=== PATIENT | male | born 1935 | race African-American/Black ===

== ENCOUNTER 2018-06-18 00:19 | Emergency (ER) | payer MEDICARE, MEDICAID ==
[~2018-06-18] VITALS: Ht 177.8 cm; Wt 63.5 kg
[~2018-06-18 00:19] MED LIST: ACETAMINOPHEN325 M1 ORAL; AMLODIPINE BESYL5 MG ORAL; ASPIR 8181 MG ORAL; ATORVASTATIN CA20 MG ORAL; DIPHENHYDRAMINE25 M1 ORAL; IPRATROPIU0.2 MG/1 M HHN; LOVENOX10 M4 SUBQ
--- NOTE | 2018-06-18 00:50 | Emergency Room Report ---
History of Present Illness General Chief Complaint: General Complaint Source: Patient, Medical Record, EMS Present Illness HPI Is an 82-year-old male who was just admitted to a new group home today. He was sent here for chief complaint of confusion and cough. Also with increased urination. Patient has no complaint. He denies any pain. This is secondary to group home note. There is no fever chills but no nausea no vomiting. Supposedly the cough is nonproductive in nature. Allergies: Coded Allergies: No Known Allergies (Unverified , 06/18/18) Patient History Past Medical History: see triage record, old chart reviewed, HTN Past Surgical History: other Pertinent Family History: none Social History: Reports: smoking Immunizations: other Reviewed Nursing Documentation: PMH: Agreed; PSxH: Agreed Nursing Documentation-PMH Hx Hypertension: Yes Review of Systems Eye: Denies: eye pain, blurred vision ENT: Denies: ear pain, nose congestion, throat swelling Respiratory: Reports: cough; Denies: shortness of breath Cardiovascular: Denies: chest pain, palpitations Gastrointestinal: Denies: abdominal pain, diarrhea, nausea, vomiting Musculoskeletal: Denies: back pain, joint pain Skin: Denies: rash Neurological: Denies: headache, numbness Endocrine: Denies: increased thirst, increased urine Hematologic/Lymphatic: Denies: easy bruising All Other Systems: negative except mentioned in HPI Physical Exam Vital Signs Date Time Temp Pulse Resp B/P (MAP) Pulse Ox O2 Delivery O2 Flow Rate FiO2 06/18/18 00:02 98.4 82 18 132/74 98 Room Air 98.4 vitals normal Sp02 EP Interpretation: reviewed, normal General Appearance: well appearing, no apparent distress, alert Head: normocephalic, atraumatic Eyes: bilateral eye PERRL, bilateral eye EOMI ENT: hearing grossly normal, normal pharynx Neck: full range of motion, supple, no meningismus Respiratory: chest non-tender, lungs clear, normal breath sounds Cardiovascular #1: regular rate, rhythm, no murmur Gastrointestinal: normal bowel sounds, non tender, no mass, no organomegaly, no bruit, non-distended Musculoskeletal: back normal, gait/station normal, normal range of motion Neurologic: alert, other - patient oriented to name and place. Does not know the year Psychiatric: mood/affect normal Skin: warm/dry Medical Decision Making Diagnostic Impression: Primary Impression: UTI (urinary tract infection) Qualified Codes: N30.00 - Acute cystitis without hematuria Additional Impression: Dementia Qualified Codes: F03.90 - Unspecified dementia without behavioral disturbance ER Course Patient presents with altered mental status. There is no evidence of any stroke. No evidence of pneumonia. He does have infection the urine. He most likely has dementia. Lab Results Impression labs normal Rhythm Strip Diag. Results Rhythm Strip Time: 02:04 EP Interpretation: yes Rate: 80 Rhythm: NSR, no PVC's, no ectopy Chest X-Ray Diagnostic Results Chest X-Ray Diagnostic Results : Chest X-Ray Ordered: Yes # of Views/Limited/Complete: 1 View Indication: Shortness of Breath EP Interpretation: Yes Interpretation: no consolidation, no effusion, no pneumothorax, no acute cardiopulmonary disease Impression: No acute disease Electronically Signed by: Anatoly Lipscomb MD CT/MRI/US Diagnostic Results CT/MRI/US Diagnostic Results : Imaging Test Ordered: CT head Impression negative per radiologist Last Vital Signs Date Time Temp Pulse Resp B/P (MAP) Pulse Ox O2 Delivery O2 Flow Rate FiO2 06/18/18 00:02 98.4 82 18 132/74 98 Room Air 98.4 Status: improved Disposition: XFER SNF Condition: Stable Scripts Cephalexin* (KEFLEX*) 500 Mg Capsule 500 MG ORAL TID, #21 CAP Prov: ANATOLY LIPSCOMB M.D. 06/18/18 Additional Instructions: Follow-up with your doctor in 7 days. Return if symptom worsen. ANATOLY LIPSCOMB M.D. Jun 18, 2018 00:50
[2018-06-18 00:59] LABS: BASOPHILS % (AUTO) 2.2 % (0.0-2.0); EOSINOPHILS % (AUTO) 4.9 % (0.0-3.0); HEMATOCRIT 32.5 % (42.0-52.0); HEMOGLOBIN 10.3 G/DL (14.2-18.0); MEAN CORPUSCULAR VOLUME 84 FL (80-99); MONOCYTES % (AUTO) 15.2 % (1.0-10.0); NEUTROPHILS % (AUTO) 57.7 % (45.0-75.0); PLATELET COUNT 296 K/UL (150-450); RED BLOOD COUNT 3.88 M/UL (4.70-6.10); RED CELL DISTRIBUTION WIDTH 14.1 % (11.6-14.8); WHITE BLOOD COUNT 5.6 K/UL (4.8-10.8)
[2018-06-18 01:11] LABS: ANION GAP 5 mmol/L (5-15); BLOOD UREA NITROGEN 9 mg/dL (7-18); CALCIUM 9.3 MG/DL (8.5-10.1); CARBON DIOXIDE 30 MMOL/L (21-32); CHLORIDE 105 MMOL/L (98-107); CREATININE 0.9 MG/DL (0.55-1.30); POTASSIUM 3.8 MMOL/L (3.5-5.1); SODIUM 139 MMOL/L (136-145)
[2018-06-18 01:44] LABS: BILIRUBIN, URINE NEGATIVE (NEGATIVE); GLUCOSE, URINE (UA) NEGATIVE (NEGATIVE); KETONES,URINE NEGATIVE (NEGATIVE); LEUKOCYTE ESTERASE ,URINE 3+ (NEGATIVE); NITRITE,URINE NEGATIVE (NEGATIVE); PH,URINE 5 (4.5-8.0); PROTEIN,URINE 1+ (NEGATIVE); UROBILINOGEN,URINE NORMAL (NORMAL)
[2018-06-18 01:52] LABS: APPEARANCE,URINE SLIGHTLY CLOUDY; COLOR,URINE YELLOW
[2018-06-18] MEDS ORDERED: CEPHALEXIN500 MG ORAL (02:05)
[2018-06-18] MEDS ORDERED: cefTRIAXone 1 GM in NS 55 ML IVPB ONE (02:15)
[2018-06-18 02:51] VITALS: BP 103/35
[2018-06-18 02:56] VITALS: BP 103/35
--- NOTE | 2018-06-18 08:53 | Diagnostic Imaging Report ---
Indication: Altered mental status Technique: Continuous helical CT scanning of the head was performed utilizing automated exposure control without intravenous contrast material. Axial and coronal reconstructions were obtained. Comparison: None CT dose: Total DLP 1295.15 mGycm; CTDI vol 70.38 mGy Findings: There is no acute intracranial hemorrhage, mass effect or cortical edema. Incidental note is made of septum vergae, considered a normal anatomic variant. Ventricles, cisterns and sulci are prominent consistent with atrophy. Periventricular hypoattenuation is seen, a nonspecific finding. There are atherosclerotic vascular calcifications. There are mild basal ganglia calcifications. Visualized mastoid air cells and paranasal sinuses are unremarkable. No focal lesions of the bony calvarium or soft tissues of the scalp are seen. IMPRESSION: No evidence of acute intracranial hemorrhage, mass effect or cortical edema. MRI may be obtained for more sensitive evaluation as clinically indicated. Atrophy and nonspecific periventricular hypoattenuation suggestive of chronic ischemic microvascular changes. This corresponds with the statrad preliminary report. The CT scanner at [facility] is accredited by the [employer] and the scans are performed using protocols designed to limit radiation exposure to as low as reasonably achievable to attain images of sufficient resolution adequate for diagnostic evaluation.
--- NOTE | 2018-06-18 08:56 | Diagnostic Imaging Report ---
Indication: Shortness of breath Technique: XRAY Chest 1v Comparison: None Findings: Heart size and mediastinal contours are within normal limits for technique. Multiple radiopaque buttons overlie the upper chest, external to the patient. There are some clips overlying the midline which may be postsurgical in etiology or may also be external to the patient. There is no focal consolidation, pneumothorax or pleural effusion. There are degenerative changes in the spine. Osseous structures demonstrate no acute abnormality. Impression: No radiographic evidence of acute cardiopulmonary disease.
== END 2018-06-18 02:58 ==
LOC: EDBD 00:19 → EMR 00:43
DX: N39.0 Urinary tract infection, site not specified (principal); F03.90 Unspecified dementia, unspecified severity, without behavioral disturbance, psychotic disturbance, mood disturbance, and anxiety; I10 Essential (primary) hypertension
CPT/HCPCS: 36415; 70450; 71045; 80048; 81001; 85025; 87086; 99284; J0696

== ENCOUNTER 2020-01-29 13:30 | Emergency (ER) | payer MEDICARE, OTHER ==
[~2020-01-29] VITALS: Ht 175.3 cm; Wt 63.5 kg
[~2020-01-29 13:30] MED LIST changes: +CEPHALEXIN500 MG ORAL
[2020-01-29 13:35] VITALS: BP 116/70
[2020-01-29] MEDS ORDERED: TRAMADOL HCL50 MG ORAL (13:40)
[2020-01-29] MEDS ORDERED: AMBIEN5 MG ORAL (13:40)
--- NOTE | 2020-01-29 13:58 | Emergency Room Report ---
History of Present Illness General Chief Complaint: Upper Respiratory Illness Source: Patient Present Illness HPI Disclaimer: Please note that this report is being documented using DRAGON technology. This can lead to erroneous entry secondary to incorrect interpretation by the dictating instrument. HPI: 84-year-old male history of hypertension hyperlipidemia, occasional smoker , presents for evaluation of cough. Symptoms present 1 week. Notes a nonproductive cough though sometimes will bring up some green phlegm. Denies fever, chills, nasal congestion, sore throat, shortness of breath, chest pain, nausea, vomiting, diarrhea. Denies any rash or other changes in his health. Denies any changes in appetite. Family brought him in for evaluation. No known sick contacts. No recent travel. PMH: Hypertension, hyperlipidemia PSH: Reviewed Allergies: Denies Social Hx: Occasional tobacco use, occasional alcohol use COVID-19 risk:Contact w/high r: No COVID-19 risk:Travel to affect: No Has patient experienced emerson: No Coronavirus symptoms experienc: Cough Allergies: Coded Allergies: No Known Allergies (Unverified , 06/18/18) Nursing Documentation-PMH Past Medical History: No History, Except For Hx Cardiac Problems: No - alzheimer Hx Hypertension: Yes Review of Systems All Other Systems: negative except mentioned in HPI Physical Exam Vital Signs Date Time Temp Pulse Resp B/P (MAP) Pulse Ox O2 Delivery O2 Flow Rate FiO2 01/29/20 13:35 98.8 80 18 116/70 (85) 95 Room Air General: Awake and alert, no acute distress HEENT: NC/AT. EOMI. Neck: Supple, trachea midline Chest Wall: No tenderness, no deformity Cardiovascular: RRR. S1 and S2 normal. No murmur appreciated Resp: Normal work of breathing. Intermittent cough throughout the exam. No crackles. Abdomen: Abdomen is soft, nondistended. Nontender Skin: Intact. No abrasions, laceration or rash over the exposed skin MSK: Normal tone and bulk. Moving all extremities. No obvious deformity. Neuro: Awake and alert. Mentating appropriately. Back/Spine: No midline tenderness in the cervical, thoracic or lumbosacral spine. Medical Decision Making Diagnostic Impression: Primary Impression: Cough ER Course 84-year-old male presents for evaluation of 1 week of cough. Differential includes was not limited to viral syndrome, influenza, pneumonia, bronchitis to name a few. He arrives with stable vital signs, afebrile, no respiratory distress. Overall he is well-appearing. Will obtain chest x-ray, flu swab and blood work. Laboratory Tests Test 01/29/20 14:00 White Blood Count 6.5 K/UL (4.8-10.8) Red Blood Count 4.07 M/UL (4.70-6.10) L Hemoglobin 11.5 G/DL (14.2-18.0) L Hematocrit 34.3 % (42.0-52.0) L Mean Corpuscular Volume 84 FL (80-99) Mean Corpuscular Hemoglobin 28.2 PG (27.0-31.0) Mean Corpuscular Hemoglobin Concent 33.5 G/DL (32.0-36.0) Red Cell Distribution Width 13.1 % (11.6-14.8) Platelet Count 320 K/UL (150-450) Mean Platelet Volume 5.8 FL (6.5-10.1) L Neutrophils (%) (Auto) 65.8 % (45.0-75.0) Lymphocytes (%) (Auto) 16.6 % (20.0-45.0) L Monocytes (%) (Auto) 13.9 % (1.0-10.0) H Eosinophils (%) (Auto) 2.0 % (0.0-3.0) Basophils (%) (Auto) 1.8 % (0.0-2.0) Sodium Level 145 MMOL/L (136-145) Potassium Level 4.0 MMOL/L (3.5-5.1) Chloride Level 107 MMOL/L (98-107) Carbon Dioxide Level 28 MMOL/L (21-32) Anion Gap 10 mmol/L (5-15) Blood Urea Nitrogen 14 mg/dL (7-18) Creatinine 0.9 MG/DL (0.55-1.30) Estimated Glomerular Filtration Rate > 60 mL/min (>60) Glucose Level 70 MG/DL (74-106) L Calcium Level 9.3 MG/DL (8.5-10.1) Total Bilirubin 0.3 MG/DL (0.2-1.0) Aspartate Amino Transferase (AST) 17 U/L (15-37) Alanine Aminotransferase (ALT) 13 U/L (12-78) Alkaline Phosphatase 56 U/L (46-116) Total Protein 7.8 G/DL (6.4-8.2) Albumin 3.3 G/DL (3.4-5.0) L Globulin 4.5 g/dL Albumin/Globulin Ratio 0.7 (1.0-2.7) L Microbiology Date/Time Source Procedure Growth Status 01/29/20 14:00 Nasal Nares - Final Complete 01/29/20 14:00 Nasal Nares - Final Complete Chest X-Ray Diagnostic Results Chest X-Ray Diagnostic Results : Chest X-Ray Ordered: Yes # of Views/Limited/Complete: 1 View Indication: Shortness of Breath EP Interpretation: Yes Interpretation: no consolidation, no effusion, no pneumothorax, no acute cardiopulmonary disease Impression: No acute disease Electronically Signed by: Electronically signed by Dr. Mg Light Reevaluation Time: 15:05 Last Vital Signs Date Time Temp Pulse Resp B/P (MAP) Pulse Ox O2 Delivery O2 Flow Rate FiO2 01/29/20 13:35 98.8 80 18 116/70 (85) 95 Room Air Reevaluation Impression Labs within normal limits. Chest x-ray does not show evidence of infiltrate. Lungs are hyperexpanded consistent with COPD. The patient has no respiratory distress and vital signs remained stable. He is afebrile. Discussed with his PMD, Dr. Crump. Patient will be discharged with doxycycline. I will prescribe albuterol inhaler. Follow-up on an outpatient basis and return with new or worsening symptoms. Recommending isolation precautions to patient and family. Disposition: HOME, SELF-CARE Condition: Stable Scripts Doxycycline Monohydrate* (DOXYCYCLINE MONOHYDRATE*) 100 Mg Capsule 100 MG ORAL Q12H, #14 CAP 0 Refills Prov: Mg Light MD 01/29/20 Albuterol Sulfate* (ALBUTEROL SULFATE MDI*) 8.5 Gm Hfa.aer.ad 2 PUFF INH Q4H PRN for cough/wheezing, #1 EA 0 Refills Prov: Mg Light MD 01/29/20 Mg Light MD Jan 29, 2020 13:58
[2020-01-29 14:31] LABS: ANION GAP 10 mmol/L (5-15); BLOOD UREA NITROGEN 14 mg/dL (7-18); CALCIUM 9.3 MG/DL (8.5-10.1); CARBON DIOXIDE 28 MMOL/L (21-32); CHLORIDE 107 MMOL/L (98-107); CREATININE 0.9 MG/DL (0.55-1.30); SODIUM 145 MMOL/L (136-145)
[2020-01-29 14:37] LABS: ALANINE AMINOTRANSFERASE 13 U/L (12-78); ALBUMIN 3.3 G/DL (3.4-5.0); ALBUMIN/GLOBULIN RATIO 0.7 (1.0-2.7); ALKALINE PHOSPHATASE 56 U/L (46-116); ASPARTATE AMINO TRANSFERASE 17 U/L (15-37); BILIRUBIN,TOTAL 0.3 MG/DL (0.2-1.0)
[2020-01-29 14:40] LABS: BASOPHILS % (AUTO) 1.8 % (0.0-2.0); HEMATOCRIT 34.3 % (42.0-52.0); HEMOGLOBIN 11.5 G/DL (14.2-18.0); LYMPHOCYTES % (AUTO) 16.6 % (20.0-45.0); MEAN CORPUSCULAR VOLUME 84 FL (80-99); MONOCYTES % (AUTO) 13.9 % (1.0-10.0); NEUTROPHILS % (AUTO) 65.8 % (45.0-75.0); PLATELET COUNT 320 K/UL (150-450); RED BLOOD COUNT 4.07 M/UL (4.70-6.10); RED CELL DISTRIBUTION WIDTH 13.1 % (11.6-14.8); WHITE BLOOD COUNT 6.5 K/UL (4.8-10.8)
--- NOTE | 2020-01-29 14:44 | Diagnostic Imaging Report ---
Indication: Dyspnea Comparison: None A single view chest radiograph was obtained. Findings: No definite infiltrate or pulmonary vascular congestion identified. The lungs are hyperexpanded. No infiltrate seen. The heart is normal in size. The aorta is mildly enlarged consistent with atherosclerotic vascular disease. The bones are osteopenic. There are thoracic vertebral enthesophytes at multiple levels. Impression: COPD
[2020-01-29] MEDS ORDERED: ALBUTEROL SULF8.5 GM INH (15:01)
[2020-01-29] MEDS ORDERED: DOXYCYCLINE MO100 MG ORAL (15:01)
[2020-01-29 15:08] VITALS: BP 145/6
== END 2020-01-29 15:08 | disposition home or self-care (01) ==
LOC: EMR 14:19
DX: R05 Cough (principal); I10 Essential (primary) hypertension; G30.9 Alzheimer's disease, unspecified
CPT/HCPCS: 36415; 71045; 80053; 85025; 86710; 99283

== ENCOUNTER 2020-06-04 13:16 | Inpatient (IN) | payer MEDICARE, OTHER ==
[~2020-06-04] VITALS: Ht 167.6 cm; Wt 55.8 kg
[~2020-06-04 13:16] MED LIST changes: +ALBUTEROL SULF8.5 GM INH; +AMBIEN5 MG ORAL; +DOXYCYCLINE MO100 MG ORAL; +TRAMADOL HCL50 MG ORAL
--- NOTE | 2020-06-04 13:30 | NUR ---
ED Nurse Note: Pt ambulated to ED with daughter, trell. per daughter; pt fell twice in the last two weeks, pt has history of alziehmers and is more confused today. Addendum: 06/04/20 at 1639 by PDELEON ED Nurse Note: telephone report given to MIRLANDE Zavaleta for continuity.
[2020-06-04 13:43] VITALS: BP 127/68
--- NOTE | 2020-06-04 13:53 | NUR ---
ED Nurse Note: Pt taken to Ct on fil[facility]
--- NOTE | 2020-06-04 13:54 | Emergency Room Report ---
History of Present Illness General Chief Complaint: Dizziness Source: Family Member (Jv Ventura M.D.) Present Illness HPI Disclaimer: Please note that this report is being documented using [employer] technology. This can lead to erroneous entry secondary to incorrect interpretation by the dictating instrument. HPI: 84-year-old male history of Alzheimer's dementia, hypertension presented for dizziness and syncope. Patient brought in by granddaughter. Apparently over the last 2 weeks patient has had a few "dizzy spells", one a few days ago where he passed out and another this morning. Patient has no complaints on my exam but does have a history of Alzheimer's dementia. Patient is on a baby aspirin but otherwise does not take any anticoagulants. He denies any chest pain shortness of breath fevers nausea or vomiting. Primary care doctor is Dr. Tayo Crump " PMH: Alzheimer's, hypertension PSH: Reviewed Social Hx: Former smoker denies drinking or illicit drug use (Jv Ventura M.D.) Allergies: Coded Allergies: No Known Allergies (Unverified , 06/18/18) COVID-19 Screening Contact w/high risk pt: No Recent Travel to affected area: No Experienced COVID-19 symptoms?: No COVID-19 symptoms experienced: Cough COVID-19 Testing performed [facility]: No (Jv Ventura M.D.) Patient History Reviewed Nursing Documentation: PMH: Agreed; PSxH: Agreed (Jv Ventura M.D.) Nursing Documentation-PMH Hx Cardiac Problems: No - alzheimer Hx Hypertension: Yes (Jv Ventura M.D.) Review of Systems All Other Systems: negative except mentioned in HPI (Jv Ventura M.D.) Physical Exam Vital Signs Date Time Temp Pulse Resp B/P (MAP) Pulse Ox O2 Delivery O2 Flow Rate FiO2 06/04/20 13:26 98.6 59 16 127/68 (87) 96 Room Air Sp02 EP Interpretation: reviewed, normal General Appearance: well appearing, no apparent distress Head: normocephalic, atraumatic Eyes: bilateral eye PERRL, bilateral eye EOMI ENT: hearing grossly normal, moist mucus membranes Neck: full range of motion, supple Respiratory: lungs clear, normal breath sounds, no rhonchi, no respiratory distress, no retraction, no wheezing Cardiovascular #1: normal peripheral pulses, regular rate, rhythm, no murmur Gastrointestinal: non tender, soft, non-distended, no guarding Neurologic: alert, motor strength/tone normal, normal gait, grossly normal, no focal defects, other - Alert and oriented x2 Skin: normal color, warm/dry (Jv Ventura M.D.) Medical Decision Making Diagnostic Impression: Primary Impression: Syncope Additional Impressions: Alzheimer's dementia HTN (hypertension) Bradycardia ER Course MDM: Differential included but not limited to syncope, arrhythmia, dehydration, UTI, worsening dementia Clinical course-IV inserted fluids ordered laboratory studies are sent CT scan of the brain ordered. I spoke with the granddaughter who was concerned about the 2 episodes of dizzy spells and passing out. She denied any other complaints for him including vomiting. She reports that he has been eating okay. Patient currently lives with family. Plan-patient signed out to oncoming physician to follow-up on laboratory studies and final disposition. (Jv Ventura M.D.) ER Course I, Dr Joya Miles, have assumed care of the patient. Initial workup, history , and physical performed by previous provider has been reviewed by myself and I have performed my own physical exam of the patient. On my examination, patient is neurologically intact. No focal deficits. EKG shows sinus bradycardia without STEMI or acute ischemia. CT head is negative for intracranial hemorrhage. Troponin negative x1. Suspect recurrent syncope secondary to bradycardia. Patient is stable at this time. I spoke with Dr. Crump, and reviewed the patients presentation, workup, results , and treatment. They will admit the patient for further care and evaluation, and assume care of the patient at this time. (oJya Miles D.O.) EKG Diagnostic Results Rate: bradycardiac Rhythm: other - Sinus bradycardia with PACs ST Segments: no acute changes (Jv Ventura M.D.) Rhythm Strip Diag. Results Rhythm Strip Time: 15:51 EP Interpretation: yes Rate: 79 Rhythm: NSR, no PVC's, no ectopy (Joya Miles D.O.) Chest X-Ray Diagnostic Results Chest X-Ray Diagnostic Results : RICHIE Scribe Text Chest X-Ray: Views: [ 1 ] view(s) Indication: syncope Findings: Normal heart size. Mediastinum normal. No infiltrate. Impression: NAD The X-ray(s) were independently viewed and interpreted contemporaneously Electronically signed by Joya ochoa DO (Joya Miles D.O.) Last Vital Signs Date Time Temp Pulse Resp B/P (MAP) Pulse Ox O2 Delivery O2 Flow Rate FiO2 06/04/20 13:43 98.6 59 16 127/68 96 Room Air (Jv Ventura M.D.) Disposition: ADMITTED INPATIENT Admit Decision Time: 14:30 (Joya Miles D.O.) Condition: Stable vJ Ventura M.D. Jun 04, 2020 13:54 Joya Miles D.O. Jun 04, 2020 14:50
--- NOTE | 2020-06-04 14:19 | NUR ---
ED Nurse Note: Urine specimen collected via I&O catheter. pt tolerated well. urine specimen sent to lab
--- NOTE | 2020-06-04 14:19 | Diagnostic Imaging Report ---
Indications: Syncope Technique: Spiral acquisitions obtained through the brain. Angled axial and coronal 5 x 5 mm slices were reconstructed. Total dose length product 1018 mGycm. CTDI vol(s) 53 mGy. Dose reduction achieved using automated exposure control Comparison: None. Findings: There is age-related enlargement of the ventricles and extra axial CSF spaces. There is periventricular deep white matter low-attenuation, consistent with chronic microvascular ischemic change. There is a patent cavum septum lucidum-normal variant. No acute intracranial hemorrhage or edema. No mass effect or midline shift. Otherwise normal clifford-white differentiation. Intact calvarium. The mastoids are clear. Visualized orbits are unremarkable. There is some chronic appearing inward displacement of the medial orbital wall on the right. Impression: Chronic and age-related changes Negative for acute intracranial bleed or mass effect. The CT scanner at [facility] is accredited by the [employer] and the scans are performed using protocols designed to limit radiation exposure to as low as reasonably achievable to attain images of sufficient resolution adequate for diagnostic evaluation.
[2020-06-04 14:22] LABS: BASOPHILS % (AUTO) 2.9 % (0.0-2.0); EOSINOPHILS % (AUTO) 7.5 % (0.0-3.0); HEMATOCRIT 36.9 % (42.0-52.0); HEMOGLOBIN 11.6 G/DL (14.2-18.0); LYMPHOCYTES % (AUTO) 29.5 % (20.0-45.0); MEAN CORPUSCULAR VOLUME 89 FL (80-99); MONOCYTES % (AUTO) 13.8 % (1.0-10.0); NEUTROPHILS % (AUTO) 46.3 % (45.0-75.0); PLATELET COUNT 257 K/UL (150-450); RED BLOOD COUNT 4.15 M/UL (4.70-6.10); RED CELL DISTRIBUTION WIDTH 13.8 % (11.6-14.8); WHITE BLOOD COUNT 4.9 K/UL (4.8-10.8)
[2020-06-04 14:31] LABS: ANION GAP 7 mmol/L (5-15); BLOOD UREA NITROGEN 14 mg/dL (7-18); CALCIUM 9.5 MG/DL (8.5-10.1); CARBON DIOXIDE 28 MMOL/L (21-32); CHLORIDE 105 MMOL/L (98-107); POTASSIUM 4.2 MMOL/L (3.5-5.1); SODIUM 140 MMOL/L (136-145)
--- NOTE | 2020-06-04 14:33 | NUR ---
ED Nurse Note: *correction Pt arrived with Saumya Parul Kobe. per granddaughter the pt confuses her for her mother trell. Parul phone number: [phone]
[2020-06-04 14:41] LABS: ALANINE AMINOTRANSFERASE 12 U/L (12-78); ALBUMIN 3.9 G/DL (3.4-5.0); ALKALINE PHOSPHATASE 53 U/L (46-116); ASPARTATE AMINO TRANSFERASE 19 U/L (15-37); BILIRUBIN,TOTAL 0.3 MG/DL (0.2-1.0)
[2020-06-04 14:53] LABS: APPEARANCE,URINE CLEAR; BILIRUBIN, URINE NEGATIVE (NEGATIVE); GLUCOSE, URINE (UA) NEGATIVE (NEGATIVE); KETONES,URINE NEGATIVE (NEGATIVE); LEUKOCYTE ESTERASE ,URINE NEGATIVE (NEGATIVE); NITRITE,URINE NEGATIVE (NEGATIVE); PH,URINE 6 (4.5-8.0); PROTEIN,URINE NEGATIVE (NEGATIVE); UROBILINOGEN,URINE NORMAL MG/DL (0.0-1.0)
[2020-06-04 14:54] LABS: COLOR,URINE YELLOW
[2020-06-04 15:43] VITALS: BP 133/79
--- NOTE | 2020-06-04 15:45 | NUR ---
ED Nurse Note: Pt urinated onself. pt changed out of clothing, placed into new gown. new linens were provided. pt given x2 warm blankets. IV fluids discontinued.
--- NOTE | 2020-06-04 15:47 | Diagnostic Imaging Report ---
Indication: Chest pain Technique: One view of the chest Comparison: 01/29/2020 Findings: No acute infiltrates, effusions, or congestion. Tortuous calcified aorta. Normal heart size. Upper mediastinum unremarkable. No significant change Impression: No acute process.
--- NOTE | 2020-06-04 16:05 | NUR ---
ED Nurse Note: bed assignment 212-2 given, was informed to wait until room is clean to transfer pt.
--- NOTE | 2020-06-04 16:14 | NUR ---
ED Nurse Note: Informed Granddaughter Parul, about pt transfer to TELE
--- NOTE | 2020-06-04 16:15 | NUR ---
ED Nurse Note: Attempted to give report for 212-2. unable to complete task at this time. informed CRN.
--- NOTE | 2020-06-04 16:40 | NUR ---
TRANSFER TO FLOOR: Patient transferred to tele as ordered, per ermd. Report given to sonal abbott. Belongings given to sonal abbott and page baker. Family (PAGE) granddaughter informed of transfer
[2020-06-04 16:50] VITALS: BP 124/73
--- NOTE | 2020-06-04 18:01 | Cardiac Electrophysiology PN ---
Subjective Subjective [id number] Objective Last 24 Hour Vital Signs Date Time Temp Pulse Resp B/P (MAP) Pulse Ox O2 Delivery O2 Flow Rate FiO2 06/04/20 16:48 98.7 74 15 124/73 97 Room Air 06/04/20 15:43 98.6 76 16 133/79 96 Room Air 06/04/20 13:43 98.6 59 16 127/68 96 Room Air 06/04/20 13:43 59 16 Room Air 06/04/20 13:26 98.6 59 16 127/68 (87) 96 Room Air Laboratory Tests Test 06/04/20 13:41 06/04/20 14:18 White Blood Count 4.9 K/UL (4.8-10.8) Red Blood Count 4.15 M/UL (4.70-6.10) L Hemoglobin 11.6 G/DL (14.2-18.0) L Hematocrit 36.9 % (42.0-52.0) L Mean Corpuscular Volume 89 FL (80-99) Mean Corpuscular Hemoglobin 27.9 PG (27.0-31.0) Mean Corpuscular Hemoglobin Concent 31.4 G/DL (32.0-36.0) L Red Cell Distribution Width 13.8 % (11.6-14.8) Platelet Count 257 K/UL (150-450) Mean Platelet Volume 6.4 FL (6.5-10.1) L Neutrophils (%) (Auto) 46.3 % (45.0-75.0) Lymphocytes (%) (Auto) 29.5 % (20.0-45.0) Monocytes (%) (Auto) 13.8 % (1.0-10.0) H Eosinophils (%) (Auto) 7.5 % (0.0-3.0) H Basophils (%) (Auto) 2.9 % (0.0-2.0) H Sodium Level 140 MMOL/L (136-145) Potassium Level 4.2 MMOL/L (3.5-5.1) Chloride Level 105 MMOL/L (98-107) Carbon Dioxide Level 28 MMOL/L (21-32) Anion Gap 7 mmol/L (5-15) Blood Urea Nitrogen 14 mg/dL (7-18) Creatinine 1.0 MG/DL (0.55-1.30) Estimat Glomerular Filtration Rate > 60 mL/min (>60) Glucose Level 89 MG/DL (74-106) Calcium Level 9.5 MG/DL (8.5-10.1) Total Bilirubin 0.3 MG/DL (0.2-1.0) Aspartate Amino Transf (AST/SGOT) 19 U/L (15-37) Alanine Aminotransferase (ALT/SGPT) 12 U/L (12-78) Alkaline Phosphatase 53 U/L (46-116) Troponin I 0.000 ng/mL (0.000-0.056) Total Protein 7.8 G/DL (6.4-8.2) Albumin 3.9 G/DL (3.4-5.0) Globulin 3.9 g/dL Albumin/Globulin Ratio 1.0 (1.0-2.7) Urine Color Yellow Urine Appearance Clear Urine pH 6 (4.5-8.0) Urine Specific [place] 1.015 (1.005-1.035) Urine Protein Negative (NEGATIVE) Urine Glucose (UA) Negative (NEGATIVE) Urine Ketones Negative (NEGATIVE) Urine Blood 3+ (NEGATIVE) H Urine Nitrite Negative (NEGATIVE) Urine Bilirubin Negative (NEGATIVE) Urine Urobilinogen Normal MG/DL (0.0-1.0) Urine Leukocyte Esterase Negative (NEGATIVE) Urine RBC 5-10 /HPF (0 - 0) H Urine WBC 0-2 /HPF (0 - 0) Urine Squamous Epithelial Cells Occasional /LPF Urine Bacteria Occasional /HPF (NONE) Maurilio Lares MD Jun 04, 2020 18:01
--- NOTE | 2020-06-04 18:53 | NUR ---
NURSE NOTES: Requested admission orders on voicemail of Dr. Tayo Crump.
--- NOTE | 2020-06-04 19:00 | Consultation ---
DATE OF CONSULTATION: 06/04/2020 CARDIOLOGY CONSULTATION CONSULTING PHYSICIAN: Maurilio Lares MD REFERRING PHYSICIAN: Tayo Crump DO REASON FOR CONSULTATION: Recurrent syncope and hypertension. HISTORY OF PRESENT ILLNESS: The patient is an 84-year-old gentleman with history of hypertension, Alzheimer's dementia, and recurrent syncope, who was brought in by granddaughter for syncopal episodes. Apparently in the last 2 weeks, the patient has been having dizzy spells a few days ago in the past, but again another time this morning. The patient denies any chest pain, palpitation, or shortness of breath and is pleasantly confused, especially denies any chest pain or shortness of breath REVIEW OF SYSTEMS: Negative other than what was mentioned in the history of present illness. PAST MEDICAL HISTORY: As mentioned above. FAMILY HISTORY: Noncontributory. SOCIAL HISTORY: Does not smoke or drink alcohol. PHYSICAL EXAMINATION: VITAL SIGNS: Blood pressure 127/68, pulse 69, respirations 18, and temperature 98.6. HEAD AND NECK: Showed no JVD. LUNGS: Clear. CARDIOVASCULAR: Shows regular S1 and S2 with no gallop or murmur. ABDOMEN: Soft. EXTREMITIES: No pitting edema. LABORATORY AND DIAGNOSTIC DATA: His labs show white count of 4.9, hemoglobin 11.6, hematocrit 37, and platelet count 257,000. Sodium 140, potassium 4.2, BUN of 14, creatinine 1.9, and glucose of 89. Troponin is negative. ASSESSMENT AND PLAN: 1. Recurrent syncope. Not sure if this is syncope or fall. The patient has dementia and is unable to provide meaningful information. We will completely rule out NM protocol, repeat EKG, and get an echocardiogram for further evaluation carotid duplex, and orthostatic vital signs. 2. Hypertension. Blood pressure currently stable. I will add p.r.n. clonidine and watch the patient on telemetry. 3. Advanced dementia. Thank you very much for allowing me to participate in the care of this patient. Please do not hesitate to contact me for any questions regarding my evaluation. Maurilio Lares M.D. : Gabi JOB#: [id number] CC:
--- NOTE | 2020-06-04 19:46 | NUR ---
HAND-OFF: Report given to Jimy Lopez RN. Patient in semi-Das's position, awake and alert to name and place, confused, bed in lowest position, call light within reach, yellow socks on, yellow gown on, fall risk bracelet on left wrist IV patent in left forearm 20 gauge, saline locked, no c/o pain, no SOB, on room air, saturating at 99 percent. Endorsing remainder ofadmission, message left on Dr. Tayo Crump for admission orders, Dr. Maurilio Lares placed orders and has seen patient.
--- NOTE | 2020-06-04 19:46 | NUR ---
NURSE NOTES: Patient received from Odilon RN. Patient in stable condition calm and comfortable in bed. Patient in yellow gown and yellow socks. Bed alarm on. Bed in lowest position and locked. Bed alarm on at zone 1. No s/s of pain and or distress. Call light and bedside table within reach. Will continue plan of care. Primary MD notified for admit orders. Awaiting call back.
[2020-06-04 20:00] VITALS: BP 135/68
--- NOTE | 2020-06-04 20:24 | NUR ---
NURSE NOTES: Dr. Crump called back for admit orders. Orders verified and carried out.
[2020-06-04] MEDS ORDERED: Zolpidem 5mg tab ORAL PRN (21:15)
[2020-06-04] MEDS ORDERED: traMADol 50mg tab ORAL PRN (21:15)
[2020-06-04] MEDS ORDERED: HydrALAZINE 50mg tab ORAL PRN (21:30)
[2020-06-04] MEDS ORDERED: HydrALAZINE 50mg tab ORAL SCH (22:00)
[2020-06-05] VITALS: BP 117/79
--- NOTE | 2020-06-05 03:13 | NUR ---
NURSE NOTES: Patient keeps getting up in bed. Bed alarm is on at zone 1. Patient wearing yellow gown and yellow socks. Educated patient on using call light for help before getting up in bed. Frequent rounding done. Will continue to monitor.
[2020-06-05 04:00] VITALS: BP 129/69
--- NOTE | 2020-06-05 07:28 | NUR ---
NURSE NOTES: Received patient in bed. Awake, A/O x2, hard of hearing. On room air, respirations unlabored. Denies pain at this time. IV in the Left forearm, site intact. Bed low and locked, side rails up x2. Continued cardiac monitoring, no c/o chest pain or respiratory distress.
--- NOTE | 2020-06-05 07:53 | NUR ---
HAND-OFF: Report given to Jaye SANTOS. Patient in stable condition. Endorsed plan of care. Addendum: 06/05/20 at 0754 by Miguelina Lopez RN HAND-OFF: Report given to Megan SANTOS. Patient in stable condition. Endorsed plan of care.
[2020-06-05 08:00] VITALS: BP 119/75
--- NOTE | 2020-06-05 08:03 | NUR ---
NURSE NOTES: per doctor Kristian Dc doxycycline home med.
--- NOTE | 2020-06-05 08:54 | Diagnostic Imaging Report ---
EXAM: US Duplex Bilateral Extracranial Arteries CLINICAL HISTORY: SYNCOPE TECHNIQUE: Real-time duplex ultrasound scan of the extracranial arteries integrating B-mode two-dimensional vascular structure, Doppler spectral analysis and color flow Doppler imaging. COMPARISON: No relevant prior studies available. FINDINGS: Calcific atherosclerotic disease is noted in the bilateral carotid circulations. No evidence of hemodynamically significantly elevated velocities. Overall, there is attenuated the velocity of flow in the bilateral internal carotid arteries with maximal velocity measured at 59 cm/s on the right and 85 cm on the left. The ICA/CCA ratio is measured at 1.4 on the right and 2 on the left. CAROTID STENOSIS REFERENCE USING SRU CRITERIA: Mild - <50% stenosis. ICA PSV is less than 125 cm/second and plaque or intimal thickening is visible. Moderate - 50-69% stenosis. ICA PSV is 125 to 230 cm/second and plaque is visible. Severe - 70-94% stenosis. ICA PSV is more than 230 cm/second and visible plaque with lumen narrowing is seen. Near occlusion - 95-99% stenosis. ICA PSV is variable and significant plaque with luminal narrowing is seen. Occluded - 100% stenosis. No flow identified. IMPRESSION: Atherosclerotic calcifications of the bilateral carotid circulations. By velocity criteria, there is no evidence of hemodynamically significant stenosis. However, based on left ICA/CCA ratio of 2, there is borderline 50-69% stenosis in the in the left internal carotid artery. Overall decreased velocities in the carotid circulations may be due to poor cardiac output.
[2020-06-05] MEDS ORDERED: Enoxaparin 40mg Inj SUBQ SCH (09:00)
[2020-06-05] MEDS ORDERED: Aspirin EC 81mg tab ORAL SCH (09:00)
--- NOTE | 2020-06-05 11:58 | History & Physical ---
History of Present Illness General Reason for Hospitalization: Dizziness Present Illness Allergies: Coded Allergies: No Known Allergies (Unverified , 06/18/18) COVID-19 Screening Contact w/high risk pt: No Recent Travel to affected area: No Experienced COVID-19 symptoms?: No COVID-19 symptoms experienced: Cough Medication History Scheduled Amlodipine Besylate* (Amlodipine Besylate*), 5 MG ORAL DAILY, (Reported) Aspirin* (Aspir 81*), 81 MG ORAL DAILY, (Reported) Doxycycline Monohydrate* (Doxycycline Monohydrate*), 100 MG ORAL Q12H Scheduled PRN Albuterol Sulfate* (Albuterol Sulfate Mdi*), 2 PUFF INH Q4H PRN for cough/ wheezing Tramadol Hcl* (Ultram*), 50 MG ORAL Q12HR PRN for For Pain, (Reported) Zolpidem Tartrate* (Ambien*), 5 MG ORAL BEDTIME PRN for Insomnia, (Reported) Patient History Healthcare decision maker N Resuscitation status Advanced Directive on File Review of Systems Review of Symptoms General ROS: no weight loss or fever Psychological ROS: no depression or mood changes, no memory loss Ophthalmic ROS: no visual changes or eye irritation ENT ROS: no nasal congestion, hearing loss, dizziness Allergy and Immunology ROS: no allergic symptoms or urticaria Hematological and Lymphatic ROS: no swollen glands, unusual bleeding or bruising Endocrine ROS: no polyuria, polydipsia, weight changes, temperature intolerance Respiratory ROS: no cough, shortness of breath, or wheezing Cardiovascular ROS: no chest pain or dyspnea on exertion Gastrointestinal ROS: denies abdominal pain, bright red blood in stool. Musculoskeletal ROS: no myalgias or arthralgias Neurological ROS: no TIA or stroke symptoms Dermatological ROS: no new or changing skin lesions, rashes or pruritis Physical Exam Physical Exam General appearance: alert, cooperative, no distress, appears stated age Head: Normocephalic, without obvious abnormality, atraumatic Eyes: conjunctivae/corneas clear. PERRL, EOM's intact. Fundi benign Throat: Lips, mucosa, and tongue normal. Teeth and gums normal Neck: supple, symmetrical, trachea midline, no adenopathy, thyroid: not enlarged, symmetric, no tenderness/mass/nodules, no carotid bruit and no JVD Lungs: clear to auscultation bilaterally Heart: regular rate and rhythm, S1, S2 normal, no murmur, click, rub or gallop Abdomen: soft, non-tender. Bowel sounds normal. No masses, no organomegaly Extremities: extremities normal, atraumatic, no cyanosis or edema Pulses: 2+ and symmetric Skin: Skin color, texture, turgor normal. No rashes or lesions Neurologic: Grossly normal Last 24 Hour Vital Signs Date Time Temp Pulse Resp B/P (MAP) Pulse Ox O2 Delivery O2 Flow Rate FiO2 06/05/20 09:12 74 119/75 06/05/20 09:00 Room Air 06/05/20 08:00 98.2 54 20 119/75 (90) 96 06/05/20 08:00 59 06/05/20 04:00 60 06/05/20 04:00 98.6 56 18 129/69 (89) 97 06/05/20 00:00 98.4 61 18 117/79 (92) 98 06/05/20 00:00 61 06/04/20 21:00 Room Air 06/04/20 20:00 97.1 75 18 135/68 (90) 99 06/04/20 20:00 65 06/04/20 18:29 Room Air 06/04/20 16:50 95.7 63 16 124/73 (90) 99 06/04/20 16:48 98.7 74 15 124/73 97 Room Air 06/04/20 16:00 65 06/04/20 15:43 98.6 76 16 133/79 96 Room Air 06/04/20 13:43 98.6 59 16 127/68 96 Room Air 06/04/20 13:43 59 16 Room Air 06/04/20 13:26 98.6 59 16 127/68 (87) 96 Room Air Intake and Output 06/04/20 06/05/20 19:00 07:00 Intake Total 1000 ml Output Total 0 ml Balance 1000 ml Intake IV Total 1000 ml Output Urine Total 0 ml # Voids 2 4 Laboratory Tests Test 06/04/20 13:41 06/04/20 14:18 06/05/20 08:10 White Blood Count 4.9 K/UL (4.8-10.8) Red Blood Count 4.15 M/UL (4.70-6.10) L Hemoglobin 11.6 G/DL (14.2-18.0) L Hematocrit 36.9 % (42.0-52.0) L Mean Corpuscular Volume 89 FL (80-99) Mean Corpuscular Hemoglobin 27.9 PG (27.0-31.0) Mean Corpuscular Hemoglobin Concent 31.4 G/DL (32.0-36.0) L Red Cell Distribution Width 13.8 % (11.6-14.8) Platelet Count 257 K/UL (150-450) Mean Platelet Volume 6.4 FL (6.5-10.1) L Neutrophils (%) (Auto) 46.3 % (45.0-75.0) Lymphocytes (%) (Auto) 29.5 % (20.0-45.0) Monocytes (%) (Auto) 13.8 % (1.0-10.0) H Eosinophils (%) (Auto) 7.5 % (0.0-3.0) H Basophils (%) (Auto) 2.9 % (0.0-2.0) H Sodium Level 140 MMOL/L (136-145) Potassium Level 4.2 MMOL/L (3.5-5.1) Chloride Level 105 MMOL/L (98-107) Carbon Dioxide Level 28 MMOL/L (21-32) Anion Gap 7 mmol/L (5-15) Blood Urea Nitrogen 14 mg/dL (7-18) Creatinine 1.0 MG/DL (0.55-1.30) Estimat Glomerular Filtration Rate > 60 mL/min (>60) Glucose Level 89 MG/DL (74-106) Calcium Level 9.5 MG/DL (8.5-10.1) Total Bilirubin 0.3 MG/DL (0.2-1.0) Aspartate Amino Transf (AST/SGOT) 19 U/L (15-37) Alanine Aminotransferase (ALT/SGPT) 12 U/L (12-78) Alkaline Phosphatase 53 U/L (46-116) Troponin I 0.000 ng/mL (0.000-0.056) 0.000 ng/mL (0.000-0.056) Total Protein 7.8 G/DL (6.4-8.2) Albumin 3.9 G/DL (3.4-5.0) Globulin 3.9 g/dL Albumin/Globulin Ratio 1.0 (1.0-2.7) Urine Color Yellow Urine Appearance Clear Urine pH 6 (4.5-8.0) Urine Specific [place] 1.015 (1.005-1.035) Urine Protein Negative (NEGATIVE) Urine Glucose (UA) Negative (NEGATIVE) Urine Ketones Negative (NEGATIVE) Urine Blood 3+ (NEGATIVE) H Urine Nitrite Negative (NEGATIVE) Urine Bilirubin Negative (NEGATIVE) Urine Urobilinogen Normal MG/DL (0.0-1.0) Urine Leukocyte Esterase Negative (NEGATIVE) Urine RBC 5-10 /HPF (0 - 0) H Urine WBC 0-2 /HPF (0 - 0) Urine Squamous Epithelial Cells Occasional /LPF Urine Bacteria Occasional /HPF (NONE) Pro-B-Type Natriuretic Peptide 175 pg/mL (0-125) H Thyroid Stimulating Hormone (TSH) 2.173 uiU/mL (0.358-3.740) Free Thyroxine 0.96 NG/DL (0.76-1.46) Height (Feet): 5 Height (Inches): 10.00 Weight (Pounds): 110 Medications Current Medications Medications (Trade) Dose Ordered Sig/Eva Route PRN Reason Start Time Stop Time Status Last Admin Dose Admin Amlodipine Besylate (Norvasc) 5 mg DAILY ORAL 06/05/20 09:00 07/05/20 08:59 06/05/20 09:12 Aspirin (Ecotrin) 81 mg DAILY ORAL 06/05/20 09:00 07/20/20 08:59 06/05/20 09:11 Clonidine HCl (Catapres Tab) 0.1 mg Q4H PRN ORAL For High Blood Pressure 06/04/20 18:15 09/02/20 18:14 Enoxaparin Sodium (Lovenox) 40 mg DAILY SUBQ 06/05/20 09:00 09/03/20 08:59 06/05/20 09:17 Hydralazine HCl (Apresoline) 50 mg Q8HR PRN ORAL SBP greater than 140 06/04/20 21:30 09/02/20 21:29 Tramadol HCl (Ultram) 50 mg Q12H PRN ORAL pain 06/04/20 21:15 06/11/20 21:14 Zolpidem Tartrate (Ambien) 5 mg HSPRN PRN ORAL Insomnia 06/04/20 21:15 06/11/20 21:14 Assessment/Plan Assessment/Plan: Internal Med H&P Covering for Dr. Tayo Crump DOS 06/05/2020 RFA: Syncope v fall Present Illness 84-year-old male history of Alzheimer's dementia, hypertension presented for dizziness and syncope. Patient brought in by granddaughter. Apparently over the last 2 weeks patient has had a few "dizzy spells", one a few days ago where he passed out and another this morning. Patient has no complaints on my exam but does have a history of Alzheimer's dementia. Patient is on a baby aspirin but otherwise does not take any anticoagulants. He denies any chest pain shortness of breath fevers nausea or vomiting. Primary care doctor is Dr. Tayo Crump PMH: Alzheimer's, hypertension PSH: Reviewed Social Hx: Former smoker denies drinking or illicit drug use ROS (review of systems): Constitutional: No fever, no chills, no night sweats, no fatigue Skin: No rashes, lumps, itchiness, dryness HEENT: No REYNOLDS, ear ache, visual changes, double vision, nosebleeds Breasts: No lumps, pain, discharge Pulmonary: No cough, sputum, shortness of breath, coughing up blood Cardiovascular: No chest pain, tightness, palpitations, syncope, PND GI: No nausea, vomiting, diarrhea, melena, hematochezia, change in appetite, : No dysuria, frequency, urgency, urinary incontinence, foamy urine Musculoskeletal: No joint swelling or muscle pain, trauma, back pain Neurologic: No dizziness, fainting, seizures, changes in smell or taste Psychiatric: No nervousness, stress, or depression, anxiety, hallucinations Endocrine: No weight change, heat or cold intolerance, tremor, insomnia Physical Exam: Vitals: reviewed General: NAD HEENT: nc, at Neck: supple Chest: clear breath sounds bilaterally Cardiovascular: RRR, no s3, s4 Abdomen: soft, nontender, nd Extremities: no cce, normal range of motion Neuro: alert and oriented Coded Allergies: No Known Allergies (Unverified , 06/18/18) COVID-19 Screening Contact w/high risk pt: No Recent Travel to affected area: No Experienced COVID-19 symptoms?: No COVID-19 symptoms experienced: Cough COVID-19 Testing performed REFRACTORY GRINDER OPERATOR: No Patient History Reviewed Nursing Documentation: PMH: Agreed; PSxH: Agreed Labs noted Imaging reviewed Assessment and Recs # Syncope v fall --> as per cards recs --> trop neg x 2 --> ekg reviewd and on tele, rhythm strip --> 2d echo --> neuro prn eval # Alzheimer's dementia --> appears to be chronic per fam # HTN (hypertension) --> amlodipine and hydralazine # Sinus bradycardia with PACs --> ST Segments: no acute changes # Anemia of chronic disease due to underlying chronic medical issues, multifactorial v Gi bleed --> Anemia workup has been ordered, rule out gi bleed --> No evidence of hemolysis is noted, peripheral smear has been reviewed. --> Hgb goal >7. Transfuse prn. --> Epogen or iron at this time is not particularly indicated --> Medications have been reviewed # Dvt ppx lovenox The timing of this note does not necessarily reflect the time of the patient was seen. [facility] Hospital declaration INPATIENT level of care is warranted for this patient because patient is a 89 year old with who presents with suspicion of . I have a high level of concern because . Patient is at high risk for . Plan of care/treatment include . Patient care is expected to be greater than 2 midnights. OBSERVATION level of care is warranted for this patient. Patient is a 89 year old with who presents with . Patient will be admitted for 1 midnight, but if additional night(s) is/are necessary, patient will be converted to inpatient status for the entire hospitalization Disposition: Once the patient is stable to leave the hospital, I anticipate the patient will likely be discharged to the following environment: Estimated discharge date: I spent 70 minutes on this patient's case, and minutes was dedicated to counseling and/or care coordination. MIPS (Merit-based Incentive Payment System) Applicable CPT: 21503, 01876 CHECK ALL THAT ARE MET: Measure #5 (CHF): All ages. Prescribe ZORAIDA/ARB upon discharge for patients with left ventricular systolic dysfunction. If not, the reason is clearly documented in the medical chart. Measure #8 (CHF): All ages. Prescribe a beta juan upon discharge for patients with left ventricular systolic dysfunction. If not, the reason is clearly documented in the medical chart. Measure #47 Advance care plan or surrogate decision maker documented in the medical record. Measure #130 The provider has documented, updated, or reviewed the patients current medication list and has documented it in the patients note. Measure #374 (All): Send report to referring provider. Measure #407(Sepsis due to MSSA bacteremia): Age 18+ Patient treated with a beta-lactam antibiotic (Nafcillin, Oxacillin or Cefazolin) as definitive therapy. MEDICAL COMPLEXITY High complexity medical decision making (need 2/3 categories) Problem - need 4 points Acute/new problem with new plan for workup (4 points, 1 max) Acute/new problem without additional workup (3 points, 1 max) Unstable chronic problem actively being managed (2 point each, 2 max) Stable chronic problem actively being managed (1 point each, 2 max) Self-limited/transient process (constipation, muscle ache, etc) (1 point each , 2 max) Data - need 4 points Reviewed labs/imaging studies (1 points, 2 max) Independent review of imaging (EKG, xrays, etc) (2 points, 2 max) Discussed case with consult/other MD/RN (2 points, 2 max) High Risk - qualify if have one of the following: Severe exacerbation of acute problem, acute mental status change, IV narcotics , monitoring drug levels (vancomycin, INR, tacrolimus etc) Chay Townsend MD Jun 05, 2020 11:58
[2020-06-05 12:00] VITALS: BP 141/71
--- NOTE | 2020-06-05 12:00 | NUR ---
NURSE NOTES: Orthostatic VS taken supine 141/71, 66 sitting 133/76, 75 standing 124/69, 73
--- NOTE | 2020-06-05 13:49 | NUR ---
NURSE NOTES: pt, ok to move to med surg. per doctor Soledad.
[2020-06-05 16:00] VITALS: BP 129/58
--- NOTE | 2020-06-05 16:00 | NUR ---
NURSE NOTES: Patient off heart monitor d/t med-surg status.
--- NOTE | 2020-06-05 18:21 | NUR ---
NURSE NOTES: Patient transfered to med/surg room 408-1. Report given to Reji SANTOS. VSS, patient stable. Denies pain, On room air, respirations unlabored. Belongings list verified.
--- NOTE | 2020-06-05 18:25 | NUR ---
NURSE NOTES: Received report from DANIELLE Joseph. Patient transferred from tele, AAOx1/2. Patient is able to say his name and place, but is confused as to what year and why he's here. Patient is on room air, VS stable, HR is 75. Tele nurse endorsed to RN that patient has Alzheimer's and wanders often, also patient was sinus alex in tele. RN educated and instructed patient to use call light before ambulating, yellow gown and yellow socks put on patient.. Patient is forgetful. Belongings checked and all accounted for. Patient does not complain of pain, no distress noted at this time. Bed is locked and placed in lowest position with bed alarm on. Call light within reach. Will continue to monitor
[2020-06-05] MEDS ORDERED: traMADol 50mg tab ORAL PRN (18:30)
[2020-06-05] MEDS ORDERED: HydrALAZINE 50mg tab ORAL PRN (18:30)
--- NOTE | 2020-06-05 19:48 | NUR ---
HAND-OFF: Report given to DANIELLE Garza
--- NOTE | 2020-06-05 19:50 | NUR ---
NURSE NOTES: Received patient sitting up in bed. He is awake, A/O x2, extremely confused at present, very restless. Pt is slightly hard of hearing, on room air, respirations, even and unlabored. Denies pain at this time. IV in the Left forearm, site intact. Bed low and locked, side rails up x2. No c/o chest pain or respiratory distress.
[2020-06-05 20:00] VITALS: BP 144/73
--- NOTE | 2020-06-05 20:00 | NUR ---
NURSE NOTES: Pt is high fall risk sitting up in bed, bed is locked in lowest position, side rails x3, call light in reach, educated pt to call for assistance as needed, placed in room close to nursing station, has fall risk band, yellow socks and gown on. High risk of falls will monitor closely.
--- NOTE | 2020-06-05 20:05 | Cardiac Electrophysiology PN ---
Assessment/Plan Assessment/Plan 1. Recurrent syncope. Not sure if this is syncope or fall. The patient has dementia and is unable to provide meaningful information. Rule out for DC and echocardiogram showed EF 60% 2. Hypertension. Blood pressure currently stable on Amlodipine 5 daily and p.r.n. clonidine 3. Advanced dementia. Subjective Subjective No events. ECG SB with first degree AVB. In SR Objective Last 24 Hour Vital Signs Date Time Temp Pulse Resp B/P (MAP) Pulse Ox O2 Delivery O2 Flow Rate FiO2 06/05/20 16:00 97.9 60 20 129/58 (81) 96 06/05/20 12:00 51 06/05/20 12:00 98.0 66 18 141/71 (94) 95 06/05/20 09:12 74 119/75 06/05/20 09:00 Room Air 06/05/20 08:00 98.2 54 20 119/75 (90) 96 06/05/20 08:00 59 06/05/20 04:00 60 06/05/20 04:00 98.6 56 18 129/69 (89) 97 06/05/20 00:00 98.4 61 18 117/79 (92) 98 06/05/20 00:00 61 06/04/20 21:00 Room Air Intake and Output 06/04/20 06/05/20 19:00 07:00 Intake Total 1000 ml Output Total 0 ml Balance 1000 ml IV Total 1000 ml Output Urine Total 0 ml # Voids 2 4 Laboratory Tests Test 06/05/20 08:10 Troponin I 0.000 ng/mL (0.000-0.056) Pro-B-Type Natriuretic Peptide 175 pg/mL (0-125) H Thyroid Stimulating Hormone (TSH) 2.173 uiU/mL (0.358-3.740) Free Thyroxine 0.96 NG/DL (0.76-1.46) Objective HEAD AND NECK: No JVD. LUNGS: Clear. CARDIOVASCULAR: Shows regular S1 and S2 with no gallop or murmur. ABDOMEN: Soft. EXTREMITIES: No pitting edema. Maurilio Lares MD Jun 05, 2020 20:05
[2020-06-05] MEDS: Zolpidem 5mg tab ORAL PRN (21:12)
[2020-06-05] MEDS ORDERED: LORazepam 1mg tab ORAL PRN (21:15)
--- NOTE | 2020-06-05 21:26 | NUR ---
NURSE NOTES: Removed ambien to give to pt as he was complaining of inability to sleep, roaming halls and agitated. I gave the medicine and had to waste it as pt threw in into the cup to drink and subsequently into the charge. Informed charge nurse. Contacted Dr Crump to possibly give a medication for anxiety/agitation as pt is unable to follow directions or redirect. There is no consult for psychiatry on the case. He just gave order to put Dr Romo on the case. Pt has dementia and is a very high fall risk, history of falls. will input order and carry out.
[2020-06-05] MEDS ORDERED: DiphenhydrAMINE 50mg/ml Inj IM ONE (22:30)
[2020-06-05] MEDS ORDERED: Haloperidol 5mg/ml Inj IM ONE (22:30)
--- NOTE | 2020-06-05 22:47 | NUR ---
NURSE NOTES: Received order from Dr Romo for benadryl and haldol IM to be given for agitation, also initial order for bilateral soft wrist restraints. Input orders and will carry out
--- NOTE | 2020-06-05 23:59 | Initial Psychiatric Evaluation ---
Psychiatry Consultation Psychiatry Consultation Referring physician: Dr. Crump Chief Complaint: Dizziness History of Present Illness: 84-year-old male history of Alzheimer's dementia, hypertension presented for dizziness and syncope. Allergies: Coded Allergies: No Known Allergies (Unverified , 06/18/18) Past Psychiatric History: mdd anxiety and dementia Medical History: Alzheimer's, hypertension Social/Family/Abuse/Legal Hx: hx nicotine dependence Medication History Scheduled Amlodipine Besylate* (Amlodipine Besylate*), 5 MG ORAL DAILY, (Reported) Aspirin* (Aspir 81*), 81 MG ORAL DAILY, (Reported) Doxycycline Monohydrate* (Doxycycline Monohydrate*), 100 MG ORAL Q12H Scheduled PRN Albuterol Sulfate* (Albuterol Sulfate Mdi*), 2 PUFF INH Q4H PRN for cough/ wheezing Tramadol Hcl* (Ultram*), 50 MG ORAL Q12HR PRN for For Pain, (Reported) Zolpidem Tartrate* (Ambien*), 5 MG ORAL BEDTIME PRN for Insomnia, (Reported) Patient History Limited by: medical condition History Provided By: Patient, Medical Record, PMD Objective Data Height (Feet): 5 Height (Inches): 10.00 Weight (Pounds): 110 Appearance: no abnormalities noted Behavior Mannerisms: poor eye contact Affect: blunted Mood: anxious, agitated Speech: clear Thought Process: illogical, tangential, confusion Thought Content: delusions (specify), paranoia Perceptual Disturbances: hallucinations Suicidal Ideation: not present Assessment/Plan Problem List: (1) Psychotic disorder ICD Codes: F29 - Unspecified psychosis not due to a substance or known physiological condition SNOMED: 25663476 (2) Alzheimer's dementia ICD Codes: G30.9 - Alzheimer's disease, unspecified; F02.80 - Dementia in other diseases classified elsewhere without behavioral disturbance SNOMED: 06586970 Status: stable Assessment/Plan: -haldol 5mg im x 6hr prn anxiety -zyprexa 5mg po qhs -provided roxana/Tim Hodges MD Jun 05, 2020 23:59
--- NOTE | 2020-06-06 00:35 | NUR ---
NURSE NOTES: Bilateral soft wrist restraints applied, Pt is resting in bed. Bed is locked in lowest position, side rails x3, bed alarm on. Skin intact, pulses present. will continue to monitor
[2020-06-06 04:00] VITALS: BP 138/70
[2020-06-06 06:46] LABS: BASOPHILS % (AUTO) 2.4 % (0.0-2.0); EOSINOPHILS % (AUTO) 6.8 % (0.0-3.0); HEMOGLOBIN 11.1 G/DL (14.2-18.0); LYMPHOCYTES % (AUTO) 28.7 % (20.0-45.0); MEAN CORPUSCULAR VOLUME 88 FL (80-99); MONOCYTES % (AUTO) 14.9 % (1.0-10.0); NEUTROPHILS % (AUTO) 47.2 % (45.0-75.0); PLATELET COUNT 250 K/UL (150-450); RED BLOOD COUNT 4.08 M/UL (4.70-6.10); WHITE BLOOD COUNT 4.8 K/UL (4.8-10.8)
[2020-06-06 07:04] LABS: ANION GAP 7 mmol/L (5-15); BLOOD UREA NITROGEN 14 mg/dL (7-18); CALCIUM 9.6 MG/DL (8.5-10.1); CARBON DIOXIDE 29 MMOL/L (21-32); CHLORIDE 106 MMOL/L (98-107); POTASSIUM 3.4 MMOL/L (3.5-5.1); SODIUM 142 MMOL/L (136-145)
--- NOTE | 2020-06-06 07:30 | NUR ---
NURSE NOTES: RECEIVED PATIENT A/A/OX1, CONFUSED. PATIENT WAS OFF BILATERAL WRISTS RESTRAINTS AND WAS STANDING BUT NOT COMBATIVE. WANDERS. PLACED PATIENT BACK TO BED. ABLE TO SIT ON THE EDGE OF THE BED. HAVING BREAKFAST. CONSUMED ADEQUATE AMOUNT OF FOOD INTAKE. KEPT BED IN THE LOWEST POSITION. SIDERAILS ARE UPX3. BED BRAKES ENGAGED AND LOCKED @ ALL TIMES. CALL LIGHT IS WITHIN REACH. WILL CONT TO MONITOR.
[2020-06-06 08:00] VITALS: BP 145/77
--- NOTE | 2020-06-06 08:03 | NUR ---
HAND-OFF: Report given to ERIC Diane.
[2020-06-06] MEDS: Aspirin EC 81mg tab ORAL SCH (08:07)
[2020-06-06] MEDS: Enoxaparin 40mg Inj SUBQ SCH (08:09)
[2020-06-06] MEDS: LORazepam 1mg tab ORAL PRN (08:44)
[2020-06-06] MEDS ORDERED: LORazepam Inj 2mg/ml 1ml IV PRN (09:00)
[2020-06-06] MEDS ORDERED: LORazepam Inj 2mg/ml 1ml IV ONE (09:00)
--- NOTE | 2020-06-06 09:40 | NUR ---
NURSE NOTES: PATIENT BACK TO BED LYING AND CALM. BILATERAL WRISTS RESTRAINTS REPLACED WITH ORDERS. PATIENT NEEDS SUPERVISION HAS TENDENCY TO WANDERS ON THE HALLWAY. KEPT HOB ELEVATED. SIDERAILS ARE UPX3. BED IN THE LOWEST POSITION. BED BRAKES ENGAGED AND LOCKED. WILL CONT TO MONITOR.
--- NOTE | 2020-06-06 09:50 | NUR ---
RD ASSESSMENT & RECOMMENDATIONS SEE CARE ACTIVITY FOR COMPLETE ASSESSMENT DAILY ESTIMATED NEEDS: Needs based on Underweight, wasting 56kg 30-35 kcals/kg 6017-0446 total kcals 1-1.5 g protein/kg 56-84 g total protein 25-30ml/kcal mL/kg 8119-6272 total fluid mLs NUTRITION DIAGNOSIS: Increased kcal and pro needs r/t underweight and wasting as evidenced by pt w/ generalized moderate wasting, @87% of ideal body weight. CURRENT DIET: cardiac soft PO DIET RECOMMENDATIONS: Liberalized Low Na diet/ texture as tolerated ADDITIONAL RECOMMENDATIONS: 1) 5'6" and 123 lbs -> rec Weekly standing weights 2) replete Anjelica mcbride 3.4 3) Add Ensure Enlive BID (350 kcal/each) Add snacks in b/w meals
[2020-06-06 12:00] VITALS: BP 142/71
--- NOTE | 2020-06-06 12:51 | Hematology/Onc Progress Note ---
Assessment/Plan Assessment/Plan # Syncope v fall --> as per cards recs --> trop neg x 2 --> ekg reviewd and on tele, rhythm strip --> 2d echo --> neuro prn eval # Alzheimer's dementia --> appears to be chronic per fam # HTN (hypertension) --> amlodipine and hydralazine # Sinus bradycardia with PACs --> ST Segments: no acute changes # Anemia of chronic disease due to underlying chronic medical issues, multifactorial v Gi bleed --> Anemia workup has been ordered, rule out gi bleed --> No evidence of hemolysis is noted, peripheral smear has been reviewed. --> Hgb goal >7. Transfuse prn. --> Epogen or iron at this time is not particularly indicated --> Medications have been reviewed # Psych disorder --> with wrist restraints --> per Dr. Romo # Dvt ppx lovenox The timing of this note does not necessarily reflect the time of the patient was seen. Subjective Constitutional: Denies: no symptoms, chills, fever, malaise, weakness, other HEENT: Denies: no symptoms, eye pain, blurred vision, tearing, double vision, ear pain, ear discharge, nose pain, nose congestion, throat pain, throat swelling, mouth pain, mouth swelling, other Cardiovascular: Denies: no symptoms, chest pain, edema, irregular heart rate, lightheadedness, palpitations, syncope, other Respiratory: Denies: no symptoms, cough, shortness of breath, SOB with excertion, SOB at rest, sputum, wheezing, other Gastrointestinal/Abdominal: Denies: no symptoms, abdomen distended, abdominal pain, black stools, tarry stools, blood in stool, constipated, diarrhea, difficulty swallowing, nausea, poor appetite, poor fluid intake, rectal bleeding , vomiting, other Genitourinary: Denies: no symptoms, burning, discharge, frequency, flank pain, hematuria, incontinence, pain, urgency, other Neurologic/Psychiatric: Denies: no symptoms, anxiety, depressed, emotional problems, headache, numbness, paresthesia, pre-existing deficit, seizure, tingling, tremors, weakness, other Endocrine: Denies: no symptoms, excessive sweating, flushing, intolerance to cold, intolerance to heat, increased hunger, increased thirst, increased urine, unexplained weight gain, unexplained weight loss, other Allergies: Coded Allergies: No Known Allergies (Unverified , 06/18/18) Subjective 06/06 no major changes, remains confused, seen by psych, with b/l wrist restraints in am Objective Objective Current Medications Medications (Trade) Dose Ordered Sig/Eva Route PRN Reason Start Time Stop Time Status Last Admin Dose Admin Amlodipine Besylate (Norvasc) 5 mg DAILY ORAL 06/06/20 09:00 07/05/20 08:59 06/06/20 08:07 Aspirin (Ecotrin) 81 mg DAILY ORAL 06/06/20 09:00 07/20/20 08:59 06/06/20 08:07 Clonidine HCl (Catapres Tab) 0.1 mg Q4H PRN ORAL For High Blood Pressure 06/05/20 18:30 09/02/20 18:29 Enoxaparin Sodium (Lovenox) 40 mg DAILY SUBQ 06/06/20 09:00 09/03/20 08:59 06/06/20 08:09 Hydralazine HCl (Apresoline) 50 mg Q8H PRN ORAL SBP greater than 140 06/05/20 18:30 09/03/20 18:29 Lorazepam (Ativan 2mg/ml 1ml) 1 mg Q6HR PRN IV For Anxiety 06/06/20 09:00 06/13/20 08:59 Lorazepam (Ativan) 1 mg Q8H PRN ORAL Agitation 06/05/20 21:45 06/12/20 21:44 06/06/20 08:44 Tramadol HCl (Ultram) 50 mg Q12H PRN ORAL pain 06/05/20 18:30 06/11/20 18:29 Zolpidem Tartrate (Ambien) 5 mg HSPRN PRN ORAL Insomnia 06/05/20 21:00 06/11/20 20:59 06/05/20 21:12 Last 24 Hour Vital Signs Date Time Temp Pulse Resp B/P (MAP) Pulse Ox O2 Delivery O2 Flow Rate FiO2 06/06/20 12:00 98.1 82 19 142/71 (94) 96 06/06/20 08:07 69 145/77 06/06/20 08:00 97.5 69 17 145/77 (99) 96 7/26/20 04:00 97.5 72 19 138/70 (92) 95 06/05/20 21:00 Room Air 06/05/20 20:00 97.8 67 19 144/73 (96) 96 06/05/20 16:00 97.9 60 20 129/58 (81) 96 06/05/20 12:00 51 06/05/20 12:00 98.0 66 18 141/71 (94) 95 06/05/20 09:12 74 119/75 06/05/20 09:00 Room Air 06/05/20 08:00 98.2 54 20 119/75 (90) 96 06/05/20 08:00 59 06/05/20 04:00 60 06/05/20 04:00 98.6 56 18 129/69 (89) 97 06/05/20 00:00 98.4 61 18 117/79 (92) 98 06/05/20 00:00 61 06/04/20 21:00 Room Air 06/04/20 20:00 97.1 75 18 135/68 (90) 99 06/04/20 20:00 65 06/04/20 18:29 Room Air 06/04/20 16:50 95.7 63 16 124/73 (90) 99 06/04/20 16:48 98.7 74 15 124/73 97 Room Air 06/04/20 16:00 65 06/04/20 15:43 98.6 76 16 133/79 96 Room Air 06/04/20 13:43 98.6 59 16 127/68 96 Room Air 06/04/20 13:43 59 16 Room Air 06/04/20 13:26 98.6 59 16 127/68 (87) 96 Room Air Intake and Output 06/05/20 06/06/20 19:00 07:00 Intake Total 480 ml Balance 480 ml Intake Oral 480 ml # Voids 3 2 # Bowel Movements 1 Labs Test 06/04/20 13:41 06/04/20 14:18 06/05/20 08:10 06/06/20 06:05 White Blood Count 4.9 K/UL (4.8-10.8) 4.8 K/UL (4.8-10.8) Red Blood Count 4.15 M/UL (4.70-6.10) 4.08 M/UL (4.70-6.10) Hemoglobin 11.6 G/DL (14.2-18.0) 11.1 G/DL (14.2-18.0) Hematocrit 36.9 % (42.0-52.0) 36.0 % (42.0-52.0) Mean Corpuscular Volume 89 FL (80-99) 88 FL (80-99) Mean Corpuscular Hemoglobin 27.9 PG (27.0-31.0) 27.3 PG (27.0-31.0) Mean Corpuscular Hemoglobin Concent 31.4 G/DL (32.0-36.0) 30.9 G/DL (32.0-36.0) Red Cell Distribution Width 13.8 % (11.6-14.8) 14.0 % (11.6-14.8) Platelet Count 257 K/UL (150-450) 250 K/UL (150-450) Mean Platelet Volume 6.4 FL (6.5-10.1) 5.9 FL (6.5-10.1) Neutrophils (%) (Auto) 46.3 % (45.0-75.0) 47.2 % (45.0-75.0) Lymphocytes (%) (Auto) 29.5 % (20.0-45.0) 28.7 % (20.0-45.0) Monocytes (%) (Auto) 13.8 % (1.0-10.0) 14.9 % (1.0-10.0) Eosinophils (%) (Auto) 7.5 % (0.0-3.0) 6.8 % (0.0-3.0) Basophils (%) (Auto) 2.9 % (0.0-2.0) 2.4 % (0.0-2.0) Sodium Level 140 MMOL/L (136-145) 142 MMOL/L (136-145) Potassium Level 4.2 MMOL/L (3.5-5.1) 3.4 MMOL/L (3.5-5.1) Chloride Level 105 MMOL/L (98-107) 106 MMOL/L (98-107) Carbon Dioxide Level 28 MMOL/L (21-32) 29 MMOL/L (21-32) Anion Gap 7 mmol/L (5-15) 7 mmol/L (5-15) Blood Urea Nitrogen 14 mg/dL (7-18) 14 mg/dL (7-18) Creatinine 1.0 MG/DL (0.55-1.30) 1.0 MG/DL (0.55-1.30) Estimat Glomerular Filtration Rate > 60 mL/min (>60) > 60 mL/min (>60) Glucose Level 89 MG/DL (74-106) 77 MG/DL (74-106) Calcium Level 9.5 MG/DL (8.5-10.1) 9.6 MG/DL (8.5-10.1) Total Bilirubin 0.3 MG/DL (0.2-1.0) Aspartate Amino Transf (AST/SGOT) 19 U/L (15-37) Alanine Aminotransferase (ALT/SGPT) 12 U/L (12-78) Alkaline Phosphatase 53 U/L (46-116) Troponin I 0.000 ng/mL (0.000-0.056) 0.000 ng/mL (0.000-0.056) Total Protein 7.8 G/DL (6.4-8.2) Albumin 3.9 G/DL (3.4-5.0) Globulin 3.9 g/dL Albumin/Globulin Ratio 1.0 (1.0-2.7) Urine Color Yellow Urine Appearance Clear Urine pH 6 (4.5-8.0) Urine Specific [place] 1.015 (1.005-1.035) Urine Protein Negative (NEGATIVE) Urine Glucose (UA) Negative (NEGATIVE) Urine Ketones Negative (NEGATIVE) Urine Blood 3+ (NEGATIVE) Urine Nitrite Negative (NEGATIVE) Urine Bilirubin Negative (NEGATIVE) Urine Urobilinogen Normal MG/DL (0.0-1.0) Urine Leukocyte Esterase Negative (NEGATIVE) Urine RBC 5-10 /HPF (0 - 0) Urine WBC 0-2 /HPF (0 - 0) Urine Squamous Epithelial Cells Occasional /LPF Urine Bacteria Occasional /HPF (NONE) Pro-B-Type Natriuretic Peptide 175 pg/mL (0-125) Thyroid Stimulating Hormone (TSH) 2.173 uiU/mL (0.358-3.740) Free Thyroxine 0.96 NG/DL (0.76-1.46) Height (Feet): 5 Height (Inches): 6.00 Weight (Pounds): 123 Objective Physical Exam: Vitals: reviewed General: NAD HEENT: nc, at Neck: supple Chest: clear breath sounds bilaterally Cardiovascular: RRR, no s3, s4 Abdomen: soft, nontender, nd Extremities: no cce, normal range of motion Neuro: alert and oriented Chay Townsend MD Jun 06, 2020 12:51
--- NOTE | 2020-06-06 14:59 | NUR ---
NURSE NOTES: DR LOZANO MADE AWARE OF THE K+3.4. AWAITING FOR RESPONSE. WILL CONT TO MONITOR. Addendum: 06/06/20 at 1511 by KD GOLD LVN new order received.
[2020-06-06 16:00] VITALS: BP 145/82
--- NOTE | 2020-06-06 16:36 | NUR ---
CASE MANAGEMENT:REVIEW 84 YR OLD MALE PRESENTED TO ER BY DAUGHTER CC: DIZZINESS X2 WEEKS. LOC AND FELL TWICE SI: SYNCOPE. HTN. BRADYCARDIA 98.5 59 16 127/68 96% ON RA H/H-11.6/36.9 IS: 1L NS BOLUS CT HEAD CHEST XRAY : TO TELEMETRY PLAN: CAROTID DUPLEX 2DECHO ORTHOSTATIC VITALS NEURO CHECKS PER PROTOCOL CARDIAC CONSULT
--- NOTE | 2020-06-06 19:25 | NUR ---
HAND-OFF: Report given to KIM.
[2020-06-06 20:00] VITALS: BP 135/77
[2020-06-06] MEDS: Zolpidem 5mg tab ORAL PRN (22:11)
[2020-06-07] VITALS: BP 129/72
--- NOTE | 2020-06-07 00:05 | Initial Psychiatric Evaluation ---
Psychiatry Consultation Psychiatry Consultation Chief Complaint: Dizziness Allergies: Coded Allergies: No Known Allergies (Unverified , 06/18/18) Medication History Scheduled Amlodipine Besylate* (Amlodipine Besylate*), 5 MG ORAL DAILY, (Reported) Aspirin* (Aspir 81*), 81 MG ORAL DAILY, (Reported) Doxycycline Monohydrate* (Doxycycline Monohydrate*), 100 MG ORAL Q12H Olanzapine* (Zyprexa*), 5 MG ORAL HS, (Reported) Scheduled PRN Albuterol Sulfate* (Albuterol Sulfate Mdi*), 2 PUFF INH Q4H PRN for cough/ wheezing Clonidine Hcl (Clonidine Hcl), 0.1 MG PO Q4HR PRN for prn, (Reported) Hydralazine Hcl* (Hydralazine Hcl*), 50 MG ORAL EVERY 8 HOURS PRN for For High Blood Pressure, (Reported) Lorazepam* (Ativan*), 1 MG ORAL THREE TIMES A DAY PRN for Agitation, (Reported) Tramadol Hcl* (Ultram*), 50 MG ORAL Q12HR PRN for For Pain, (Reported) Zolpidem Tartrate* (Ambien*), 5 MG ORAL BEDTIME PRN for Insomnia, (Reported) Objective Data Height (Feet): 5 Height (Inches): 6.00 Weight (Pounds): 123 Additional Comments: awake, disoriented. Mood is anxious. Affect is flat. Thought process, concrete. Thought content, no suicidal or homicidal ideation. Cognition is impaired. Insight and judgment is impaired. Assessment/Plan Problem List: (1) Psychotic disorder ICD Codes: F29 - Unspecified psychosis not due to a substance or known physiological condition SNOMED: 43232616 (2) Alzheimer's dementia ICD Codes: G30.9 - Alzheimer's disease, unspecified; F02.80 - Dementia in other diseases classified elsewhere without behavioral disturbance SNOMED: 30031042 Status: stable, progressing Assessment/Plan: -haldol 5mg im x 6hr prn anxiety -zyprexa 5mg po qhs -provided ro/Tim Hodges MD Jun 07, 2020 00:05
[2020-06-07 04:00] VITALS: BP 140/78
[2020-06-07] MEDS: LORazepam 1mg tab ORAL PRN (05:47)
--- NOTE | 2020-06-07 05:52 | NUR ---
NURSE NOTES: Removed ativan 1mg to administer when pt was extremely agitated however pt would not take it. Already unwrapped and ready to give it. Went to [facility] with charge nurse Christina to waste the ativan. Discarded in pharmacological waste.
--- NOTE | 2020-06-07 07:20 | NUR ---
NURSE NOTES: received patient in bed, patient asleep but easily arousable, no sign of distress, HL patent, on bilateral soft wrist restraint, on, bed is locked in lowest position, side rails x3, call light in reach, has fall risk band, yellow socks and gown on. High risk of falls will monitor closely. elena dominguez
[2020-06-07 08:00] VITALS: BP 133/77
--- NOTE | 2020-06-07 08:08 | NUR ---
HAND-OFF: Report given to Gila SANTOS.
[2020-06-07] MEDS: Aspirin EC 81mg tab ORAL SCH (08:37)
[2020-06-07] MEDS: Enoxaparin 40mg Inj SUBQ SCH (08:38)
--- NOTE | 2020-06-07 08:56 | Cardiac Electrophysiology PN ---
Assessment/Plan Assessment/Plan 1. Recurrent syncope. Not sure if this is syncope or fall. The patient has dementia and is unable to provide meaningful information. Rule out for GA and echocardiogram showed EF 60% 2. Hypertension. On Amlodipine 5 daily and p.r.n. clonidine and hydralazine 3. Advanced dementia. Subjective Subjective No events. Transferred to [facility] / [facility]. Confused in restraints Objective Last 24 Hour Vital Signs Date Time Temp Pulse Resp B/P (MAP) Pulse Ox O2 Delivery O2 Flow Rate FiO2 06/07/20 08:38 96 140/78 06/07/20 04:00 98.5 96 20 140/78 (98) 98 06/07/20 00:00 98.4 72 20 129/72 (91) 96 06/06/20 21:00 Room Air 06/06/20 20:00 98.0 77 20 135/77 (96) 97 06/06/20 16:31 70 67 79 06/06/20 16:00 98.0 70 18 145/82 (103) 97 06/06/20 12:00 98.1 82 19 142/71 (94) 96 06/06/20 09:00 Room Air Intake and Output 06/06/20 06/07/20 19:00 07:00 Intake Total 240 ml Balance 240 ml Intake Oral 240 ml # Voids 3 4 Objective HEAD AND NECK: No JVD. LUNGS: Clear. CARDIOVASCULAR: Shows regular S1 and S2 with no gallop or murmur. ABDOMEN: Soft. EXTREMITIES: No pitting edema. Maurilio Lares MD Jun 07, 2020 08:55
[2020-06-07 09:04] LABS: BASOPHILS % (AUTO) 2.4 % (0.0-2.0); EOSINOPHILS % (AUTO) 5.9 % (0.0-3.0); HEMATOCRIT 41.5 % (42.0-52.0); MEAN CORPUSCULAR VOLUME 88 FL (80-99); MONOCYTES % (AUTO) 11.3 % (1.0-10.0); NEUTROPHILS % (AUTO) 52.4 % (45.0-75.0); PLATELET COUNT 275 K/UL (150-450); RED CELL DISTRIBUTION WIDTH 14.3 % (11.6-14.8); WHITE BLOOD COUNT 4.6 K/UL (4.8-10.8)
[2020-06-07 09:35] LABS: ANION GAP 7 mmol/L (5-15); BLOOD UREA NITROGEN 13 mg/dL (7-18); CALCIUM 10.1 MG/DL (8.5-10.1); CARBON DIOXIDE 30 MMOL/L (21-32); CHLORIDE 107 MMOL/L (98-107); POTASSIUM 3.6 MMOL/L (3.5-5.1); SODIUM 143 MMOL/L (136-145)
--- NOTE | 2020-06-07 10:23 | General Progress Note ---
Assessment/Plan Problem List: (1) Bradycardia ICD Codes: R00.1 - Bradycardia, unspecified SNOMED: 78116833 (2) Syncope ICD Codes: R55 - Syncope and collapse SNOMED: 718528030 (3) HTN (hypertension) ICD Codes: I10 - Essential (primary) hypertension SNOMED: 53125065 (4) Alzheimer's dementia ICD Codes: G30.9 - Alzheimer's disease, unspecified; F02.80 - Dementia in other diseases classified elsewhere without behavioral disturbance SNOMED: 35928946 (5) Psychotic disorder ICD Codes: F29 - Unspecified psychosis not due to a substance or known physiological condition SNOMED: 14102496 Status: unchanged Assessment/Plan: pt diet cardio f/u cbc bmp am aru eval Subjective Constitutional: Reports: weakness Allergies: Coded Allergies: No Known Allergies (Unverified , 06/18/18) All Systems: reviewed and negative except above Subjective sleepy calm in bed Objective Last 24 Hour Vital Signs Date Time Temp Pulse Resp B/P (MAP) Pulse Ox O2 Delivery O2 Flow Rate FiO2 06/07/20 08:40 Room Air 06/07/20 08:38 96 140/78 06/07/20 08:00 98.0 66 19 133/77 (95) 98 06/07/20 04:00 98.5 96 20 140/78 (98) 98 06/07/20 00:00 98.4 72 20 129/72 (91) 96 06/06/20 21:00 Room Air 06/06/20 20:00 98.0 77 20 135/77 (96) 97 06/06/20 16:31 70 67 79 06/06/20 16:00 98.0 70 18 145/82 (103) 97 06/06/20 12:00 98.1 82 19 142/71 (94) 96 Intake and Output 06/06/20 06/07/20 19:00 07:00 Intake Total 240 ml Balance 240 ml Intake Oral 240 ml # Voids 3 4 Laboratory Tests 06/07/20 08:50: White Blood Count 4.6L, Red Blood Count 4.70, Hemoglobin 13.0L, Hematocrit 41.5L , Mean Corpuscular Volume 88, Mean Corpuscular Hemoglobin 27.6, Mean Corpuscular Hemoglobin Concent 31.3L, Red Cell Distribution Width 14.3, Platelet Count 275, Mean Platelet Volume 6.6, Neutrophils (%) (Auto) 52.4, Lymphocytes (%) (Auto) 28.0, Monocytes (%) (Auto) 11.3H, Eosinophils (%) (Auto) 5.9H, Basophils (%) (Auto) 2.4H, Sodium Level 143, Potassium Level 3.6, Chloride Level 107, Carbon Dioxide Level 30, Anion Gap 7, Blood Urea Nitrogen 13 , Creatinine 1.0, Estimat Glomerular Filtration Rate > 60, Glucose Level 83, Calcium Level 10.1 Height (Feet): 5 Height (Inches): 6.00 Weight (Pounds): 123 General Appearance: lethargic EENT: normal ENT inspection Neck: normal alignment Cardiovascular: normal peripheral pulses, normal rate, regular rhythm Respiratory/Chest: chest wall non-tender, lungs clear, normal breath sounds, respiratory distress Abdomen: normal bowel sounds, non tender, soft Extremities: normal inspection Edema: no edema noted Arm (L), no edema noted Arm (R), no edema noted Leg (L), no edema noted Leg (R), no edema noted Pedal (L), no edema noted Pedal (R), no edema noted Generalized Neurologic: motor weakness Skin: normal pigmentation, warm/dry Tayo Crump DO Jun 07, 2020 10:23
--- NOTE | 2020-06-07 11:19 | NUR ---
P.T Note: P.T evaluation completed and tx initiated. Please refer to P.T evaluation for full report.
--- NOTE | 2020-06-07 11:48 | Hematology/Onc Progress Note ---
Assessment/Plan Assessment/Plan # Leukopenia -- multiple etiologies could be related to underlying liver disease , medication-induced, infection versus viral syndrome --> peripheral smear has been ordered and does not show significant abnormalities --> Medications have been reviewed --> Continue to monitor for improvement, trend cbc --> Hep panel and HIV have been ordered --> US abd ordered to r/o cirrhosis and hepatosplenomegaly --> reverse isolation if ANC is <2000 # Anemia of chronic disease due to underlying chronic medical issues, multifactorial v Gi bleed --> Anemia workup has been ordered, rule out gi bleed --> No evidence of hemolysis is noted, peripheral smear has been reviewed. --> Hgb goal >7. Transfuse prn. --> Epogen or iron at this time is not particularly indicated --> Medications have been reviewed # Syncope v fall --> as per cards recs --> trop neg x 2 --> ekg reviewd and on tele, rhythm strip --> 2d echo --> neuro prn eval # Alzheimer's dementia --> appears to be chronic per fam # HTN (hypertension) --> amlodipine and hydralazine # Sinus bradycardia with PACs --> ST Segments: no acute changes # Psych disorder --> with wrist restraints --> per Dr. Romo # Dvt ppx lovenox The timing of this note does not necessarily reflect the time of the patient was seen. Subjective HEENT: Denies: no symptoms, eye pain, blurred vision, tearing, double vision, ear pain, ear discharge, nose pain, nose congestion, throat pain, throat swelling, mouth pain, mouth swelling, other Respiratory: Denies: no symptoms, cough, shortness of breath, SOB with excertion, SOB at rest, sputum, wheezing, other Gastrointestinal/Abdominal: Denies: no symptoms, abdomen distended, abdominal pain, black stools, tarry stools, blood in stool, constipated, diarrhea, difficulty swallowing, nausea, poor appetite, poor fluid intake, rectal bleeding , vomiting, other Genitourinary: Denies: no symptoms, burning, discharge, frequency, flank pain, hematuria, incontinence, pain, urgency, other Neurologic/Psychiatric: Denies: no symptoms, anxiety, depressed, emotional problems, headache, numbness, paresthesia, pre-existing deficit, seizure, tingling, tremors, weakness, other Endocrine: Denies: no symptoms, excessive sweating, flushing, intolerance to cold, intolerance to heat, increased hunger, increased thirst, increased urine, unexplained weight gain, unexplained weight loss, other Hematologic/Lymphatic: Denies: no symptoms, anemia, easy bleeding, easy bruising, adenopathy, other Allergies: Coded Allergies: No Known Allergies (Unverified , 06/18/18) Subjective 06/06 no major changes, remains confused, seen by psych, with b/l wrist restraints in am 06/07 meds have been reviewed, no bleeding, remains altered, bmp and cbc noted Objective Objective Current Medications Medications (Trade) Dose Ordered Sig/Eva Route PRN Reason Start Time Stop Time Status Last Admin Dose Admin Amlodipine Besylate (Norvasc) 5 mg DAILY ORAL 06/06/20 09:00 07/05/20 08:59 06/07/20 08:38 Aspirin (Ecotrin) 81 mg DAILY ORAL 06/06/20 09:00 07/20/20 08:59 06/07/20 08:37 Clonidine HCl (Catapres Tab) 0.1 mg Q4H PRN ORAL For High Blood Pressure 06/05/20 18:30 09/02/20 18:29 Enoxaparin Sodium (Lovenox) 40 mg DAILY SUBQ 06/06/20 09:00 09/03/20 08:59 06/07/20 08:38 Hydralazine HCl (Apresoline) 50 mg Q8H PRN ORAL SBP greater than 140 06/05/20 18:30 09/03/20 18:29 Lorazepam (Ativan 2mg/ml 1ml) 1 mg Q6HR PRN IV For Anxiety 06/06/20 09:00 06/13/20 08:59 06/07/20 01:20 Lorazepam (Ativan) 1 mg Q8H PRN ORAL Agitation 06/05/20 21:45 06/12/20 21:44 06/06/20 08:44 Olanzapine (ZyPREXA) 5 mg BEDTIME ORAL 06/06/20 21:00 07/21/20 20:59 06/06/20 22:11 Tramadol HCl (Ultram) 50 mg Q12H PRN ORAL pain 06/05/20 18:30 7/31/20 18:29 Zolpidem Tartrate (Ambien) 5 mg HSPRN PRN ORAL Insomnia 06/05/20 21:00 06/11/20 20:59 06/06/20 22:11 Last 24 Hour Vital Signs Date Time Temp Pulse Resp B/P (MAP) Pulse Ox O2 Delivery O2 Flow Rate FiO2 06/07/20 08:40 Room Air 06/07/20 08:38 96 140/78 06/07/20 08:00 98.0 66 19 133/77 (95) 98 06/07/20 04:00 98.5 96 20 140/78 (98) 98 06/07/20 00:00 98.4 72 20 129/72 (91) 96 06/06/20 21:00 Room Air 06/06/20 20:00 98.0 77 20 135/77 (96) 97 06/06/20 16:31 70 67 79 06/06/20 16:00 98.0 70 18 145/82 (103) 97 06/06/20 12:00 98.1 82 19 142/71 (94) 96 06/06/20 09:00 Room Air 06/06/20 08:07 69 145/77 06/06/20 08:00 97.5 69 17 145/77 (99) 96 06/06/20 04:00 97.5 72 19 138/70 (92) 95 06/05/20 21:00 Room Air 06/05/20 20:00 97.8 67 19 144/73 (96) 96 06/05/20 16:00 97.9 60 20 129/58 (81) 96 06/05/20 12:00 51 06/05/20 12:00 98.0 66 18 141/71 (94) 95 Intake and Output 06/06/20 06/07/20 19:00 07:00 Intake Total 240 ml Balance 240 ml Intake Oral 240 ml # Voids 3 4 Labs Test 06/04/20 13:41 06/04/20 14:18 06/05/20 08:10 06/06/20 06:05 White Blood Count 4.9 K/UL (4.8-10.8) 4.8 K/UL (4.8-10.8) Red Blood Count 4.15 M/UL (4.70-6.10) 4.08 M/UL (4.70-6.10) Hemoglobin 11.6 G/DL (14.2-18.0) 11.1 G/DL (14.2-18.0) Hematocrit 36.9 % (42.0-52.0) 36.0 % (42.0-52.0) Mean Corpuscular Volume 89 FL (80-99) 88 FL (80-99) Mean Corpuscular Hemoglobin 27.9 PG (27.0-31.0) 27.3 PG (27.0-31.0) Mean Corpuscular Hemoglobin Concent 31.4 G/DL (32.0-36.0) 30.9 G/DL (32.0-36.0) Red Cell Distribution Width 13.8 % (11.6-14.8) 14.0 % (11.6-14.8) Platelet Count 257 K/UL (150-450) 250 K/UL (150-450) Mean Platelet Volume 6.4 FL (6.5-10.1) 5.9 FL (6.5-10.1) Neutrophils (%) (Auto) 46.3 % (45.0-75.0) 47.2 % (45.0-75.0) Lymphocytes (%) (Auto) 29.5 % (20.0-45.0) 28.7 % (20.0-45.0) Monocytes (%) (Auto) 13.8 % (1.0-10.0) 14.9 % (1.0-10.0) Eosinophils (%) (Auto) 7.5 % (0.0-3.0) 6.8 % (0.0-3.0) Basophils (%) (Auto) 2.9 % (0.0-2.0) 2.4 % (0.0-2.0) Sodium Level 140 MMOL/L (136-145) 142 MMOL/L (136-145) Potassium Level 4.2 MMOL/L (3.5-5.1) 3.4 MMOL/L (3.5-5.1) Chloride Level 105 MMOL/L (98-107) 106 MMOL/L (98-107) Carbon Dioxide Level 28 MMOL/L (21-32) 29 MMOL/L (21-32) Anion Gap 7 mmol/L (5-15) 7 mmol/L (5-15) Blood Urea Nitrogen 14 mg/dL (7-18) 14 mg/dL (7-18) Creatinine 1.0 MG/DL (0.55-1.30) 1.0 MG/DL (0.55-1.30) Estimat Glomerular Filtration Rate > 60 mL/min (>60) > 60 mL/min (>60) Glucose Level 89 MG/DL (74-106) 77 MG/DL (74-106) Calcium Level 9.5 MG/DL (8.5-10.1) 9.6 MG/DL (8.5-10.1) Total Bilirubin 0.3 MG/DL (0.2-1.0) Aspartate Amino Transf (AST/SGOT) 19 U/L (15-37) Alanine Aminotransferase (ALT/SGPT) 12 U/L (12-78) Alkaline Phosphatase 53 U/L (46-116) Troponin I 0.000 ng/mL (0.000-0.056) 0.000 ng/mL (0.000-0.056) Total Protein 7.8 G/DL (6.4-8.2) Albumin 3.9 G/DL (3.4-5.0) Globulin 3.9 g/dL Albumin/Globulin Ratio 1.0 (1.0-2.7) Urine Color Yellow Urine Appearance Clear Urine pH 6 (4.5-8.0) Urine Specific [place] 1.015 (1.005-1.035) Urine Protein Negative (NEGATIVE) Urine Glucose (UA) Negative (NEGATIVE) Urine Ketones Negative (NEGATIVE) Urine Blood 3+ (NEGATIVE) Urine Nitrite Negative (NEGATIVE) Urine Bilirubin Negative (NEGATIVE) Urine Urobilinogen Normal MG/DL (0.0-1.0) Urine Leukocyte Esterase Negative (NEGATIVE) Urine RBC 5-10 /HPF (0 - 0) Urine WBC 0-2 /HPF (0 - 0) Urine Squamous Epithelial Cells Occasional /LPF Urine Bacteria Occasional /HPF (NONE) Pro-B-Type Natriuretic Peptide 175 pg/mL (0-125) Thyroid Stimulating Hormone (TSH) 2.173 uiU/mL (0.358-3.740) Free Thyroxine 0.96 NG/DL (0.76-1.46) Test 06/07/20 08:50 White Blood Count 4.6 K/UL (4.8-10.8) Red Blood Count 4.70 M/UL (4.70-6.10) Hemoglobin 13.0 G/DL (14.2-18.0) Hematocrit 41.5 % (42.0-52.0) Mean Corpuscular Volume 88 FL (80-99) Mean Corpuscular Hemoglobin 27.6 PG (27.0-31.0) Mean Corpuscular Hemoglobin Concent 31.3 G/DL (32.0-36.0) Red Cell Distribution Width 14.3 % (11.6-14.8) Platelet Count 275 K/UL (150-450) Mean Platelet Volume 6.6 FL (6.5-10.1) Neutrophils (%) (Auto) 52.4 % (45.0-75.0) Lymphocytes (%) (Auto) 28.0 % (20.0-45.0) Monocytes (%) (Auto) 11.3 % (1.0-10.0) Eosinophils (%) (Auto) 5.9 % (0.0-3.0) Basophils (%) (Auto) 2.4 % (0.0-2.0) Sodium Level 143 MMOL/L (136-145) Potassium Level 3.6 MMOL/L (3.5-5.1) Chloride Level 107 MMOL/L (98-107) Carbon Dioxide Level 30 MMOL/L (21-32) Anion Gap 7 mmol/L (5-15) Blood Urea Nitrogen 13 mg/dL (7-18) Creatinine 1.0 MG/DL (0.55-1.30) Estimat Glomerular Filtration Rate > 60 mL/min (>60) Glucose Level 83 MG/DL (74-106) Calcium Level 10.1 MG/DL (8.5-10.1) Height (Feet): 5 Height (Inches): 6.00 Weight (Pounds): 123 Objective Physical Exam: Vitals: reviewed General: NAD HEENT: nc, at Neck: supple Chest: clear breath sounds bilaterally Cardiovascular: RRR, no s3, s4 Abdomen: soft, nontender, nd Extremities: no cce, normal range of motion Neuro: alert and oriented Chay Townsend MD Jun 07, 2020 11:48
[2020-06-07 12:18] VITALS: BP 128/82
--- NOTE | 2020-06-07 13:56 | NUR ---
Social Work This Sw received a consult to assist with a home safety evaluation; This SW contacted granddaughter,Parul Bullock @ [phone], who explains patient is from home with 24 hour care from family (lives with granddaughter, her spouse and patients son). Patient has dementia and remains ambulatory with walker or cane. Family are requesting discharge today, as soon as possible. Granddaughter plans to transport upon discharge. Patient was using [facility], as needed. They recently discontinued therapy, due to patient has improved to his highest potential, according to granddaughter. CM updated with this assessment/request for patient to come home as soon as possible.
--- NOTE | 2020-06-07 15:12 | NUR ---
BASTING PULLER NOTE CALL MADE TO RP/GRAND DAUGHTER PAGE [phone] AND INFORMED OF CONSULT FOR ARU EVAL. PER RP, FAMILY DECLINED ARU AND WANTS PATIENT TO RETURN HOME EUSEBIO IF ACUTE CARE IS NO LONGER NEEDED. CALL MADE TO INFORM DR LOZANO. AWAITING HAMMAD BACK FROM .
--- NOTE | 2020-06-07 15:15 | NUR ---
CASE MANAGEMENT:REVIEW SI;BRADYCARDIA. SYNCOPE. HTN. 98.5 96 20 140/78 96% ON RA IS;LOVENOX SUBQ QD LORAZEPAM IV MED SURG STATUS DCP;FROM HOME PLAN;ARU EVALUATION
[2020-06-07 16:00] VITALS: BP 123/79
--- NOTE | 2020-06-07 19:17 | NUR ---
HAND-OFF: Report given to Sravani Mcintosh RN accordingly elena dominguez.
--- NOTE | 2020-06-07 19:39 | NUR ---
NURSE NOTES: Received patient in bed, awake, alert, oriented x1, gets very restless, patient has bilateral wrist restraints,IV site is clean dry and intact, fall precautions are implemented. Call light is within reach, bed is lowered, locked, alarm is on, will continue to monitor for comfort and safety.
[2020-06-07 20:00] VITALS: BP_SYST 150
[2020-06-07] MEDS ORDERED: CLONIDINE HCL0.1 MG PO (21:07)
[2020-06-07] MEDS ORDERED: HYDRALAZINE HCL50 MG ORAL (21:08)
[2020-06-07] MEDS ORDERED: ATIVAN1 MG ORAL (21:09)
[2020-06-07] MEDS ORDERED: ZYPREXA5 MG ORAL (21:11)
--- NOTE | 2020-06-07 21:27 | NUR ---
NURSE NOTES: Patient has been discharged home in stable condition, accompanied by his family member.
--- NOTE | 2020-06-07 23:33 | Psych Consult Progress Note ---
Psychiatry Progress Note Psychiatry Progress Note Subjective 06/06/20 Neurological/Psychiatric: Reports: anxiety, depressed, emotional problems Allergies: Coded Allergies: No Known Allergies (Unverified , 06/18/18) Objective Data Height (Feet): 5 Height (Inches): 6.00 Weight (Pounds): 123 Additional Comments: awake, disoriented. Mood is anxious. Affect is flat. Thought process, concrete. Thought content, no suicidal or homicidal ideation. Cognition is impaired. Insight and judgment is impaired. Assessment/Plan Problem List: (1) Psychotic disorder ICD Codes: F29 - Unspecified psychosis not due to a substance or known physiological condition SNOMED: 25553975 (2) Alzheimer's dementia ICD Codes: G30.9 - Alzheimer's disease, unspecified; F02.80 - Dementia in other diseases classified elsewhere without behavioral disturbance SNOMED: 94741728 Status: stable, progressing Assessment/Plan: -haldol 5mg im x 6hr prn anxiety -zyprexa 5mg po qhs -provided /Tim Hodges MD Jun 07, 2020 23:33
--- NOTE | 2020-06-08 13:53 | Discharge Summary ---
Discharge Summary Discharge Summary _ DATE OF ADMISSION: 06/04/2020 DATE OF DISCHARGE: 06/07/2020 DISCHARGED BY: Dr Crump REASON FOR ADMISSION: 84 years old male with past medical history of hypertension, Alzheimer dementia , brought by evaluation due to dizziness and syncope. Apparently for the last 2 weeks patient had dizzy spells and one time passed out. Patient had advanced dementia and was unable to provide any meaningful information He had yet another episode of passing out that morning prior to ED arrival, and granddaughter subsequently brought him for evaluation. Patient was on baby aspirin , but did not take any anticoagulation. Patient denied chest pain or shortness of breath. No fever or chills. No nausea or vomiting. Upon evaluation vital signs were stable. EKG revealed sinus bradycardia with PAC, heart rate of 59. Troponin negative. pro BNP 175. Chest x-ray demonstrated no acute cardiopulmonary pathology. CT of the head revealed no evidence of acute intracranial bleeding or mass- effect. Chronic and age-related changes noted. Laboratory work-up revealed no leukocytosis ,hemoglobin 11.6,hematocrit 36.9. Stable electrolytes and renal parameters. Urinalysis revealed no evidence of urinary tract infection. In emergency department patient received a liter of fluids, analgesic and admitted for further management. CONSULTANTS: product delivery specialist Dr. Rowe tutorial laboratory supervisor/oncologist Dr. Townsend psychiatrist [facility] COURSE: Patient admitted to monitored floor. Serial troponin were negative. EKG revealed no acute ischemic changes. Patient was ruled out for acute myocardial infarction. Echocardiogram demonstrated preserved ejection fraction of 60%. No evidence of wall motion abnormality. No evidence of left ventricular hypertrophy. Right ventricular systolic pressure of 23. Carotid duplex revealed atherosclerotic calcification of the bilateral carotid circulation. No evidence of hemodynamically significant stenosis. Blood pressure was managed with calcium channel juan. Clonidine and hydralazine were on board as needed for blood pressure spikes. Blood pressure remained stable. Telemetry consistently showed sinus rhythm or sinus bradycardia with high 50s . No evidence of arrhythmia. Transport Coordinator stated that it was unclear if both episodes were true syncope or fall. Hemoglobin and hematocrit were closely monitored with goal to keep hemoglobin above 7. Prior to discharge hemoglobin 13 ,hematocrit 41.5. HIV rapid test was nonreactive. Hepatitis panel pending. Fall precaution maintained. Patient was working with a physical therapist . Per psychiatrist patient had psychotic disorder along with Alzheimer dementia. Psychiatric medication regimen was optimized. Reality orientation and supportive therapy provided. Home health was arranged. Patient clinically stabilized abd was ready for discharge. FINAL DIAGNOSES: Recurrent syncope Hypertension Bradycardia Alzheimer dementia Psychotic disorder Anemia of chronic disease DISCHARGE MEDICATIONS: See Medication Reconciliation list. DISCHARGE INSTRUCTIONS: Patient was discharged home with home health services. Follow up with primary care provider in one week. I have been assigned to dictate discharge summary for this account. I was not involved in the patient's management. Tyra Clayton NP Jun 08, 2020 13:53
--- NOTE | 2020-06-13 14:36 | Coder Physician Query ---
Clarification is required for compliance, coding accuracy, and to reflect severity of illness for this patient Dear Dr. LOZANO Date: 06/13/2020 Artificial Stone Setter/CDS' Name: RACQUEL,[facility] SYNCOPE QUERY - Apparently for the last 2 weeks patient had dizzy spells and one time passed out. Patient had advanced dementia and was unable to provide any meaningful information He had yet another episode of passing out that morning prior to ED arrival Serial troponin were negative. EKG revealed no acute ischemic changes. Patient was ruled out for acute myocardial infarction. Echocardiogram demonstrated preserved ejection fraction of 60%. No evidence of wall motion abnormality. No evidence of left ventricular hypertrophy. Right ventricular systolic pressure of 23. Carotid duplex revealed atherosclerotic calcification of the bilateral carotid circulation. No evidence of hemodynamically significant stenosis. Blood pressure was managed with calcium channel juan. Clonidine and hydralazine were on board as needed for blood pressure spikes. Blood pressure remained stable. Telemetry consistently showed sinus rhythm or sinus bradycardia with high 50s . No evidence of arrhythmia. Tattooer stated that it was unclear if both episodes were true syncope or fall. Please document the suspected etiology of SYNOPE: [] Dehydration [] Orthostatic Hypotension [] Psychogenic [] Shock [] Dialysis Disequilibrium Syndrome [] Heat [] Other: [] Unable to determine Physician signature Date MTDD
== END 2020-06-07 21:30 | disposition home health service (06) | DRG 641 ==
LOC: EMR 14:22 → 2E 14:30 → EDBEDREQ 14:33 → 4E 06-05 18:07
DX: E86.0 Dehydration (principal); R55 Syncope and collapse; R00.1 Bradycardia, unspecified; Z79.82 Long term (current) use of aspirin; G30.9 Alzheimer's disease, unspecified; F02.80 Dementia in other diseases classified elsewhere, unspecified severity, without behavioral disturbance, psychotic disturbance, mood disturbance, and anxiety; I10 Essential (primary) hypertension; D63.8 Anemia in other chronic diseases classified elsewhere; F28 Other psychotic disorder not due to a substance or known physiological condition
CPT/HCPCS: 36415; 70450; 71045; 80048; 80053; 81003; 83880; 84439; 84443; 84484; 85025; 86703; 86705; 86709; 86803; 87340; 93005; 93306; 93880; 96360; 99285

== ENCOUNTER 2020-10-06 11:08 | Inpatient (IN) | payer MEDICARE, OTHER ==
[~2020-10-06] VITALS: Ht 172.7 cm; Wt 59.0 kg
[~2020-10-06 11:08] MED LIST changes: +ATIVAN1 MG ORAL; +CLONIDINE HCL0.1 MG PO; +HYDRALAZINE HCL50 MG ORAL; +ZYPREXA5 MG ORAL
[2020-10-06 11:18] VITALS: BP 127/78
[2020-10-06 12:19] LABS: BASOPHILS % (AUTO) 1.5 % (0.0-2.0); EOSINOPHILS % (AUTO) 3.9 % (0.0-3.0); HEMOGLOBIN 10.7 G/DL (14.2-18.0); LYMPHOCYTES % (AUTO) 23.3 % (20.0-45.0); MEAN CORPUSCULAR VOLUME 91 FL (80-99); MONOCYTES % (AUTO) 9.2 % (1.0-10.0); NEUTROPHILS % (AUTO) 62.1 % (45.0-75.0); PLATELET COUNT 306 K/UL (150-450); RED BLOOD COUNT 3.82 M/UL (4.70-6.10); RED CELL DISTRIBUTION WIDTH 14.9 % (11.6-14.8); WHITE BLOOD COUNT 6.9 K/UL (4.8-10.8)
[2020-10-06 12:50] LABS: ANION GAP 7 mmol/L (5-15); BLOOD UREA NITROGEN 17 mg/dL (7-18); CARBON DIOXIDE 29 MMOL/L (21-32); CHLORIDE 107 MMOL/L (98-107); CREATININE 1.1 MG/DL (0.55-1.30); POTASSIUM 3.7 MMOL/L (3.5-5.1); SODIUM 143 MMOL/L (136-145)
[2020-10-06 13:01] LABS: ALANINE AMINOTRANSFERASE 11 U/L (12-78); ALBUMIN 3.2 G/DL (3.4-5.0); ALBUMIN/GLOBULIN RATIO 0.7 (1.0-2.7); ALKALINE PHOSPHATASE 49 U/L (46-116); ASPARTATE AMINO TRANSFERASE 17 U/L (15-37); BILIRUBIN,TOTAL 0.4 MG/DL (0.2-1.0)
[2020-10-06 13:06] VITALS: BP 125/71
--- NOTE | 2020-10-06 14:03 | Emergency Room Report ---
History of Present Illness General Chief Complaint: Chest Pain Source: Patient Present Illness HPI 84-year-old male presents to ED for evaluation. Brought in by EMS from home. Complaining of chest pain since this morning. Noted by son. Patient has dementia. Vaguely points to his chest but denies any pain or shortness of breath at this time. Denies fevers or chills. Denies cough. No other aggravating relieving factors. Denies any other associated symptoms Allergies: Coded Allergies: No Known Allergies (Unverified , 06/18/18) COVID-19 Screening Contact w/high risk pt: No Recent Travel to affected area: No Experienced COVID-19 symptoms?: No COVID-19 symptoms experienced: Cough COVID-19 Testing performed JUNIOR RECRUITER: No Patient History Past Medical History: none Past Surgical History: none Pertinent Family History: none Social History: Denies: smoking, alcohol use, drug use Immunizations: UTD Reviewed Nursing Documentation: PMH: Agreed; PSxH: Agreed Nursing Documentation-PMH Hx Cardiac Problems: No - alzheimer Hx Hypertension: Yes Hx Cancer: No Hx Gastrointestinal Problems: No Review of Systems All Other Systems: negative except mentioned in HPI Physical Exam Vital Signs Date Time Temp Pulse Resp B/P (MAP) Pulse Ox O2 Delivery O2 Flow Rate FiO2 10/06/20 11:11 98.4 79 18 127/78 (94) 94 Room Air Sp02 EP Interpretation: reviewed, normal General Appearance: no apparent distress, alert, GCS 15, non-toxic Head: normocephalic, atraumatic Eyes: bilateral eye normal inspection, bilateral eye PERRL ENT: hearing grossly normal, normal pharynx, no angioedema, normal voice Neck: full range of motion, supple/symm/no masses Respiratory: chest non-tender, lungs clear, normal breath sounds, speaking full sentences Cardiovascular #1: regular rate, rhythm, no edema Cardiovascular #2: 2+ carotid (R), 2+ carotid (L), 2+ radial (R), 2+ radial (L), 2+ dorsalis pedis (R), 2+ dorsalis pedis (L) Gastrointestinal: normal bowel sounds, non tender, soft, non-distended, no guarding, no rebound Rectal: deferred Genitourinary: normal inspection, no CVA tenderness Musculoskeletal: back normal, normal range of motion, gait/station normal, non- tender Neurologic: alert, motor strength/tone normal, oriented x3, sensory intact, responsive, speech normal Psychiatric: judgement/insight normal, memory normal, mood/affect normal, no suicidal/homicidal ideation Reflexes: 3+ bicep (R), 3+ bicep (L), 3+ tricep (R), 3+ tricep (L), 3+ knee (R), 3+ knee (L) Skin: other - See nursing notes Lymphatic: no adenopathy Medical Decision Making Diagnostic Impression: Primary Impression: ACS (acute coronary syndrome) ER Course Hospital Course 84-year-old male presents with chest pain. No symptoms now Differential diagnoses include: ID/unstable angina, contusion, muscle strain, PTX, rib fracture Clinical course Patient placed on stretcher. 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 After initial history and physical I ordered labs, EKG, chest x-ray labs reviewed-no leukocytosis, hemoglobin/hematocrit stable, electrolytes okay, troponin negative EKGnormal sinus rhythm some minimally elevated T waves in lateral leads Chest x-ray-no acute process Symptoms are vague however patient is elderly with significant comorbidities. Aspirin given. Case discussed with Dr. Bardales and he agreed to accept the patient to his service for further care and support I. I feel this is a highly complex case requiring extensive working including EKG/Rhythm strip, Xray/CT/US, Blood/urine lab work, repeat exams while in ED, and administration of strong opiates/narcotics for pain control, admission to [facility] or close patient follow up. Diagnosis - ACS admitted to telemetry in serious condition Laboratory Tests Test 10/06/20 11:52 White Blood Count 6.9 K/UL (4.8-10.8) Red Blood Count 3.82 M/UL (4.70-6.10) L Hemoglobin 10.7 G/DL (14.2-18.0) L Hematocrit 35.0 % (42.0-52.0) L Mean Corpuscular Volume 91 FL (80-99) Mean Corpuscular Hemoglobin 28.1 PG (27.0-31.0) Mean Corpuscular Hemoglobin Concent 30.7 G/DL (32.0-36.0) L Red Cell Distribution Width 14.9 % (11.6-14.8) H Platelet Count 306 K/UL (150-450) Mean Platelet Volume 5.7 FL (6.5-10.1) L Neutrophils (%) (Auto) 62.1 % (45.0-75.0) Lymphocytes (%) (Auto) 23.3 % (20.0-45.0) Monocytes (%) (Auto) 9.2 % (1.0-10.0) Eosinophils (%) (Auto) 3.9 % (0.0-3.0) H Basophils (%) (Auto) 1.5 % (0.0-2.0) Sodium Level 143 MMOL/L (136-145) Potassium Level 3.7 MMOL/L (3.5-5.1) Chloride Level 107 MMOL/L (98-107) Carbon Dioxide Level 29 MMOL/L (21-32) Anion Gap 7 mmol/L (5-15) Blood Urea Nitrogen 17 mg/dL (7-18) Creatinine 1.1 MG/DL (0.55-1.30) Estimat Glomerular Filtration Rate > 60 mL/min (>60) Glucose Level 83 MG/DL (74-106) Calcium Level 9.0 MG/DL (8.5-10.1) Total Bilirubin 0.4 MG/DL (0.2-1.0) Aspartate Amino Transf (AST/SGOT) 17 U/L (15-37) Alanine Aminotransferase (ALT/SGPT) 11 U/L (12-78) L Alkaline Phosphatase 49 U/L (46-116) Troponin I 0.000 ng/mL (0.000-0.056) Pro-B-Type Natriuretic Peptide 68 pg/mL (0-125) Total Protein 7.8 G/DL (6.4-8.2) Albumin 3.2 G/DL (3.4-5.0) L Globulin 4.6 g/dL Albumin/Globulin Ratio 0.7 (1.0-2.7) L EKG Diagnostic Results Troponin ordered: Yes Rate: normal Rhythm: NSR ST Segments: no acute changes ASA given to the pt in ED: No Rhythm Strip Diag. Results EP Interpretation: yes Rhythm: NSR, no PVC's, no ectopy Chest X-Ray Diagnostic Results Chest X-Ray Diagnostic Results : Chest X-Ray Ordered: Yes # of Views/Limited/Complete: 1 View Indication: Chest Pain EP Interpretation: Yes Interpretation: no consolidation, no effusion, no pneumothorax, no acute cardiopulmonary disease Impression: No acute disease Electronically Signed by: Electronically signed by Javon Mayer MD Last Vital Signs Date Time Temp Pulse Resp B/P (MAP) Pulse Ox O2 Delivery O2 Flow Rate FiO2 10/06/20 13:06 98.4 72 16 125/71 98 Room Air Status: improved Disposition: ADMITTED INPATIENT Condition: Serious Referrals: NON PHYSICIAN (PCP) Javon Mayer MD Oct 06, 2020 14:03
[2020-10-06 14:59] VITALS: BP 132/97
[2020-10-06] MEDS ORDERED: Morphine Sulfate 2mg/ml Inj(IV/IM USE ONLY) IVP PRN ×2 (16:00)
[2020-10-06] MEDS ORDERED: Nitroglycerin Subl 0.4mg tab SL PRN (16:00)
--- NOTE | 2020-10-06 16:37 | Diagnostic Imaging Report ---
Indication: Chest pain Technique: One view of the chest Comparison: 06/04/2020 Findings: Lungs pleural spaces are clear. The heart size is normal. There is tortuous calcified and ectatic. There is no significant interim change Impression: No acute process
[2020-10-06 17:25] VITALS: BP 135/81
[2020-10-06] MEDS: Enoxaparin 40mg Inj SUBQ SCH (17:55)
--- NOTE | 2020-10-06 17:58 | History and Physical ---
History of Present Illness General Date patient seen: Oct 06, 2020 Time patient seen: 13:50 Reason for Hospitalization: Chest Pain Present Illness HPI 84 y/o M who presented to the ED from home with son c/o non radiating, left side chest pain onset this AM at 0900 when pt woke up. Pt has hx of dementia and is poor historian. Per son, pt took something for the pain unknown name, dose. AAox3, verbally responsive. No SOB, on room air. In the ED his work up revealed normal EKG, troponin 0, due to the nature of his symptoms admission for observation was requested. The patient during the interview denies any chest pain at this time, no sob, no nausea or emesis. Allergies: Coded Allergies: No Known Allergies (Unverified , 06/18/18) COVID-19 Screening Contact w/high risk pt: No Recent Travel to affected area: No Experienced COVID-19 symptoms?: No Medication History Scheduled Amlodipine Besylate* (Amlodipine Besylate*), 5 MG ORAL DAILY, (Reported) Aspirin* (Aspir 81*), 81 MG ORAL DAILY, (Reported) Doxycycline Monohydrate* (Doxycycline Monohydrate*), 100 MG ORAL Q12H Olanzapine* (Zyprexa*), 5 MG ORAL HS, (Reported) Scheduled PRN Albuterol Sulfate* (Albuterol Sulfate Mdi*), 2 PUFF INH Q4H PRN for cough/wheezing Clonidine Hcl (Clonidine Hcl), 0.1 MG PO Q4HR PRN for prn, (Reported) Hydralazine Hcl* (Hydralazine Hcl*), 50 MG ORAL EVERY 8 HOURS PRN for For High Blood Pressure, (Reported) Lorazepam* (Ativan*), 1 MG ORAL THREE TIMES A DAY PRN for Agitation, (Reported) Tramadol Hcl* (Ultram*), 50 MG ORAL Q12HR PRN for For Pain, (Reported) Zolpidem Tartrate* (Ambien*), 5 MG ORAL BEDTIME PRN for Insomnia, (Reported) Patient History Healthcare decision maker Resuscitation status Advanced Directive on File Review of Systems All Other Systems: negative except mentioned in HPI Physical Exam General Appearance: WD/WN Lines, tubes and drains: peripheral HEENT: normocephalic, atraumatic Neck: non-tender, normal alignment Cardiovascular/Chest: normal rate Abdomen: non tender Extremities: non-tender Skin Exam: normal pigmentation 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 grossly normal Last 24 Hour Vital Signs Date Time Temp Pulse Resp B/P (MAP) Pulse Ox O2 Delivery O2 Flow Rate FiO2 10/06/20 17:25 98.4 78 18 135/81 98 Room Air 10/06/20 14:59 98.4 70 20 132/97 99 Room Air 10/06/20 13:06 98.4 72 16 125/71 98 Room Air 10/06/20 11:18 98.4 79 18 127/78 94 Room Air 10/06/20 11:18 79 18 Room Air 10/06/20 11:11 98.4 79 18 127/78 (94) 94 Room Air Laboratory Tests Test 10/06/20 11:52 White Blood Count 6.9 K/UL (4.8-10.8) Red Blood Count 3.82 M/UL (4.70-6.10) L Hemoglobin 10.7 G/DL (14.2-18.0) L Hematocrit 35.0 % (42.0-52.0) L Mean Corpuscular Volume 91 FL (80-99) Mean Corpuscular Hemoglobin 28.1 PG (27.0-31.0) Mean Corpuscular Hemoglobin Concent 30.7 G/DL (32.0-36.0) L Red Cell Distribution Width 14.9 % (11.6-14.8) H Platelet Count 306 K/UL (150-450) Mean Platelet Volume 5.7 FL (6.5-10.1) L Neutrophils (%) (Auto) 62.1 % (45.0-75.0) Lymphocytes (%) (Auto) 23.3 % (20.0-45.0) Monocytes (%) (Auto) 9.2 % (1.0-10.0) Eosinophils (%) (Auto) 3.9 % (0.0-3.0) H Basophils (%) (Auto) 1.5 % (0.0-2.0) Sodium Level 143 MMOL/L (136-145) Potassium Level 3.7 MMOL/L (3.5-5.1) Chloride Level 107 MMOL/L (98-107) Carbon Dioxide Level 29 MMOL/L (21-32) Anion Gap 7 mmol/L (5-15) Blood Urea Nitrogen 17 mg/dL (7-18) Creatinine 1.1 MG/DL (0.55-1.30) Estimat Glomerular Filtration Rate > 60 mL/min (>60) Glucose Level 83 MG/DL (74-106) Calcium Level 9.0 MG/DL (8.5-10.1) Total Bilirubin 0.4 MG/DL (0.2-1.0) Aspartate Amino Transf (AST/SGOT) 17 U/L (15-37) Alanine Aminotransferase (ALT/SGPT) 11 U/L (12-78) L Alkaline Phosphatase 49 U/L (46-116) Troponin I 0.000 ng/mL (0.000-0.056) Pro-B-Type Natriuretic Peptide 68 pg/mL (0-125) Total Protein 7.8 G/DL (6.4-8.2) Albumin 3.2 G/DL (3.4-5.0) L Globulin 4.6 g/dL Albumin/Globulin Ratio 0.7 (1.0-2.7) L Height (Feet): 5 Height (Inches): 8.00 Weight (Pounds): 170 Medications Current Medications Medications (Trade) Dose Ordered Sig/Eva Route PRN Reason Start Time Stop Time Status Last Admin Dose Admin Acetaminophen (Tylenol) 650 mg Q4H PRN ORAL Mild Pain (Pain Scale 1-3) 10/06/20 16:00 11/05/20 15:59 Acetaminophen (Tylenol) 650 mg Q4H PRN ORAL Temp >100.5 10/06/20 16:00 11/05/20 15:59 Aspirin (ASA) 81 mg DAILY ORAL 10/07/20 09:00 11/21/20 08:59 Bisacodyl (Dulcolax) 10 mg DAILYPRN PRN RECTAL Constipation 10/06/20 16:00 01/04/21 15:59 Dextrose (Dextrose 50%) 25 ml Q30M PRN IV Hypoglycemia 10/06/20 16:00 01/04/21 15:59 Dextrose (Dextrose 50%) 50 ml Q30M PRN IV Hypoglycemia 10/06/20 16:00 01/04/21 15:59 Docusate Sodium (Colace) 100 mg EVERY 12 HOURS ORAL 10/06/20 21:00 11/05/20 20:59 Enoxaparin Sodium (Lovenox) 40 mg Q24H SUBQ 10/06/20 18:00 01/04/21 17:59 Famotidine (Pepcid) 20 mg BID ORAL 10/06/20 18:00 01/04/21 17:59 Lisinopril (ZestriL) 5 mg DAILY ORAL 10/07/20 09:00 10/08/20 09:01 Morphine Sulfate (Morphine Sulfate) 1 mg Q4H PRN IVP pain 4-6 10/06/20 16:00 10/13/20 15:59 Morphine Sulfate (Morphine Sulfate) 2 mg Q4H PRN IVP pain 7-10 10/06/20 16:00 10/13/20 15:59 Nitroglycerin (Ntg) 0.4 mg Q5M PRN SL Prn Chest Pain 10/06/20 16:00 11/05/20 15:59 Ondansetron HCl (Zofran) 4 mg Q6H PRN IVP Nausea & Vomiting 10/06/20 16:00 11/05/20 15:59 Assessment/Plan Status: unchanged Assessment/Plan: 84 y/o M admitted to the hospital due to sudden onset of chest pain # Chest pain Ddx ACS vs atypical angina vs non cardiac chest pain In the ER, EKG is negative for ST changes or conduction defects, first troponin was negative Telemetry observation TTE ordered to evaluation EF and WMA NTG prn ASA started patient medication list shows aspirin as one of his ASSISTANT COMMISSIONER # Hypertensive heart disease Resume Amlodipine Add PRN Hydralazine and resumed PRN Clonidine ASSISTANT COMMISSIONER listed Monitor his BP # DVT ppx # GI ppx FULL CODE Discussed with his son Miguel [phone] Rupesh Bardales MD Oct 06, 2020 17:58
[2020-10-06] MEDS ORDERED: Albuterol 90mcg Inhaler 8gm INH PRN (18:00)
[2020-10-06] MEDS ORDERED: traMADol 50mg tab ORAL PRN (18:00)
[2020-10-06] MEDS ORDERED: LORazepam 1mg tab ORAL PRN (18:00)
[2020-10-06] MEDS ORDERED: Albuterol ud Inhalation HHN PRN (18:15)
[2020-10-06 18:37] VITALS: BP 130/77
[2020-10-06] MEDS: Docusate 100mg cap ORAL SCH (21:17)
[2020-10-07] VITALS: BP 161/62
[2020-10-07 04:00] VITALS: BP 156/62
[2020-10-07 07:13] LABS: BASOPHILS % (AUTO) 1.3 % (0.0-2.0); EOSINOPHILS % (AUTO) 4.3 % (0.0-3.0); HEMOGLOBIN 9.9 G/DL (14.2-18.0); LYMPHOCYTES % (AUTO) 28.8 % (20.0-45.0); MEAN CORPUSCULAR VOLUME 84 FL (80-99); MONOCYTES % (AUTO) 11.9 % (1.0-10.0); NEUTROPHILS % (AUTO) 53.8 % (45.0-75.0); PLATELET COUNT 287 K/UL (150-450); RED BLOOD COUNT 3.59 M/UL (4.70-6.10); RED CELL DISTRIBUTION WIDTH 15.8 % (11.6-14.8)
[2020-10-07 07:36] LABS: ANION GAP 7 mmol/L (5-15); BLOOD UREA NITROGEN 17 mg/dL (7-18); CARBON DIOXIDE 29 MMOL/L (21-32); CHLORIDE 105 MMOL/L (98-107); CREATININE 0.9 MG/DL (0.55-1.30); HDL CHOLESTEROL 42 MG/DL (40-60); POTASSIUM 3.3 MMOL/L (3.5-5.1); SODIUM 141 MMOL/L (136-145); TRIGLYCERIDES 47 MG/DL (30-150)
[2020-10-07 07:58] LABS: CHOLESTEROL 135 MG/DL (< 200)
[2020-10-07 08:00] VITALS: BP 159/60
[2020-10-07] MEDS ORDERED: Lisinopril 2.5mg tab ORAL SCH (09:00)
[2020-10-07] MEDS: Aspirin Baby 81mg ORAL SCH (09:40)
[2020-10-07] MEDS: Docusate 100mg cap ORAL SCH ×2 (09:40→20:38)
[2020-10-07 12:00] VITALS: BP 150/62
--- NOTE | 2020-10-07 12:08 | General Progress Note ---
Subjective Date patient seen: Oct 07, 2020 Time patient seen: 09:30 ROS Limited/Unobtainable: No Allergies: Coded Allergies: No Known Allergies (Unverified , 06/18/18) All Systems: reviewed and negative except above Subjective Patient feels better. He denies chest pain and endorses weakness today. Objective Last 24 Hour Vital Signs Date Time Temp Pulse Resp B/P (MAP) Pulse Ox O2 Delivery O2 Flow Rate FiO2 10/07/20 09:40 64 159/60 10/07/20 09:00 Room Air 10/07/20 08:00 76 10/07/20 08:00 98.0 64 18 159/60 (93) 96 10/07/20 04:00 54 10/07/20 04:00 98.4 88 18 156/62 (93) 97 10/07/20 00:00 57 10/07/20 00:00 98.6 57 18 161/62 (95) 97 10/06/20 23:24 Room Air 10/06/20 21:00 98.4 68 18 128/76 100 Room Air 10/06/20 18:37 98.4 71 16 130/77 100 Room Air 10/06/20 17:25 98.4 78 18 135/81 98 Room Air 10/06/20 14:59 98.4 70 20 132/97 99 Room Air 10/06/20 13:06 98.4 72 16 125/71 98 Room Air Intake and Output 10/06/20 10/07/20 19:00 07:00 Intake Total 360 ml Balance 360 ml Intake Oral 360 ml # Voids 2 Laboratory Tests 10/07/20 05:05: White Blood Count 5.0, Red Blood Count 3.59L, Hemoglobin 9.9L, Hematocrit 30.0L, Mean Corpuscular Volume 84, Mean Corpuscular Hemoglobin 27.6, Mean Corpuscular Hemoglobin Concent 33.0, Red Cell Distribution Width 15.8H, Platelet Count 287, Mean Platelet Volume 6.4L, Neutrophils (%) (Auto) 53.8, Lymphocytes (%) (Auto) 28.8, Monocytes (%) (Auto) 11.9H, Eosinophils (%) (Auto) 4.3H, Basophils (%) (Auto) 1.3, Sodium Level 141, Potassium Level 3.3L, Chloride Level 105, Carbon Dioxide Level 29, Anion Gap 7, Blood Urea Nitrogen 17, Creatinine 0.9, Estimat Glomerular Filtration Rate > 60, Glucose Level 71L, Hemoglobin A1c 6.0, Calcium Level 9.0, Troponin I 0.000, Triglycerides Level 47, Cholesterol Level 135, LDL Cholesterol 79, HDL Cholesterol 42, Cholesterol/HDL Ratio 3.2L Height (Feet): 5 Height (Inches): 8.00 Weight (Pounds): 170 General Appearance: WD/WN EENT: PERRL/EOMI Neck: non-tender Cardiovascular: normal rate Respiratory/Chest: lungs clear Abdomen: non tender Extremities: normal range of motion Edema: trace edema 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 TTE ordered to evaluation EF and WMA - PENDING NTG prn ASA started patient medication list shows aspirin as one of his BUSINESS SPECIALIST # Hypertensive heart disease Resume Amlodipine Add PRN Hydralazine and resumed PRN Clonidine BUSINESS SPECIALIST listed Monitor his BP # Safety evaluation with PT pending. # DVT ppx # GI ppx FULL CODE rukhsana Rivera [phone] Rupesh Bardales MD Oct 07, 2020 12:08
[2020-10-07 16:00] VITALS: BP 127/70
[2020-10-07] MEDS: Enoxaparin 40mg Inj SUBQ SCH (17:26)
[2020-10-07 20:00] VITALS: BP 139/77
[2020-10-08] VITALS: BP 136/75
[2020-10-08 04:00] VITALS: BP 141/71
[2020-10-08 07:25] LABS: ANION GAP 6 mmol/L (5-15); BLOOD UREA NITROGEN 14 mg/dL (7-18); CALCIUM 8.9 MG/DL (8.5-10.1); CARBON DIOXIDE 28 MMOL/L (21-32); CHLORIDE 105 MMOL/L (98-107); POTASSIUM 3.6 MMOL/L (3.5-5.1); SODIUM 139 MMOL/L (136-145)
[2020-10-08 08:00] VITALS: BP 139/71
[2020-10-08] MEDS: Aspirin Baby 81mg ORAL SCH (09:08)
[2020-10-08] MEDS: Docusate 100mg cap ORAL SCH (09:08)
[2020-10-08 09:09] VITALS: BP 139/71
--- NOTE | 2020-10-08 09:21 | Discharge Instructions ---
Discharge Instructions Discharge Instructions Diet: 2 GM sodium (low sodium) Resume Normal Activity?: Yes Activity: resume normal activities Follow Up Orders Follow up with PCP in the next 1 -2 weeks Return to Work/School on: Oct 08, 2020 For Congestive Heart Failure Reminder Report to your physician any weight gain of 5 pounds or more in one week. Rupesh Bardales MD Oct 08, 2020 09:21
--- NOTE | 2020-10-08 09:32 | Discharge Summary ---
Discharge Summary Hospital Course Date of Admission Oct 06, 2020 at 13:06 Date of Discharge 10/08/20 Admitting Diagnosis ACS/CP NNEKA Bullock Jr is a 84 year old male who was admitted on Oct 06, 2020 at 13:06 for Acute Coronary Syndrome, Chest Pain Hospital Course 84 y/o M admitted to the hospital due to sudden onset of chest pain # Chest pain Ddx ACS vs atypical angina vs non cardiac chest pain In the ER, EKG is negative for ST changes or conduction defects, Troponin trend was negative at 0 and not indication for active ACS TTE ordered to evaluation EF and WMA - EF 60 % and normal wall motion, normal valvular function noted. Medically, the patient did not have evidence of ACS or underlying cardiac abnormality. He is medically stable to return home. # Hypertensive heart disease Resumed Amlodipine Add PRN Hydralazine and resumed PRN Clonidine EDITOR IN CHIEF listed Monitor his BP and recommend follow up with PCP in 1-2 weeks FULL CODE The patient son Miguel [phone] was updated. Discharge Medications Continued Medications: Albuterol Sulfate* (Albuterol Sulfate Mdi*) 8.5 Gm Hfa.aer.ad 2 PUFF INH Q4H PRN for cough/wheezing, #1 EA 0 Refills Amlodipine Besylate* (Amlodipine Besylate*) 5 Mg Tablet 5 MG ORAL DAILY, TAB Aspirin* (Aspir 81*) 81 Mg Tablet.dr 81 MG ORAL DAILY, TAB Clonidine Hcl (Clonidine Hcl) 0.1 Mg Tablet 0.1 MG PO Q4HR PRN for prn, TAB Hydralazine Hcl* (Hydralazine Hcl*) 50 Mg Tablet 50 MG ORAL EVERY 8 HOURS PRN for For High Blood Pressure, TAB Zolpidem Tartrate* (Ambien*) 5 Mg Tablet 5 MG ORAL BEDTIME PRN for Insomnia, TAB Discontinued Medications: Doxycycline Monohydrate* (Doxycycline Monohydrate*) 100 Mg Capsule 100 MG ORAL Q12H, #14 CAP 0 Refills Lorazepam* (Ativan*) 1 Mg Tablet 1 MG ORAL THREE TIMES A DAY PRN for Agitation, TAB Olanzapine* (Zyprexa*) 5 Mg Tablet 5 MG ORAL HS for anxiety, TAB Tramadol Hcl* (Ultram*) 50 Mg Tablet 50 MG ORAL Q12HR PRN for For Pain, #12 TAB 0 Refills Discharge Condition Upon Discharge: stable Discharge Vital Signs Last Vital Signs Date Time Temp Pulse Resp B/P (MAP) Pulse Ox O2 Delivery O2 Flow Rate FiO2 10/08/20 09:09 68 139/71 10/08/20 08:00 97.8 19 98 10/07/20 21:00 Room Air Discharge Disposition Patient was discharged to home Discharge Diagnoses: (1) Hypertension (2) Chest pain Discharge Instructions Discharge Instructions Activity: resume normal activities May Return to Work/School On: Oct 08, 2020 Rupesh Bardales MD Oct 08, 2020 09:32
--- NOTE | 2020-10-08 17:55 | Cardiology Report ---
APPROVED REPORT EKG Measurement Heart [id number] <Conclusion> Sinus rhythm with marked sinus arrhythmia Septal infarct, age undetermined Abnormal ECG
--- NOTE | 2020-10-15 12:12 | Cardiology Report ---
APPROVED REPORT EXAM: Two-dimensional and M-mode echocardiogram with Doppler and color Doppler. INDICATION Chest Pain M-Mode DIMENSIONS IVSd1.3 (0.7-1.1cm)Left Atrium (MM)3.6 (1.6-4.0cm) LVDd4.0 (3.5-5.6cm)Aortic Root3.5 (2.0-3.7cm) PWd1.0 (0.7-1.1cm)Aortic Cusp Exc.1.8 (1.5-2.0cm) IVSs1.6 cmEPSS0.4 (>1.0cm) LVDs2.7 (2.5-4.0cm) PWs1.3 cm <Conclusion> Technically difficult study due to poor acoustic windows. Study quality precludes accurate assessment of regional wall motion. Abnormal septal motion noted. Normal left ventricular chamber size, systolic function and wall motion. Left ventricular ejection fraction estimated to be 50-55%. Mild left ventricular hypertrophy. No evidence of pericardial effusion. All other cardiac chamber sizes are within normal limits. Focal aortic valve sclerosis with adequate cusp excursion. Thickened mitral valve leaflets with normal excursion. Mitral annulus and aortic root calcification. Pulmonic valve not well visualized. Normal tricuspid valve structure. IVC is normal in size with physiological collapse. A color flow and spectral Doppler study was performed and revealed: No aortic regurgitation. No mitral regurgitation. Mitral diastolic velocities suggest mild left ventricular diastolic dysfunction (Grade I). No tricuspid regurgitation.
--- NOTE | 2020-10-16 09:54 | Coder Physician Query ---
Dear Dr. JOLLY JEFFRIES Date: 10/13/2020 Wireless Communications Engineer/CDS' Name:LATOSHA PICKETT Jr is a 84 year old male who was admitted on Oct 06, 2020 at 13:06 for Acute Coronary Syndrome, Chest Pain Hospital Course 84 y/o M admitted to the hospital due to sudden onset of chest pain # Chest pain Ddx ACS vs atypical angina vs non cardiac chest pain In the ER, EKG is negative for ST changes or conduction defects, Troponin trend was negative at 0 and not indication for active ACS TTE ordered to evaluation EF and WMA - EF 60 % and normal wall motion, normal valvular function noted. Medically, the patient did not have evidence of ACS or underlying cardiac abnormality. He is medically stable to return home. Please document the suspected etiology of Chest Pain: [] Acute Coronary Syndrome [] Pericarditis [] Anxiety [] Pneumonia [] Costochondritis [] Pneumothorax [] GERD/Esophagitis [] Pulmonary embolism [] Other: [x] Unable to determine Physician signature Date MTDD
== END 2020-10-08 11:40 | disposition home or self-care (01) | DRG 313 ==
LOC: EMR 12:54 → 2E 13:06 → EDBEDREQ 18:33
DX: R07.9 Chest pain, unspecified (principal); E87.6 Hypokalemia; I11.9 Hypertensive heart disease without heart failure; Z79.82 Long term (current) use of aspirin; G30.9 Alzheimer's disease, unspecified; F02.80 Dementia in other diseases classified elsewhere, unspecified severity, without behavioral disturbance, psychotic disturbance, mood disturbance, and anxiety
CPT/HCPCS: 36415; 71045; 80048; 80053; 80061; 83036; 83880; 84484; 85025; 93005; 93306; 99285; J8499

== ENCOUNTER 2020-10-24 09:44 | Inpatient (IN) | payer MEDICARE, OTHER ==
[~2020-10-24] VITALS: Ht 185.4 cm; Wt 63.5 kg
--- NOTE | 2020-10-24 09:50 | NUR ---
ED Nurse Note: Patient brought in by granddaughter due to poor appetite, weak x 1 week. Assisted him from car to gurney in wheelchair. Patient awake, alert, oriented x 0. Patient does not answer questions. Hx of Alzheimer's disease. Regular, unlabored breathing noted with pulse oximetry reading > 94% on room air. Patient has mask on. Placed patient on lunchroom monitor. Bed in lowest position.
--- NOTE | 2020-10-24 10:18 | Emergency Room Report ---
History of Present Illness General Chief Complaint: Generalized Weakness Source: Family Member Present Illness HPI Disclaimer: Please note that this report is being documented using Land[employer] technology. This can lead to erroneous entry secondary to incorrect interpretation by the dictating instrument. HPI: 84-year-old male history of Alzheimer's dementia, hypertension, COPD presents for evaluation of failure to thrive and weakness. According to granddaughter who is primary fixed income manager the patient has been refusing to eat for the past week. Falls asleep frequently. Gradual weakness. No longer able to ambulate. Prior to this episode he was eating well, ambulatory and improving. Granddaughter denies recent fever, chills. He has a chronic cough. Denies vomiting or diarrhea. No complaints of pain reported. Cannot obtain any information from patient. PMH: Hypertension, Alzheimer's dementia PSH: Unable to obtain from patient Allergies: None listed in medical chart Social Hx: Unable to obtain from patient Allergies: Coded Allergies: No Known Allergies (Unverified , 06/18/18) COVID-19 Screening Contact w/high risk pt: No Recent Travel to affected area: No Experienced COVID-19 symptoms?: Yes COVID-19 symptoms experienced: Cough Nursing Documentation-PMH Past Medical History: No History, Except For Hx Cardiac Problems: Yes - ACS Hx Hypertension: Yes Hx Cancer: No Hx Gastrointestinal Problems: No History Of Psychiatric Problem: Yes - alzheimers Hx Dementia: Yes Hx Alzheimer's Disease: Yes Review of Systems All Other Systems: limited - Unable to obtain from patient Physical Exam Vital Signs Date Time Temp Pulse Resp B/P (MAP) Pulse Ox O2 Delivery O2 Flow Rate FiO2 10/24/20 09:53 97.9 101 24 116/70 (85) 99 Room Air General: Sleeping. Mumbling coherently HEENT: NC/AT. Sunken eyes. EOMI. PERRLA. Dry mucous membranes Cardiovascular: Borderline tachycardic. S1 and S2 normal. No murmur appreciated Resp: Normal work of breathing. No cough, wheezing or crackles appreciated Abdomen: Abdomen is soft, nondistended. Nontender Skin: Intact. No abrasions, laceration or rash over the exposed skin MSK: Frail appearing. Normal tone and bulk. Moving all extremities. No obvious deformity. Unable to ambulate Neuro: Somnolent but arousable. Mumbling incoherently. Medical Decision Making Diagnostic Impression: Primary Impression: Failure to thrive Additional Impressions: Weakness Unable to ambulate UTI (urinary tract infection) Hypernatremia KAILEY (acute kidney injury) ER Course 84-year-old male brought in by family for concerns of inability to eat, progressive weakness and deconditioning. Concern for malnutrition, dehydration, pneumonia, ACS, anemia among others. EKG nonischemic. No evidence of infiltrate on chest x-ray. Labs show hyponatremia evidence of acute kidney injury as well as urinary tract infection. Patient treated with ceftriaxone.Troponin and lipase within normal limits. Will be admitted to his PMD, Dr. Crump. Family updated by telephone. Laboratory Tests Test 10/24/20 10:05 10/24/20 10:45 White Blood Count 6.4 K/UL (4.8-10.8) Red Blood Count 4.65 M/UL (4.70-6.10) L Hemoglobin 12.6 G/DL (14.2-18.0) L Hematocrit 39.5 % (42.0-52.0) L Mean Corpuscular Volume 85 FL (80-99) Mean Corpuscular Hemoglobin 27.1 PG (27.0-31.0) Mean Corpuscular Hemoglobin Concent 31.9 G/DL (32.0-36.0) L Red Cell Distribution Width 16.4 % (11.6-14.8) H Platelet Count 195 K/UL (150-450) Mean Platelet Volume 7.9 FL (6.5-10.1) Neutrophils (%) (Auto) 68.7 % (45.0-75.0) Lymphocytes (%) (Auto) 22.7 % (20.0-45.0) Monocytes (%) (Auto) 8.4 % (1.0-10.0) Eosinophils (%) (Auto) 0.0 % (0.0-3.0) Basophils (%) (Auto) 0.3 % (0.0-2.0) Sodium Level 160 MMOL/L (136-145) H Potassium Level 3.8 MMOL/L (3.5-5.1) Chloride Level 121 MMOL/L (98-107) H Carbon Dioxide Level 28 MMOL/L (21-32) Anion Gap 12 mmol/L (5-15) Blood Urea Nitrogen 39 mg/dL (7-18) H Creatinine 1.7 MG/DL (0.55-1.30) H Estimated Glomerular Filtration Rate 46.8 mL/min (>60) Glucose Level 143 MG/DL (74-106) H Calcium Level 9.2 MG/DL (8.5-10.1) Phosphorus Level 3.7 MG/DL (2.5-4.9) Magnesium Level 3.0 MG/DL (1.8-2.4) H Total Bilirubin 0.3 MG/DL (0.2-1.0) Aspartate Amino Transferase (AST) 35 U/L (15-37) Alanine Aminotransferase (ALT) 22 U/L (12-78) Alkaline Phosphatase 54 U/L (46-116) Troponin I 0.026 ng/mL (0.000-0.056) Total Protein 9.4 G/DL (6.4-8.2) H Albumin 3.6 G/DL (3.4-5.0) Globulin 5.8 g/dL Albumin/Globulin Ratio 0.6 (1.0-2.7) L Lipase 84 U/L (73-393) Urine Color Yellow Urine Appearance Cloudy Urine pH 5 (4.5-8.0) Urine Specific [place] 1.020 (1.005-1.035) Urine Protein 3+ (NEGATIVE) H Urine Glucose (UA) Negative (NEGATIVE) Urine Ketones Negative (NEGATIVE) Urine Blood 4+ (NEGATIVE) H Urine Nitrite Negative (NEGATIVE) Urine Bilirubin Negative (NEGATIVE) Urine Urobilinogen Normal MG/DL (0.0-1.0) Urine Leukocyte Esterase 3+ (NEGATIVE) H Urine RBC 2-4 /HPF (0 - 0) H Urine WBC 40-60 /HPF (0 - 0) H Urine Squamous Epithelial Cells Few /LPF (NONE/OCC) Urine Bacteria Moderate /HPF (NONE) H EKG Diagnostic Results Troponin ordered: Yes When was troponin ordered?: Oct 24, 2020 EKG Time: 09:59 Rate: normal Rhythm: NSR ST Segments: no acute changes Other Impression Sinus rhythm, normal axis, normal intervals, no ST segment changes. Rhythm Strip Diag. Results Rhythm Strip Time: 09:59 EP Interpretation: yes Rate: 80s Rhythm: NSR, no PVC's, no ectopy Chest X-Ray Diagnostic Results Chest X-Ray Diagnostic Results : Chest X-Ray Ordered: Yes # of Views/Limited/Complete: 1 View Indication: Other - Cough EP Interpretation: Yes Interpretation: no consolidation, no effusion, no pneumothorax, no acute cardiopulmonary disease Impression: No acute disease Electronically Signed by: Electronically signed by Dr. Mg Light MD Last Vital Signs Date Time Temp Pulse Resp B/P (MAP) Pulse Ox O2 Delivery O2 Flow Rate FiO2 10/24/20 09:53 97.9 101 24 116/70 (85) 99 Room Air Disposition: ADMITTED INPATIENT Condition: Stable Mg Light MD Oct 24, 2020 10:18
[2020-10-24 10:21] LABS: BASOPHILS % (AUTO) 0.3 % (0.0-2.0); HEMATOCRIT 39.5 % (42.0-52.0); HEMOGLOBIN 12.6 G/DL (14.2-18.0); LYMPHOCYTES % (AUTO) 22.7 % (20.0-45.0); MEAN CORPUSCULAR VOLUME 85 FL (80-99); MONOCYTES % (AUTO) 8.4 % (1.0-10.0); NEUTROPHILS % (AUTO) 68.7 % (45.0-75.0); PLATELET COUNT 195 K/UL (150-450); RED BLOOD COUNT 4.65 M/UL (4.70-6.10); RED CELL DISTRIBUTION WIDTH 16.4 % (11.6-14.8); WHITE BLOOD COUNT 6.4 K/UL (4.8-10.8)
[2020-10-24 10:31] LABS: CALCIUM 9.2 MG/DL (8.5-10.1); CREATININE 1.7 MG/DL (0.55-1.30); POTASSIUM 3.8 MMOL/L (3.5-5.1)
[2020-10-24 10:35] LABS: ALBUMIN 3.6 G/DL (3.4-5.0); ALBUMIN/GLOBULIN RATIO 0.6 (1.0-2.7); BILIRUBIN,TOTAL 0.3 MG/DL (0.2-1.0); PHOSPHORUS 3.7 MG/DL (2.5-4.9)
--- NOTE | 2020-10-24 10:44 | Diagnostic Imaging Report ---
EXAM: XR Chest, 1 View CLINICAL HISTORY: COUGH TECHNIQUE: Frontal view of the chest. COMPARISON: Chest radiograph on 10/06/2020 FINDINGS: Hardware: None. Lungs/pleura: Normal. No focal consolidation. No pleural effusion or pneumothorax. Heart/mediastinum: Atherosclerotic calcifications of the aorta. No cardiomegaly. Soft tissues: Unremarkable. Bones: No acute fracture. Degenerative changes of the spine. Upper abdomen: Normal. IMPRESSION: No acute disease identified.
[2020-10-24 11:04] LABS: APPEARANCE,URINE CLOUDY; BILIRUBIN, URINE NEGATIVE (NEGATIVE); GLUCOSE, URINE (UA) NEGATIVE (NEGATIVE); KETONES,URINE NEGATIVE (NEGATIVE); LEUKOCYTE ESTERASE ,URINE 3+ (NEGATIVE); NITRITE,URINE NEGATIVE (NEGATIVE); PH,URINE 5 (4.5-8.0); PROTEIN,URINE 3+ (NEGATIVE); UROBILINOGEN,URINE NORMAL MG/DL (0.0-1.0)
[2020-10-24 11:10] VITALS: BP 146/80
[2020-10-24 11:13] LABS: COLOR,URINE YELLOW
[2020-10-24] MEDS ORDERED: cefTRIAXone 1 GM in NS 55 ML IVPB ONE (11:45)
--- NOTE | 2020-10-24 12:05 | NUR ---
ED Nurse Note: Patient changes position frequently in bed. No facial grimacing, guarding or cough noted. bed in lowest position. Provided comfort measures.
[2020-10-24] MEDS ORDERED: TRAMADOL HCL50 MG ORAL (12:19)
--- NOTE | 2020-10-24 13:29 | NUR ---
ED Nurse Note: Sunny Hugo RN at 4E, no hospital bed in the room. EVS contacted.
--- NOTE | 2020-10-24 13:48 | NUR ---
ED Nurse Note: Report given to DANIELLE Mendoza.
[2020-10-24 13:49] VITALS: BP 150/79
--- NOTE | 2020-10-24 14:57 | NUR ---
NURSE NOTES: Received report from DANIELLE sheets. Patient transferred to unit on gurney, AAOx2, on room air. Breathing is even and unlabored with no SOB noted at this time. IV on right AC 20g, patent and intact. RN received patient in stable condition with VS all within normal range. Belongings checked and signed with RN. RN contacted Dr. Crump for orders. Per Dr. Crump continue home meds, orders carried out. Head to toe assessment condon. No skin issues noted. Bed is locked and placed in lowest position.
[2020-10-24] MEDS ORDERED: traMADol 50mg tab ORAL PRN (15:00)
[2020-10-24] MEDS ORDERED: Morphine Sulfate 2mg/ml Inj(IV/IM USE ONLY) IVP PRN (15:00)
[2020-10-24 16:00] VITALS: BP 123/75
--- NOTE | 2020-10-24 16:18 | Cardiac Electrophysiology PN ---
Subjective Subjective [id number] Objective Last 24 Hour Vital Signs Date Time Temp Pulse Resp B/P (MAP) Pulse Ox O2 Delivery O2 Flow Rate FiO2 10/24/20 14:50 Room Air 10/24/20 13:49 89 16 150/79 99 Room Air 10/24/20 11:10 87 23 Room Air 10/24/20 11:10 98.1 82 24 146/80 99 Room Air 10/24/20 09:53 97.9 101 24 116/70 (85) 99 Room Air Laboratory Tests Test 10/24/20 10:05 10/24/20 10:45 White Blood Count 6.4 K/UL (4.8-10.8) Red Blood Count 4.65 M/UL (4.70-6.10) L Hemoglobin 12.6 G/DL (14.2-18.0) L Hematocrit 39.5 % (42.0-52.0) L Mean Corpuscular Volume 85 FL (80-99) Mean Corpuscular Hemoglobin 27.1 PG (27.0-31.0) Mean Corpuscular Hemoglobin Concent 31.9 G/DL (32.0-36.0) L Red Cell Distribution Width 16.4 % (11.6-14.8) H Platelet Count 195 K/UL (150-450) Mean Platelet Volume 7.9 FL (6.5-10.1) Neutrophils (%) (Auto) 68.7 % (45.0-75.0) Lymphocytes (%) (Auto) 22.7 % (20.0-45.0) Monocytes (%) (Auto) 8.4 % (1.0-10.0) Eosinophils (%) (Auto) 0.0 % (0.0-3.0) Basophils (%) (Auto) 0.3 % (0.0-2.0) Sodium Level 160 MMOL/L (136-145) H Potassium Level 3.8 MMOL/L (3.5-5.1) Chloride Level 121 MMOL/L (98-107) H Carbon Dioxide Level 28 MMOL/L (21-32) Anion Gap 12 mmol/L (5-15) Blood Urea Nitrogen 39 mg/dL (7-18) H Creatinine 1.7 MG/DL (0.55-1.30) H Estimat Glomerular Filtration Rate 46.8 mL/min (>60) Glucose Level 143 MG/DL (74-106) H Calcium Level 9.2 MG/DL (8.5-10.1) Phosphorus Level 3.7 MG/DL (2.5-4.9) Magnesium Level 3.0 MG/DL (1.8-2.4) H Total Bilirubin 0.3 MG/DL (0.2-1.0) Aspartate Amino Transf (AST/SGOT) 35 U/L (15-37) Alanine Aminotransferase (ALT/SGPT) 22 U/L (12-78) Alkaline Phosphatase 54 U/L (46-116) Troponin I 0.026 ng/mL (0.000-0.056) Total Protein 9.4 G/DL (6.4-8.2) H Albumin 3.6 G/DL (3.4-5.0) Globulin 5.8 g/dL Albumin/Globulin Ratio 0.6 (1.0-2.7) L Lipase 84 U/L (73-393) Urine Color Yellow Urine Appearance Cloudy Urine pH 5 (4.5-8.0) Urine Specific [place] 1.020 (1.005-1.035) Urine Protein 3+ (NEGATIVE) H Urine Glucose (UA) Negative (NEGATIVE) Urine Ketones Negative (NEGATIVE) Urine Blood 4+ (NEGATIVE) H Urine Nitrite Negative (NEGATIVE) Urine Bilirubin Negative (NEGATIVE) Urine Urobilinogen Normal MG/DL (0.0-1.0) Urine Leukocyte Esterase 3+ (NEGATIVE) H Urine RBC 2-4 /HPF (0 - 0) H Urine WBC 40-60 /HPF (0 - 0) H Urine Squamous Epithelial Cells Few /LPF (NONE/OCC) Urine Bacteria Moderate /HPF (NONE) H Maurilio Lares MD Oct 24, 2020 16:18
[2020-10-24] MEDS ORDERED: Albuterol 90mcg Inhaler 8gm INH PRN (16:30)
--- NOTE | 2020-10-24 17:00 | Consultation ---
DATE OF CONSULTATION: 10/24/2020 CARDIOLOGY CONSULTATION CONSULTING PHYSICIAN: Maurilio Lares MD REASON FOR CONSULTATION: Management of hypertension. HISTORY OF PRESENT ILLNESS: Patient is an 84-year-old gentleman, familiar from previous admission in May of 2020. Patient has history of hypertension, dementia, COPD who was brought to the emergency room for failure to thrive and weakness. According to the granddaughter who primarily takes care of patient, patient has been refusing to be eat for the past week and falls asleep frequently. Patient was admitted and a Cardiology consultation was obtained for further evaluation. REVIEW OF SYSTEMS: Negative other than what was mentioned in the history of present illness. PAST MEDICAL HISTORY: As mentioned above. FAMILY HISTORY: Noncontributory. SOCIAL HISTORY: He lives at home. Does not smoke or drink alcohol. ALLERGIES: Has no known drug allergies. PHYSICAL EXAMINATION: VITAL SIGNS: Show blood pressure of 150/79, pulse is 80, respirations 18, he is afebrile. HEAD AND NECK: Showed no JVD. LUNGS: Clear. CARDIOVASCULAR: Shows regular S1 and S2 with no gallop. ABDOMEN: Soft. EXTREMITIES: No pitting edema. LABORATORY AND DIAGNOSTIC DATA: His EKG showed normal sinus rhythm with poor R-wave progression. Labs show white count of 6.4, hemoglobin , hematocrit 39.5, and platelet count is 195. Sodium 136, potassium 3.8, BUN of 39, creatinine 1.7. Troponin is negative. ASSESSMENT AND PLAN: 1. Hypertension. Continue amlodipine 5 mg daily. Patient is also on p.r.n. clonidine that would be continued. 2. Severe dehydration and azotemia. Patient's sodium is 160 and also has renal failure, creatinine of 1.7. On 10/08/2020 about 2 weeks ago, his sodium was 139, BUN of 14, creatinine of 1.0. Patient was started on IV fluid. 3. Poor R-wave progression on the EKG. First troponin is negative. Patient does not have any chest pain. 4. Alzheimer dementia. 5. COPD. Thank you very much for allowing me to participate in the care of this patient. Please do not hesitate to contact me for any questions regarding my evaluation. Maurilio Lares M.D. DR: DEE JOB#: [id number] CC:
[2020-10-24] MEDS ORDERED: Varibar Honey 250ml MC PRN (17:15)
[2020-10-24] MEDS ORDERED: Varibar Nectar 240ml MC PRN (17:15)
[2020-10-24] MEDS ORDERED: Varibar Thin Liquid powder 148gm MC PRN (17:15)
[2020-10-24] MEDS ORDERED: Varibar Pudding 230ml MC PRN (17:15)
--- NOTE | 2020-10-24 17:48 | Consultation ---
Consult Note Consult Note I am asked to evaluate the patient at the request of for renal failure and electrolyte imbalances HPI: 84-year-old male history of Alzheimer's dementia, hypertension, COPD presents for evaluation of failure to thrive and weakness. According to granddaughter who is primary drill instructor the patient has been refusing to eat for the past week. Falls asleep frequently. Gradual weakness. No longer able to ambulate. Prior to this episode he was eating well, ambulatory and improving. Granddaughter denies recent fever, chills. He has a chronic cough. Denies vomiting or diarrhea. No complaints of pain reported. Cannot obtain any information from patient. PMH: Hypertension, Alzheimer's dementia PSH: Unable to obtain from patient Allergies: None listed in medical chart Social Hx: Unable to obtain from patient Allergies: No Known Allergies (Unverified , 06/18/18) COVID-19 Screening Contact w/high risk pt: No Recent Travel to affected area: No Experienced COVID-19 symptoms?: Yes COVID-19 symptoms experienced: Cough Nursing Documentation-PMH Past Medical History: No History, Except For Hx Cardiac Problems: Yes - ACS Hx Hypertension: Yes History Of Psychiatric Problem: Yes - alzheimers Hx Dementia: Yes Hx Alzheimer's Disease: Yes Vital Signs Date Time Temp Pulse Resp B/P (MAP) Pulse Ox O2 Delivery O2 Flow Rate FiO2 10/24/20 09:53 97.9 101 24 116/70 (85) 99 Room Air PHYSICAL EXAMINATION: VITAL SIGNS: Show blood pressure of 150/79, pulse is 80, respirations 18, he is afebrile. HEAD AND NECK: Showed no JVD. LUNGS: Clear. CARDIOVASCULAR: Shows regular S1 and S2 with no gallop. ABDOMEN: Soft. EXTREMITIES: No pitting edema. LABORATORY AND DIAGNOSTIC DATA: His EKG showed normal sinus rhythm with poor R-wave progression. Labs show white count of 6.4, hematocrit 39.5, and platelet count is 195. Sodium 136, potassium 3.8, BUN of 39, creatinine 1.7. Troponin is negative. . . Assessment/Plan Impression: Acute renal failure, dehydration Hypernatremia secondary to free water deficit Failure to thrive UTI Hypertension Alzheimer dementia COPD Plan: Patient full code Free water in the form of D5W at 75 cc an hour IV Monitor renal parameters and electrolytes Keep the blood pressure and blood sugar in check Per orders Damian Webb MD Oct 24, 2020 17:48
[2020-10-24] MEDS: Docusate 100mg cap ORAL SCH (18:00)
--- NOTE | 2020-10-24 18:15 | Neurology Progress Note ---
Interim History Interim History Interim History HPI : 84-year-old male with history of hypertension, Anemia of chronic disease, Sinus bradycardia with PACs, anxiety, depression dementia likely secondary to probable Alzheimer's disease; brought in by granddaughter since patient has not been eating food for the past week. Unable to get more hx from pt since he is a poor historian. PMH: Alzheimer's, hypertension PSH: Reviewed Social Hx: Former smoker denies drinking or illicit drug use Allergies NKDA from chart review REVIEW OF SYSTEMS: pt denines below but poor historian Constitutional: denies chills /fever Eyes: denies diplopia ENT: denies dysphagia C.V.: denies chest pain Resp: denies dyspnea + for cough chronic G.I.: denies diarrhea .: denies hematuria MSK: denies joint pain Integumentary: denies rash Neuro: denies imbalance Psychiatric: denies depression Endocrine: denies flushing Heme: denies bruising Review of Systems Neuro Review of Systems UN able to obtain. Objective Physical Exam Last Vital Signs Date Time Temp Pulse Resp B/P (MAP) Pulse Ox O2 Delivery O2 Flow Rate FiO2 10/24/20 16:00 97.3 75 19 123/75 (91) 97 10/24/20 14:50 Room Air Labs Test 10/24/20 10:05 10/24/20 10:45 White Blood Count 6.4 K/UL (4.8-10.8) Red Blood Count 4.65 M/UL (4.70-6.10) Hemoglobin 12.6 G/DL (14.2-18.0) Hematocrit 39.5 % (42.0-52.0) Mean Corpuscular Volume 85 FL (80-99) Mean Corpuscular Hemoglobin 27.1 PG (27.0-31.0) Mean Corpuscular Hemoglobin Concent 31.9 G/DL (32.0-36.0) Red Cell Distribution Width 16.4 % (11.6-14.8) Platelet Count 195 K/UL (150-450) Mean Platelet Volume 7.9 FL (6.5-10.1) Neutrophils (%) (Auto) 68.7 % (45.0-75.0) Lymphocytes (%) (Auto) 22.7 % (20.0-45.0) Monocytes (%) (Auto) 8.4 % (1.0-10.0) Eosinophils (%) (Auto) 0.0 % (0.0-3.0) Basophils (%) (Auto) 0.3 % (0.0-2.0) Sodium Level 160 MMOL/L (136-145) Potassium Level 3.8 MMOL/L (3.5-5.1) Chloride Level 121 MMOL/L (98-107) Carbon Dioxide Level 28 MMOL/L (21-32) Anion Gap 12 mmol/L (5-15) Blood Urea Nitrogen 39 mg/dL (7-18) Creatinine 1.7 MG/DL (0.55-1.30) Estimat Glomerular Filtration Rate 46.8 mL/min (>60) Glucose Level 143 MG/DL (74-106) Calcium Level 9.2 MG/DL (8.5-10.1) Phosphorus Level 3.7 MG/DL (2.5-4.9) Magnesium Level 3.0 MG/DL (1.8-2.4) Total Bilirubin 0.3 MG/DL (0.2-1.0) Aspartate Amino Transf (AST/SGOT) 35 U/L (15-37) Alanine Aminotransferase (ALT/SGPT) 22 U/L (12-78) Alkaline Phosphatase 54 U/L (46-116) Troponin I 0.026 ng/mL (0.000-0.056) Total Protein 9.4 G/DL (6.4-8.2) Albumin 3.6 G/DL (3.4-5.0) Globulin 5.8 g/dL Albumin/Globulin Ratio 0.6 (1.0-2.7) Lipase 84 U/L (73-393) Urine Color Yellow Urine Appearance Cloudy Urine pH 5 (4.5-8.0) Urine Specific [place] 1.020 (1.005-1.035) Urine Protein 3+ (NEGATIVE) Urine Glucose (UA) Negative (NEGATIVE) Urine Ketones Negative (NEGATIVE) Urine Blood 4+ (NEGATIVE) Urine Nitrite Negative (NEGATIVE) Urine Bilirubin Negative (NEGATIVE) Urine Urobilinogen Normal MG/DL (0.0-1.0) Urine Leukocyte Esterase 3+ (NEGATIVE) Urine RBC 2-4 /HPF (0 - 0) Urine WBC 40-60 /HPF (0 - 0) Urine Squamous Epithelial Cells Few /LPF (NONE/OCC) Urine Bacteria Moderate /HPF (NONE) Laboratory Tests Test 10/24/20 10:05 10/24/20 10:45 White Blood Count 6.4 K/UL (4.8-10.8) Red Blood Count 4.65 M/UL (4.70-6.10) L Hemoglobin 12.6 G/DL (14.2-18.0) L Hematocrit 39.5 % (42.0-52.0) L Mean Corpuscular Volume 85 FL (80-99) Mean Corpuscular Hemoglobin 27.1 PG (27.0-31.0) Mean Corpuscular Hemoglobin Concent 31.9 G/DL (32.0-36.0) L Red Cell Distribution Width 16.4 % (11.6-14.8) H Platelet Count 195 K/UL (150-450) Mean Platelet Volume 7.9 FL (6.5-10.1) Neutrophils (%) (Auto) 68.7 % (45.0-75.0) Lymphocytes (%) (Auto) 22.7 % (20.0-45.0) Monocytes (%) (Auto) 8.4 % (1.0-10.0) Eosinophils (%) (Auto) 0.0 % (0.0-3.0) Basophils (%) (Auto) 0.3 % (0.0-2.0) Sodium Level 160 MMOL/L (136-145) H Potassium Level 3.8 MMOL/L (3.5-5.1) Chloride Level 121 MMOL/L (98-107) H Carbon Dioxide Level 28 MMOL/L (21-32) Anion Gap 12 mmol/L (5-15) Blood Urea Nitrogen 39 mg/dL (7-18) H Creatinine 1.7 MG/DL (0.55-1.30) H Estimat Glomerular Filtration Rate 46.8 mL/min (>60) Glucose Level 143 MG/DL (74-106) H Calcium Level 9.2 MG/DL (8.5-10.1) Phosphorus Level 3.7 MG/DL (2.5-4.9) Magnesium Level 3.0 MG/DL (1.8-2.4) H Total Bilirubin 0.3 MG/DL (0.2-1.0) Aspartate Amino Transf (AST/SGOT) 35 U/L (15-37) Alanine Aminotransferase (ALT/SGPT) 22 U/L (12-78) Alkaline Phosphatase 54 U/L (46-116) Troponin I 0.026 ng/mL (0.000-0.056) Total Protein 9.4 G/DL (6.4-8.2) H Albumin 3.6 G/DL (3.4-5.0) Globulin 5.8 g/dL Albumin/Globulin Ratio 0.6 (1.0-2.7) L Lipase 84 U/L (73-393) Urine Color Yellow Urine Appearance Cloudy Urine pH 5 (4.5-8.0) Urine Specific [place] 1.020 (1.005-1.035) Urine Protein 3+ (NEGATIVE) H Urine Glucose (UA) Negative (NEGATIVE) Urine Ketones Negative (NEGATIVE) Urine Blood 4+ (NEGATIVE) H Urine Nitrite Negative (NEGATIVE) Urine Bilirubin Negative (NEGATIVE) Urine Urobilinogen Normal MG/DL (0.0-1.0) Urine Leukocyte Esterase 3+ (NEGATIVE) H Urine RBC 2-4 /HPF (0 - 0) H Urine WBC 40-60 /HPF (0 - 0) H Urine Squamous Epithelial Cells Few /LPF (NONE/OCC) Urine Bacteria Moderate /HPF (NONE) H General: other - cacchectic, and think and laying on side and head covered with towel Head: normocophalic, atraumatic Neck: no rigidity EENT: benign Neurologic Exam Mental Status: awake, alert, other - knows his name does not know location or year or polace or month Speech: normal speech, no dysarthia Language: normal language Cranial Nerve II: visual tello Cranial Nerves III, IV, : other - difficult to assess Cranial Nerve V: other - difficult to assess Cranial Nerve VII: no facial asymmetry, normal facial expressions Cranial Nerve VIII: normal hearing, no nystagmus Cranial Nerve IX: other - + for cough Cranial Nerve X: no voice hoarseness Cranial Nerve XII: tongue midline Motor System: no involuntary movement, no muscle wasting - moving all extreamities , other Deep Tendon Reflexes: 1+ bicep (L), 1+ bicep (R), 1+ knee (L), 1+ knee (R) Reflexes: mute plantar (L), mute plantar (R) Gait: other - pt in bed does not want to get up Objective Vital Signs Date Time Temp Pulse Resp B/P (MAP) Pulse Ox O2 Delivery O2 Flow Rate FiO2 10/24/20 16:00 97.3 75 19 123/75 (91) 97 10/24/20 14:50 Room Air 10/24/20 13:49 89 16 150/79 99 Room Air Imaging Chest Xray NML Impression/Recommendations Problems: (1) Dementia (2) Delirium Assessment & Plan: worsening 2/2 High Na (3) Hypertension (4) Hypernatremia (5) KAILEY (acute kidney injury) (6) Failure to thrive (7) UTI (urinary tract infection) (8) Weakness (9) Unable to ambulate (10) Cough Status: stable Recommendations Pt worsening mental status is likely 2/2 UTI secondary to metabolic derangements and UTI. Na found to be 160. plan RPR, B12, folate, thiamine, HIV, TSH, homocystine, MMA, UA + for UTI, Utox, LFT, NH4 do not correct Na more than 10meq in 24 hours continue neuro exams UTI treatment with CTX Marisel Blackmon M.D. Oct 24, 2020 18:07
--- NOTE | 2020-10-24 19:25 | NUR ---
NURSE HAND-OFF: Important Events on Shift:Admission, IV insertion Patient Status: stable Diet: low sodium Pending Orders: EKG, 2D echo Pending Results/Labs:n/a Pending MD notification:n/a Latest Vital Signs: Temperature 97.3 , Pulse 75 , B/P 123 /75 , Respiratory Rate 19 , O2 SAT 97 , Room Air, O2 Flow Rate . Vital Sign Comment: stable Latest Fung Fall Score: 50 Fall Risk: High Risk Safety Measures: Call light Within Reach, Bed Alarm Zone 1, Side Rails Side Rails x2, Bed position Low and Locked. Fall Precautions: Yellow Socks Yellow Gown Door Sign Patient Fall Education Report given to DANIELLE Israel.
--- NOTE | 2020-10-24 19:39 | NUR ---
NURSE NOTES: Pt. received from DANIELLE Mendoza. Pt. AAOx2, on room air, breathing even and unlabored, no indications of SOB, no complaints of pain at this time. IV noted right AC 20g saline locked, left FA 22g with D5W at 75cc. Bed low and locked, side rails x3 up, bed alarm active and call light in reach.
[2020-10-24 20:00] VITALS: BP 159/79
[2020-10-24] MEDS: Heparin 5000 units/ml inj SUBQ SCH (20:30)
[2020-10-24] MEDS ORDERED: Zolpidem 5mg tab ORAL PRN (21:00)
[2020-10-25] VITALS: BP 116/73
--- NOTE | 2020-10-25 03:03 | NUR ---
NURSE NOTES: Pt. cleaned, small bowel movement, formed. Transferred to 3E to DANIELLE De La Cruz. Pt. stable, belongings sent.
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
[2020-10-25 04:00] VITALS: BP 123/78
--- NOTE | 2020-10-25 06:36 | NUR ---
NURSE HAND-OFF: Important Events on Shift: none since time of transfer; patient refused oral temperature and O2 checks at 0500; remains to be calm but resisting nursing care; free of falls, no new skin issues noted. Patient Status: fair but stable Diet: see chart Pending Orders: see chart Pending Results/Labs:see chart Pending MD notification: see chart Latest Vital Signs: Temperature 98.2 , Pulse 77 , B/P 123 /78 , Respiratory Rate 18 , O2 SAT 99 , Room Air, O2 Flow Rate . Vital Sign Comment: as stated Latest Fung Fall Score: 50 Fall Risk: High Risk Safety Measures: Call light Within Reach, Bed Alarm Zone 1, Side Rails Side Rails x3, Bed position Low and Locked. Fall Precautions: Yellow Socks Yellow Gown Door Sign Patient Fall Education Report will be given to Quyen Gambino RN.
--- NOTE | 2020-10-25 07:45 | NUR ---
NURSE NOTES: Received report from DANIELLE De La Cruz. Rounding done. Pt pooped in bed. Pt is so confused, combative. Bed in lowest position, bed alarm is on. Call light within reach. Will continue to monitor.
[2020-10-25 08:00] VITALS: BP 123/61
[2020-10-25] MEDS: Docusate 100mg cap ORAL SCH ×2 (08:38→17:08)
[2020-10-25] MEDS: Aspirin EC 81mg tab ORAL SCH (08:38)
[2020-10-25] MEDS: Heparin 5000 units/ml inj SUBQ SCH ×2 (08:39→22:14)
--- NOTE | 2020-10-25 09:10 | NUR ---
PT EVALUATION NOTE Patient seen for initial evaluation and treatment initiated. Patient presents with generalized weakness and decreased cognition which impairs patient's ability to perform mobility tasks safely. Patient requires SBA/CGA for supine <-> sit, able to sit at the EOB without external support. Patient declined to perform sit -> stand. Patient will benefit from skilled inpatient PT intervention to increase strength and postural stability for improved level of functional mobility and safety. Recommend discharge to SNF vs home with family assistance once medically cleared by MD depending on patient's progress. DME needs to be determined based on patient's progress. Addendum: 10/25/20 at 1257 by ADRYAN KEY PT Amended: Links added.
--- NOTE | 2020-10-25 09:24 | Consultation ---
History of Present Illness General Date patient seen: Oct 25, 2020 Time patient seen: 12:45 Chief Complaint: Generalized Weakness Referring physician: PCP Reason for Consultation: R/o UTI Present Illness HPI 84yo M with PMH of Alzheimer's dementia, hypertension, COPD, who p/w FTT and weakness. Pt is nonverbal. History obtained via chart review. Per ED note, "According to granddaughter who is primary manager of investigations the patient has been refusing to eat for the past week. Falls asleep frequently. Gradual weakness. No longer able to ambulate. Prior to this episode he was eating well, ambulatory and improving. Granddaughter denies recent fever, chills. He has a chronic cough. Denies vomiting or diarrhea. No complaints of pain reported." In house pt has remained AF, HDS on RA without any leukocytosis. Possible UTI per UA. Pt is awake and interactive but very hard to understand. Denies any pain or cough or SOB. PMH: Hypertension, Alzheimer's dementia Allergies: Coded Allergies: No Known Allergies (Unverified , 06/18/18) Medication History Scheduled Amlodipine Besylate* (Amlodipine Besylate*), 5 MG ORAL DAILY, (Reported) Aspirin* (Aspir 81*), 81 MG ORAL DAILY, (Reported) Scheduled PRN Albuterol Sulfate* (Albuterol Sulfate Mdi*), 2 PUFF INH Q4H PRN for cough/wheezing Clonidine Hcl (Clonidine Hcl), 0.1 MG PO Q4HR PRN for prn, (Reported) Hydralazine Hcl* (Hydralazine Hcl*), 50 MG ORAL EVERY 8 HOURS PRN for For High Blood Pressure, (Reported) Tramadol Hcl* (Ultram*), 50 MG ORAL Q6H PRN for For Pain, (Reported) Zolpidem Tartrate* (Ambien*), 5 MG ORAL BEDTIME PRN for Insomnia, (Reported) Patient History Limited by: medical condition Healthcare decision maker Resuscitation status Advanced Directive on File Review of Systems ROS Narrative Unable to assess 2/2 pt condition Physical Exam Physical Exam Narrative Gen: NAD HEENT: NCAT Pulm: BL chest rise Abd: Non-distended, thin, soft, mildly TTP diffusely Ext: No c/c/e Skin: No visible rashes Neuro: Awake, interactive Last 24 Hour Vital Signs Date Time Temp Pulse Resp B/P (MAP) Pulse Ox O2 Delivery O2 Flow Rate FiO2 10/25/20 08:38 87 123/61 10/25/20 08:00 98.0 87 16 123/61 (81) 93 10/25/20 04:00 77 18 123/78 (93) 10/25/20 00:00 98.2 72 16 116/73 (87) 99 10/24/20 21:00 Room Air 10/24/20 20:00 98.0 70 18 159/79 (105) 94 10/24/20 16:00 97.3 75 19 123/75 (91) 97 10/24/20 14:50 Room Air 10/24/20 13:49 89 16 150/79 99 Room Air 10/24/20 11:10 87 23 Room Air 10/24/20 11:10 98.1 82 24 146/80 99 Room Air 10/24/20 09:53 97.9 101 24 116/70 (85) 99 Room Air Intake and Output 10/24/20 10/25/20 19:00 07:00 Intake Total 70 ml 875 ml Output Total 30 ml Balance 40 ml 875 ml Intake Oral 20 ml 50 ml IV Total 50 ml 825 ml Output Urine Total 30 ml # Bowel Movements 1 Laboratory Tests Test 10/24/20 10:05 10/24/20 10:45 White Blood Count 6.4 K/UL (4.8-10.8) Red Blood Count 4.65 M/UL (4.70-6.10) L Hemoglobin 12.6 G/DL (14.2-18.0) L Hematocrit 39.5 % (42.0-52.0) L Mean Corpuscular Volume 85 FL (80-99) Mean Corpuscular Hemoglobin 27.1 PG (27.0-31.0) Mean Corpuscular Hemoglobin Concent 31.9 G/DL (32.0-36.0) L Red Cell Distribution Width 16.4 % (11.6-14.8) H Platelet Count 195 K/UL (150-450) Mean Platelet Volume 7.9 FL (6.5-10.1) Neutrophils (%) (Auto) 68.7 % (45.0-75.0) Lymphocytes (%) (Auto) 22.7 % (20.0-45.0) Monocytes (%) (Auto) 8.4 % (1.0-10.0) Eosinophils (%) (Auto) 0.0 % (0.0-3.0) Basophils (%) (Auto) 0.3 % (0.0-2.0) Sodium Level 160 MMOL/L (136-145) H Potassium Level 3.8 MMOL/L (3.5-5.1) Chloride Level 121 MMOL/L (98-107) H Carbon Dioxide Level 28 MMOL/L (21-32) Anion Gap 12 mmol/L (5-15) Blood Urea Nitrogen 39 mg/dL (7-18) H Creatinine 1.7 MG/DL (0.55-1.30) H Estimat Glomerular Filtration Rate 46.8 mL/min (>60) Glucose Level 143 MG/DL (74-106) H Calcium Level 9.2 MG/DL (8.5-10.1) Phosphorus Level 3.7 MG/DL (2.5-4.9) Magnesium Level 3.0 MG/DL (1.8-2.4) H Total Bilirubin 0.3 MG/DL (0.2-1.0) Aspartate Amino Transf (AST/SGOT) 35 U/L (15-37) Alanine Aminotransferase (ALT/SGPT) 22 U/L (12-78) Alkaline Phosphatase 54 U/L (46-116) Troponin I 0.026 ng/mL (0.000-0.056) Total Protein 9.4 G/DL (6.4-8.2) H Albumin 3.6 G/DL (3.4-5.0) Globulin 5.8 g/dL Albumin/Globulin Ratio 0.6 (1.0-2.7) L Lipase 84 U/L (73-393) Urine Color Yellow Urine Appearance Cloudy Urine pH 5 (4.5-8.0) Urine Specific [place] 1.020 (1.005-1.035) Urine Protein 3+ (NEGATIVE) H Urine Glucose (UA) Negative (NEGATIVE) Urine Ketones Negative (NEGATIVE) Urine Blood 4+ (NEGATIVE) H Urine Nitrite Negative (NEGATIVE) Urine Bilirubin Negative (NEGATIVE) Urine Urobilinogen Normal MG/DL (0.0-1.0) Urine Leukocyte Esterase 3+ (NEGATIVE) H Urine RBC 2-4 /HPF (0 - 0) H Urine WBC 40-60 /HPF (0 - 0) H Urine Squamous Epithelial Cells Few /LPF (NONE/OCC) Urine Bacteria Moderate /HPF (NONE) H Height (Feet): 6 Height (Inches): 1.00 Weight (Pounds): 140 Medications Current Medications Medications (Trade) Dose Ordered Sig/Eva Route PRN Reason Start Time Stop Time Status Last Admin Dose Admin Albuterol Sulfate (Proventil MDI) 2 puff Q4H PRN INH Shortness of Breath 10/24/20 16:30 01/22/21 16:29 Amlodipine Besylate (Norvasc) 5 mg DAILY ORAL 10/25/20 09:00 11/24/20 08:59 10/25/20 08:38 Aspirin (Ecotrin) 81 mg DAILY ORAL 10/25/20 09:00 12/09/20 08:59 10/25/20 08:38 Barium Sulfate (Varibar Honey) 250 ml NOW PRN MC RAD 10/24/20 17:15 10/27/20 17:03 Barium Sulfate (Varibar [place]) 240 ml NOW PRN MC RAD 10/24/20 17:15 10/27/20 17:03 Barium Sulfate (Varibar Pudding) 230 ml NOW PRN MC RAD 10/24/20 17:15 10/27/20 17:03 Barium Sulfate (Varibar Thin Liquid powder) 148 gm NOW PRN MC RAD 10/24/20 17:15 10/27/20 17:03 Clonidine HCl (Catapres Tab) 0.1 mg Q2H PRN ORAL For High Blood Pressure 10/24/20 16:30 01/22/21 16:29 Dextrose 1,000 ml @ 75 mls/hr [id number] IV 10/24/20 14:15 11/23/20 14:14 10/25/20 04:51 Docusate Sodium (Colace) 100 mg TWICE A DAY ORAL 10/24/20 18:00 11/23/20 17:59 10/25/20 08:38 Heparin Sodium (Porcine) (Heparin 5000 units/ml) 5,000 units EVERY 12 HOURS SUBQ 10/24/20 21:00 12/08/20 20:59 10/25/20 08:39 Morphine Sulfate (Morphine Sulfate) 2 mg Q4H PRN IVP Severe Pain (Pain Scale 7-10) 10/24/20 15:00 10/31/20 14:59 Pantoprazole (Protonix) 40 mg DAILY ORAL 10/25/20 09:00 11/24/20 08:59 10/25/20 08:38 Tramadol HCl (Ultram) 50 mg Q6H PRN ORAL Moderate Pain (Pain Scale 4-6) 10/24/20 15:00 10/31/20 14:59 Zolpidem Tartrate (Ambien) 5 mg HSPRN PRN ORAL Insomnia 10/24/20 21:00 10/31/20 20:59 Assessment/Plan Assessment/Plan: 84yo M with: Afebrile Normal WBC R/o UTI R/o COVID 10/24 UA 40-60 WBC, UCx p CXR: No acute process 10/25 COVID PCR p Abdominal tenderness on exam 10/25 Abd US ordered Cr 1.7 Alzheimer's dementia HTN Plan: Cont CTX 1g daily #2 for possible UTI COVID PCR Abd US given TTP on exam F/u UCx Monitor CBC/CMP Monitor temp curve, hemodynamics Monitor resp status D/w RN Thank you for this consult. [facility] will continue to follow. Lucia Gresham M.D. Oct 25, 2020 09:24
[2020-10-25 10:07] LABS: BASOPHILS % (AUTO) 0.3 % (0.0-2.0); EOSINOPHILS % (AUTO) 0.1 % (0.0-3.0); HEMATOCRIT 36.1 % (42.0-52.0); HEMOGLOBIN 11.6 G/DL (14.2-18.0); LYMPHOCYTES % (AUTO) 15.1 % (20.0-45.0); MEAN CORPUSCULAR VOLUME 86 FL (80-99); MONOCYTES % (AUTO) 7.8 % (1.0-10.0); NEUTROPHILS % (AUTO) 76.7 % (45.0-75.0); PLATELET COUNT 149 K/UL (150-450); RED BLOOD COUNT 4.22 M/UL (4.70-6.10); RED CELL DISTRIBUTION WIDTH 15.4 % (11.6-14.8); WHITE BLOOD COUNT 5.6 K/UL (4.8-10.8)
--- NOTE | 2020-10-25 10:15 | History and Physical Report ---
DATE OF ADMISSION: 10/24/2020 DATE AND TIME SEEN: 10/25/2020 at 9 a.m. CONSULTANTS: 1. Lzibeth Patton MD. 2. Damian Webb MD. 3. . CHIEF COMPLAINT: Weakness, failure to thrive, dementia, dehydration. BRIEF HISTORY: This is an 84-year-old male, who lives at home, presented with increased weakness, lethargy and has not been eating very well for past week. He came to [place], diagnosed with the above, and admitted to medical floor. Currently, lethargic, sleeping in bed, not talking much. REVIEW OF SYSTEMS: Unavailable. PAST MEDICAL HISTORY: Psych disorder, ACS, KAILEY, weakness, dementia, hypertension. PAST SURGICAL HISTORY: Unknown. ALLERGIES: Denies. MEDICATIONS: Include pantoprazole, aspirin, zolpidem, heparin, clonidine, albuterol, tramadol, morphine, ceftriaxone. SOCIAL HISTORY: Unable to obtain secondary to the patient's lethargy. PHYSICAL EXAMINATION: GENERAL: Lethargic in bed, not really responding to questions. VITAL SIGNS: Temperature is 98 degrees, pulse 87, respirations 16, blood pressure 122/61. CARDIOVASCULAR: No murmur. LUNGS: Poor air exchange. ABDOMEN: Bowel sounds distant. EXTREMITIES: No cyanosis, clubbing, or edema. NEUROLOGIC: The patient moves all extremities, slightly weak. LABORATORY AND DIAGNOSTIC DATA: Labs at this time show hemoglobin and hematocrit 12/39, otherwise CBC is normal. BMP shows a sodium 160, chloride 121, BUN and creatinine 39 and 1.7, glucose 143. Urinalysis show 3+ leukocyte esterase. ASSESSMENT: 1. Weakness. 2. Failure to thrive. 3. UTI. 4. Dementia. 5. Dehydration. 6. Anemia. 7. Hypertension. 8. Acute renal failure. 9. Diabetes. PLAN: 1. Blood pressure and blood sugar control. 2. PT, OT, and dietary followup. 3. Antibiotics per Infectious Disease. 4. Resume home medications. 5. CBC and BMP in the morning. Tayo Crump D.O. : KINSEY/LESLIE JOB#: [id number] CC:
[2020-10-25 10:35] LABS: GAMMA GLUTAMYL TRANSPEPTIDASE 11 U/L (5-85); PHOSPHORUS 2.6 MG/DL (2.5-4.9)
[2020-10-25 10:44] LABS: ALANINE AMINOTRANSFERASE 24 U/L (12-78); ALBUMIN 3.1 G/DL (3.4-5.0); ALBUMIN/GLOBULIN RATIO 0.6 (1.0-2.7); ALKALINE PHOSPHATASE 45 U/L (46-116); ANION GAP 10 mmol/L (5-15); ASPARTATE AMINO TRANSFERASE 42 U/L (15-37); BILIRUBIN,TOTAL 0.4 MG/DL (0.2-1.0); BLOOD UREA NITROGEN 27 mg/dL (7-18); CALCIUM 8.8 MG/DL (8.5-10.1); CARBON DIOXIDE 27 MMOL/L (21-32); CHLORIDE 122 MMOL/L (98-107); CHOLESTEROL 127 MG/DL (< 200); CREATININE 1.3 MG/DL (0.55-1.30); FERRITIN 584 NG/ML (8-388); HDL CHOLESTEROL 32 MG/DL (40-60); POTASSIUM 3.4 MMOL/L (3.5-5.1); SODIUM 159 MMOL/L (136-145); TRIGLYCERIDES 88 MG/DL (30-150)
[2020-10-25 10:49] LABS: % IRON SATURATION 8 % (15-50); IRON 15 ug/dL (50-175); TOTAL IRON BINDING CAPACITY 190 ug/dL (250-450)
--- NOTE | 2020-10-25 10:50 | NUR ---
NURSE NOTES: Dr. Gresham ordered PCR d/t cough. PCR was done. Pt transferred to room 409-1. Pt a/o x 1, confused. Lt FA IV access is intact. Skin is intact. Report given to Antonio, charge nurse.
[2020-10-25] MEDS: cefTRIAXone 1 GM in D5W 55 ML IVPB SCH (11:20)
--- NOTE | 2020-10-25 11:35 | NUR ---
NURSE NOTES: I received report from Charge Nurse, Antonio; patient alert x1, confused, combative, aggressive; on room air, no sign of distress and shortness of breath; no sing of chest pain; IV Left For-Arm fluid running; side rails up x2, breaks engaged, bed at lowest position, bed alarm on; callli
--- NOTE | 2020-10-25 11:37 | NUR ---
NURSE NOTES: Call light within reach; Urinal within reach; will keep monitoring.
[2020-10-25 11:57] VITALS: BP 114/71
--- NOTE | 2020-10-25 12:46 | Cardiac Electrophysiology PN ---
Assessment/Plan Assessment/Plan 1. Hypertension. Continue amlodipine 5 mg daily and p.r.n. clonidine 2. Severe dehydration and azotemia. Patient's sodium is 160 and also has renal failure, creatinine of 1.7. On 10/08/2020 about 2 weeks ago, his sodium was 139, BUN of 14, creatinine of 1.0. Patient was started on IV fluid. 3. Poor R-wave progression on the EKG. First troponin is negative. Patient does not have any chest pain. Repeat ECG and get Echo 4. Alzheimer dementia. 5. COPD and cough. Now being ruled out for Covid FU by DANA SALCEDO RN. Subjective Subjective Transferred to Covid unit as was coughing to R/O Covid. On Room Air Objective Last 24 Hour Vital Signs Date Time Temp Pulse Resp B/P (MAP) Pulse Ox O2 Delivery O2 Flow Rate FiO2 10/25/20 11:57 97.5 74 18 114/71 (85) 93 10/25/20 09:00 Room Air 10/25/20 08:38 87 123/61 10/25/20 08:00 98.0 87 16 123/61 (81) 93 10/25/20 04:00 77 18 123/78 (93) 10/25/20 00:00 98.2 72 16 116/73 (87) 99 10/24/20 21:00 Room Air 10/24/20 20:00 98.0 70 18 159/79 (105) 94 10/24/20 16:00 97.3 75 19 123/75 (91) 97 10/24/20 14:50 Room Air 10/24/20 13:49 89 16 150/79 99 Room Air Intake and Output 10/24/20 10/25/20 19:00 07:00 Intake Total 70 ml 950 ml Output Total 30 ml Balance 40 ml 950 ml Intake Oral 20 ml 50 ml IV Total 50 ml 900 ml Output Urine Total 30 ml # Bowel Movements 1 Laboratory Tests Test 10/25/20 10:00 White Blood Count 5.6 K/UL (4.8-10.8) Red Blood Count 4.22 M/UL (4.70-6.10) L Hemoglobin 11.6 G/DL (14.2-18.0) L Hematocrit 36.1 % (42.0-52.0) L Mean Corpuscular Volume 86 FL (80-99) Mean Corpuscular Hemoglobin 27.5 PG (27.0-31.0) Mean Corpuscular Hemoglobin Concent 32.1 G/DL (32.0-36.0) Red Cell Distribution Width 15.4 % (11.6-14.8) H Platelet Count 149 K/UL (150-450) L Mean Platelet Volume 7.5 FL (6.5-10.1) Neutrophils (%) (Auto) 76.7 % (45.0-75.0) H Lymphocytes (%) (Auto) 15.1 % (20.0-45.0) L Monocytes (%) (Auto) 7.8 % (1.0-10.0) Eosinophils (%) (Auto) 0.1 % (0.0-3.0) Basophils (%) (Auto) 0.3 % (0.0-2.0) Sodium Level 159 MMOL/L (136-145) H Potassium Level 3.4 MMOL/L (3.5-5.1) L Chloride Level 122 MMOL/L (98-107) H Carbon Dioxide Level 27 MMOL/L (21-32) Anion Gap 10 mmol/L (5-15) Blood Urea Nitrogen 27 mg/dL (7-18) H Creatinine 1.3 MG/DL (0.55-1.30) Estimat Glomerular Filtration Rate > 60 mL/min (>60) Glucose Level 93 MG/DL (74-106) Hemoglobin A1c 5.8 % (4.3-6.0) Uric Acid 6.1 MG/DL (2.6-7.2) Calcium Level 8.8 MG/DL (8.5-10.1) Phosphorus Level 2.6 MG/DL (2.5-4.9) Magnesium Level 2.8 MG/DL (1.8-2.4) H Iron Level 15 ug/dL (50-175) L Total Iron Binding Capacity 190 ug/dL (250-450) L Percent Iron Saturation 8 % (15-50) L Unsaturated Iron Binding 175 ug/dL (112-346) Ferritin 584 NG/ML (8-388) H Total Bilirubin 0.4 MG/DL (0.2-1.0) Gamma Glutamyl Transpeptidase 11 U/L (5-85) Aspartate Amino Transf (AST/SGOT) 42 U/L (15-37) H Alanine Aminotransferase (ALT/SGPT) 24 U/L (12-78) Alkaline Phosphatase 45 U/L (46-116) L C-Reactive Protein, Quantitative 3.6 mg/dL (0.00-0.90) H Pro-B-Type Natriuretic Peptide Pending Total Protein 8.2 G/DL (6.4-8.2) Albumin 3.1 G/DL (3.4-5.0) L Globulin 5.1 g/dL Albumin/Globulin Ratio 0.6 (1.0-2.7) L Triglycerides Level 88 MG/DL (30-150) Cholesterol Level 127 MG/DL (< 200) LDL Cholesterol 71 mg/dL (<100) HDL Cholesterol 32 MG/DL (40-60) L Cholesterol/HDL Ratio 4.0 (3.3-4.4) Vitamin B12 Level Pending Folate Pending Thyroid Stimulating Hormone (TSH) 0.802 uiU/mL (0.358-3.740) Objective HEAD AND NECK: No JVD. LUNGS: Clear. CARDIOVASCULAR: Shows regular S1 and S2 with no gallop. ABDOMEN: Soft. EXTREMITIES: No pitting edema. Maurilio Lares MD Oct 25, 2020 12:46
--- NOTE | 2020-10-25 13:03 | NUR ---
RD ASSESSMENT & RECOMMENDATIONS SEE CARE ACTIVITY FOR COMPLETE ASSESSMENT DAILY ESTIMATED NEEDS: Needs based on Underweight, wasting 51kg 30-35 kcals/kg 7703-6295 total kcals 1-1.5 g protein/kg 51-76 g total protein 25-30 mL/kg 5239-4595 total fluid mLs NUTRITION DIAGNOSIS: Increased kcal and pro needs r/t underweight, wasting, wt loss as evidenced by pt w/ generalized moderate wasting, @ 79% of ideal body weight w/ low BMI of 18.1, pt w/ suspected significant wt loss of 11 lbs/8.9% in <6 months. . CURRENT DIET:LOW NA, pureed moist PO DIET RECOMMENDATIONS: Liberalized regular/ texture as tolerated or per TYPING SECTION CHIEF ADDITIONAL RECOMMENDATIONS: 1) Monitor wt trend- suspected recent significant wt loss calibrated daily bedscale wts 2) Consider TYPING SECTION CHIEF eval for appropriate texture 3) MVI x 1 4) Add Ensure Enlive BID w/ meals, monitor acceptance, need to increase (350kcal/20g prot each)
[2020-10-25 16:00] VITALS: BP 143/72
--- NOTE | 2020-10-25 16:13 | NUR ---
CASE MANAGEMENT:INITIAL REVIEW 84 YR OLD MALE FROM HOME CC;GENERALIZED WEAKNESS SI;WEAKNESS. FTT. 98.1 101 84 150/97 97% ON RA NA 160 CL 121 BUN 39 CR 1.7 BG 143 UA+ PROTEIN, BLOOD, LEUKOCYTE ESTERASE, RBC, WBC, BACTERIA CXR ~ No acute disease identified. IS;ROCEPHIN IV IVF NS BOLUS ADMITTED TO MED SURG MED SURG STATUS DCP;FROM HOME
--- NOTE | 2020-10-25 16:45 | Neurology Progress Note ---
Interim History Interim History Interim History Stable no new changes. However pt being ruled out for COVID due to his cough. Discussed case wi/ Nurse. Pt moving all extremties. Review of Systems Neuro Review of Systems Pt not examined to preserve PPE, discussed wcase with nurse. pt is doing stable, and neuro exam has not changed. Objective Physical Exam Last Vital Signs Date Time Temp Pulse Resp B/P (MAP) Pulse Ox O2 Delivery O2 Flow Rate FiO2 10/25/20 11:57 97.5 74 18 114/71 (85) 93 10/25/20 09:00 Room Air Laboratory Tests Test 10/25/20 10:00 White Blood Count 5.6 K/UL (4.8-10.8) Red Blood Count 4.22 M/UL (4.70-6.10) L Hemoglobin 11.6 G/DL (14.2-18.0) L Hematocrit 36.1 % (42.0-52.0) L Mean Corpuscular Volume 86 FL (80-99) Mean Corpuscular Hemoglobin 27.5 PG (27.0-31.0) Mean Corpuscular Hemoglobin Concent 32.1 G/DL (32.0-36.0) Red Cell Distribution Width 15.4 % (11.6-14.8) H Platelet Count 149 K/UL (150-450) L Mean Platelet Volume 7.5 FL (6.5-10.1) Neutrophils (%) (Auto) 76.7 % (45.0-75.0) H Lymphocytes (%) (Auto) 15.1 % (20.0-45.0) L Monocytes (%) (Auto) 7.8 % (1.0-10.0) Eosinophils (%) (Auto) 0.1 % (0.0-3.0) Basophils (%) (Auto) 0.3 % (0.0-2.0) Sodium Level 159 MMOL/L (136-145) H Potassium Level 3.4 MMOL/L (3.5-5.1) L Chloride Level 122 MMOL/L (98-107) H Carbon Dioxide Level 27 MMOL/L (21-32) Anion Gap 10 mmol/L (5-15) Blood Urea Nitrogen 27 mg/dL (7-18) H Creatinine 1.3 MG/DL (0.55-1.30) Estimat Glomerular Filtration Rate > 60 mL/min (>60) Glucose Level 93 MG/DL (74-106) Hemoglobin A1c 5.8 % (4.3-6.0) Uric Acid 6.1 MG/DL (2.6-7.2) Calcium Level 8.8 MG/DL (8.5-10.1) Phosphorus Level 2.6 MG/DL (2.5-4.9) Magnesium Level 2.8 MG/DL (1.8-2.4) H Iron Level 15 ug/dL (50-175) L Total Iron Binding Capacity 190 ug/dL (250-450) L Percent Iron Saturation 8 % (15-50) L Unsaturated Iron Binding 175 ug/dL (112-346) Ferritin 584 NG/ML (8-388) H Total Bilirubin 0.4 MG/DL (0.2-1.0) Gamma Glutamyl Transpeptidase 11 U/L (5-85) Aspartate Amino Transf (AST/SGOT) 42 U/L (15-37) H Alanine Aminotransferase (ALT/SGPT) 24 U/L (12-78) Alkaline Phosphatase 45 U/L (46-116) L C-Reactive Protein, Quantitative 3.6 mg/dL (0.00-0.90) H Pro-B-Type Natriuretic Peptide Pending Total Protein 8.2 G/DL (6.4-8.2) Albumin 3.1 G/DL (3.4-5.0) L Globulin 5.1 g/dL Albumin/Globulin Ratio 0.6 (1.0-2.7) L Triglycerides Level 88 MG/DL (30-150) Cholesterol Level 127 MG/DL (< 200) LDL Cholesterol 71 mg/dL (<100) HDL Cholesterol 32 MG/DL (40-60) L Cholesterol/HDL Ratio 4.0 (3.3-4.4) Vitamin B12 Level 871 PG/ML (193-986) Folate 19.4 NG/ML (8.6-58.9) Thyroid Stimulating Hormone (TSH) 0.802 uiU/mL (0.358-3.740) General: other - cacchectic, and think and laying on side and head covered with towel Head: normocophalic, atraumatic Neck: no rigidity EENT: benign Neurologic Exam Mental Status: awake, alert, other - knows his name does not know location or year or polace or month Speech: normal speech, no dysarthia Language: normal language Cranial Nerve II: visual tello Cranial Nerves III, IV, : other - difficult to assess Cranial Nerve V: other - difficult to assess Cranial Nerve VII: no facial asymmetry, normal facial expressions Cranial Nerve VIII: normal hearing, no nystagmus Cranial Nerve IX: other - + for cough Cranial Nerve X: no voice hoarseness Cranial Nerve XII: tongue midline Motor System: no involuntary movement, no muscle wasting - moving all extreami ties , other Deep Tendon Reflexes: 1+ bicep (L), 1+ bicep (R), 1+ knee (L), 1+ knee (R) Reflexes: mute plantar (L), mute plantar (R) Gait: other - pt in bed does not want to get up Objective Vital Signs Date Time Temp Pulse Resp B/P (MAP) Pulse Ox O2 Delivery O2 Flow Rate FiO2 10/24/20 16:00 97.3 75 19 123/75 (91) 97 10/24/20 14:50 Room Air 10/24/20 13:49 89 16 150/79 99 Room Air Impression/Recommendations Problems: (1) Dementia (2) Delirium Assessment & Plan: worsening 2/2 High Na (3) Hypertension (4) Hypernatremia (5) KAILEY (acute kidney injury) (6) Failure to thrive (7) UTI (urinary tract infection) (8) Weakness (9) Unable to ambulate (10) Cough Status: stable Recommendations Pt worsening mental status is likely 2/2 UTI secondary to metabolic derangements and UTI. Na found to be 160 on admission Na is now 159. plan RPR, B12 NML, folate NML, thiamine, HIV, TSH NML, homocystine, MMA, UA + for UTI, Utox, LFT NML, NH4 should not correct Na more than 10meq in 24 hours continue neuro exams UTI treatment with CTX Marisel Zamora M.D. Oct 25, 2020 16:45
--- NOTE | 2020-10-25 16:54 | Nephrology Progress Note ---
Assessment/Plan Problem List: (1) KAILEY (acute kidney injury) (2) Hypernatremia (3) Hypertension (4) Failure to thrive (5) UTI (urinary tract infection) (6) Dementia Assessment Acute renal failure, dehydration Hypernatremia secondary to free water deficit Failure to thrive UTI Hypertension Alzheimer dementia COPD Plan October 25: Serum creatinine now within normal limit. Hypernatremia persists. Continue IV D5W. Continue to monitor electrolytes. Patient full code Free water in the form of D5W at 75 cc an hour IV Monitor renal parameters and electrolytes Keep the blood pressure and blood sugar in check Per orders Subjective ROS Limited/Unobtainable: No Constitutional: Reports: malaise Objective Objective Last 24 Hour Vital Signs Date Time Temp Pulse Resp B/P (MAP) Pulse Ox O2 Delivery O2 Flow Rate FiO2 10/25/20 11:57 97.5 74 18 114/71 (85) 93 10/25/20 09:00 Room Air 10/25/20 08:38 87 123/61 10/25/20 08:00 98.0 87 16 123/61 (81) 93 10/25/20 04:00 77 18 123/78 (93) 10/25/20 00:00 98.2 72 16 116/73 (87) 99 10/24/20 21:00 Room Air 10/24/20 20:00 98.0 70 18 159/79 (105) 94 Intake and Output 10/24/20 10/25/20 19:00 07:00 Intake Total 70 ml 950 ml Output Total 30 ml Balance 40 ml 950 ml Intake Oral 20 ml 50 ml IV Total 50 ml 900 ml Output Urine Total 30 ml # Bowel Movements 1 Laboratory Tests 10/25/20 10:00: White Blood Count 5.6, Red Blood Count 4.22L, Hemoglobin 11.6L, Hematocrit 36.1L , Mean Corpuscular Volume 86, Mean Corpuscular Hemoglobin 27.5, Mean Corpuscular Hemoglobin Concent 32.1, Red Cell Distribution Width 15.4H, Platelet Count 149L, Mean Platelet Volume 7.5, Neutrophils (%) (Auto) 76.7H, Lymphocytes (%) (Auto) 15.1L, Monocytes (%) (Auto) 7.8, Eosinophils (%) (Auto) 0.1, Basophils (%) (Auto) 0.3, Sodium Level 159H, Potassium Level 3.4L, Chloride Level 122H, Carbon Dioxide Level 27, Anion Gap 10, Blood Urea Nitrogen 27H, Creatinine 1.3, Estimat Glomerular Filtration Rate > 60, Glucose Level 93, Hemoglobin A1c 5.8, Uric Acid 6.1, Calcium Level 8.8, Phosphorus Level 2.6, Magnesium Level 2.8H, Iron Level 15L, Total Iron Binding Capacity 190L, Percent Iron Saturation 8L, Unsaturated Iron Binding 175, Ferritin 584H, Total Bilirubin 0.4, Gamma Glutamyl Transpeptidase 11, Aspartate Amino Transf (AST/SGOT) 42H, Alanine Aminotransferase (ALT/SGPT) 24, Alkaline Phosphatase 45L, C-Reactive Protein, Quantitative 3.6H, Pro-B-Type Natriuretic Peptide [Pending], Total Protein 8.2, Albumin 3.1L, Globulin 5.1, Albumin/Globulin Ratio 0.6L, Triglycerides Level 88, Cholesterol Level 127, LDL Cholesterol 71, HDL Cholesterol 32L, Cholesterol/HDL Ratio 4.0, Vitamin B12 Level 871, Folate 19.4, Thyroid Stimulating Hormone (TSH) 0.802 Height (Feet): 6 Height (Inches): 1.00 Weight (Pounds): 140 General Appearance: no apparent distress Cardiovascular: tachycardia Respiratory/Chest: decreased breath sounds Abdomen: distended Damian Webb MD Oct 25, 2020 16:54
[2020-10-25] MEDS ORDERED: Albuterol/Ipratropium 3ml neb HHN PRN (18:45)
--- NOTE | 2020-10-25 18:55 | NUR ---
NURSE NOTES: Patient was dis-sating to 85%; Md Crump is aware; patient keeps taking the mask off; patient is now on bilateral soft wrist restrain; will keep monitoring.
--- NOTE | 2020-10-25 19:02 | NUR ---
NURSE NOTES: There is an order for US ABD; Sagrario from Ultrasound said will wait till the result for the COVID-19 swap out; patient didn't stay still during the procedure;
--- NOTE | 2020-10-25 19:20 | NUR ---
SPEECH PATHOLOGY NOTE: BEDSIDE SWALLOW EVALUATION RECEIVED FROM DR. LOZANO. CHART REVIEWED, RN INTERVIEWED, EVALUATION COMPLETED. SWALLOW EVALUATION REVEALED MILD/MOD OROPHARYNGEAL DYSPHAGIA WHICH REQUIRES PUREE SOLIDS AND NECTAR THICK LIQUIDS. HE WAS NOT ABLE TO FOLLOW COMMANDS SUFFICIENTLY TO PARTICIPATE IN AN ORAL MOTOR EVALUATION. DENTITION: MISSING TEETH. HE WAS PRESENTED WITH TRIALS OF THIN LIQUID, NECTAR THICK LIQUID AND PUREE IN 5ML AMOUNTS VIA SPOON. PATIENT WAS AGITATED, RESTLESS, DIFFICULT TO POSITION AT 90 DEGREES UPRIGHT. HE RECEIVED 1 OZ OF PUREE/APPLESAUCE, AND APPROX 1 OZ OF NECTAR THICK WATER, AND 3 TRIALS OF THIN LIQUID VIA SPOON. FURTHER TRIALS WERE REFUSED. BOLUS FORMATION AND MANIPULATION WAS MILDLY DELAYED. PHARYNGEAL PHASE OF SWALLOW WAS PALPATED, AND HYOLARYNGEAL EXCURSION WAS LIMITED AND MODERATELY DELAYED. NO CHANGES OBSERVED IN VOCAL QUALITY OR RESPIRATION RATE THROUGHOUT THESE TRIALS. PATIENT CLEARLY MALNOURISHED WITH MUSCLE WASTING AND BMI OF 18 ALL SUGGESTING HX OF INSUFFICIENT P.O. INTAKE. RECOMMENDATIONS: 1. MODIFIED TEXTURE DIET: PUREE WITH NECTAR THICK LIQUIDS 2. NO STRAWS, TOTAL ASSIST WITH MEALS ASPIRATION PRECAUTIONS 3. CRUSH CRUSHABLE MEDS/PRESENT IN PUREE 4. IF P.O. INTAKE CONTINUES TO REMAIN INSUFFICIENT TO SUPPORT NUTRITION/HYDRATION NEEDS, CONSIDER PEG WITH P.O. FOR ORAL GRATIFICATION ONLY 5. RD CONSULT RE: MEALTIME SUPPLEMENTATION 6. NO FURTHER SKILLED ST SERVICES APPEAR WARRANTED AT THIS TIME THANK YOU FOR THIS REFERRAL.
--- NOTE | 2020-10-25 19:27 | NUR ---
HAND-OFF: Report given to DANIELLE Fink.
[2020-10-25 20:00] VITALS: BP 108/69
--- NOTE | 2020-10-25 20:13 | NUR ---
NURSE NOTES: Patient in bed, awake, unable to make needs known. Respiration is even, on non rebreather 15 L. Skin is warm and dry t touch. Iv site noted, iv fluid is infusing as ordered. No s/s of distress noted. Restraints noted, site of skin intact, pulse noted. bed in low and locked position, provided safe environment. call light is at bedside. Will continue plan of care.
[2020-10-26] VITALS: BP 145/78
--- NOTE | 2020-10-26 00:10 | NUR ---
NURSE NOTES: Patient in bed, attempting to remove non-breather mask, patient still on restraints, skin site intact. Attempted to re-orient patient, calm down, will reassess. No s/s of pain or discomfort noted. Will continue plan of care.
--- NOTE | 2020-10-26 02:10 | NUR ---
NURSE NOTES: Patient in bed, awake, agitated, trying to pull his oxygen and iv site off, attempted to re-orient and calm patient down. Bed in low and locked position, provided safe environment. Call light is at bedside. Will continue plan of care.
--- NOTE | 2020-10-26 02:30 | Consultation ---
DATE OF CONSULTATION: 10/26/2020 HISTORY OF PRESENT ILLNESS: The patient is an 84-year-old male patient who came to the hospital due to weakness, failure to thrive, and dehydration. This patient came in because he was lethargic, has not been eating for about a week. He was admitted to the medical floor. He is lethargic, very confused, and disorganized. Because of decline in cognition, his attending has requested daily psychiatric consultation . I saw him earlier today, he is very confused, disorganized, baseline per chart. Because his cognition declined below his baseline, daily psychiatric consultation possibly improve. PAST MEDICAL HISTORY: The patient has a history of acute renal injury, urinary tract infection, cough, hypertension, hyponatremia, chest pain, failure to thrive. ALLERGIES: He has got no known drug allergies. PSYCHOTROPIC MEDICATIONS ON ADMISSION: The patient is currently not on any psychotropic medications. PAIN ASSESSMENT: 01/19 pain. DEVELOPMENTAL PROBLEMS: Denies. FAMILY PSYCHIATRIC HISTORY: No known family psychiatric family history at this time. SOCIAL HISTORY: The patient apparently lives in a private residence. Financially supported by [employer] and Medicare. No legal problems. apparently he does not talk to his family. STRENGTHS: He is motivated to get better and has a place to live. WEAKNESSES: Impulsive, minimal support system. MENTAL STATUS EXAMINATION: This is an 84-year-old male. His appearance is disheveled. Attitude irritable and agitated. Affect guarded and restricted. Intellect poor. He does know current events, does not know last four Presidents. Mood depressed and anxious. Motor activity, psychomotor agitation. Attention span is poor because he cannot do serial sevens or spell world backwards. Orientation x3. Oriented to person place, not time or situation. Speech is nonsensical. Thought process disorganized and illogical. Thought content, auditory hallucinations and paranoid delusions. . Insight and judgment is poor . . He cannot do the activities. Denies any current suicidal thoughts short-term. He has altered 5 minutes delay with good short-term memory long-term is intact with long-term events of life such as high school that he went to. His gait is normal. . DIAGNOSES: 1. Major depressive disorder, severe, recurrent with psychotic features. 2. No secondary. 3. Medical includes acute renal injury, weakness, , cough, hypertension, chest pain, hyponatremia. PLAN: Twenty minutes of insight-oriented psychotherapy to help him understand his physical and psychiatric condition so that he has better impulse control anxiety depression. Lizbeth Patton M.D. DR: LARRY JOB#: [id number] CC:
[2020-10-26 04:00] VITALS: BP 124/89
[2020-10-26 05:13] LABS: BASOPHILS % (AUTO) 0.3 % (0.0-2.0); HEMATOCRIT 36.4 % (42.0-52.0); HEMOGLOBIN 11.5 G/DL (14.2-18.0); LYMPHOCYTES % (AUTO) 11.4 % (20.0-45.0); MEAN CORPUSCULAR VOLUME 86 FL (80-99); MONOCYTES % (AUTO) 4.6 % (1.0-10.0); NEUTROPHILS % (AUTO) 83.7 % (45.0-75.0); PLATELET COUNT 157 K/UL (150-450); RED BLOOD COUNT 4.22 M/UL (4.70-6.10); RED CELL DISTRIBUTION WIDTH 15.3 % (11.6-14.8)
[2020-10-26 05:38] LABS: CALCIUM 8.5 MG/DL (8.5-10.1); CREATININE 1.4 MG/DL (0.55-1.30); POTASSIUM 3.3 MMOL/L (3.5-5.1)
[2020-10-26 06:20] LABS: ALANINE AMINOTRANSFERASE 34 U/L (12-78); ALBUMIN 3.3 G/DL (3.4-5.0); ALKALINE PHOSPHATASE 49 U/L (46-116); ASPARTATE AMINO TRANSFERASE 66 U/L (15-37); BILIRUBIN,DIRECT 0.2 MG/DL (0.0-0.3); BILIRUBIN,TOTAL 0.4 MG/DL (0.2-1.0)
--- NOTE | 2020-10-26 07:20 | NUR ---
NURSE NOTES: Report received from DANIELLE Ahn. Patient awake in bed, alert and oriented x 1, no SOB, bed in lowest position with breaks engaged and alarm on, denied any pain and discomfort at this time, on bilateral soft wrist restraints to prevent pulling IV and oxygen, IV line present on left FA, on contact and droplet precautions for PUI COVID 19. On venturi mask at 55%, will continue to monitor and proceed with plan of care, call light within reach.
--- NOTE | 2020-10-26 07:22 | Psychiatry Consultation ---
Psychiatry Consultation Psychiatry Consultation Chief Complaint: Generalized Weakness History of Present Illness: 84-year-old male patient is in the hospital due to weakness and failure to t hrive he still seems to have some depression but he is has a flat affect is all he has altered mental status confusion declining cognition below his baseline as well as attending is requested daily psychiatric consultation also because of the patient's possible depression due to his lack of eating and lethargic appearance the goal is to improve his mood so that is ability to consume nutrients improved and also his overall affect and thought process improved as well Mental status examination: 84-year-old male is appearance disheveled his attitude irritable agitated affect flat intellect poor because he is no current events does not last for present mood depressed anxious motor activity psychomotor station judgment poor his gait cannot do serial sevens is poor backwards orientation x2 person place not time situation speech nonsensical thought processes organized logical thought content piercings apparent delusions perceptions reported perceptual disturbances such as paranoid delusions affect reasoning is poor because patient does not understand, insight is poor but he does not recognize having a psych disorder judgment poor because he does not except consequences for his actions and he cannot make his own medical decisions Allergies: Coded Allergies: No Known Allergies (Unverified , 06/18/18) Medication History Scheduled Amlodipine Besylate* (Amlodipine Besylate*), 5 MG ORAL DAILY, (Reported) Aspirin* (Aspir 81*), 81 MG ORAL DAILY, (Reported) Scheduled PRN Albuterol Sulfate* (Albuterol Sulfate Mdi*), 2 PUFF INH Q4H PRN for cough/wheezing Clonidine Hcl (Clonidine Hcl), 0.1 MG PO Q4HR PRN for prn, (Reported) Hydralazine Hcl* (Hydralazine Hcl*), 50 MG ORAL EVERY 8 HOURS PRN for For High Blood Pressure, (Reported) Tramadol Hcl* (Ultram*), 50 MG ORAL Q6H PRN for For Pain, (Reported) Zolpidem Tartrate* (Ambien*), 5 MG ORAL BEDTIME PRN for Insomnia, (Reported) Objective Data Height (Feet): 6 Height (Inches): 1.00 Weight (Pounds): 140 Assessment/Plan Assessment/Plan: Plan is to add Remeron 7.5 mg nightly for depression and also to increase his appetite also Ativan 0.5 mg every 6 hours. Anxiety agitation as well as Namenda 5 mg twice a day to prevent further decline in his cognition also 20 minutes of insight oriented psychotherapy was provided while work with this patient to help him have a better understanding of his physical and psychiatric condition in order to reduce depression anxiety and to help with impulse control charge been reviewed and discussed with staff patient seen and assessed at bedside Diagnosis [place] I: Major depressive disorder mild recurrent rule out dementia with psychosis Lizbeth Patton MD Oct 26, 2020 07:22
[2020-10-26] MEDS ORDERED: LORazepam 0.5mg tab ORAL PRN (07:30)
--- NOTE | 2020-10-26 07:33 | NUR ---
NURSE HAND-OFF: Important Events on Shift: Patient Status: Diet: Pending Orders: Pending Results/Labs: Pending MD notification: Latest Vital Signs: Temperature 98.2 , Pulse 84 , B/P 124 /89 , Respiratory Rate 22 , O2 SAT 93 , Room Air, O2 Flow Rate . Vital Sign Comment: Latest Fung Fall Score: 50 Fall Risk: High Risk Safety Measures: Call light Within Reach, Bed Alarm Zone 1, Side Rails Side Rails x3, Bed position Low and Locked. Fall Precautions: Yellow Socks Yellow Gown Door Sign Patient Fall Education Report given to .
--- NOTE | 2020-10-26 07:44 | Infectious Diseases Prog Note ---
Assessment/Plan 84yo M with: Afebrile Normal WBC R/o UTI R/o COVID 10/24 UA 40-60 WBC, UCx >100k gamma-Strep CXR: No acute process 10/25 COVID PCR p Abdominal tenderness on exam 10/25 Abd US ordered Cr 1.7 Alzheimer's dementia HTN HIV screen neg RPR p Plan: Cont CTX 1g daily #3/5 for UTI Abd US given TTP on exam Repeat CXR given new O2 requirement F/u COVID PCR, RPR Monitor CBC/CMP Monitor temp curve, hemodynamics Monitor resp status D/w RN Thank you for this consult. [facility] will continue to follow. Subjective Allergies: Coded Allergies: No Known Allergies (Unverified , 06/18/18) AF WBC 8.5 KAILEY improving NAD on Venturi mask now Objective Last 24 Hour Vital Signs Date Time Temp Pulse Resp B/P (MAP) Pulse Ox O2 Delivery O2 Flow Rate FiO2 10/26/20 04:00 98.2 84 22 124/89 (101) 93 10/26/20 00:00 98.4 95 22 145/78 (100) 91 10/25/20 21:00 Room Air 10/25/20 20:21 81 20 94 Room Air 21 10/25/20 20:00 99.0 100 20 108/69 (82) 92 10/25/20 16:00 98.1 106 24 143/72 (95) 90 10/25/20 11:57 97.5 74 18 114/71 (85) 93 10/25/20 09:00 Room Air 10/25/20 08:38 87 123/61 10/25/20 08:00 98.0 87 16 123/61 (81) 93 Height (Feet): 6 Height (Inches): 1.00 Weight (Pounds): 140 Gen: NAD HEENT: NCAT Pulm: BL chest rise Abd: Non-distended Ext: No c/c/e Skin: No visible rashes Neuro: Awake Microbiology Date/Time Source Procedure Growth Status 10/24/20 10:45 Urine,Clean Catch Urine Culture - Preliminary Strep Species, Gamma-Hemolytic Resulted Laboratory Tests Test 10/25/20 10:00 10/25/20 20:40 10/26/20 04:45 White Blood Count 5.6 K/UL (4.8-10.8) 8.0 K/UL (4.8-10.8) Red Blood Count 4.22 M/UL (4.70-6.10) L 4.22 M/UL (4.70-6.10) L Hemoglobin 11.6 G/DL (14.2-18.0) L 11.5 G/DL (14.2-18.0) L Hematocrit 36.1 % (42.0-52.0) L 36.4 % (42.0-52.0) L Mean Corpuscular Volume 86 FL (80-99) 86 FL (80-99) Mean Corpuscular Hemoglobin 27.5 PG (27.0-31.0) 27.2 PG (27.0-31.0) Mean Corpuscular Hemoglobin Concent 32.1 G/DL (32.0-36.0) 31.6 G/DL (32.0-36.0) L Red Cell Distribution Width 15.4 % (11.6-14.8) H 15.3 % (11.6-14.8) H Platelet Count 149 K/UL (150-450) L 157 K/UL (150-450) Mean Platelet Volume 7.5 FL (6.5-10.1) 10.1 FL (6.5-10.1) Neutrophils (%) (Auto) 76.7 % (45.0-75.0) H 83.7 % (45.0-75.0) H Lymphocytes (%) (Auto) 15.1 % (20.0-45.0) L 11.4 % (20.0-45.0) L Monocytes (%) (Auto) 7.8 % (1.0-10.0) 4.6 % (1.0-10.0) Eosinophils (%) (Auto) 0.1 % (0.0-3.0) 0.0 % (0.0-3.0) Basophils (%) (Auto) 0.3 % (0.0-2.0) 0.3 % (0.0-2.0) Sodium Level 159 MMOL/L (136-145) H 155 MMOL/L (136-145) H Potassium Level 3.4 MMOL/L (3.5-5.1) L 3.3 MMOL/L (3.5-5.1) L Chloride Level 122 MMOL/L (98-107) H 118 MMOL/L (98-107) H Carbon Dioxide Level 27 MMOL/L (21-32) 27 MMOL/L (21-32) Anion Gap 10 mmol/L (5-15) 10 mmol/L (5-15) Blood Urea Nitrogen 27 mg/dL (7-18) H 22 mg/dL (7-18) H Creatinine 1.3 MG/DL (0.55-1.30) 1.4 MG/DL (0.55-1.30) H Estimat Glomerular Filtration Rate > 60 mL/min (>60) 58.5 mL/min (>60) Glucose Level 93 MG/DL (74-106) 122 MG/DL (74-106) H Hemoglobin A1c 5.8 % (4.3-6.0) Uric Acid 6.1 MG/DL (2.6-7.2) 5.6 MG/DL (2.6-7.2) Calcium Level 8.8 MG/DL (8.5-10.1) 8.5 MG/DL (8.5-10.1) Phosphorus Level 2.6 MG/DL (2.5-4.9) 3.0 MG/DL (2.5-4.9) Magnesium Level 2.8 MG/DL (1.8-2.4) H 2.6 MG/DL (1.8-2.4) H Iron Level 15 ug/dL (50-175) L Total Iron Binding Capacity 190 ug/dL (250-450) L Percent Iron Saturation 8 % (15-50) L Unsaturated Iron Binding 175 ug/dL (112-346) Ferritin 584 NG/ML (8-388) H Total Bilirubin 0.4 MG/DL (0.2-1.0) 0.4 MG/DL (0.2-1.0) Gamma Glutamyl Transpeptidase 11 U/L (5-85) Aspartate Amino Transf (AST/SGOT) 42 U/L (15-37) H 66 U/L (15-37) H Alanine Aminotransferase (ALT/SGPT) 24 U/L (12-78) 34 U/L (12-78) Alkaline Phosphatase 45 U/L (46-116) L 49 U/L (46-116) C-Reactive Protein, Quantitative 3.6 mg/dL (0.00-0.90) H 4.9 mg/dL (0.00-0.90) H Pro-B-Type Natriuretic Peptide 203 pg/mL (0-125) H Total Protein 8.2 G/DL (6.4-8.2) 8.7 G/DL (6.4-8.2) H Albumin 3.1 G/DL (3.4-5.0) L 3.3 G/DL (3.4-5.0) L Globulin 5.1 g/dL Albumin/Globulin Ratio 0.6 (1.0-2.7) L Triglycerides Level 88 MG/DL (30-150) Cholesterol Level 127 MG/DL (< 200) LDL Cholesterol 71 mg/dL (<100) HDL Cholesterol 32 MG/DL (40-60) L Cholesterol/HDL Ratio 4.0 (3.3-4.4) Vitamin B12 Level 871 PG/ML (193-986) Folate 19.4 NG/ML (8.6-58.9) Thyroid Stimulating Hormone (TSH) 0.802 uiU/mL (0.358-3.740) Arterial Blood pH 7.477 (7.350-7.450) Arterial Blood Partial Pressure CO2 28.5 mmHg (35.0-45.0) L Arterial Blood Partial Pressure O2 66.5 mmHg (75.0-100.0) L Arterial Blood HCO3 20.6 mmol/L (22.0-26.0) L Arterial Blood Oxygen Saturation 93.2 % (95-100) L Arterial Blood Base Excess -1.9 (-2-2) Zachariah Test Positive Direct Bilirubin 0.2 MG/DL (0.0-0.3) Ammonia 19 umol/L (11-32) Troponin I 0.087 ng/mL (0.000-0.056) Vitamin B1 Level Pending Rapid Plasma Reagin Pending HIV (1&2) Antibody Rapid Pending Current Medications Medications (Trade) Dose Ordered Sig/Eva Route PRN Reason Start Time Stop Time Status Last Admin Dose Admin Albuterol/ Ipratropium (Albuterol/ Ipratropium) 3 ml Q4H PRN HHN Shortness of Breath 10/25/20 18:45 12/19/20 18:44 Amlodipine Besylate (Norvasc) 5 mg DAILY ORAL 10/25/20 09:00 11/24/20 08:59 10/25/20 08:38 Aspirin (Ecotrin) 81 mg DAILY ORAL 10/25/20 09:00 12/09/20 08:59 10/25/20 08:38 Barium Sulfate (Varibar Honey) 250 ml NOW PRN RAD 10/24/20 17:15 10/27/20 17:03 Barium Sulfate (Varibar [place]) 240 ml NOW PRN RAD 10/24/20 17:15 10/27/20 17:03 Barium Sulfate (Varibar Pudding) 230 ml NOW PRN RAD 10/24/20 17:15 10/27/20 17:03 Barium Sulfate (Varibar Thin Liquid powder) 148 gm NOW PRN RAD 10/24/20 17:15 10/27/20 17:03 Ceftriaxone Sodium 1 gm/ Dextrose 55 ml @ 110 mls/hr Q24H IVPB 10/25/20 11:00 11/01/20 10:59 10/25/20 11:20 Clonidine HCl (Catapres Tab) 0.1 mg Q2H PRN ORAL For High Blood Pressure 10/24/20 16:30 01/22/21 16:29 Dextrose 1,000 ml @ 75 mls/hr [id number] IV 10/24/20 14:15 11/23/20 14:14 10/26/20 05:00 Docusate Sodium (Colace) 100 mg TWICE A DAY ORAL 10/24/20 18:00 11/23/20 17:59 10/25/20 17:08 Heparin Sodium (Porcine) (Heparin 5000 units/ml) 5,000 units EVERY 12 HOURS SUBQ 10/24/20 21:00 12/08/20 20:59 10/25/20 22:14 Lorazepam (Ativan) 0.5 mg Q6H PRN ORAL For Anxiety 10/26/20 07:30 11/02/20 07:29 Memantine (Namenda) 5 mg BID ORAL 10/26/20 09:00 11/25/20 08:59 Mirtazapine (Remeron) 7.5 mg BEDTIME ORAL 10/26/20 21:00 01/24/21 20:59 Morphine Sulfate (Morphine Sulfate) 2 mg Q4H PRN IVP Severe Pain (Pain Scale 7-10) 10/24/20 15:00 10/31/20 14:59 Pantoprazole (Protonix) 40 mg DAILY ORAL 10/25/20 09:00 11/24/20 08:59 10/25/20 08:38 Tramadol HCl (Ultram) 50 mg Q6H PRN ORAL Moderate Pain (Pain Scale 4-6) 10/24/20 15:00 10/31/20 14:59 Zolpidem Tartrate (Ambien) 5 mg HSPRN PRN ORAL Insomnia 10/24/20 21:00 10/31/20 20:59 Lucia Gresham M.D. Oct 26, 2020 07:44
[2020-10-26 08:00] VITALS: BP 119/59
[2020-10-26] MEDS: Memantine 5 MG TAB ORAL SCH ×2 (09:04→17:03)
[2020-10-26] MEDS: Docusate 100mg cap ORAL SCH ×2 (09:04→17:03)
[2020-10-26] MEDS: Aspirin EC 81mg tab ORAL SCH (09:04)
[2020-10-26] MEDS: Heparin 5000 units/ml inj SUBQ SCH ×2 (09:05→20:22)
[2020-10-26] MEDS: cefTRIAXone 1 GM in D5W 55 ML IVPB SCH (10:06)
--- NOTE | 2020-10-26 11:00 | NUR ---
NURSE NOTES: Called and informed Dr Bhat regarding Troponin result 0.087 at 0800 and 1100, still awaiting call back. Pt stable at this time, will continue to monitor. Addendum: 10/26/20 at 1230 by Michelle Shelby RN Pt seen by at around 1215, aware of troponin result now, no new order at his time.
--- NOTE | 2020-10-26 11:06 | Nephrology Progress Note ---
Assessment/Plan Problem List: (1) KAILEY (acute kidney injury) (2) Hypernatremia (3) Hypertension (4) Failure to thrive (5) UTI (urinary tract infection) (6) Dementia Assessment Acute renal failure, dehydration Hypernatremia secondary to free water deficit Failure to thrive UTI Hypertension Alzheimer dementia COPD Plan October 26: Labs reviewed. Serum sodium gradually lowering. Serum creatinine 1.4. Continue monitor renal parameters. October 25: Serum creatinine now within normal limit. Hypernatremia persists. Continue IV D5W. Continue to monitor electrolytes. Patient full code Free water in the form of D5W at 75 cc an hour IV Monitor renal parameters and electrolytes Keep the blood pressure and blood sugar in check Per orders Subjective ROS Limited/Unobtainable: No Constitutional: Reports: malaise, weakness Objective Objective Last 24 Hour Vital Signs Date Time Temp Pulse Resp B/P (MAP) Pulse Ox O2 Delivery O2 Flow Rate FiO2 10/26/20 09:04 81 119/59 10/26/20 09:00 Room Air 10/26/20 08:14 81 20 93 Room Air 21 10/26/20 08:00 96.4 78 22 119/59 (79) 100 10/26/20 04:00 98.2 84 22 124/89 (101) 93 10/26/20 00:00 98.4 95 22 145/78 (100) 91 10/25/20 21:00 Room Air 10/25/20 20:21 81 20 94 Room Air 21 10/25/20 20:00 99.0 100 20 108/69 (82) 92 10/25/20 16:00 98.1 106 24 143/72 (95) 90 10/25/20 11:57 97.5 74 18 114/71 (85) 93 Intake and Output 10/25/20 10/26/20 19:00 07:00 Intake Total 1035 ml 1035 ml Balance 1035 ml 1035 ml Intake Oral 250 ml IV Total 785 ml 675 ml Other 360 ml # Voids 1 2 # Bowel Movements 2 1 Current Medications Medications (Trade) Dose Ordered Sig/Eva Route PRN Reason Start Time Stop Time Status Last Admin Dose Admin Albuterol/ Ipratropium (Albuterol/ Ipratropium) 3 ml Q4H PRN HHN Shortness of Breath 10/25/20 18:45 10/30/20 18:44 Amlodipine Besylate (Norvasc) 5 mg DAILY ORAL 10/25/20 09:00 11/24/20 08:59 10/26/20 09:04 Aspirin (Ecotrin) 81 mg DAILY ORAL 10/25/20 09:00 12/09/20 08:59 10/26/20 09:04 Barium Sulfate (Varibar Honey) 250 ml NOW PRN RAD 10/24/20 17:15 10/27/20 17:03 Barium Sulfate (Varibar [place]) 240 ml NOW PRN RAD 10/24/20 17:15 10/27/20 17:03 Barium Sulfate (Varibar Pudding) 230 ml NOW PRN RAD 10/24/20 17:15 10/27/20 17:03 Barium Sulfate (Varibar Thin Liquid powder) 148 gm NOW PRN RAD 10/24/20 17:15 10/27/20 17:03 Ceftriaxone Sodium 1 gm/ Dextrose 55 ml @ 110 mls/hr Q24H IVPB 10/25/20 11:00 11/01/20 10:59 10/26/20 10:06 Clonidine HCl (Catapres Tab) 0.1 mg Q2H PRN ORAL For High Blood Pressure 10/24/20 16:30 01/22/21 16:29 Dextrose 1,000 ml @ 75 mls/hr [id number] IV 10/24/20 14:15 11/23/20 14:14 10/26/20 05:00 Docusate Sodium (Colace) 100 mg TWICE A DAY ORAL 10/24/20 18:00 11/23/20 17:59 10/26/20 09:04 Heparin Sodium (Porcine) (Heparin 5000 units/ml) 5,000 units EVERY 12 HOURS SUBQ 10/24/20 21:00 12/08/20 20:59 10/26/20 09:05 Lorazepam (Ativan) 0.5 mg Q6H PRN ORAL For Anxiety 10/26/20 07:30 11/02/20 07:29 Memantine (Namenda) 5 mg BID ORAL 10/26/20 09:00 11/25/20 08:59 10/26/20 09:04 Mirtazapine (Remeron) 7.5 mg BEDTIME ORAL 10/26/20 21:00 01/24/21 20:59 Morphine Sulfate (Morphine Sulfate) 2 mg Q4H PRN IVP Severe Pain (Pain Scale 7-10) 10/24/20 15:00 10/31/20 14:59 Pantoprazole (Protonix) 40 mg DAILY ORAL 10/25/20 09:00 11/24/20 08:59 10/26/20 09:04 Tramadol HCl (Ultram) 50 mg Q6H PRN ORAL Moderate Pain (Pain Scale 4-6) 10/24/20 15:00 10/31/20 14:59 Zolpidem Tartrate (Ambien) 5 mg HSPRN PRN ORAL Insomnia 10/24/20 21:00 10/31/20 20:59 Laboratory Tests 10/25/20 20:40: Arterial Blood pH 7.477H, Arterial Blood Partial Pressure CO2 28.5L, Arterial Blood Partial Pressure O2 66.5L, Arterial Blood HCO3 20.6L, Arterial Blood Oxygen Saturation 93.2L, Arterial Blood Base Excess -1.9, Zachariah Test Positive 10/26/20 04:45: White Blood Count 8.0, Red Blood Count 4.22L, Hemoglobin 11.5L, Hematocrit 36.4L , Mean Corpuscular Volume 86, Mean Corpuscular Hemoglobin 27.2, Mean Corpuscular Hemoglobin Concent 31.6L, Red Cell Distribution Width 15.3H, Platelet Count 157, Mean Platelet Volume 10.1, Neutrophils (%) (Auto) 83.7H, Lymphocytes (%) (Auto) 11.4L, Monocytes (%) (Auto) 4.6, Eosinophils (%) (Auto) 0.0, Basophils (%) (Auto) 0.3, Sodium Level 155H, Potassium Level 3.3L, Chloride Level 118H, Carbon Dioxide Level 27, Anion Gap 10, Blood Urea Nitrogen 22H, Creatinine 1.4H, Estimat Glomerular Filtration Rate 58.5, Glucose Level 122H, Uric Acid 5.6, Calcium Level 8.5, Phosphorus Level 3.0, Magnesium Level 2.6H, Total Bilirubin 0.4, Direct Bilirubin 0.2, Aspartate Amino Transf (AST/SGOT) 66H, Alanine Aminotransferase (ALT/SGPT) 34, Alkaline Phosphatase 49, Ammonia 19, Troponin I 0.087H, C-Reactive Protein, Quantitative 4.9H, Total Protein 8.7H, Albumin 3.3L, Vitamin B1 Level [Pending], Rapid Plasma Reagin [Pending], HIV (1&2) Antibody Rapid Negative Height (Feet): 6 Height (Inches): 1.00 Weight (Pounds): 140 Cardiovascular: normal rate Respiratory/Chest: decreased breath sounds Abdomen: soft Damian Webb MD Oct 26, 2020 11:06
[2020-10-26 12:00] VITALS: BP 116/69
[2020-10-26] MEDS ORDERED: Promethazine/Codeine 5ml UD ORAL PRN (12:15)
--- NOTE | 2020-10-26 12:16 | Consultation ---
History of Present Illness General Date patient seen: Oct 26, 2020 Chief Complaint: Generalized Weakness Referring physician: PCP Reason for Consultation: R/o UTI Present Illness HPI 84-year-old male history of Alzheimer's dementia, hypertension, COPD, emphysema presented to ER for evaluation of failure to thrive. weakness, refusing to eat for the past week. Falls asleep frequently. Gradual weakness. He was found to be renal failure and is admitted for further work up. Allergies: Coded Allergies: No Known Allergies (Unverified , 06/18/18) Medication History Scheduled Amlodipine Besylate* (Amlodipine Besylate*), 5 MG ORAL DAILY, (Reported) Aspirin* (Aspir 81*), 81 MG ORAL DAILY, (Reported) Scheduled PRN Albuterol Sulfate* (Albuterol Sulfate Mdi*), 2 PUFF INH Q4H PRN for cough/wheezing Clonidine Hcl (Clonidine Hcl), 0.1 MG PO Q4HR PRN for prn, (Reported) Hydralazine Hcl* (Hydralazine Hcl*), 50 MG ORAL EVERY 8 HOURS PRN for For High Blood Pressure, (Reported) Tramadol Hcl* (Ultram*), 50 MG ORAL Q6H PRN for For Pain, (Reported) Zolpidem Tartrate* (Ambien*), 5 MG ORAL BEDTIME PRN for Insomnia, (Reported) Patient History Healthcare decision maker Resuscitation status Advanced Directive on File Past Medical/Surgical History Past Medical/Surgical History: (1) Dementia (2) Hypertension (3) Severe protein-calorie malnutrition (4) Psychotic disorder Review of Systems All Other Systems: negative except mentioned in HPI Physical Exam General Appearance: combative, thin Lines, tubes and drains: peripheral HEENT: normocephalic, atraumatic Neck: normal alignment, supple Respiratory/Chest: chest wall non-tender, lungs clear Breasts: no masses Cardiovascular/Chest: normal peripheral pulses Abdomen: normal bowel sounds, non tender Genitourinary/Rectal: normal genital exam, normal rectal exam Extremities: normal range of motion Last 24 Hour Vital Signs Date Time Temp Pulse Resp B/P (MAP) Pulse Ox O2 Delivery O2 Flow Rate FiO2 10/26/20 09:04 81 119/59 10/26/20 09:00 Room Air 10/26/20 08:14 81 20 93 Room Air 21 10/26/20 08:00 96.4 78 22 119/59 (79) 100 10/26/20 04:00 98.2 84 22 124/89 (101) 93 10/26/20 00:00 98.4 95 22 145/78 (100) 91 10/25/20 21:00 Room Air 10/25/20 20:21 81 20 94 Room Air 21 10/25/20 20:00 99.0 100 20 108/69 (82) 92 10/25/20 16:00 98.1 106 24 143/72 (95) 90 Intake and Output 10/25/20 10/26/20 19:00 07:00 Intake Total 1035 ml 1035 ml Balance 1035 ml 1035 ml Intake Oral 250 ml IV Total 785 ml 675 ml Other 360 ml # Voids 1 2 # Bowel Movements 2 1 Laboratory Tests Test 10/25/20 20:40 10/26/20 04:45 Arterial Blood pH 7.477 (7.350-7.450) Arterial Blood Partial Pressure CO2 28.5 mmHg (35.0-45.0) L Arterial Blood Partial Pressure O2 66.5 mmHg (75.0-100.0) L Arterial Blood HCO3 20.6 mmol/L (22.0-26.0) L Arterial Blood Oxygen Saturation 93.2 % (95-100) L Arterial Blood Base Excess -1.9 (-2-2) Zachariah Test Positive White Blood Count 8.0 K/UL (4.8-10.8) Red Blood Count 4.22 M/UL (4.70-6.10) L Hemoglobin 11.5 G/DL (14.2-18.0) L Hematocrit 36.4 % (42.0-52.0) L Mean Corpuscular Volume 86 FL (80-99) Mean Corpuscular Hemoglobin 27.2 PG (27.0-31.0) Mean Corpuscular Hemoglobin Concent 31.6 G/DL (32.0-36.0) L Red Cell Distribution Width 15.3 % (11.6-14.8) H Platelet Count 157 K/UL (150-450) Mean Platelet Volume 10.1 FL (6.5-10.1) Neutrophils (%) (Auto) 83.7 % (45.0-75.0) H Lymphocytes (%) (Auto) 11.4 % (20.0-45.0) L Monocytes (%) (Auto) 4.6 % (1.0-10.0) Eosinophils (%) (Auto) 0.0 % (0.0-3.0) Basophils (%) (Auto) 0.3 % (0.0-2.0) Sodium Level 155 MMOL/L (136-145) H Potassium Level 3.3 MMOL/L (3.5-5.1) L Chloride Level 118 MMOL/L (98-107) H Carbon Dioxide Level 27 MMOL/L (21-32) Anion Gap 10 mmol/L (5-15) Blood Urea Nitrogen 22 mg/dL (7-18) H Creatinine 1.4 MG/DL (0.55-1.30) H Estimat Glomerular Filtration Rate 58.5 mL/min (>60) Glucose Level 122 MG/DL (74-106) H Uric Acid 5.6 MG/DL (2.6-7.2) Calcium Level 8.5 MG/DL (8.5-10.1) Phosphorus Level 3.0 MG/DL (2.5-4.9) Magnesium Level 2.6 MG/DL (1.8-2.4) H Total Bilirubin 0.4 MG/DL (0.2-1.0) Direct Bilirubin 0.2 MG/DL (0.0-0.3) Aspartate Amino Transf (AST/SGOT) 66 U/L (15-37) H Alanine Aminotransferase (ALT/SGPT) 34 U/L (12-78) Alkaline Phosphatase 49 U/L (46-116) Ammonia 19 umol/L (11-32) Troponin I 0.087 ng/mL (0.000-0.056) C-Reactive Protein, Quantitative 4.9 mg/dL (0.00-0.90) H Total Protein 8.7 G/DL (6.4-8.2) H Albumin 3.3 G/DL (3.4-5.0) L Vitamin B1 Level Pending Rapid Plasma Reagin Pending HIV (1&2) Antibody Rapid Negative (NEGATIVE) Height (Feet): 6 Height (Inches): 1.00 Weight (Pounds): 140 Medications Current Medications Medications (Trade) Dose Ordered Sig/Eva Route PRN Reason Start Time Stop Time Status Last Admin Dose Admin Albuterol/ Ipratropium (Albuterol/ Ipratropium) 3 ml Q4H PRN HHN Shortness of Breath 10/25/20 18:45 10/30/20 18:44 Amlodipine Besylate (Norvasc) 5 mg DAILY ORAL 10/25/20 09:00 11/24/20 08:59 10/26/20 09:04 Aspirin (Ecotrin) 81 mg DAILY ORAL 10/25/20 09:00 12/09/20 08:59 10/26/20 09:04 Barium Sulfate (Varibar Honey) 250 ml NOW PRN RAD 10/24/20 17:15 10/27/20 17:03 Barium Sulfate (Varibar [place]) 240 ml NOW PRN RAD 10/24/20 17:15 10/27/20 17:03 Barium Sulfate (Varibar Pudding) 230 ml NOW PRN RAD 10/24/20 17:15 10/27/20 17:03 Barium Sulfate (Varibar Thin Liquid powder) 148 gm NOW PRN RAD 10/24/20 17:15 10/27/20 17:03 Ceftriaxone Sodium 1 gm/ Dextrose 55 ml @ 110 mls/hr Q24H IVPB 10/25/20 11:00 11/01/20 10:59 10/26/20 10:06 Clonidine HCl (Catapres Tab) 0.1 mg Q2H PRN ORAL For High Blood Pressure 10/24/20 16:30 01/22/21 16:29 Dextrose 1,000 ml @ 75 mls/hr [id number] IV 10/24/20 14:15 11/23/20 14:14 10/26/20 05:00 Docusate Sodium (Colace) 100 mg TWICE A DAY ORAL 10/24/20 18:00 11/23/20 17:59 10/26/20 09:04 Heparin Sodium (Porcine) (Heparin 5000 units/ml) 5,000 units EVERY 12 HOURS SUBQ 10/24/20 21:00 12/08/20 20:59 10/26/20 09:05 Lorazepam (Ativan) 0.5 mg Q6H PRN ORAL For Anxiety 10/26/20 07:30 11/02/20 07:29 Memantine (Namenda) 5 mg BID ORAL 10/26/20 09:00 11/25/20 08:59 10/26/20 09:04 Mirtazapine (Remeron) 7.5 mg BEDTIME ORAL 10/26/20 21:00 01/24/21 20:59 Morphine Sulfate (Morphine Sulfate) 2 mg Q4H PRN IVP Severe Pain (Pain Scale 7-10) 10/24/20 15:00 10/31/20 14:59 Pantoprazole (Protonix) 40 mg DAILY ORAL 10/25/20 09:00 11/24/20 08:59 10/26/20 09:04 Tramadol HCl (Ultram) 50 mg Q6H PRN ORAL Moderate Pain (Pain Scale 4-6) 10/24/20 15:00 10/31/20 14:59 Zolpidem Tartrate (Ambien) 5 mg HSPRN PRN ORAL Insomnia 10/24/20 21:00 10/31/20 20:59 Assessment/Plan Problem List: (1) Purulent bronchitis ICD Codes: J41.1 - Mucopurulent chronic bronchitis SNOMED: 22839784 (2) KAILEY (acute kidney injury) ICD Codes: N17.9 - Acute kidney failure, unspecified SNOMED: 83380643, 9177579 (3) Hypernatremia ICD Codes: E87.0 - Hyperosmolality and hypernatremia SNOMED: 323762489 (4) COPD (chronic obstructive pulmonary disease) ICD Codes: J44.9 - Chronic obstructive pulmonary disease, unspecified SNOMED: 26086760 (5) Severe protein-calorie malnutrition ICD Codes: E43 - Unspecified severe protein-calorie malnutrition SNOMED: 668656988, 815254359, 418570787 (6) Dementia ICD Codes: F03.90 - Unspecified dementia without behavioral disturbance SNOMED: 64048310 Assessment/Plan: respiratory treatment aspiration precaution swallow study titrate fio2 to sat of 92% antitussives IV fluids, check electrolytes dvt prophylaxis. Cinda Drummond MD Oct 26, 2020 12:16
--- NOTE | 2020-10-26 14:14 | NUR ---
NURSE NOTES: Dr Gresham made aware regarding positive PCR COVID 19 result Addendum: 10/26/20 at 1416 by Michelle Shelby RN awaiting response
--- NOTE | 2020-10-26 14:58 | Diagnostic Imaging Report ---
Indication: Shortness of breath Technique: One view of the chest Comparison: 10/24/2020 Findings: No acute infiltrates, effusions, or congestion. Tortuous calcified aorta. Normal heart size. Upper mediastinum unremarkable. Impression: No acute process.
[2020-10-26] MEDS: dexAMETHasone 10mg/ml Inj IV SCH (15:17)
--- NOTE | 2020-10-26 15:51 | NUR ---
NURSE NOTES: Patient was having low 02 sat with nasal cannula at 2 lpm, patient's 02 sat at 80% on nasal cannula. Obtained an order from Dr. Hoda Loo to change 02 to venturi mask at 15 liters and was made aware of change in condition. Will continue to monitor. Dr. Gresham aware of positive covid 19 result.
[2020-10-26 16:00] VITALS: BP 137/73
[2020-10-26] MEDS ORDERED: Loading Dose:Remdesivir 200mg/NS 210ml IV SCH ×2 (18:00)
--- NOTE | 2020-10-26 19:27 | NUR ---
NURSE HAND-OFF: Important Events on Shift:[new positive covid result, New order for Remdesivir, monitoring vitals and labs, safety and comfort] Patient Status: [needs monitoring] Diet: [low NA pureed] Pending Orders: [] Pending Results/Labs:[] Pending MD notification:[] Latest Vital Signs: Temperature 98.2 , Pulse 88 , B/P 137 /73 , Respiratory Rate 16 , O2 SAT 95 , Venturi Mask, O2 Flow Rate . Vital Sign Comment: [] Latest Fung Fall Score: 50 Fall Risk: High Risk Safety Measures: Call light Within Reach, Bed Alarm Zone 1, Side Rails Side Rails x3, Bed position Low and Locked. Fall Precautions: Yellow Socks Yellow Gown Door Sign Patient Fall Education Report given to [DANIELLE Sarmiento].
--- NOTE | 2020-10-26 19:30 | Cardiac Electrophysiology PN ---
Assessment/Plan Assessment/Plan 1. Hypertension. Continue amlodipine 5 mg daily andp.r.n. clonidine 2. Severe dehydration and azotemia. Patient's sodium is 160 and also has renal failure, creatinine of 1.7. On 10/08/2020 about 2 weeks ago, his sodium was 139, BUN of 14, creatinine of 1.0. Patient was started on IV fluid. 3. Elevated troponin and Poor R-wave progression on the EKG. First troponin was negative. Patient does not have any chest pain. Echo EF 50%. Repeat troponin in am 4. Alzheimer dementia. 5. COPD and cough. Ruled in for Covid MAGED SALCEDO RN. Subjective Subjective Transferred to Covid unit as was coughing to R/O Covid. Confused in restraints on 55% Venturi MAsk Objective Last 24 Hour Vital Signs Date Time Temp Pulse Resp B/P (MAP) Pulse Ox O2 Delivery O2 Flow Rate FiO2 10/26/20 17:24 Venturi Mask 10/26/20 16:00 98.2 88 16 137/73 (94) 95 10/26/20 12:00 99.0 87 20 116/69 (85) 97 10/26/20 09:04 81 119/59 10/26/20 09:00 Room Air 10/26/20 08:14 81 20 93 Room Air 21 10/26/20 08:00 96.4 78 22 119/59 (79) 100 10/26/20 04:00 98.2 84 22 124/89 (101) 93 10/26/20 00:00 98.4 95 22 145/78 (100) 91 10/25/20 21:00 Room Air 10/25/20 20:21 81 20 94 Room Air 21 10/25/20 20:00 99.0 100 20 108/69 (82) 92 Intake and Output 10/25/20 10/26/20 19:00 07:00 Intake Total 1035 ml 1035 ml Balance 1035 ml 1035 ml Intake Oral 250 ml IV Total 785 ml 675 ml Other 360 ml # Voids 1 2 # Bowel Movements 2 1 Laboratory Tests Test 10/25/20 20:40 10/26/20 04:45 Arterial Blood pH 7.477 (7.350-7.450) Arterial Blood Partial Pressure CO2 28.5 mmHg (35.0-45.0) L Arterial Blood Partial Pressure O2 66.5 mmHg (75.0-100.0) L Arterial Blood HCO3 20.6 mmol/L (22.0-26.0) L Arterial Blood Oxygen Saturation 93.2 % (95-100) L Arterial Blood Base Excess -1.9 (-2-2) Zachariah Test Positive White Blood Count 8.0 K/UL (4.8-10.8) Red Blood Count 4.22 M/UL (4.70-6.10) L Hemoglobin 11.5 G/DL (14.2-18.0) L Hematocrit 36.4 % (42.0-52.0) L Mean Corpuscular Volume 86 FL (80-99) Mean Corpuscular Hemoglobin 27.2 PG (27.0-31.0) Mean Corpuscular Hemoglobin Concent 31.6 G/DL (32.0-36.0) L Red Cell Distribution Width 15.3 % (11.6-14.8) H Platelet Count 157 K/UL (150-450) Mean Platelet Volume 10.1 FL (6.5-10.1) Neutrophils (%) (Auto) 83.7 % (45.0-75.0) H Lymphocytes (%) (Auto) 11.4 % (20.0-45.0) L Monocytes (%) (Auto) 4.6 % (1.0-10.0) Eosinophils (%) (Auto) 0.0 % (0.0-3.0) Basophils (%) (Auto) 0.3 % (0.0-2.0) Sodium Level 155 MMOL/L (136-145) H Potassium Level 3.3 MMOL/L (3.5-5.1) L Chloride Level 118 MMOL/L (98-107) H Carbon Dioxide Level 27 MMOL/L (21-32) Anion Gap 10 mmol/L (5-15) Blood Urea Nitrogen 22 mg/dL (7-18) H Creatinine 1.4 MG/DL (0.55-1.30) H Estimat Glomerular Filtration Rate 58.5 mL/min (>60) Glucose Level 122 MG/DL (74-106) H Uric Acid 5.6 MG/DL (2.6-7.2) Calcium Level 8.5 MG/DL (8.5-10.1) Phosphorus Level 3.0 MG/DL (2.5-4.9) Magnesium Level 2.6 MG/DL (1.8-2.4) H Total Bilirubin 0.4 MG/DL (0.2-1.0) Direct Bilirubin 0.2 MG/DL (0.0-0.3) Aspartate Amino Transf (AST/SGOT) 66 U/L (15-37) H Alanine Aminotransferase (ALT/SGPT) 34 U/L (12-78) Alkaline Phosphatase 49 U/L (46-116) Ammonia 19 umol/L (11-32) Troponin I 0.087 ng/mL (0.000-0.056) C-Reactive Protein, Quantitative 4.9 mg/dL (0.00-0.90) H Total Protein 8.7 G/DL (6.4-8.2) H Albumin 3.3 G/DL (3.4-5.0) L Vitamin B1 Level Pending Rapid Plasma Reagin Pending HIV (1&2) Antibody Rapid Negative (NEGATIVE) Microbiology Date/Time Source Procedure Growth Status 10/25/20 10:20 Nasopharynx Coronavirus COVID-19 PCR ([place]) - Final Complete 10/24/20 10:45 Urine,Clean Catch Urine Culture - Preliminary Strep Species, Gamma-Hemolytic Resulted Objective HEAD AND NECK: No JVD. LUNGS: Clear. CARDIOVASCULAR: Shows regular S1 and S2 with no gallop. ABDOMEN: Soft. EXTREMITIES: No pitting edema. Maurilio Lares MD Oct 26, 2020 19:29
--- NOTE | 2020-10-26 19:50 | NUR ---
NURSE NOTES: Received patient awake in bed, lethargic but easily arousable. Able to follow commands. IV access patent, dressing dry and intact. Bilateral soft wrist restraints noted, skin underneath asymptomatic, peripheral pulses present. Condom catheter in place, draining clear yellow liquid. Bed low and locked, patient wearing non slip socks.
[2020-10-26 20:00] VITALS: BP 139/78
[2020-10-26] MEDS: Theophylline ER 100mg ORAL SCH (20:21)
--- NOTE | 2020-10-26 21:09 | General Progress Note ---
Subjective ROS Limited/Unobtainable: Yes Allergies: Coded Allergies: No Known Allergies (Unverified , 06/18/18) Objective Last 24 Hour Vital Signs Date Time Temp Pulse Resp B/P (MAP) Pulse Ox O2 Delivery O2 Flow Rate FiO2 10/26/20 19:52 95 Venturi Mask 14.0 55 10/26/20 17:24 Venturi Mask 10/26/20 16:00 98.2 88 16 137/73 (94) 95 10/26/20 12:00 99.0 87 20 116/69 (85) 97 10/26/20 09:04 81 119/59 10/26/20 09:00 Room Air 10/26/20 08:14 81 20 93 Room Air 21 10/26/20 08:00 96.4 78 22 119/59 (79) 100 10/26/20 04:00 98.2 84 22 124/89 (101) 93 10/26/20 00:00 98.4 95 22 145/78 (100) 91 Intake and Output 10/25/20 10/26/20 19:00 07:00 Intake Total 1035 ml 1035 ml Balance 1035 ml 1035 ml Intake Oral 250 ml IV Total 785 ml 675 ml Other 360 ml # Voids 1 2 # Bowel Movements 2 1 Laboratory Tests 10/26/20 04:45: White Blood Count 8.0, Red Blood Count 4.22L, Hemoglobin 11.5L, Hematocrit 36.4L , Mean Corpuscular Volume 86, Mean Corpuscular Hemoglobin 27.2, Mean Corpuscular Hemoglobin Concent 31.6L, Red Cell Distribution Width 15.3H, Platelet Count 157, Mean Platelet Volume 10.1, Neutrophils (%) (Auto) 83.7H, Lymphocytes (%) (Auto) 11.4L, Monocytes (%) (Auto) 4.6, Eosinophils (%) (Auto) 0.0, Basophils (%) (Auto) 0.3, Sodium Level 155H, Potassium Level 3.3L, Chloride Level 118H, Carbon Dioxide Level 27, Anion Gap 10, Blood Urea Nitrogen 22H, Creatinine 1.4H, Estimat Glomerular Filtration Rate 58.5, Glucose Level 122H, Uric Acid 5.6, Calcium Level 8.5, Phosphorus Level 3.0, Magnesium Level 2.6H, Total Bilirubin 0.4, Direct Bilirubin 0.2, Aspartate Amino Transf (AST/SGOT) 66H, Alanine Aminotransferase (ALT/SGPT) 34, Alkaline Phosphatase 49, Ammonia 19, Troponin I 0.087H, C-Reactive Protein, Quantitative 4.9H, Total Protein 8.7H, Albumin 3.3L, Vitamin B1 Level [Pending], Rapid Plasma Reagin [Pending], HIV (1&2) Antibody Rapid Negative Height (Feet): 6 Height (Inches): 1.00 Weight (Pounds): 140 Assessment/Plan Problem List: (1) ACS (acute coronary syndrome) ICD Codes: I24.9 - Acute ischemic heart disease, unspecified SNOMED: 669201586 (2) Chest pain ICD Codes: R07.9 - Chest pain, unspecified SNOMED: 37203088 (3) COPD (chronic obstructive pulmonary disease) ICD Codes: J44.9 - Chronic obstructive pulmonary disease, unspecified SNOMED: 42865301 (4) Hypernatremia ICD Codes: E87.0 - Hyperosmolality and hypernatremia SNOMED: 960860951 (5) Severe protein-calorie malnutrition ICD Codes: E43 - Unspecified severe protein-calorie malnutrition SNOMED: 022840248, 828556636, 957899370 (6) KAILEY (acute kidney injury) ICD Codes: N17.9 - Acute kidney failure, unspecified SNOMED: 66757074, 6886479 (7) UTI (urinary tract infection) ICD Codes: N39.0 - Urinary tract infection, site not specified SNOMED: 04254831 (8) Dementia ICD Codes: F03.90 - Unspecified dementia without behavioral disturbance SNOMED: 51650545 Status: stable Assessment/Plan: copd resp insuff cp lyte uti obs afebrile Annamarie Vasquez MD Oct 26, 2020 21:09
--- NOTE | 2020-10-26 23:45 | Consultation ---
DATE OF CONSULTATION: 10/26/2020 PSYCHOTHERAPY CONSULTATION PROGRESS NOTE CONSULTING PHYSICIAN: Erlin Vaughan PsyD TREATING ATTENDING: Tayo Crump DO HISTORY OF PRESENT ILLNESS: Patient is a male patient. Patient is 84 years old. Patient is from alf facility. Patient was brought in to hospital for failure to thrive and increased agitation. Patient has been helpless confused, hopeless psychotherapy service. When I saw this patient, patient does remain very confused and could not recall why he was sent to the hospital . There are no suicidal or homicidal thoughts of ideation. There is no . PAST MEDICAL HISTORY: Includes history of hypertension, UTI, chest pain, failure to thrive. ALLERGIES: Patient has no known drug allergies. SUBSTANCE ABUSE HISTORY: There is no indication of alcohol use , illicit substance use, or smoking cigarette. PSYCHIATRIC HISTORY: At this time he has a positive history of major depression. SOCIAL HISTORY: Patient is an 84-year-old male patient. He is financially sustained by [facility]. MENTAL STATUS EXAMINATION: Alert and oriented to person. Mood is irritable. Affect is . Thought process disorganized. Thought content, confused. Poor attention and concentration. Poor insight, judgment, impulse control. DIAGNOSES: 1. Major depressive disorder, mild, recurrent without psychotic features. 2. Hypertension, UTI. 3. Psychosocial stressors, moderate. patient is helpless, confused, disorganized. I assessed this patient and provided patient with: 4. Reality orientation. Orientation of patient to person, place, time, and situation . 5. Supportive psychotherapy encouraging patient positive communication skills . Plan is to maintain medication compliance, use of positive coping skills . Psychotherapy service provided for this patient was 45 minutes. This clinician has reviewed the patient's chart and discussed treatment with treatment team. Erlin Vaughan PsyD. DR: CHANDU JOB#: [id number] CC:
[2020-10-27] VITALS: BP 115/74
[2020-10-27 04:00] VITALS: BP 143/75
--- NOTE | 2020-10-27 07:06 | NUR ---
HAND-OFF: Report given to DANIELLE Martinez.
--- NOTE | 2020-10-27 07:17 | NUR ---
NURSE NOTES: Report received from DANIELLE Sarmiento. Patient awake in bed, alert and oriented x 1, no SOB, bed in lowest position with breaks engaged and alarm on, denied any pain and discomfort at this time, on bilateral soft wrist restraints to prevent pulling IV and oxygen, IV line present on left AC, on contact and droplet precautions for positive COVID 19. On venturi mask at 55% 15L, will continue to monitor and proceed with plan of care, call light within reach.
[2020-10-27 07:31] LABS: HEMATOCRIT 35.4 % (42.0-52.0); HEMOGLOBIN 11.5 G/DL (14.2-18.0); MEAN CORPUSCULAR VOLUME 87 FL (80-99); PLATELET COUNT 164 K/UL (150-450); RED BLOOD COUNT 4.08 M/UL (4.70-6.10); WHITE BLOOD COUNT 8.9 K/UL (4.8-10.8)
--- NOTE | 2020-10-27 07:53 | Psychiatry Consultation ---
Psychiatry Consultation Psychiatry Consultation Chief Complaint: Generalized Weakness History of Present Illness: 84-year-old male patient with generalized weakness failure to thrive confusion disorganized thought process but he also has a lot of depression and some altered mental status his cognition has declined below baseline mood lability worsened by stress with medical illness as well as attending is requesting daily psychiatric consultation Mental status examination: 84-year-old male patient appears disheveled attributable agitated affect guarded strict intellect poor mood depressed anxious motor activity psychomotor agitation attention balance poor orientation x3 speech is low ventilator process dermatological evaluation was poor Allergies: Coded Allergies: No Known Allergies (Unverified , 06/18/18) Medication History Scheduled Amlodipine Besylate* (Amlodipine Besylate*), 5 MG ORAL DAILY, (Reported) Aspirin* (Aspir 81*), 81 MG ORAL DAILY, (Reported) Scheduled PRN Albuterol Sulfate* (Albuterol Sulfate Mdi*), 2 PUFF INH Q4H PRN for cough/wheez ing Clonidine Hcl (Clonidine Hcl), 0.1 MG PO Q4HR PRN for prn, (Reported) Hydralazine Hcl* (Hydralazine Hcl*), 50 MG ORAL EVERY 8 HOURS PRN for For High Blood Pressure, (Reported) Tramadol Hcl* (Ultram*), 50 MG ORAL Q6H PRN for For Pain, (Reported) Zolpidem Tartrate* (Ambien*), 5 MG ORAL BEDTIME PRN for Insomnia, (Reported) Objective Data Height (Feet): 6 Height (Inches): 1.00 Weight (Pounds): 140 Assessment/Plan Assessment/Plan: Plan is to add Remeron 7.5 mg nightly for depression and also to increase his appetite also Ativan 0.5 mg every 6 hours. Anxiety agitation as well as Namenda 5 mg twice a day to prevent further decline in his cognition also 20 minutes of insight oriented psychotherapy was provided while work with this patient to help him have a better understanding of his physical and psychiatric condition in order to reduce depression anxiety and to help with impulse control charge been reviewed and discussed with staff patient seen and assessed at bedside Diagnosis [place] I: Major depressive disorder severe recurrent without with psychotic features rule out dementia with psychosis Lizbeth Patton MD Oct 27, 2020 07:52
[2020-10-27 07:54] LABS: ALANINE AMINOTRANSFERASE 33 U/L (12-78); ALBUMIN/GLOBULIN RATIO 0.6 (1.0-2.7); ALKALINE PHOSPHATASE 45 U/L (46-116); ANION GAP 9 mmol/L (5-15); ASPARTATE AMINO TRANSFERASE 72 U/L (15-37); BILIRUBIN,TOTAL 0.3 MG/DL (0.2-1.0); BLOOD UREA NITROGEN 23 mg/dL (7-18); CALCIUM 8.6 MG/DL (8.5-10.1); CARBON DIOXIDE 27 MMOL/L (21-32); CHLORIDE 117 MMOL/L (98-107); CREATININE 1.1 MG/DL (0.55-1.30); PHOSPHORUS 2.4 MG/DL (2.5-4.9); POTASSIUM 4.1 MMOL/L (3.5-5.1); SODIUM 152 MMOL/L (136-145)
[2020-10-27 08:00] VITALS: BP 106/80
--- NOTE | 2020-10-27 08:26 | Infectious Diseases Prog Note ---
Assessment/Plan 84yo M with: Afebrile Normal WBC COVID positive Acute hypoxia 2/2 COVID pna UTI 10/24 UA 40-60 WBC, UCx >100k gamma-Strep CXR: No acute process 10/25 COVID PCR pos 10/26 CXR: No acute process Abdominal tenderness on exam 10/25 Abd US ordered Cr 1.7 Alzheimer's dementia HTN HIV screen neg RPR neg Plan: Cont RDV #2/5 Cont dexamethasone #2/10 Cont CTX 1g daily #4/5 for UTI F/u Abd US given TTP on exam Monitor CBC/CMP Monitor temp curve, hemodynamics Monitor resp status D/w RN and Radiology Thank you for this consult. [facility] will continue to follow. Subjective Allergies: Coded Allergies: No Known Allergies (Unverified , 06/18/18) AF COVID positive, started on RDV and steroids WBC 8.9 On Venturi 14L Awake and talking but not making much sense, very hard to understand Objective Last 24 Hour Vital Signs Date Time Temp Pulse Resp B/P (MAP) Pulse Ox O2 Delivery O2 Flow Rate FiO2 10/27/20 04:00 97.5 66 20 143/75 (97) 97 10/27/20 00:00 97.3 97 20 115/74 (88) 97 10/26/20 21:00 Venturi Mask 10/26/20 20:00 98.1 98 16 139/78 (98) 95 10/26/20 19:52 95 Venturi Mask 14.0 55 10/26/20 17:24 Venturi Mask 10/26/20 16:00 98.2 88 16 137/73 (94) 95 10/26/20 12:00 99.0 87 20 116/69 (85) 97 10/26/20 09:04 81 119/59 10/26/20 09:00 Room Air Height (Feet): 6 Height (Inches): 1.00 Weight (Pounds): 140 Gen: NAD HEENT: NCAT Pulm: BL chest rise on venturi mask Abd: Non-distended Ext: No c/c/e Skin: No visible rashes Neuro: Awake Microbiology Date/Time Source Procedure Growth Status 10/25/20 10:20 Nasopharynx Coronavirus COVID-19 PCR ([place]) - Final Complete 10/24/20 10:45 Urine,Clean Catch Urine Culture - Preliminary Strep Species, Gamma-Hemolytic Resulted Laboratory Tests Test 10/27/20 04:00 White Blood Count 8.9 K/UL (4.8-10.8) Red Blood Count 4.08 M/UL (4.70-6.10) L Hemoglobin 11.5 G/DL (14.2-18.0) L Hematocrit 35.4 % (42.0-52.0) L Mean Corpuscular Volume 87 FL (80-99) Mean Corpuscular Hemoglobin 28.1 PG (27.0-31.0) Mean Corpuscular Hemoglobin Concent 32.4 G/DL (32.0-36.0) Red Cell Distribution Width 16.0 % (11.6-14.8) H Platelet Count 164 K/UL (150-450) Mean Platelet Volume 10.1 FL (6.5-10.1) Neutrophils (%) (Auto) % (45.0-75.0) Lymphocytes (%) (Auto) % (20.0-45.0) Monocytes (%) (Auto) % (1.0-10.0) Eosinophils (%) (Auto) % (0.0-3.0) Basophils (%) (Auto) % (0.0-2.0) Neutrophils % (Manual) Pending Lymphocytes % (Manual) Pending Platelet Estimate Pending Platelet Morphology Pending Sodium Level 152 MMOL/L (136-145) H Potassium Level 4.1 MMOL/L (3.5-5.1) Chloride Level 117 MMOL/L (98-107) H Carbon Dioxide Level 27 MMOL/L (21-32) Anion Gap 9 mmol/L (5-15) Blood Urea Nitrogen 23 mg/dL (7-18) H Creatinine 1.1 MG/DL (0.55-1.30) Estimat Glomerular Filtration Rate > 60 mL/min (>60) Glucose Level 128 MG/DL (74-106) H Calcium Level 8.6 MG/DL (8.5-10.1) Phosphorus Level 2.4 MG/DL (2.5-4.9) L Magnesium Level 2.7 MG/DL (1.8-2.4) H Total Bilirubin 0.3 MG/DL (0.2-1.0) Direct Bilirubin 0.1 MG/DL (0.0-0.3) Aspartate Amino Transf (AST/SGOT) 72 U/L (15-37) H Alanine Aminotransferase (ALT/SGPT) 33 U/L (12-78) Alkaline Phosphatase 45 U/L (46-116) L Troponin I 0.037 ng/mL (0.000-0.056) Total Protein 8.4 G/DL (6.4-8.2) H Albumin 3.0 G/DL (3.4-5.0) L Globulin 5.4 g/dL Albumin/Globulin Ratio 0.6 (1.0-2.7) L Current Medications Medications (Trade) Dose Ordered Sig/Eva Route PRN Reason Start Time Stop Time Status Last Admin Dose Admin Albuterol/ Ipratropium (Albuterol/ Ipratropium) 3 ml Q4H PRN HHN Shortness of Breath 10/25/20 18:45 10/30/20 18:44 Amlodipine Besylate (Norvasc) 5 mg DAILY ORAL 10/25/20 09:00 11/24/20 08:59 10/26/20 09:04 Aspirin (Ecotrin) 81 mg DAILY ORAL 10/25/20 09:00 12/09/20 08:59 10/26/20 09:04 Barium Sulfate (Varibar Honey) 250 ml NOW PRN RAD 10/24/20 17:15 10/27/20 17:03 Barium Sulfate (Varibar [place]) 240 ml NOW PRN RAD 10/24/20 17:15 10/27/20 17:03 Barium Sulfate (Varibar Pudding) 230 ml NOW PRN RAD 10/24/20 17:15 10/27/20 17:03 Barium Sulfate (Varibar Thin Liquid powder) 148 gm NOW PRN RAD 10/24/20 17:15 10/27/20 17:03 Ceftriaxone Sodium 1 gm/ Dextrose 55 ml @ 110 mls/hr Q24H IVPB 10/25/20 11:00 11/01/20 10:59 10/26/20 10:06 Clonidine HCl (Catapres Tab) 0.1 mg Q2H PRN ORAL For High Blood Pressure 10/24/20 16:30 01/22/21 16:29 Dexamethasone Sodium Phosphate (Decadron 10mg/ ml Inj) 6 mg DAILY IV 10/26/20 15:00 11/04/20 09:01 10/26/20 15:17 Dextrose 1,000 ml @ 75 mls/hr [id number] IV 10/24/20 14:15 11/23/20 14:14 10/26/20 19:35 Docusate Sodium (Colace) 100 mg TWICE A DAY ORAL 10/24/20 18:00 11/23/20 17:59 10/26/20 17:03 Heparin Sodium (Porcine) (Heparin 5000 units/ml) 5,000 units EVERY 12 HOURS SUBQ 10/24/20 21:00 12/08/20 20:59 10/26/20 20:22 Lorazepam (Ativan) 0.5 mg Q6H PRN ORAL For Anxiety 10/26/20 07:30 11/02/20 07:29 Memantine (Namenda) 5 mg BID ORAL 10/26/20 09:00 11/25/20 08:59 10/26/20 17:03 Mirtazapine (Remeron) 7.5 mg BEDTIME ORAL 10/26/20 21:00 01/24/21 20:59 10/26/20 20:21 Morphine Sulfate (Morphine Sulfate) 2 mg Q4H PRN IVP Severe Pain (Pain Scale 7-10) 10/24/20 15:00 10/31/20 14:59 Pantoprazole (Protonix) 40 mg DAILY ORAL 10/25/20 09:00 11/24/20 08:59 10/26/20 09:04 Promethazine HCl/ Codeine (Phenergan with Codeine) 5 ml Q4H PRN ORAL For Cough 10/26/20 12:15 11/25/20 12:14 Remdesivir 100 mg/ Sodium Chloride 250 ml @ 250 mls/hr Q24H IV 10/27/20 18:00 10/30/20 18:59 Theophylline (Ivan-Dur) 100 mg EVERY 12 HOURS ORAL 10/26/20 21:00 01/24/21 20:59 10/26/20 20:21 Tramadol HCl (Ultram) 50 mg Q6H PRN ORAL Moderate Pain (Pain Scale 4-6) 10/24/20 15:00 10/31/20 14:59 Zolpidem Tartrate (Ambien) 5 mg HSPRN PRN ORAL Insomnia 10/24/20 21:00 10/31/20 20:59 Lucia Gresham M.D. Oct 27, 2020 08:25
[2020-10-27] MEDS: dexAMETHasone 10mg/ml Inj IV SCH (09:16)
[2020-10-27] MEDS: Theophylline ER 100mg ORAL SCH ×2 (09:16→21:02)
[2020-10-27] MEDS: Memantine 5 MG TAB ORAL SCH ×2 (09:17→17:40)
[2020-10-27] MEDS: Docusate 100mg cap ORAL SCH ×2 (09:17→17:40)
[2020-10-27] MEDS: Aspirin EC 81mg tab ORAL SCH (09:17)
[2020-10-27] MEDS: Heparin 5000 units/ml inj SUBQ SCH ×2 (09:18→21:02)
[2020-10-27] MEDS ORDERED: MELATONIN 5 MG1 EAC1 ORAL (10:21)
[2020-10-27] MEDS: cefTRIAXone 1 GM in D5W 55 ML IVPB SCH (11:22)
[2020-10-27 12:00] VITALS: BP 136/77
--- NOTE | 2020-10-27 12:11 | Pulmonology Progress Note ---
Subjective ROS Limited/Unobtainable: No Constitutional: Reports: no symptoms HEENT: Repors: no symptoms Respiratory: Reports: no symptoms Allergies: Coded Allergies: No Known Allergies (Unverified , 06/18/18) Objective Last 24 Hour Vital Signs Date Time Temp Pulse Resp B/P (MAP) Pulse Ox O2 Delivery O2 Flow Rate FiO2 10/27/20 09:17 95 106/80 10/27/20 09:00 Venturi Mask 10/27/20 08:00 97.1 95 18 106/80 (89) 97 10/27/20 04:00 97.5 66 20 143/75 (97) 97 10/27/20 00:00 97.3 97 20 115/74 (88) 97 10/26/20 21:00 Venturi Mask 10/26/20 20:00 98.1 98 16 139/78 (98) 95 10/26/20 19:52 95 Venturi Mask 14.0 55 10/26/20 17:24 Venturi Mask 10/26/20 16:00 98.2 88 16 137/73 (94) 95 Intake and Output 10/26/20 10/27/20 19:00 07:00 Intake Total 120 ml Output Total 200 ml Balance 120 ml -200 ml Intake Oral 120 ml Output Urine Total 200 ml General Appearance: cachetic HEENT: normocephalic, atraumatic Respiratory: chest wall non-tender, lungs clear Cardiovascular: normal peripheral pulses, regular rhythm Abdomen: normal bowel sounds, no organomegaly Genitourinary: normal external genitalia Extremities: no clubbing Skin: no lesions Neurologic: cruller maker machine II-XII grossly normal Microbiology Date/Time Source Procedure Growth Status 10/25/20 10:20 Nasopharynx Coronavirus COVID-19 PCR ([place]) - Final Complete Laboratory Tests 10/27/20 04:00: White Blood Count 8.9, Red Blood Count 4.08L, Hemoglobin 11.5L, Hematocrit 35.4L , Mean Corpuscular Volume 87, Mean Corpuscular Hemoglobin 28.1, Mean Corpuscular Hemoglobin Concent 32.4, Red Cell Distribution Width 16.0H, Platelet Count 164, Mean Platelet Volume 10.1, Neutrophils (%) (Auto) , Lymphocytes (%) (Auto) , Monocytes (%) (Auto) , Eosinophils (%) (Auto) , Basophils (%) (Auto) , Differential Total Cells Counted 100, Neutrophils % (Manual) 85H, Lymphocytes % (Manual) 12L, Monocytes % (Manual) 3, Eosinophils % (Manual) 0, Basophils % (Manual) 0, Band Neutrophils 0, Platelet Estimate Adequate, Platelet Morphology Normal, Anisocytosis 1+, Sodium Level 152H, Potassium Level 4.1, Chloride Level 117H, Carbon Dioxide Level 27, Anion Gap 9, Blood Urea Nitrogen 23H, Creatinine 1.1, Estimat Glomerular Filtration Rate > 60, Glucose Level 128H, Calcium Level 8.6, Phosphorus Level 2.4L, Magnesium Level 2.7H, Total Bilirubin 0.3, Direct Bilirubin 0.1, Aspartate Amino Transf (AST/SGOT) 72H, Alanine Aminotransferase (ALT/SGPT) 33, Alkaline Phosphatase 45L, Troponin I 0.037, Total Protein 8.4H, Albumin 3.0L, Globulin 5.4, Albumin/Globulin Ratio 0.6L Current Medications Medications (Trade) Dose Ordered Sig/Eva Route PRN Reason Start Time Stop Time Status Last Admin Dose Admin Albuterol/ Ipratropium (Combivent Respimat) 1 puff Q4H PRN INH Shortness of Breath 10/27/20 09:00 11/26/20 08:59 Amlodipine Besylate (Norvasc) 5 mg DAILY ORAL 10/25/20 09:00 11/24/20 08:59 10/27/20 09:17 Aspirin (Ecotrin) 81 mg DAILY ORAL 10/25/20 09:00 12/09/20 08:59 10/27/20 09:17 Barium Sulfate (Varibar Honey) 250 ml NOW PRN MC RAD 10/24/20 17:15 10/27/20 17:03 Barium Sulfate (Varibar [place]) 240 ml NOW PRN MC RAD 10/24/20 17:15 10/27/20 17:03 Barium Sulfate (Varibar Pudding) 230 ml NOW PRN MC RAD 10/24/20 17:15 10/27/20 17:03 Barium Sulfate (Varibar Thin Liquid powder) 148 gm NOW PRN MC RAD 10/24/20 17:15 10/27/20 17:03 Ceftriaxone Sodium 1 gm/ Dextrose 55 ml @ 110 mls/hr Q24H IVPB 10/25/20 11:00 11/01/20 10:59 10/27/20 11:22 Clonidine HCl (Catapres Tab) 0.1 mg Q2H PRN ORAL For High Blood Pressure 10/24/20 16:30 01/22/21 16:29 Dexamethasone Sodium Phosphate (Decadron 10mg/ ml Inj) 6 mg DAILY IV 10/26/20 15:00 11/04/20 09:01 10/27/20 09:16 Dextrose 1,000 ml @ 75 mls/hr [id number] IV 10/24/20 14:15 11/23/20 14:14 10/27/20 09:16 Docusate Sodium (Colace) 100 mg TWICE A DAY ORAL 10/24/20 18:00 11/23/20 17:59 10/27/20 09:17 Heparin Sodium (Porcine) (Heparin 5000 units/ml) 5,000 units EVERY 12 HOURS SUBQ 10/24/20 21:00 12/08/20 20:59 10/27/20 09:18 Lorazepam (Ativan) 0.5 mg Q6H PRN ORAL For Anxiety 10/26/20 07:30 11/02/20 07:29 Memantine (Namenda) 5 mg BID ORAL 10/26/20 09:00 11/25/20 08:59 10/27/20 09:17 Mirtazapine (Remeron) 7.5 mg BEDTIME ORAL 10/26/20 21:00 01/24/21 20:59 10/26/20 20:21 Morphine Sulfate (Morphine Sulfate) 2 mg Q4H PRN IVP Severe Pain (Pain Scale 7-10) 10/24/20 15:00 10/31/20 14:59 Pantoprazole (Protonix) 40 mg DAILY ORAL 10/25/20 09:00 11/24/20 08:59 10/27/20 09:17 Promethazine HCl/ Codeine (Phenergan with Codeine) 5 ml Q4H PRN ORAL For Cough 10/26/20 12:15 11/25/20 12:14 Remdesivir 100 mg/ Sodium Chloride 250 ml @ 250 mls/hr Q24H IV 10/27/20 18:00 10/30/20 18:59 Theophylline (Ivan-Dur) 100 mg EVERY 12 HOURS ORAL 10/26/20 21:00 01/24/21 20:59 10/27/20 09:16 Tramadol HCl (Ultram) 50 mg Q6H PRN ORAL Moderate Pain (Pain Scale 4-6) 10/24/20 15:00 10/31/20 14:59 Zolpidem Tartrate (Ambien) 5 mg HSPRN PRN ORAL Insomnia 10/24/20 21:00 10/31/20 20:59 Assessment/Plan Problems: (1) 2019 novel coronavirus disease (COVID-19) (2) Purulent bronchitis (3) COPD (chronic obstructive pulmonary disease) (4) KAILEY (acute kidney injury) (5) Hypernatremia (6) Severe protein-calorie malnutrition (7) Dementia Assessment/Plan respiratory treatment aspiration precaution repeat cxr 10/26 didn't show any infiltrate. swallow study: MODIFIED TEXTURE DIET: PUREE WITH NECTAR THICK LIQUIDS titrate fio2 to sat of 92% antitussives IV fluids, check electrolytes dvt prophylaxis. Cinda Drummond MD Oct 27, 2020 12:11
--- NOTE | 2020-10-27 12:24 | Cardiac Electrophysiology PN ---
Assessment/Plan Assessment/Plan 1. Hypertension. Continue amlodipine 5 mg daily and p.r.n. clonidine 2. Severe dehydration and azotemia. Patient's sodium is 160 and also has renal failure, creatinine of 1.7. On 10/08/2020 about 2 weeks ago, his sodium was 139, BUN of 14, creatinine of 1.0 on IV fluid. 3. Elevated troponin and Poor R-wave progression on the EKG. First troponin was negative. Patient does not have any chest pain. Echo EF 50%. Repeat troponin negative 4. Alzheimer dementia. 5. COPD and cough. Ruled in for Covid MAGED SALCEDO RN. Subjective Subjective In isolation for Covid Confused in restraints on 55% Venturi MAsk Objective Last 24 Hour Vital Signs Date Time Temp Pulse Resp B/P (MAP) Pulse Ox O2 Delivery O2 Flow Rate FiO2 10/27/20 09:17 95 106/80 10/27/20 09:00 Venturi Mask 10/27/20 08:00 97.1 95 18 106/80 (89) 97 10/27/20 04:00 97.5 66 20 143/75 (97) 97 10/27/20 00:00 97.3 97 20 115/74 (88) 97 10/26/20 21:00 Venturi Mask 10/26/20 20:00 98.1 98 16 139/78 (98) 95 10/26/20 19:52 95 Venturi Mask 14.0 55 10/26/20 17:24 Venturi Mask 10/26/20 16:00 98.2 88 16 137/73 (94) 95 Intake and Output 10/26/20 10/27/20 19:00 07:00 Intake Total 120 ml Output Total 200 ml Balance 120 ml -200 ml Intake Oral 120 ml Output Urine Total 200 ml Laboratory Tests Test 10/27/20 04:00 White Blood Count 8.9 K/UL (4.8-10.8) Red Blood Count 4.08 M/UL (4.70-6.10) L Hemoglobin 11.5 G/DL (14.2-18.0) L Hematocrit 35.4 % (42.0-52.0) L Mean Corpuscular Volume 87 FL (80-99) Mean Corpuscular Hemoglobin 28.1 PG (27.0-31.0) Mean Corpuscular Hemoglobin Concent 32.4 G/DL (32.0-36.0) Red Cell Distribution Width 16.0 % (11.6-14.8) H Platelet Count 164 K/UL (150-450) Mean Platelet Volume 10.1 FL (6.5-10.1) Neutrophils (%) (Auto) % (45.0-75.0) Lymphocytes (%) (Auto) % (20.0-45.0) Monocytes (%) (Auto) % (1.0-10.0) Eosinophils (%) (Auto) % (0.0-3.0) Basophils (%) (Auto) % (0.0-2.0) Differential Total Cells Counted 100 Neutrophils % (Manual) 85 % (45-75) H Lymphocytes % (Manual) 12 % (20-45) L Monocytes % (Manual) 3 % (1-10) Eosinophils % (Manual) 0 % (0-3) Basophils % (Manual) 0 % (0-2) Band Neutrophils 0 % (0-8) Platelet Estimate Adequate Platelet Morphology Normal Anisocytosis 1+ Sodium Level 152 MMOL/L (136-145) H Potassium Level 4.1 MMOL/L (3.5-5.1) Chloride Level 117 MMOL/L (98-107) H Carbon Dioxide Level 27 MMOL/L (21-32) Anion Gap 9 mmol/L (5-15) Blood Urea Nitrogen 23 mg/dL (7-18) H Creatinine 1.1 MG/DL (0.55-1.30) Estimat Glomerular Filtration Rate > 60 mL/min (>60) Glucose Level 128 MG/DL (74-106) H Calcium Level 8.6 MG/DL (8.5-10.1) Phosphorus Level 2.4 MG/DL (2.5-4.9) L Magnesium Level 2.7 MG/DL (1.8-2.4) H Total Bilirubin 0.3 MG/DL (0.2-1.0) Direct Bilirubin 0.1 MG/DL (0.0-0.3) Aspartate Amino Transf (AST/SGOT) 72 U/L (15-37) H Alanine Aminotransferase (ALT/SGPT) 33 U/L (12-78) Alkaline Phosphatase 45 U/L (46-116) L Troponin I 0.037 ng/mL (0.000-0.056) Total Protein 8.4 G/DL (6.4-8.2) H Albumin 3.0 G/DL (3.4-5.0) L Globulin 5.4 g/dL Albumin/Globulin Ratio 0.6 (1.0-2.7) L Microbiology Date/Time Source Procedure Growth Status 10/25/20 10:20 Nasopharynx Coronavirus COVID-19 PCR ([place]) - Final Complete Objective HEAD AND NECK: No JVD. LUNGS: Clear. CARDIOVASCULAR: Shows regular S1 and S2 with no gallop. ABDOMEN: Soft. EXTREMITIES: No pitting edema. Maurilio Lares MD Oct 27, 2020 12:24
--- NOTE | 2020-10-27 15:28 | Diagnostic Imaging Report ---
Indication: Abnormal renal function tests, abdominal pain Technique: Nair-scale and duplex images of the upper abdomen were obtained. Exam is limited, due to patient being Covid positive Comparison: none Findings: Exam was technically difficult, due to patient body habitus, suboptimal patient cooperation, and overlying bowel gas. Gallbladder is unremarkable, without stones, wall thickening, nor pericholecystic fluid. Sonographic Cano's sign is negative. Common bile duct measures 4 mm in diameter. No intrahepatic biliary ductal dilatation. Liver demonstrates heterogeneous echotexture. It demonstrates a 3.2 cm cyst in the left lobe and an adjacent smaller cyst in the left lobe. Portal vein and hepatic veins are patent. Poorly defined 2.2 cm hypoechoic area is seen in the anterior superior right hepatic lobe and another 1.9 cm lesion is also noted. Pancreas is incompletely visualized due to overlying bowel gas, visualized portions are unremarkable. Spleen is unremarkable. Left kidney measures 10.5 cm in length. Right kidney measures 9.2 cm length. Both kidneys demonstrate normal echogenicity. There is no hydronephrosis. Both kidneys demonstrate cysts . Abdominal aorta is obscured by bowel gas . Impression: Limited exam, as described Negative for gallstones or dilated bile ducts Hypoechoic lesions in the right hepatic lobe. These are nonspecific, neoplastic etiologies are among the differential. Recommend further evaluation with contrast CT as clinically indicated Nonspecific heterogeneous hepatic echogenicity, could indicate hepatocellular disease Hepatic and bilateral renal cysts Note nonvisualization of the aorta and portions of the pancreas
--- NOTE | 2020-10-27 15:50 | NUR ---
CASE MANAGEMENT:REVIEW SI;COVID PNEUMONIA. AC RENAL FAILURE. 97.5 97 20 143/75 97% 14L VENTURI MASK NA 152 BUN 23 MAG 2.7 AST 72 ALB 3.0 IS;REMDESIVIR IV ONCE ROCEPHIN IV QD ASA PO QD DECADRON IV QD HEPARIN SQ Q12\ Addendum: 10/27/20 at 1555 by ANA JEFFRIES LVN CM MED SURG STATUS DCP;FROM HOME
[2020-10-27 16:00] VITALS: BP 102/58
--- NOTE | 2020-10-27 17:31 | Nephrology Progress Note ---
Assessment/Plan Problem List: (1) KAILEY (acute kidney injury) (2) Hypernatremia (3) Hypertension (4) UTI (urinary tract infection) (5) Dementia Assessment Acute renal failure, dehydration Hypernatremia secondary to free water deficit Failure to thrive UTI Hypertension Alzheimer dementia COPD Plan October 27: Labs reviewed. Further improvement of hypernatremia and serum creatinine. Continue same management. October 26: Labs reviewed. Serum sodium gradually lowering. Serum creatinine 1.4. Continue monitor renal parameters. October 25: Serum creatinine now within normal limit. Hypernatremia persists. Continue IV D5W. Continue to monitor electrolytes. Patient full code Free water in the form of D5W at 75 cc an hour IV Monitor renal parameters and electrolytes Keep the blood pressure and blood sugar in check Per orders Subjective ROS Limited/Unobtainable: Yes Objective Objective Last 24 Hour Vital Signs Date Time Temp Pulse Resp B/P (MAP) Pulse Ox O2 Delivery O2 Flow Rate FiO2 10/27/20 16:00 97.5 67 20 102/58 (73) 96 10/27/20 12:00 97.5 67 20 136/77 (96) 98 10/27/20 09:17 95 106/80 10/27/20 09:00 Venturi Mask 10/27/20 08:00 97.1 95 18 106/80 (89) 97 10/27/20 04:00 97.5 66 20 143/75 (97) 97 10/27/20 00:00 97.3 97 20 115/74 (88) 97 10/26/20 21:00 Venturi Mask 10/26/20 20:00 98.1 98 16 139/78 (98) 95 10/26/20 19:52 95 Venturi Mask 14.0 55 Intake and Output 10/26/20 10/27/20 19:00 07:00 Intake Total 120 ml Output Total 200 ml Balance 120 ml -200 ml Intake Oral 120 ml Output Urine Total 200 ml Laboratory Tests 10/27/20 04:00: White Blood Count 8.9, Red Blood Count 4.08L, Hemoglobin 11.5L, Hematocrit 35.4L , Mean Corpuscular Volume 87, Mean Corpuscular Hemoglobin 28.1, Mean Corpuscular Hemoglobin Concent 32.4, Red Cell Distribution Width 16.0H, Platelet Count 164, Mean Platelet Volume 10.1, Neutrophils (%) (Auto) , Lymphocytes (%) (Auto) , Monocytes (%) (Auto) , Eosinophils (%) (Auto) , Basophils (%) (Auto) , Differential Total Cells Counted 100, Neutrophils % (Manual) 85H, Lymphocytes % (Manual) 12L, Monocytes % (Manual) 3, Eosinophils % (Manual) 0, Basophils % (Manual) 0, Band Neutrophils 0, Platelet Estimate Adequate, Platelet Morphology Normal, Anisocytosis 1+, Sodium Level 152H, Potassium Level 4.1, Chloride Level 117H, Carbon Dioxide Level 27, Anion Gap 9, Blood Urea Nitrogen 23H, Creatinine 1.1, Estimat Glomerular Filtration Rate > 60, Glucose Level 128H, Calcium Level 8.6, Phosphorus Level 2.4L, Magnesium Level 2.7H, Total Bilirubin 0.3, Direct Bilirubin 0.1, Aspartate Amino Transf (AST/SGOT) 72H, Alanine Aminotransferase (ALT/SGPT) 33, Alkaline Phosphatase 45L, Troponin I 0.037, Total Protein 8.4H, Albumin 3.0L, Globulin 5.4, Albumin/Globulin Ratio 0.6L Height (Feet): 6 Height (Inches): 1.00 Weight (Pounds): 140 General Appearance: no apparent distress EENT: other - On Venturi mask Cardiovascular: normal rate Respiratory/Chest: decreased breath sounds Abdomen: distended Damian Webb MD Oct 27, 2020 17:31
[2020-10-27] MEDS: Maintenance Dose:Remdesivir 100mg/NS 230ml x 4 Doses IV SCH ×2 (17:40)
--- NOTE | 2020-10-27 18:40 | NUR ---
NURSE NOTES: RT tried collecting sputum from patient but pt was refusing and became combative. Tried collecting x [address] Drummond.
--- NOTE | 2020-10-27 19:38 | NUR ---
NURSE HAND-OFF: Important Events on Shift:[unable to collect sputum, safety and comfort, IV fluids] Patient Status: [stable] Diet: [puree] Pending Orders: [] Pending Results/Labs:[] Pending MD notification:[] Latest Vital Signs: Temperature 97.5 , Pulse 67 , B/P 102 /58 , Respiratory Rate 20 , O2 SAT 96 , Venturi Mask, O2 Flow Rate 14.0 . Vital Sign Comment: [] Latest Fung Fall Score: 70 Fall Risk: High Risk Safety Measures: Call light Within Reach, Bed Alarm Zone 1, Side Rails Side Rails x3, Bed position Low and Locked. Fall Precautions: Yellow Socks Yellow Gown Door Sign Patient Fall Education Report given to [DANIELLE Sarmiento].
--- NOTE | 2020-10-27 19:50 | NUR ---
NURSE NOTES: Received patient awake in bed, lethargic but easily arousable. Able to follow commands. IV access patent, dressing dry and intact. Bilateral soft wrist restraints noted, skin underneath asymptomatic, peripheral pulses present. Condom catheter off, replaced, draining clear yellow liquid. Bed low and locked, patient wearing non slip socks.
[2020-10-27 20:00] VITALS: BP 133/67
--- NOTE | 2020-10-27 21:26 | General Progress Note ---
Subjective ROS Limited/Unobtainable: Yes Allergies: Coded Allergies: No Known Allergies (Unverified , 06/18/18) Objective Last 24 Hour Vital Signs Date Time Temp Pulse Resp B/P (MAP) Pulse Ox O2 Delivery O2 Flow Rate FiO2 10/27/20 16:00 97.5 67 20 102/58 (73) 96 10/27/20 12:00 97.5 67 20 136/77 (96) 98 10/27/20 09:17 95 106/80 10/27/20 09:00 Venturi Mask 10/27/20 08:00 97.1 95 18 106/80 (89) 97 10/27/20 04:00 97.5 66 20 143/75 (97) 97 10/27/20 00:00 97.3 97 20 115/74 (88) 97 Intake and Output 10/26/20 10/27/20 19:00 07:00 Intake Total 120 ml Output Total 200 ml Balance 120 ml -200 ml Intake Oral 120 ml Output Urine Total 200 ml Laboratory Tests 10/27/20 04:00: White Blood Count 8.9, Red Blood Count 4.08L, Hemoglobin 11.5L, Hematocrit 35.4L , Mean Corpuscular Volume 87, Mean Corpuscular Hemoglobin 28.1, Mean Corpuscular Hemoglobin Concent 32.4, Red Cell Distribution Width 16.0H, Platelet Count 164, Mean Platelet Volume 10.1, Neutrophils (%) (Auto) , Lymphocytes (%) (Auto) , Monocytes (%) (Auto) , Eosinophils (%) (Auto) , Basophils (%) (Auto) , Differential Total Cells Counted 100, Neutrophils % (Manual) 85H, Lymphocytes % (Manual) 12L, Monocytes % (Manual) 3, Eosinophils % (Manual) 0, Basophils % (Manual) 0, Band Neutrophils 0, Platelet Estimate Adequate, Platelet Morphology Normal, Anisocytosis 1+, Sodium Level 152H, Potassium Level 4.1, Chloride Level 117H, Carbon Dioxide Level 27, Anion Gap 9, Blood Urea Nitrogen 23H, Creatinine 1.1, Estimat Glomerular Filtration Rate > 60, Glucose Level 128H, Calcium Level 8.6, Phosphorus Level 2.4L, Magnesium Level 2.7H, Total Bilirubin 0.3, Direct Bilirubin 0.1, Aspartate Amino Transf (AST/SGOT) 72H, Alanine Aminotransferase (ALT/SGPT) 33, Alkaline Phosphatase 45L, Troponin I 0.037, Total Protein 8.4H, Albumin 3.0L, Globulin 5.4, Albumin/Globulin Ratio 0.6L Height (Feet): 6 Height (Inches): 1.00 Weight (Pounds): 140 Assessment/Plan Problem List: (1) ACS (acute coronary syndrome) ICD Codes: I24.9 - Acute ischemic heart disease, unspecified SNOMED: 530540309 (2) Chest pain ICD Codes: R07.9 - Chest pain, unspecified SNOMED: 30491371 (3) COPD (chronic obstructive pulmonary disease) ICD Codes: J44.9 - Chronic obstructive pulmonary disease, unspecified SNOMED: 02702050 (4) Hypernatremia ICD Codes: E87.0 - Hyperosmolality and hypernatremia SNOMED: 165070319 (5) Severe protein-calorie malnutrition ICD Codes: E43 - Unspecified severe protein-calorie malnutrition SNOMED: 269353398, 808569152, 552243778 (6) KAILEY (acute kidney injury) ICD Codes: N17.9 - Acute kidney failure, unspecified SNOMED: 11221466, 6680186 (7) UTI (urinary tract infection) ICD Codes: N39.0 - Urinary tract infection, site not specified SNOMED: 17291857 (8) Dementia ICD Codes: F03.90 - Unspecified dementia without behavioral disturbance SNOMED: 24173920 Status: stable Assessment/Plan: copd resp insuff cp uti is improving abx per id reivewed chart and labs Annamarie Vasquez MD Oct 27, 2020 21:26
[2020-10-28] VITALS: BP 121/65
[2020-10-28 04:00] VITALS: BP 136/67
--- NOTE | 2020-10-28 07:12 | NUR ---
HAND-OFF: Report given to DANIELLE Flores.
--- NOTE | 2020-10-28 07:48 | NUR ---
NURSE NOTES: Received report from DANIELLE Sarmiento. Rounding done. Pt asleep with bilateral restraints. No SOB noted. D5W running @75/ml via Lt AC. Bed in lowest position, call light within reach. Will continue to monitor.
[2020-10-28 08:00] VITALS: BP 103/78
--- NOTE | 2020-10-28 08:08 | Infectious Diseases Prog Note ---
Assessment/Plan 84yo M with: Afebrile Normal WBC COVID positive Acute hypoxia 2/2 COVID pna UTI 10/24 UA 40-60 WBC, UCx >100k gamma-Strep CXR: No acute process 10/25 COVID PCR pos 10/26 CXR: No acute process Abdominal tenderness on exam 10/25 Abd US: Negative for gallstones or dilated bile ducts. Hypoechoic les ions in the right hepatic lobe. These are nonspecific, neoplastic etiologies are among the differential. Recommend further evaluation with contrast CT as clinically indicated. Nonspecific heterogeneous hepatic echogenicity, could indicate hepatocellular disease. Hepatic and bilateral renal cysts. Note nonvisualization of the aorta and portions of the pancreas Cr 1.7 Alzheimer's dementia HTN HIV screen neg RPR neg Plan: Cont RDV #3/5 Cont dexamethasone #3/10 Cont CTX 1g daily #5/ for UTI Monitor CBC/CMP Monitor temp curve, hemodynamics Monitor resp status D/w RN Thank you for this consult. [facility] will continue to follow. Subjective Allergies: Coded Allergies: No Known Allergies (Unverified , 06/18/18) AF On Venturi mask 15L, satting >90% NAD in bed WBC 10.1 Objective Last 24 Hour Vital Signs Date Time Temp Pulse Resp B/P (MAP) Pulse Ox O2 Delivery O2 Flow Rate FiO2 10/28/20 04:00 97.7 82 22 136/67 (90) 99 10/28/20 00:00 97.7 59 22 121/65 (83) 99 10/27/20 22:21 Venturi Mask 10/27/20 20:14 95 Venturi Mask 14.0 55 10/27/20 20:00 97.0 80 20 133/67 (89) 92 10/27/20 16:00 97.5 67 20 102/58 (73) 96 10/27/20 12:00 97.5 67 20 136/77 (96) 98 10/27/20 09:17 95 106/80 10/27/20 09:00 Venturi Mask Height (Feet): 6 Height (Inches): 1.00 Weight (Pounds): 140 Gen: NAD HEENT: NCAT Pulm: BL chest rise on venturi mask Abd: Non-distended Ext: No c/c/e Skin: No visible rashes Neuro: Awake Microbiology Date/Time Source Procedure Growth Status 10/25/20 10:20 Nasopharynx Coronavirus COVID-19 PCR ([place]) - Final Complete Current Medications Medications (Trade) Dose Ordered Sig/Eva Route PRN Reason Start Time Stop Time Status Last Admin Dose Admin Albuterol/ Ipratropium (Combivent Respimat) 1 puff Q4H PRN INH Shortness of Breath 10/27/20 09:00 11/26/20 08:59 Amlodipine Besylate (Norvasc) 5 mg DAILY ORAL 10/25/20 09:00 11/24/20 08:59 10/27/20 09:17 Aspirin (Ecotrin) 81 mg DAILY ORAL 10/25/20 09:00 12/09/20 08:59 10/27/20 09:17 Ceftriaxone Sodium 1 gm/ Dextrose 55 ml @ 110 mls/hr Q24H IVPB 10/25/20 11:00 11/01/20 10:59 10/27/20 11:22 Clonidine HCl (Catapres Tab) 0.1 mg Q2H PRN ORAL For High Blood Pressure 10/24/20 16:30 01/22/21 16:29 Dexamethasone Sodium Phosphate (Decadron 10mg/ ml Inj) 6 mg DAILY IV 10/26/20 15:00 11/04/20 09:01 10/27/20 09:16 Dextrose 1,000 ml @ 75 mls/hr [id number] IV 10/24/20 14:15 11/23/20 14:14 10/27/20 09:16 Docusate Sodium (Colace) 100 mg TWICE A DAY ORAL 10/24/20 18:00 11/23/20 17:59 10/27/20 17:40 Heparin Sodium (Porcine) (Heparin 5000 units/ml) 5,000 units EVERY 12 HOURS SUBQ 10/24/20 21:00 12/08/20 20:59 10/27/20 21:02 Lorazepam (Ativan) 0.5 mg Q6H PRN ORAL For Anxiety 10/26/20 07:30 11/02/20 07:29 Memantine (Namenda) 5 mg BID ORAL 10/26/20 09:00 11/25/20 08:59 10/27/20 17:40 Mirtazapine (Remeron) 7.5 mg BEDTIME ORAL 10/26/20 21:00 01/24/21 20:59 10/27/20 21:02 Morphine Sulfate (Morphine Sulfate) 2 mg Q4H PRN IVP Severe Pain (Pain Scale 7-10) 10/24/20 15:00 10/31/20 14:59 Pantoprazole (Protonix) 40 mg DAILY ORAL 10/25/20 09:00 11/24/20 08:59 10/27/20 09:17 Promethazine HCl/ Codeine (Phenergan with Codeine) 5 ml Q4H PRN ORAL For Cough 10/26/20 12:15 11/25/20 12:14 Remdesivir 100 mg/ Sodium Chloride 250 ml @ 250 mls/hr Q24H IV 10/27/20 18:00 10/30/20 18:59 10/27/20 17:40 Theophylline (Ivan-Dur) 100 mg EVERY 12 HOURS ORAL 10/26/20 21:00 01/24/21 20:59 10/27/20 21:02 Tramadol HCl (Ultram) 50 mg Q6H PRN ORAL Moderate Pain (Pain Scale 4-6) 10/24/20 15:00 10/31/20 14:59 Zolpidem Tartrate (Ambien) 5 mg HSPRN PRN ORAL Insomnia 10/24/20 21:00 10/31/20 20:59 Lucia Gresham M.D. Oct 28, 2020 08:08
[2020-10-28] MEDS: Docusate 100mg cap ORAL SCH ×2 (08:45→17:36)
[2020-10-28] MEDS: Memantine 5 MG TAB ORAL SCH ×2 (08:45→17:36)
[2020-10-28] MEDS: Aspirin EC 81mg tab ORAL SCH (08:45)
[2020-10-28] MEDS: Theophylline ER 100mg ORAL SCH ×2 (08:45→22:01)
[2020-10-28] MEDS: dexAMETHasone 10mg/ml Inj IV SCH (08:45)
[2020-10-28] MEDS: Heparin 5000 units/ml inj SUBQ SCH ×2 (08:45→22:09)
[2020-10-28 09:16] LABS: HEMATOCRIT 31.9 % (42.0-52.0); HEMOGLOBIN 10.5 G/DL (14.2-18.0); MEAN CORPUSCULAR VOLUME 84 FL (80-99); PLATELET COUNT 163 K/UL (150-450); RED BLOOD COUNT 3.79 M/UL (4.70-6.10); RED CELL DISTRIBUTION WIDTH 15.3 % (11.6-14.8); WHITE BLOOD COUNT 10.1 K/UL (4.8-10.8)
[2020-10-28 09:22] LABS: BASOPHILS % (AUTO) 0.4 % (0.0-2.0); LYMPHOCYTES % (AUTO) 7.2 % (20.0-45.0); MONOCYTES % (AUTO) 4.9 % (1.0-10.0); NEUTROPHILS % (AUTO) 87.5 % (45.0-75.0)
[2020-10-28 09:39] LABS: ALANINE AMINOTRANSFERASE 36 U/L (12-78); ALBUMIN 2.8 G/DL (3.4-5.0); ALBUMIN/GLOBULIN RATIO 0.6 (1.0-2.7); ALKALINE PHOSPHATASE 40 U/L (46-116); ANION GAP 8 mmol/L (5-15); ASPARTATE AMINO TRANSFERASE 72 U/L (15-37); BILIRUBIN,DIRECT 0.1 MG/DL (0.0-0.3); BILIRUBIN,TOTAL 0.3 MG/DL (0.2-1.0); BLOOD UREA NITROGEN 30 mg/dL (7-18); CALCIUM 8.3 MG/DL (8.5-10.1); CARBON DIOXIDE 27 MMOL/L (21-32); CHLORIDE 115 MMOL/L (98-107); CREATININE 0.9 MG/DL (0.55-1.30); PHOSPHORUS 2.3 MG/DL (2.5-4.9); POTASSIUM 3.6 MMOL/L (3.5-5.1); SODIUM 150 MMOL/L (136-145)
--- NOTE | 2020-10-28 09:59 | Psychiatry Consultation ---
Psychiatry Consultation Psychiatry Consultation Chief Complaint: Generalized Weakness Allergies: Coded Allergies: No Known Allergies (Unverified , 06/18/18) Past Psychiatric History: 84-year-old male patient with weakness and failure to thrive but he has altered mental status confusion declining cognition plus baseline and psychomotor agitation as well as attending is requested daily psychiatric consultation because his cognition has declined below baseline and the goal was to prevent further decline in cognition and hopefully improve his cognition closer to his baseline Mental status examination: This is a 84-year-old male appearance is disheveled at irritable agitated affect labile intellect poor mood depressed anxious motor activity psychomotor station attachments poor orientation x2 speech is low volume slurred thought process disorganized logical insight judgment is poor Medication History Scheduled Amlodipine Besylate* (Amlodipine Besylate*), 5 MG ORAL DAILY, (Reported) Aspirin* (Aspir 81*), 81 MG ORAL DAILY, (Reported) Scheduled PRN Albuterol Sulfate* (Albuterol Sulfate Mdi*), 2 PUFF INH Q4H PRN for cough/wheezing Melatonin (Melatonin 5 Mg Tablet), 1 TAB ORAL BEDTIME PRN for Insomnia, (Reported) Tramadol Hcl* (Ultram*), 50 MG ORAL BID PRN for For Pain, (Reported) Zolpidem Tartrate* (Ambien*), 5 MG ORAL BEDTIME PRN for Insomnia, (Reported) Discontinued Medications Clonidine Hcl (Clonidine Hcl), 0.1 MG PO Q4HR PRN for prn, (Reported) Discontinued Reason: Therapy completed Hydralazine Hcl* (Hydralazine Hcl*), 50 MG ORAL EVERY 8 HOURS PRN for For High Blood Pressure, (Reported) Discontinued Reason: Therapy completed Objective Data Height (Feet): 6 Height (Inches): 1.00 Weight (Pounds): 140 Assessment/Plan Assessment/Plan: Plan is to add Remeron 7.5 mg nightly for depression and also to increase his appetite also Ativan 0.5 mg every 6 hours. 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
--- NOTE | 2020-10-28 10:13 | NUR ---
RD ASSESSMENT & RECOMMENDATIONS SEE CARE ACTIVITY FOR COMPLETE ASSESSMENT DAILY ESTIMATED NEEDS: Needs based on Underweight, wasting 51kg 30-35 kcals/kg 8475-5204 total kcals 1-1.5 g protein/kg 51-76 g total protein 25-30 mL/kg 7622-3119 total fluid mLs NUTRITION DIAGNOSIS: Increased kcal and pro needs r/t underweight, wasting, wt loss as evidenced by pt w/ generalized moderate wasting, @ 79% of ideal body weight w/ low BMI of 18.1, pt w/ suspected significant wt loss of 11 lbs/8.9% in <6 months. . CURRENT DIET: LOW NA, pureed moist PO DIET RECOMMENDATIONS: Liberalized regular/ texture as tolerated or per [employer]IT [employer]ER ADDITIONAL RECOMMENDATIONS: 1) Monitor wt trend- suspected recent significant wt loss calibrated daily bedscale wts 2) Consider UNIT CONTROL WORKER eval for appropriate texture-> cleared for puree 3) MVI x 1 4) Add Ensure Enlive TID w/ meals, monitor acceptance, need to increase (350kcal/20g prot each) 5) Consult RD if non oral feeds are part of POC w/ continued poor po
[2020-10-28] MEDS: cefTRIAXone 1 GM in D5W 55 ML IVPB SCH (10:29)
--- NOTE | 2020-10-28 10:34 | Pulmonology Progress Note ---
Subjective ROS Limited/Unobtainable: Yes Constitutional: Reports: no symptoms HEENT: Repors: no symptoms Respiratory: Reports: no symptoms Allergies: Coded Allergies: No Known Allergies (Unverified , 06/18/18) Objective Last 24 Hour Vital Signs Date Time Temp Pulse Resp B/P (MAP) Pulse Ox O2 Delivery O2 Flow Rate FiO2 10/28/20 09:00 Venturi Mask 10/28/20 09:00 73 103/78 10/28/20 08:00 98.4 73 20 103/78 (86) 98 10/28/20 04:00 97.7 82 22 136/67 (90) 99 10/28/20 00:00 97.7 59 22 121/65 (83) 99 10/27/20 22:21 Venturi Mask 10/27/20 20:14 95 Venturi Mask 14.0 55 10/27/20 20:00 97.0 80 20 133/67 (89) 92 10/27/20 16:00 97.5 67 20 102/58 (73) 96 10/27/20 12:00 97.5 67 20 136/77 (96) 98 Intake and Output 10/27/20 10/28/20 19:00 07:00 Intake Total 360 ml Output Total 250 ml Balance 360 ml -250 ml Intake Oral 360 ml Output Urine Total 250 ml # Voids 3 General Appearance: cachetic HEENT: normocephalic, atraumatic Respiratory: chest wall non-tender, lungs clear Cardiovascular: normal peripheral pulses, regular rhythm Abdomen: normal bowel sounds, no organomegaly Genitourinary: normal external genitalia Extremities: no clubbing Skin: no lesions Neurologic: classifier II-XII grossly normal Laboratory Tests 10/28/20 08:20: White Blood Count 10.1, Red Blood Count 3.79L, Hemoglobin 10.5L, Hematocrit 31.9L, Mean Corpuscular Volume 84, Mean Corpuscular Hemoglobin 27.7, Mean Corpuscular Hemoglobin Concent 33.0, Red Cell Distribution Width 15.3H, Platelet Count 163, Mean Platelet Volume 10.5H, Neutrophils (%) (Auto) 87.5H, Lymphocytes (%) (Auto) 7.2L, Monocytes (%) (Auto) 4.9, Eosinophils (%) (Auto) 0.0, Basophils (%) (Auto) 0.4, Sodium Level 150H, Potassium Level 3.6, Chloride Level 115H, Carbon Dioxide Level 27, Anion Gap 8, Blood Urea Nitrogen 30H, Creatinine 0.9, Estimat Glomerular Filtration Rate > 60, Glucose Level 105, Uric Acid 5.4, Calcium Level 8.3L, Phosphorus Level 2.3L, Magnesium Level 2.8H, Total Bilirubin 0.3, Direct Bilirubin 0.1, Aspartate Amino Transf (AST/SGOT) 72H, Alanine A minotransferase (ALT/SGPT) 36, Alkaline Phosphatase 40L, Total Protein 7.8, Albumin 2.8L, Globulin 5.0, Albumin/Globulin Ratio 0.6L Current Medications Medications (Trade) Dose Ordered Sig/Eva Route PRN Reason Start Time Stop Time Status Last Admin Dose Admin Albuterol/ Ipratropium (Combivent Respimat) 1 puff Q4H PRN INH Shortness of Breath 10/27/20 09:00 11/26/20 08:59 Amlodipine Besylate (Norvasc) 5 mg DAILY ORAL 10/25/20 09:00 11/24/20 08:59 10/27/20 09:17 Aspirin (Ecotrin) 81 mg DAILY ORAL 10/25/20 09:00 12/09/20 08:59 10/28/20 08:45 Ceftriaxone Sodium 1 gm/ Dextrose 55 ml @ 110 mls/hr Q24H IVPB 10/25/20 11:00 11/01/20 10:59 10/28/20 10:29 Clonidine HCl (Catapres Tab) 0.1 mg Q2H PRN ORAL For High Blood Pressure 10/24/20 16:30 01/22/21 16:29 Dexamethasone Sodium Phosphate (Decadron 10mg/ ml Inj) 6 mg DAILY IV 10/26/20 15:00 11/04/20 09:01 10/28/20 08:45 Dextrose 1,000 ml @ 75 mls/hr [id number] IV 10/24/20 14:15 11/23/20 14:14 10/28/20 10:30 Docusate Sodium (Colace) 100 mg TWICE A DAY ORAL 10/24/20 18:00 11/23/20 17:59 10/28/20 08:45 Heparin Sodium (Porcine) (Heparin 5000 units/ml) 5,000 units EVERY 12 HOURS SUBQ 10/24/20 21:00 12/08/20 20:59 10/28/20 08:45 Lorazepam (Ativan) 0.5 mg Q6H PRN ORAL For Anxiety 10/26/20 07:30 11/02/20 07:29 Memantine (Namenda) 5 mg BID ORAL 10/26/20 09:00 11/25/20 08:59 10/28/20 08:45 Mirtazapine (Remeron) 7.5 mg BEDTIME ORAL 10/26/20 21:00 01/24/21 20:59 10/27/20 21:02 Morphine Sulfate (Morphine Sulfate) 2 mg Q4H PRN IVP Severe Pain (Pain Scale 7-10) 10/24/20 15:00 10/31/20 14:59 Pantoprazole (Protonix) 40 mg DAILY ORAL 10/25/20 09:00 11/24/20 08:59 10/28/20 08:45 Promethazine HCl/ Codeine (Phenergan with Codeine) 5 ml Q4H PRN ORAL For Cough 10/26/20 12:15 11/25/20 12:14 Remdesivir 100 mg/ Sodium Chloride 250 ml @ 250 mls/hr Q24H IV 10/27/20 18:00 10/30/20 18:59 10/27/20 17:40 Theophylline (Ivan-Dur) 100 mg EVERY 12 HOURS ORAL 10/26/20 21:00 01/24/21 20:59 10/28/20 08:45 Tramadol HCl (Ultram) 50 mg Q6H PRN ORAL Moderate Pain (Pain Scale 4-6) 10/24/20 15:00 10/31/20 14:59 Zolpidem Tartrate (Ambien) 5 mg HSPRN PRN ORAL Insomnia 10/24/20 21:00 10/31/20 20:59 Assessment/Plan Problems: (1) 2019 novel coronavirus disease (COVID-19) (2) Purulent bronchitis (3) COPD (chronic obstructive pulmonary disease) (4) KAILEY (acute kidney injury) (5) Hypernatremia (6) At high risk for aspiration (7) Dementia (8) Severe protein-calorie malnutrition Assessment/Plan still on venturi mask respiratory treatment aspiration precaution repeat cxr 10/26 didn't show any infiltrate. swallow study: MODIFIED TEXTURE DIET: PUREE WITH NECTAR THICK LIQUIDS titrate fio2 to sat of 92% antitussives check electrolytes dvt prophylaxis. Cinda Drummond MD Oct 28, 2020 10:34
[2020-10-28 12:00] VITALS: BP 108/69
[2020-10-28] MEDS ORDERED: Potassium Phosphate 20 MM in NS 275 ML IV ONE (13:00)
--- NOTE | 2020-10-28 15:32 | Nephrology Progress Note ---
Assessment/Plan Problem List: (1) KAILEY (acute kidney injury) (2) Hypernatremia (3) Hypertension (4) UTI (urinary tract infection) (5) Dementia Assessment Acute renal failure, dehydration Hypernatremia secondary to free water deficit Failure to thrive UTI Hypertension Alzheimer dementia COPD Plan October 28: Labs reviewed. Abnormal electrolytes reviewed and addressed. Continue per current management. October 27: Labs reviewed. Further improvement of hypernatremia and serum creatinine. Continue same management. October 26: Labs reviewed. Serum sodium gradually lowering. Serum creatinine 1.4. Continue monitor renal parameters. October 25: Serum creatinine now within normal limit. Hypernatremia persists. Continue IV D5W. Continue to monitor electrolytes. Patient full code Free water in the form of D5W at 75 cc an hour IV Monitor renal parameters and electrolytes Keep the blood pressure and blood sugar in check Per orders Subjective ROS Limited/Unobtainable: Yes Objective Objective Last 24 Hour Vital Signs Date Time Temp Pulse Resp B/P (MAP) Pulse Ox O2 Delivery O2 Flow Rate FiO2 10/28/20 12:19 98 Venturi Mask 14.0 55 10/28/20 12:00 98.2 80 20 108/69 (82) 98 10/28/20 09:00 Venturi Mask 10/28/20 09:00 73 103/78 10/28/20 08:00 98.4 73 20 103/78 (86) 98 10/28/20 04:00 97.7 82 22 136/67 (90) 99 10/28/20 00:00 97.7 59 22 121/65 (83) 99 10/27/20 22:21 Venturi Mask 10/27/20 20:14 95 Venturi Mask 14.0 55 10/27/20 20:00 97.0 80 20 133/67 (89) 92 10/27/20 16:00 97.5 67 20 102/58 (73) 96 Intake and Output 10/27/20 10/28/20 19:00 07:00 Intake Total 360 ml Output Total 250 ml Balance 360 ml -250 ml Intake Oral 360 ml Output Urine Total 250 ml # Voids 3 Laboratory Tests 10/28/20 08:20: White Blood Count 10.1, Red Blood Count 3.79L, Hemoglobin 10.5L, Hematocrit 31.9L, Mean Corpuscular Volume 84, Mean Corpuscular Hemoglobin 27.7, Mean Corpuscular Hemoglobin Concent 33.0, Red Cell Distribution Width 15.3H, Platelet Count 163, Mean Platelet Volume 10.5H, Neutrophils (%) (Auto) 87.5H, Lymphocytes (%) (Auto) 7.2L, Monocytes (%) (Auto) 4.9, Eosinophils (%) (Auto) 0.0, Basophils (%) (Auto) 0.4, Sodium Level 150H, Potassium Level 3.6, Chloride Level 115H, Carbon Dioxide Level 27, Anion Gap 8, Blood Urea Nitrogen 30H, Creatinine 0.9, Estimat Glomerular Filtration Rate > 60, Glucose Level 105, Uric Acid 5.4, Calcium Level 8.3L, Phosphorus Level 2.3L, Magnesium Level 2.8H, Total Bilirubin 0.3, Direct Bilirubin 0.1, Aspartate Amino Transf (AST/SGOT) 72H, Alanine Aminotransferase (ALT/SGPT) 36, Alkaline Phosphatase 40L, Total Protein 7.8, Albumin 2.8L, Globulin 5.0, Albumin/Globulin Ratio 0.6L Height (Feet): 6 Height (Inches): 1.00 Weight (Pounds): 140 General Appearance: mild distress EENT: other - On Venturi mask Cardiovascular: tachycardia Respiratory/Chest: decreased breath sounds Abdomen: distended Damian Webb MD Oct 28, 2020 15:32
[2020-10-28 16:00] VITALS: BP 105/75
--- NOTE | 2020-10-28 16:15 | Cardiac Electrophysiology PN ---
Assessment/Plan Assessment/Plan 1. Hypertension. Continue amlodipine 5 mg daily and p.r.n. clonidine 2. Severe dehydration and azotemia. Patient's sodium is 160 and also has renal failure, creatinine of 1.7. On 10/08/2020 about 2 weeks ago, his sodium was 139, BUN of 14, creatinine of 1.0 on IV fluid. 3. Elevated troponin and Poor R-wave progression on the EKG. First troponin was negative. No chest pain. EF 50%. Repeat troponin negative 4. Alzheimer dementia. 5. COPD and cough. Ruled in for Covid MAGED SALCEDO RN. Subjective Subjective In isolation for Covid Confused in restraints on 15 liter Venturi Mask Objective Last 24 Hour Vital Signs Date Time Temp Pulse Resp B/P (MAP) Pulse Ox O2 Delivery O2 Flow Rate FiO2 10/28/20 16:00 97.6 75 20 105/75 (85) 98 10/28/20 12:19 98 Venturi Mask 14.0 55 10/28/20 12:00 98.2 80 20 108/69 (82) 98 10/28/20 09:00 Venturi Mask 10/28/20 09:00 73 103/78 10/28/20 08:00 98.4 73 20 103/78 (86) 98 10/28/20 04:00 97.7 82 22 136/67 (90) 99 10/28/20 00:00 97.7 59 22 121/65 (83) 99 10/27/20 22:21 Venturi Mask 10/27/20 20:14 95 Venturi Mask 14.0 55 10/27/20 20:00 97.0 80 20 133/67 (89) 92 Intake and Output 10/27/20 10/28/20 19:00 07:00 Intake Total 360 ml Output Total 250 ml Balance 360 ml -250 ml Intake Oral 360 ml Output Urine Total 250 ml # Voids 3 Laboratory Tests Test 10/28/20 08:20 White Blood Count 10.1 K/UL (4.8-10.8) Red Blood Count 3.79 M/UL (4.70-6.10) L Hemoglobin 10.5 G/DL (14.2-18.0) L Hematocrit 31.9 % (42.0-52.0) L Mean Corpuscular Volume 84 FL (80-99) Mean Corpuscular Hemoglobin 27.7 PG (27.0-31.0) Mean Corpuscular Hemoglobin Concent 33.0 G/DL (32.0-36.0) Red Cell Distribution Width 15.3 % (11.6-14.8) H Platelet Count 163 K/UL (150-450) Mean Platelet Volume 10.5 FL (6.5-10.1) H Neutrophils (%) (Auto) 87.5 % (45.0-75.0) H Lymphocytes (%) (Auto) 7.2 % (20.0-45.0) L Monocytes (%) (Auto) 4.9 % (1.0-10.0) Eosinophils (%) (Auto) 0.0 % (0.0-3.0) Basophils (%) (Auto) 0.4 % (0.0-2.0) Sodium Level 150 MMOL/L (136-145) H Potassium Level 3.6 MMOL/L (3.5-5.1) Chloride Level 115 MMOL/L (98-107) H Carbon Dioxide Level 27 MMOL/L (21-32) Anion Gap 8 mmol/L (5-15) Blood Urea Nitrogen 30 mg/dL (7-18) H Creatinine 0.9 MG/DL (0.55-1.30) Estimat Glomerular Filtration Rate > 60 mL/min (>60) Glucose Level 105 MG/DL (74-106) Uric Acid 5.4 MG/DL (2.6-7.2) Calcium Level 8.3 MG/DL (8.5-10.1) L Phosphorus Level 2.3 MG/DL (2.5-4.9) L Magnesium Level 2.8 MG/DL (1.8-2.4) H Total Bilirubin 0.3 MG/DL (0.2-1.0) Direct Bilirubin 0.1 MG/DL (0.0-0.3) Aspartate Amino Transf (AST/SGOT) 72 U/L (15-37) H Alanine Aminotransferase (ALT/SGPT) 36 U/L (12-78) Alkaline Phosphatase 40 U/L (46-116) L Total Protein 7.8 G/DL (6.4-8.2) Albumin 2.8 G/DL (3.4-5.0) L Globulin 5.0 g/dL Albumin/Globulin Ratio 0.6 (1.0-2.7) L Objective HEAD AND NECK: No JVD. LUNGS: Clear. CARDIOVASCULAR: Shows regular S1 and S2 with no gallop. ABDOMEN: Soft. EXTREMITIES: No pitting edema. Maurilio Lares MD Oct 28, 2020 16:15
[2020-10-28] MEDS: Maintenance Dose:Remdesivir 100mg/NS 230ml x 4 Doses IV SCH ×2 (17:36)
--- NOTE | 2020-10-28 19:12 | NUR ---
NURSE HAND-OFF: Important Events on Shift: Tapering oxygen to NC 5L/min Patient Status: stable, combative Diet: low salt pureed diet Pending Orders: sputum collection Pending Results/Labs:n/a Pending MD notification:n/a Latest Vital Signs: Temperature 97.6 , Pulse 75 , B/P 105 /75 , Respiratory Rate 20 , O2 SAT 98 , Venturi Mask, O2 Flow Rate 14.0 . Vital Sign Comment: stable Latest Fung Fall Score: 70 Fall Risk: High Risk Safety Measures: Call light Within Reach, Bed Alarm Zone 1, Side Rails Side Rails x3, Bed position Low and Locked. Fall Precautions: Yellow Socks Yellow Gown Door Sign Patient Fall Education Report given to ERIC Plummer.
[2020-10-28 20:00] VITALS: BP 150/90
--- NOTE | 2020-10-28 20:00 | NUR ---
NURSE NOTES: RECEIVED PATIENT LYING IN BED, EYES OPEN, VERBALLY RESPONSIVE, CONFUSED, UNABLE TO FOLLOW CONVERSATION, DENIES PAIN, ALL NEEDS ANTICIPATED AND MET BY NURSING STAFF. NO SIGNS AND SYMPTOMS OF ACUTE CARDIO RESPIRATORY DISTRESS/SHORTNESS OF BREATH, DENIES CHEST PAIN, NO PERIPHERAL EDEMA NOTED. BILATERAL WRIST RESTRAINT INTACT TO PREVENT PATIENT FROM REMOVING MEDICAL DEVICES. IV INTACT TO LEFT AC/GAUGE 22, IV FLUIDS INFUSING, NO SIGNS AND SYMPTOMS OF INFILTRATION, NO REDNESS/SWELLING NOTED. ABDOMEN SOFT/NON DISTENDED/NON TENDER/AUDIBLE BOWEL SOUNDS, NO REPORT OF N/V/D. SIDE RAILS UP X3, BED IN LOWEST POSITION FOR SAFETY, FREQUENT ROUNDING FOR SAFETY/NEEDS. CONTINUE WITH CURRENT PLAN OF CARE. NAD.
--- NOTE | 2020-10-28 21:21 | General Progress Note ---
Subjective ROS Limited/Unobtainable: Yes Allergies: Coded Allergies: No Known Allergies (Unverified , 06/18/18) Objective Last 24 Hour Vital Signs Date Time Temp Pulse Resp B/P (MAP) Pulse Ox O2 Delivery O2 Flow Rate FiO2 10/28/20 16:00 97.6 75 20 105/75 (85) 98 10/28/20 12:19 98 Venturi Mask 14.0 55 10/28/20 12:00 98.2 80 20 108/69 (82) 98 10/28/20 09:00 Venturi Mask 10/28/20 09:00 73 103/78 10/28/20 08:00 98.4 73 20 103/78 (86) 98 10/28/20 04:00 97.7 82 22 136/67 (90) 99 10/28/20 00:00 97.7 59 22 121/65 (83) 99 10/27/20 22:21 Venturi Mask Intake and Output 10/27/20 10/28/20 19:00 07:00 Intake Total 360 ml Output Total 250 ml Balance 360 ml -250 ml Intake Oral 360 ml Output Urine Total 250 ml # Voids 3 Laboratory Tests 10/28/20 08:20: White Blood Count 10.1, Red Blood Count 3.79L, Hemoglobin 10.5L, Hematocrit 31.9L, Mean Corpuscular Volume 84, Mean Corpuscular Hemoglobin 27.7, Mean Corpuscular Hemoglobin Concent 33.0, Red Cell Distribution Width 15.3H, Platelet Count 163, Mean Platelet Volume 10.5H, Neutrophils (%) (Auto) 87.5H, Lymphocytes (%) (Auto) 7.2L, Monocytes (%) (Auto) 4.9, Eosinophils (%) (Auto) 0.0, Basophils (%) (Auto) 0.4, Sodium Level 150H, Potassium Level 3.6, Chloride Level 115H, Carbon Dioxide Level 27, Anion Gap 8, Blood Urea Nitrogen 30H, Creatinine 0.9, Estimat Glomerular Filtration Rate > 60, Glucose Level 105, Uric Acid 5.4, Calcium Level 8.3L, Phosphorus Level 2.3L, Magnesium Level 2.8H, Total Bilirubin 0.3, Direct Bilirubin 0.1, Aspartate Amino Transf (AST/SGOT) 72H, Alanine Aminotransferase (ALT/SGPT) 36, Alkaline Phosphatase 40L, Total Protein 7.8, Albumin 2.8L, Globulin 5.0, Albumin/Globulin Ratio 0.6L Height (Feet): 6 Height (Inches): 1.00 Weight (Pounds): 140 Assessment/Plan Problem List: (1) ACS (acute coronary syndrome) ICD Codes: I24.9 - Acute ischemic heart disease, unspecified SNOMED: 239616058 (2) Chest pain ICD Codes: R07.9 - Chest pain, unspecified SNOMED: 74958969 (3) COPD (chronic obstructive pulmonary disease) ICD Codes: J44.9 - Chronic obstructive pulmonary disease, unspecified SNOMED: 86582799 (4) Hypernatremia ICD Codes: E87.0 - Hyperosmolality and hypernatremia SNOMED: 597189085 (5) Severe protein-calorie malnutrition ICD Codes: E43 - Unspecified severe protein-calorie malnutrition SNOMED: 508465011, 841885247, 396337675 (6) KAILEY (acute kidney injury) ICD Codes: N17.9 - Acute kidney failure, unspecified SNOMED: 72149031, 5365931 (7) UTI (urinary tract infection) ICD Codes: N39.0 - Urinary tract infection, site not specified SNOMED: 21446279 (8) Dementia ICD Codes: F03.90 - Unspecified dementia without behavioral disturbance SNOMED: 56766645 Status: stable Assessment/Plan: copd exacerbation afebrile vitals stable uti is improving Annamarie Vasquez MD Oct 28, 2020 21:21
[2020-10-29] VITALS: BP 130/73
[2020-10-29 04:00] VITALS: BP 121/69
[2020-10-29 06:40] LABS: HEMATOCRIT 31.7 % (42.0-52.0); HEMOGLOBIN 10.7 G/DL (14.2-18.0); MEAN CORPUSCULAR VOLUME 83 FL (80-99); PLATELET COUNT 179 K/UL (150-450); RED BLOOD COUNT 3.83 M/UL (4.70-6.10); RED CELL DISTRIBUTION WIDTH 14.8 % (11.6-14.8); WHITE BLOOD COUNT 9.3 K/UL (4.8-10.8)
[2020-10-29 06:56] LABS: ALANINE AMINOTRANSFERASE 46 U/L (12-78); ALBUMIN 2.8 G/DL (3.4-5.0); ALBUMIN/GLOBULIN RATIO 0.6 (1.0-2.7); ALKALINE PHOSPHATASE 43 U/L (46-116); ANION GAP 7 mmol/L (5-15); ASPARTATE AMINO TRANSFERASE 74 U/L (15-37); BILIRUBIN,DIRECT 0.2 MG/DL (0.0-0.3); BILIRUBIN,TOTAL 0.3 MG/DL (0.2-1.0); BLOOD UREA NITROGEN 28 mg/dL (7-18); CALCIUM 8.7 MG/DL (8.5-10.1); CARBON DIOXIDE 28 MMOL/L (21-32); CHLORIDE 114 MMOL/L (98-107); POTASSIUM 3.9 MMOL/L (3.5-5.1); SODIUM 149 MMOL/L (136-145)
--- NOTE | 2020-10-29 07:47 | NUR ---
NURSE HAND-OFF: Important Events on Shift:[UNEVENTFUL NIGHT] Patient Status: [STABLE] Diet: [LOW SODIUM PUREED MOIST] Pending Orders: [AM LABS] Pending Results/Labs:[] Pending MD notification:[] Latest Vital Signs: Temperature 98.0 , Pulse 52 , B/P 121 /69 , Respiratory Rate 18 , O2 SAT 93 , Venturi Mask, O2 Flow Rate 4.0 . Vital Sign Comment: [STABLE, AFEBRILE] Latest Fung Fall Score: 70 Fall Risk: High Risk Safety Measures: Call light Within Reach, Bed Alarm Zone 1, Side Rails Side Rails x3, Bed position Low and Locked. Fall Precautions: Yellow Socks Yellow Gown Door Sign Patient Fall Education Report given to [DANIELLE JAMES].
[2020-10-29 08:00] VITALS: BP 148/75
--- NOTE | 2020-10-29 08:00 | NUR ---
NURSE NOTES: Received report from DANIELLE Plummer. Rounding done. Pt a/o x 2, confused. No SOB noted with NC 5L/min. 5DW is running @75ml/hr. Lt AC IV is in placed. Bed in lowest position, call light within reach. Will continue to monitor.
--- NOTE | 2020-10-29 08:19 | Psychiatry Consultation ---
Psychiatry Consultation Psychiatry Consultation Chief Complaint: Generalized Weakness History of Present Illness: 84-year-old male appearance disheveled he is confused disorganized is got al tered mental status is overall cognition has declined below his baseline as well as attending is requested daily psychiatric consultation. The goal of seeing psychiatrist to prevent further decline in his cognition Mental status examination: 84-year-old male appearance disheveled at irritable agitated affect guarded 50 intellect poor mood depressed anxious motor activity psychomotor agitation attention span is poor orientation x2 speech is low volume slurred thought process disorganized logical thought content arterialized nation. Delusions insight judgment is poor Allergies: Coded Allergies: No Known Allergies (Unverified , 06/18/18) Medication History Scheduled Amlodipine Besylate* (Amlodipine Besylate*), 5 MG ORAL DAILY, (Reported) Aspirin* (Aspir 81*), 81 MG ORAL DAILY, (Reported) Scheduled PRN Albuterol Sulfate* (Albuterol Sulfate Mdi*), 2 PUFF INH Q4H PRN for cough/wheezing Melatonin (Melatonin 5 Mg Tablet), 1 TAB ORAL BEDTIME PRN for Insomnia, (Rep orted) Tramadol Hcl* (Ultram*), 50 MG ORAL BID PRN for For Pain, (Reported) Zolpidem Tartrate* (Ambien*), 5 MG ORAL BEDTIME PRN for Insomnia, (Reported) Discontinued Medications Clonidine Hcl (Clonidine Hcl), 0.1 MG PO Q4HR PRN for prn, (Reported) Discontinued Reason: Therapy completed Hydralazine Hcl* (Hydralazine Hcl*), 50 MG ORAL EVERY 8 HOURS PRN for For High Blood Pressure, (Reported) Discontinued Reason: Therapy completed Objective Data Height (Feet): 6 Height (Inches): 1.00 Weight (Pounds): 140 Assessment/Plan Assessment/Plan: Plan is to add Remeron 7.5 mg nightly for depression and also to increase his appetite also Ativan 0.5 mg every 6 hours. 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
--- NOTE | 2020-10-29 08:38 | Infectious Diseases Prog Note ---
Assessment/Plan 84yo M with: Afebrile Normal WBC COVID positive Acute hypoxia 2/2 COVID pna UTI 10/24 UA 40-60 WBC, UCx >100k gamma-Strep CXR: No acute process 10/25 COVID PCR pos 10/26 CXR: No acute process Abdominal tenderness on exam 10/25 Abd US: Negative for gallstones or dilated bile ducts. Hypoechoic les ions in the right hepatic lobe. These are nonspecific, neoplastic etiologies are among the differential. Recommend further evaluation with contrast CT as clinically indicated. Nonspecific heterogeneous hepatic echogenicity, could indicate hepatocellular disease. Hepatic and bilateral renal cysts. Note nonvisualization of the aorta and portions of the pancreas Cr 1.7 Alzheimer's dementia HTN HIV screen neg RPR neg Plan: Cont RDV #4/5 Cont dexamethasone #4/10 Stop CTX 1g daily #5/5 for UTI 10/29 SP CTX #5 Monitor CBC/CMP Monitor temp curve, hemodynamics Monitor resp status D/w RN Thank you for this consult. [facility] will continue to follow. Subjective Allergies: Coded Allergies: No Known Allergies (Unverified , 06/18/18) AF 4L NC WBC 9.3 NAD in bed Objective Last 24 Hour Vital Signs Date Time Temp Pulse Resp B/P (MAP) Pulse Ox O2 Delivery O2 Flow Rate FiO2 10/29/20 04:00 98.0 52 18 121/69 (86) 93 10/29/20 00:00 97.0 50 18 130/73 (92) 92 10/28/20 21:00 Nasal Cannula 4.0 10/28/20 20:16 97 Venturi Mask 14.0 55 10/28/20 20:00 97.1 65 20 150/90 (110) 95 10/28/20 16:00 97.6 75 20 105/75 (85) 98 10/28/20 12:19 98 Venturi Mask 14.0 55 10/28/20 12:00 98.2 80 20 108/69 (82) 98 10/28/20 09:00 Venturi Mask 10/28/20 09:00 73 103/78 Height (Feet): 6 Height (Inches): 1.00 Weight (Pounds): 140 Gen: NAD HEENT: NCAT Pulm: BL chest rise on venturi mask Abd: Non-distended Ext: No c/c/e Skin: No visible rashes Neuro: Awake Laboratory Tests Test 10/29/20 05:45 White Blood Count 9.3 K/UL (4.8-10.8) Red Blood Count 3.83 M/UL (4.70-6.10) L Hemoglobin 10.7 G/DL (14.2-18.0) L Hematocrit 31.7 % (42.0-52.0) L Mean Corpuscular Volume 83 FL (80-99) Mean Corpuscular Hemoglobin 28.0 PG (27.0-31.0) Mean Corpuscular Hemoglobin Concent 33.8 G/DL (32.0-36.0) Red Cell Distribution Width 14.8 % (11.6-14.8) Platelet Count 179 K/UL (150-450) Mean Platelet Volume 9.3 FL (6.5-10.1) Neutrophils (%) (Auto) % (45.0-75.0) Lymphocytes (%) (Auto) % (20.0-45.0) Monocytes (%) (Auto) % (1.0-10.0) Eosinophils (%) (Auto) % (0.0-3.0) Basophils (%) (Auto) % (0.0-2.0) Neutrophils % (Manual) Pending Lymphocytes % (Manual) Pending Platelet Estimate Pending Platelet Morphology Pending Sodium Level 149 MMOL/L (136-145) H Potassium Level 3.9 MMOL/L (3.5-5.1) Chloride Level 114 MMOL/L (98-107) H Carbon Dioxide Level 28 MMOL/L (21-32) Anion Gap 7 mmol/L (5-15) Blood Urea Nitrogen 28 mg/dL (7-18) H Creatinine 1.0 MG/DL (0.55-1.30) Estimat Glomerular Filtration Rate > 60 mL/min (>60) Glucose Level 89 MG/DL (74-106) Calcium Level 8.7 MG/DL (8.5-10.1) Total Bilirubin 0.3 MG/DL (0.2-1.0) Direct Bilirubin 0.2 MG/DL (0.0-0.3) Aspartate Amino Transf (AST/SGOT) 74 U/L (15-37) H Alanine Aminotransferase (ALT/SGPT) 46 U/L (12-78) Alkaline Phosphatase 43 U/L (46-116) L Total Protein 7.7 G/DL (6.4-8.2) Albumin 2.8 G/DL (3.4-5.0) L Globulin 4.9 g/dL Albumin/Globulin Ratio 0.6 (1.0-2.7) L Current Medications Medications (Trade) Dose Ordered Sig/Eva Route PRN Reason Start Time Stop Time Status Last Admin Dose Admin Albuterol/ Ipratropium (Combivent Respimat) 1 puff Q4H PRN INH Shortness of Breath 10/27/20 09:00 11/26/20 08:59 Amlodipine Besylate (Norvasc) 5 mg DAILY ORAL 10/25/20 09:00 11/24/20 08:59 10/27/20 09:17 Aspirin (Ecotrin) 81 mg DAILY ORAL 10/25/20 09:00 12/09/20 08:59 10/28/20 08:45 Ceftriaxone Sodium 1 gm/ Dextrose 55 ml @ 110 mls/hr Q24H IVPB 10/25/20 11:00 11/01/20 10:59 10/28/20 10:29 Clonidine HCl (Catapres Tab) 0.1 mg Q2H PRN ORAL For High Blood Pressure 10/24/20 16:30 01/22/21 16:29 Dexamethasone Sodium Phosphate (Decadron 10mg/ ml Inj) 6 mg DAILY IV 10/26/20 15:00 11/04/20 09:01 10/28/20 08:45 Dextrose 1,000 ml @ 75 mls/hr [id number] IV 10/24/20 14:15 11/23/20 14:14 10/29/20 07:27 Docusate Sodium (Colace) 100 mg TWICE A DAY ORAL 10/24/20 18:00 11/23/20 17:59 10/28/20 17:36 Heparin Sodium (Porcine) (Heparin 5000 units/ml) 5,000 units EVERY 12 HOURS SUBQ 10/24/20 21:00 12/08/20 20:59 10/28/20 22:09 Lorazepam (Ativan) 0.5 mg Q6H PRN ORAL For Anxiety 10/26/20 07:30 11/02/20 07:29 Memantine (Namenda) 5 mg BID ORAL 10/26/20 09:00 11/25/20 08:59 10/28/20 17:36 Mirtazapine (Remeron) 7.5 mg BEDTIME ORAL 10/26/20 21:00 01/24/21 20:59 10/28/20 22:01 Morphine Sulfate (Morphine Sulfate) 2 mg Q4H PRN IVP Severe Pain (Pain Scale 7-10) 10/24/20 15:00 10/31/20 14:59 Pantoprazole (Protonix) 40 mg DAILY ORAL 10/25/20 09:00 11/24/20 08:59 10/28/20 08:45 Promethazine HCl/ Codeine (Phenergan with Codeine) 5 ml Q4H PRN ORAL For Cough 10/26/20 12:15 11/25/20 12:14 Remdesivir 100 mg/ Sodium Chloride 250 ml @ 250 mls/hr Q24H IV 10/27/20 18:00 10/30/20 18:59 10/28/20 17:36 Theophylline (Ivan-Dur) 100 mg EVERY 12 HOURS ORAL 10/26/20 21:00 01/24/21 20:59 10/28/20 22:01 Tramadol HCl (Ultram) 50 mg Q6H PRN ORAL Moderate Pain (Pain Scale 4-6) 10/24/20 15:00 10/31/20 14:59 Zolpidem Tartrate (Ambien) 5 mg HSPRN PRN ORAL Insomnia 10/24/20 21:00 10/31/20 20:59 Lucia Gresham M.D. Oct 29, 2020 08:38
[2020-10-29] MEDS: Aspirin EC 81mg tab ORAL SCH (09:37)
[2020-10-29] MEDS: dexAMETHasone 10mg/ml Inj IV SCH (09:37)
[2020-10-29] MEDS: Theophylline ER 100mg ORAL SCH ×2 (09:37→22:40)
[2020-10-29] MEDS: Docusate 100mg cap ORAL SCH ×2 (09:37→18:04)
[2020-10-29] MEDS: Memantine 5 MG TAB ORAL SCH ×2 (09:38→18:04)
[2020-10-29] MEDS: Heparin 5000 units/ml inj SUBQ SCH ×2 (09:39→22:41)
[2020-10-29 12:00] VITALS: BP 113/66
--- NOTE | 2020-10-29 12:29 | Pulmonology Progress Note ---
Subjective ROS Limited/Unobtainable: Yes Constitutional: Reports: no symptoms HEENT: Repors: no symptoms Respiratory: Reports: no symptoms Allergies: Coded Allergies: No Known Allergies (Unverified , 06/18/18) Objective Last 24 Hour Vital Signs Date Time Temp Pulse Resp B/P (MAP) Pulse Ox O2 Delivery O2 Flow Rate FiO2 10/29/20 12:00 98.7 67 18 113/66 (82) 96 10/29/20 09:38 57 148/75 10/29/20 09:00 Nasal Cannula 4.0 10/29/20 08:00 98.0 57 18 148/75 (99) 93 10/29/20 04:00 98.0 52 18 121/69 (86) 93 10/29/20 00:00 97.0 50 18 130/73 (92) 92 10/28/20 21:00 Nasal Cannula 4.0 10/28/20 20:16 97 Venturi Mask 14.0 55 10/28/20 20:00 97.1 65 20 150/90 (110) 95 10/28/20 16:00 97.6 75 20 105/75 (85) 98 Intake and Output 10/28/20 10/29/20 19:00 07:00 Intake Total 929.70 ml 1260 ml Output Total 500 ml 400 ml Balance 429.70 ml 860 ml Intake Oral 240 ml 360 ml IV Total 689.70 ml 900 ml Output Urine Total 500 ml 400 ml # Voids 3 2 General Appearance: cachetic HEENT: normocephalic, atraumatic Respiratory: chest wall non-tender, lungs clear Cardiovascular: normal peripheral pulses, regular rhythm Abdomen: normal bowel sounds, no organomegaly Genitourinary: normal external genitalia Extremities: no clubbing Skin: no lesions Neurologic: mri assistant II-XII grossly normal Laboratory Tests 10/29/20 05:45: White Blood Count 9.3, Red Blood Count 3.83L, Hemoglobin 10.7L, Hematocrit 31.7L , Mean Corpuscular Volume 83, Mean Corpuscular Hemoglobin 28.0, Mean Corpuscular Hemoglobin Concent 33.8, Red Cell Distribution Width 14.8, Platelet Count 179, Mean Platelet Volume 9.3, Neutrophils (%) (Auto) , Lymphocytes (%) (Auto) , Monocytes (%) (Auto) , Eosinophils (%) (Auto) , Basophils (%) (Auto) , Differential Total Cells Counted 100, Neutrophils % (Manual) 85H, Lymphocytes % (Manual) 8L, Monocytes % (Manual) 7, Eosinophils % (Manual) 0, Basophils % (Manual) 0, Band Neutrophils 0, Platelet Estimate Adequate, Platelet Morphology Normal, Anisocytosis 1+, Sodium Level 149H, Potassium Level 3.9, Chloride Level 114H, Carbon Dioxide Level 28, Anion Gap 7, Blood Urea Nitrogen 28H, Creatinine 1.0, Estimat Glomerular Filtration Rate > 60, Glucose Level 89, Calcium Level 8.7, Total Bilirubin 0.3, Direct Bilirubin 0.2, Aspartate Amino Transf (AST/SGOT) 74H, Alanine Aminotransferase (ALT/SGPT) 46, Alkaline Phosphatase 43L , Total Protein 7.7, Albumin 2.8L, Globulin 4.9, Albumin/Globulin Ratio 0.6L Current Medications Medications (Trade) Dose Ordered Sig/Eva Route PRN Reason Start Time Stop Time Status Last Admin Dose Admin Albuterol/ Ipratropium (Combivent Respimat) 1 puff Q4H PRN INH Shortness of Breath 10/27/20 09:00 11/26/20 08:59 Amlodipine Besylate (Norvasc) 5 mg DAILY ORAL 10/25/20 09:00 11/24/20 08:59 10/29/20 09:38 Aspirin (Ecotrin) 81 mg DAILY ORAL 10/25/20 09:00 12/09/20 08:59 10/29/20 09:37 Clonidine HCl (Catapres Tab) 0.1 mg Q2H PRN ORAL For High Blood Pressure 10/24/20 16:30 01/22/21 16:29 Dexamethasone Sodium Phosphate (Decadron 10mg/ ml Inj) 6 mg DAILY IV 10/26/20 15:00 11/04/20 09:01 10/29/20 09:37 Dextrose 1,000 ml @ 75 mls/hr [id number] IV 10/24/20 14:15 11/23/20 14:14 10/29/20 07:27 Docusate Sodium (Colace) 100 mg TWICE A DAY ORAL 10/24/20 18:00 11/23/20 17:59 10/29/20 09:37 Heparin Sodium (Porcine) (Heparin 5000 units/ml) 5,000 units EVERY 12 HOURS SUBQ 10/24/20 21:00 12/08/20 20:59 10/29/20 09:39 Lorazepam (Ativan) 0.5 mg Q6H PRN ORAL For Anxiety 10/26/20 07:30 11/02/20 07:29 Memantine (Namenda) 5 mg BID ORAL 10/26/20 09:00 11/25/20 08:59 10/29/20 09:38 Mirtazapine (Remeron) 7.5 mg BEDTIME ORAL 10/26/20 21:00 01/24/21 20:59 10/28/20 22:01 Morphine Sulfate (Morphine Sulfate) 2 mg Q4H PRN IVP Severe Pain (Pain Scale 7-10) 10/24/20 15:00 10/31/20 14:59 Pantoprazole (Protonix) 40 mg DAILY ORAL 10/25/20 09:00 11/24/20 08:59 10/29/20 09:38 Promethazine HCl/ Codeine (Phenergan with Codeine) 5 ml Q4H PRN ORAL For Cough 10/26/20 12:15 11/25/20 12:14 Remdesivir 100 mg/ Sodium Chloride 250 ml @ 250 mls/hr Q24H IV 10/27/20 18:00 10/30/20 18:59 10/28/20 17:36 Theophylline (Ivan-Dur) 100 mg EVERY 12 HOURS ORAL 10/26/20 21:00 01/24/21 20:59 10/29/20 09:37 Tramadol HCl (Ultram) 50 mg Q6H PRN ORAL Moderate Pain (Pain Scale 4-6) 10/24/20 15:00 10/31/20 14:59 Zolpidem Tartrate (Ambien) 5 mg HSPRN PRN ORAL Insomnia 10/24/20 21:00 10/31/20 20:59 Assessment/Plan Problems: (1) 2019 novel coronavirus disease (COVID-19) (2) Purulent bronchitis (3) COPD (chronic obstructive pulmonary disease) (4) KAILEY (acute kidney injury) (5) Hypernatremia (6) At high risk for aspiration (7) Dementia (8) Severe protein-calorie malnutrition Assessment/Plan on nasal cannula respiratory treatment aspiration precaution repeat cxr 10/26 didn't show any infiltrate. swallow study: MODIFIED TEXTURE DIET: PUREE WITH NECTAR THICK LIQUIDS titrate fio2 to sat of 92% antitussives check electrolytes dvt prophylaxis. Cinda Drummond MD Oct 29, 2020 12:29
--- NOTE | 2020-10-29 14:20 | Cardiac Electrophysiology PN ---
Assessment/Plan Assessment/Plan 1. Hypertension. Continue amlodipine 5 mg daily and p.r.n. clonidine 2. Severe dehydration and azotemia. Patient's sodium was 160 and creatinine of 1.7. Sodium now 149, BUN of 14, creatinine of 1.0 on IV fluid. 3. Elevated troponin and Poor R-wave progression on the EKG. First troponin was negative. No chest pain. EF 50%. Repeat troponin negative 4. Alzheimer dementia. 5. COPD and cough. Ruled in for Covid MAGED SALCEDO RN. Subjective Subjective In isolation for Covid in restraints on 15 liter Venturi Mask. On Abx Objective Last 24 Hour Vital Signs Date Time Temp Pulse Resp B/P (MAP) Pulse Ox O2 Delivery O2 Flow Rate FiO2 10/29/20 12:00 98.7 67 18 113/66 (82) 96 10/29/20 09:38 57 148/75 10/29/20 09:00 Nasal Cannula 4.0 10/29/20 08:00 98.0 57 18 148/75 (99) 93 10/29/20 04:00 98.0 52 18 121/69 (86) 93 10/29/20 00:00 97.0 50 18 130/73 (92) 92 10/28/20 21:00 Nasal Cannula 4.0 10/28/20 20:16 97 Venturi Mask 14.0 55 10/28/20 20:00 97.1 65 20 150/90 (110) 95 10/28/20 16:00 97.6 75 20 105/75 (85) 98 Intake and Output 10/28/20 10/29/20 19:00 07:00 Intake Total 929.70 ml 1260 ml Output Total 500 ml 400 ml Balance 429.70 ml 860 ml Intake Oral 240 ml 360 ml IV Total 689.70 ml 900 ml Output Urine Total 500 ml 400 ml # Voids 3 2 Laboratory Tests Test 10/29/20 05:45 White Blood Count 9.3 K/UL (4.8-10.8) Red Blood Count 3.83 M/UL (4.70-6.10) L Hemoglobin 10.7 G/DL (14.2-18.0) L Hematocrit 31.7 % (42.0-52.0) L Mean Corpuscular Volume 83 FL (80-99) Mean Corpuscular Hemoglobin 28.0 PG (27.0-31.0) Mean Corpuscular Hemoglobin Concent 33.8 G/DL (32.0-36.0) Red Cell Distribution Width 14.8 % (11.6-14.8) Platelet Count 179 K/UL (150-450) Mean Platelet Volume 9.3 FL (6.5-10.1) Neutrophils (%) (Auto) % (45.0-75.0) Lymphocytes (%) (Auto) % (20.0-45.0) Monocytes (%) (Auto) % (1.0-10.0) Eosinophils (%) (Auto) % (0.0-3.0) Basophils (%) (Auto) % (0.0-2.0) Differential Total Cells Counted 100 Neutrophils % (Manual) 85 % (45-75) H Lymphocytes % (Manual) 8 % (20-45) L Monocytes % (Manual) 7 % (1-10) Eosinophils % (Manual) 0 % (0-3) Basophils % (Manual) 0 % (0-2) Band Neutrophils 0 % (0-8) Platelet Estimate Adequate Platelet Morphology Normal Anisocytosis 1+ Sodium Level 149 MMOL/L (136-145) H Potassium Level 3.9 MMOL/L (3.5-5.1) Chloride Level 114 MMOL/L (98-107) H Carbon Dioxide Level 28 MMOL/L (21-32) Anion Gap 7 mmol/L (5-15) Blood Urea Nitrogen 28 mg/dL (7-18) H Creatinine 1.0 MG/DL (0.55-1.30) Estimat Glomerular Filtration Rate > 60 mL/min (>60) Glucose Level 89 MG/DL (74-106) Calcium Level 8.7 MG/DL (8.5-10.1) Total Bilirubin 0.3 MG/DL (0.2-1.0) Direct Bilirubin 0.2 MG/DL (0.0-0.3) Aspartate Amino Transf (AST/SGOT) 74 U/L (15-37) H Alanine Aminotransferase (ALT/SGPT) 46 U/L (12-78) Alkaline Phosphatase 43 U/L (46-116) L Total Protein 7.7 G/DL (6.4-8.2) Albumin 2.8 G/DL (3.4-5.0) L Globulin 4.9 g/dL Albumin/Globulin Ratio 0.6 (1.0-2.7) L Objective HEAD AND NECK: No JVD. LUNGS: Clear. CARDIOVASCULAR: Shows regular S1 and S2 with no gallop. ABDOMEN: Soft. EXTREMITIES: No pitting edema. Maurilio Lares MD Oct 29, 2020 14:20
--- NOTE | 2020-10-29 14:49 | Nephrology Progress Note ---
Assessment/Plan Problem List: (1) KAILEY (acute kidney injury) (2) Hypernatremia (3) Hypertension (4) UTI (urinary tract infection) (5) Dementia Assessment Acute renal failure, dehydration Hypernatremia secondary to free water deficit Failure to thrive UTI Hypertension Alzheimer dementia COPD Plan October 29: Labs reviewed. Stable from renal standpoint of view. Serum creatinine 1. Continue per consultants. October 28: Labs reviewed. Abnormal electrolytes reviewed and addressed. Continue per current management. October 27: Labs reviewed. Further improvement of hypernatremia and serum creatinine. Continue same management. October 26: Labs reviewed. Serum sodium gradually lowering. Serum creatinine 1.4. Continue monitor renal parameters. October 25: Serum creatinine now within normal limit. Hypernatremia persists. Continue IV D5W. Continue to monitor electrolytes. Patient full code Free water in the form of D5W at 75 cc an hour IV Monitor renal parameters and electrolytes Keep the blood pressure and blood sugar in check Per orders Subjective ROS Limited/Unobtainable: No Constitutional: Reports: malaise Objective Objective Last 24 Hour Vital Signs Date Time Temp Pulse Resp B/P (MAP) Pulse Ox O2 Delivery O2 Flow Rate FiO2 10/29/20 12:00 98.7 67 18 113/66 (82) 96 10/29/20 09:38 57 148/75 10/29/20 09:00 Nasal Cannula 4.0 10/29/20 08:00 98.0 57 18 148/75 (99) 93 10/29/20 04:00 98.0 52 18 121/69 (86) 93 10/29/20 00:00 97.0 50 18 130/73 (92) 92 10/28/20 21:00 Nasal Cannula 4.0 10/28/20 20:16 97 Venturi Mask 14.0 55 10/28/20 20:00 97.1 65 20 150/90 (110) 95 10/28/20 16:00 97.6 75 20 105/75 (85) 98 Intake and Output 10/28/20 10/29/20 19:00 07:00 Intake Total 929.70 ml 1260 ml Output Total 500 ml 400 ml Balance 429.70 ml 860 ml Intake Oral 240 ml 360 ml IV Total 689.70 ml 900 ml Output Urine Total 500 ml 400 ml # Voids 3 2 Laboratory Tests 10/29/20 05:45: White Blood Count 9.3, Red Blood Count 3.83L, Hemoglobin 10.7L, Hematocrit 31.7L , Mean Corpuscular Volume 83, Mean Corpuscular Hemoglobin 28.0, Mean Corpuscular Hemoglobin Concent 33.8, Red Cell Distribution Width 14.8, Platelet Count 179, Mean Platelet Volume 9.3, Neutrophils (%) (Auto) , Lymphocytes (%) (Auto) , Monocytes (%) (Auto) , Eosinophils (%) (Auto) , Basophils (%) (Auto) , Differential Total Cells Counted 100, Neutrophils % (Manual) 85H, Lymphocytes % (Manual) 8L, Monocytes % (Manual) 7, Eosinophils % (Manual) 0, Basophils % (Manual) 0, Band Neutrophils 0, Platelet Estimate Adequate, Platelet Morphology Normal, Anisocytosis 1+, Sodium Level 149H, Potassium Level 3.9, Chloride Level 114H, Carbon Dioxide Level 28, Anion Gap 7, Blood Urea Nitrogen 28H, Creatinine 1.0, Estimat Glomerular Filtration Rate > 60, Glucose Level 89, Calcium Level 8.7, Total Bilirubin 0.3, Direct Bilirubin 0.2, Aspartate Amino Transf (AST/SGOT) 74H, Alanine Aminotransferase (ALT/SGPT) 46, Alkaline Phosphatase 43L , Total Protein 7.7, Albumin 2.8L, Globulin 4.9, Albumin/Globulin Ratio 0.6L Height (Feet): 6 Height (Inches): 1.00 Weight (Pounds): 140 Cardiovascular: normal rate Respiratory/Chest: decreased breath sounds Abdomen: soft Damian Webb MD Oct 29, 2020 14:49
[2020-10-29 16:00] VITALS: BP 121/67
--- NOTE | 2020-10-29 17:08 | NUR ---
CASE MANAGEMENT:REVIEW SI;COVID PNEUMONIA. AC RENAL FAILURE. 98.0 52 18 148/75 93% 4L NC NA 149 BUN 28 AST 74 ALB 2.8 IS;REMDESIVIR IV ONCE ROCEPHIN IV QD ASA PO QD DECADRON IV QD HEPARIN SQ Q12 MED SURG STATUS DCP;FROM HOME
[2020-10-29] MEDS: Maintenance Dose:Remdesivir 100mg/NS 230ml x 4 Doses IV SCH ×2 (18:04)
--- NOTE | 2020-10-29 19:30 | NUR ---
NURSE NOTES: Pt a/o x 2, confused, rambling, inappropriate responses to questions. No SOB noted with NC 5L/min. 5DW is running @75ml/hr. Lt AC IV is in placed. Bed in lowest position, call light within reach. Will continue to monitor.
--- NOTE | 2020-10-29 19:36 | NUR ---
NURSE HAND-OFF: Important Events on Shift:No new event Patient Status: stable Diet: low salt pureed diet Pending Orders: n/a Pending Results/Labs:n/a Pending MD notification:n/a Latest Vital Signs: Temperature 98.0 , Pulse 60 , B/P 121 /67 , Respiratory Rate 18 , O2 SAT 95 , Venturi Mask, O2 Flow Rate 4.0 . Vital Sign Comment: stable Latest Fung Fall Score: 70 Fall Risk: High Risk Safety Measures: Call light Within Reach, Bed Alarm Zone 1, Side Rails Side Rails x3, Bed position Low and Locked. Fall Precautions: Yellow Socks Yellow Gown Door Sign Patient Fall Education Report given to DANIELLE Abrams.
--- NOTE | 2020-10-29 19:41 | NUR ---
NURSE NOTES: Pt a/o x 1, speech inappropriate, confused. No SOB noted with NC 5L/min but removes and off when entered room, in no acute distress, agitated, on bilateral soft wrist restraints,extremely strong. D5W is running @75ml/hr. Bed in lowest position, call light within reach. Will continue to monitor.
[2020-10-29 20:00] VITALS: BP 136/77
--- NOTE | 2020-10-29 21:32 | General Progress Note ---
Subjective ROS Limited/Unobtainable: Yes Allergies: Coded Allergies: No Known Allergies (Unverified , 06/18/18) Objective Last 24 Hour Vital Signs Date Time Temp Pulse Resp B/P (MAP) Pulse Ox O2 Delivery O2 Flow Rate FiO2 10/29/20 20:00 97.3 89 18 136/77 (96) 99 10/29/20 16:00 98.0 60 18 121/67 (85) 95 10/29/20 12:00 98.7 67 18 113/66 (82) 96 10/29/20 09:38 57 148/75 10/29/20 09:00 Nasal Cannula 4.0 10/29/20 08:00 98.0 57 18 148/75 (99) 93 10/29/20 04:00 98.0 52 18 121/69 (86) 93 10/29/20 00:00 97.0 50 18 130/73 (92) 92 Intake and Output 10/28/20 10/29/20 19:00 07:00 Intake Total 929.70 ml 1260 ml Output Total 500 ml 400 ml Balance 429.70 ml 860 ml Intake Oral 240 ml 360 ml IV Total 689.70 ml 900 ml Output Urine Total 500 ml 400 ml # Voids 3 2 Laboratory Tests 10/29/20 05:45: White Blood Count 9.3, Red Blood Count 3.83L, Hemoglobin 10.7L, Hematocrit 31.7L , Mean Corpuscular Volume 83, Mean Corpuscular Hemoglobin 28.0, Mean Corpuscular Hemoglobin Concent 33.8, Red Cell Distribution Width 14.8, Platelet Count 179, Mean Platelet Volume 9.3, Neutrophils (%) (Auto) , Lymphocytes (%) (Auto) , Mo nocytes (%) (Auto) , Eosinophils (%) (Auto) , Basophils (%) (Auto) , Differential Total Cells Counted 100, Neutrophils % (Manual) 85H, Lymphocytes % (Manual) 8L, Monocytes % (Manual) 7, Eosinophils % (Manual) 0, Basophils % (Manual) 0, Band Neutrophils 0, Platelet Estimate Adequate, Platelet Morphology Normal, Anisocytosis 1+, Sodium Level 149H, Potassium Level 3.9, Chloride Level 114H, Carbon Dioxide Level 28, Anion Gap 7, Blood Urea Nitrogen 28H, Creatinine 1.0, Estimat Glomerular Filtration Rate > 60, Glucose Level 89, Calcium Level 8.7, Total Bilirubin 0.3, Direct Bilirubin 0.2, Aspartate Amino Transf (AST/SGOT) 74H, Alanine Aminotransferase (ALT/SGPT) 46, Alkaline Phosphatase 43L , Total Protein 7.7, Albumin 2.8L, Globulin 4.9, Albumin/Globulin Ratio 0.6L Height (Feet): 6 Height (Inches): 1.00 Weight (Pounds): 140 Assessment/Plan Problem List: (1) ACS (acute coronary syndrome) ICD Codes: I24.9 - Acute ischemic heart disease, unspecified SNOMED: 640776348 (2) Chest pain ICD Codes: R07.9 - Chest pain, unspecified SNOMED: 13403593 (3) COPD (chronic obstructive pulmonary disease) ICD Codes: J44.9 - Chronic obstructive pulmonary disease, unspecified SNOMED: 08078395 (4) Hypernatremia ICD Codes: E87.0 - Hyperosmolality and hypernatremia SNOMED: 012450048 (5) Severe protein-calorie malnutrition ICD Codes: E43 - Unspecified severe protein-calorie malnutrition SNOMED: 570678046, 031253991, 786149079 (6) KAILEY (acute kidney injury) ICD Codes: N17.9 - Acute kidney failure, unspecified SNOMED: 64656385, 3184010 (7) UTI (urinary tract infection) ICD Codes: N39.0 - Urinary tract infection, site not specified SNOMED: 16067818 (8) Dementia ICD Codes: F03.90 - Unspecified dementia without behavioral disturbance SNOMED: 41421144 Status: stable Assessment/Plan: copd exacerbation afebrile no acute events uti is improving Annamarie Vasquez MD Oct 29, 2020 21:32
[2020-10-30] VITALS: BP 137/90
[2020-10-30 04:00] VITALS: BP 140/65
--- NOTE | 2020-10-30 07:33 | Pulmonology Progress Note ---
Subjective ROS Limited/Unobtainable: Yes Constitutional: Reports: no symptoms HEENT: Repors: no symptoms Respiratory: Reports: no symptoms Allergies: Coded Allergies: No Known Allergies (Unverified , 06/18/18) Subjective remains hypoxic on 4 L o2 via NC in isolation no fevers, no leukocytosis denies CP Objective Last 24 Hour Vital Signs Date Time Temp Pulse Resp B/P (MAP) Pulse Ox O2 Delivery O2 Flow Rate FiO2 10/30/20 04:00 97.0 89 18 140/65 (90) 95 10/30/20 00:00 96.8 57 18 137/90 (106) 94 10/29/20 21:00 Nasal Cannula 4.0 10/29/20 20:21 99 Nasal Cannula 4.0 36 10/29/20 20:00 97.3 89 18 136/77 (96) 99 10/29/20 16:00 98.0 60 18 121/67 (85) 95 10/29/20 12:00 98.7 67 18 113/66 (82) 96 10/29/20 09:38 57 148/75 10/29/20 09:00 Nasal Cannula 4.0 10/29/20 08:00 98.0 57 18 148/75 (99) 93 Intake and Output 10/29/20 10/30/20 19:00 07:00 Intake Total 600 ml Output Total 400 ml Balance 200 ml Other 600 ml Output Urine Total 400 ml General Appearance: cachetic, other - awake, responsive elderly AA male HEENT: normocephalic, atraumatic, anicteric, other - O2 via NC Respiratory: chest wall non-tender, lungs clear - with decreased BS Cardiovascular: normal peripheral pulses, regular rhythm Abdomen: normal bowel sounds, soft, non tender Genitourinary: normal external genitalia Extremities: no edema Skin: no lesions Neurologic: alert, responsive Musculoskeletal: atrophy - BLE Current Medications Medications (Trade) Dose Ordered Sig/Eva Route PRN Reason Start Time Stop Time Status Last Admin Dose Admin Albuterol/ Ipratropium (Combivent Respimat) 1 puff Q4H PRN INH Shortness of Breath 10/27/20 09:00 11/26/20 08:59 Amlodipine Besylate (Norvasc) 5 mg DAILY ORAL 10/25/20 09:00 11/24/20 08:59 10/29/20 09:38 Aspirin (Ecotrin) 81 mg DAILY ORAL 10/25/20 09:00 12/09/20 08:59 10/29/20 09:37 Clonidine HCl (Catapres Tab) 0.1 mg Q2H PRN ORAL For High Blood Pressure 10/24/20 16:30 01/22/21 16:29 Dexamethasone Sodium Phosphate (Decadron 10mg/ ml Inj) 6 mg DAILY IV 10/26/20 15:00 11/04/20 09:01 10/29/20 09:37 Dextrose 1,000 ml @ 75 mls/hr [id number] IV 10/24/20 14:15 11/23/20 14:14 10/29/20 22:43 Docusate Sodium (Colace) 100 mg TWICE A DAY ORAL 10/24/20 18:00 11/23/20 17:59 10/29/20 18:04 Heparin Sodium (Porcine) (Heparin 5000 units/ml) 5,000 units EVERY 12 HOURS SUBQ 10/24/20 21:00 12/08/20 20:59 10/29/20 22:41 Lorazepam (Ativan) 0.5 mg Q6H PRN ORAL For Anxiety 10/26/20 07:30 11/02/20 07:29 Memantine (Namenda) 5 mg BID ORAL 10/26/20 09:00 11/25/20 08:59 10/29/20 18:04 Mirtazapine (Remeron) 7.5 mg BEDTIME ORAL 10/26/20 21:00 01/24/21 20:59 10/29/20 22:40 Morphine Sulfate (Morphine Sulfate) 2 mg Q4H PRN IVP Severe Pain (Pain Scale 7-10) 10/24/20 15:00 10/31/20 14:59 Pantoprazole (Protonix) 40 mg DAILY ORAL 10/25/20 09:00 11/24/20 08:59 10/29/20 09:38 Promethazine HCl/ Codeine (Phenergan with Codeine) 5 ml Q4H PRN ORAL For Cough 10/26/20 12:15 11/25/20 12:14 Remdesivir 100 mg/ Sodium Chloride 250 ml @ 250 mls/hr Q24H IV 10/27/20 18:00 10/30/20 18:59 10/29/20 18:04 Theophylline (Ivan-Dur) 100 mg EVERY 12 HOURS ORAL 10/26/20 21:00 01/24/21 20:59 10/29/20 22:40 Tramadol HCl (Ultram) 50 mg Q6H PRN ORAL Moderate Pain (Pain Scale 4-6) 10/24/20 15:00 10/31/20 14:59 Zolpidem Tartrate (Ambien) 5 mg HSPRN PRN ORAL Insomnia 10/24/20 21:00 10/31/20 20:59 Assessment/Plan Assessment/Plan ASSESSMENT COVID-19 pneumonia UTI , s/p Rx COPD Hypertension KAILEY ( due to dehydration ) ->resolved Aspiration risk Alzheimer dementia Severe protein calorie malnutrition PLAN OF CARE MS floor isolation supplemental O2 titrate to keep sat above 92% pulmonary toilet Remdesivir for 5 days, steroid for 10 days DVT prophylaxis a/tussive as needed s/p abx Rx for UTI fup with CXR continue theophylline trend inflammatory markers IVF KAILEY resolved , likely was due to dehydration monitor renal parameters, avoid nephrotoxic, correct electrolytes as needed BP management with CCB aspiration precautions diet texture as per ST recs supportive care protein supplements as per RD recs case discussed and evaluated by supervising physician Tyra Clayton NP Oct 30, 2020 07:33
--- NOTE | 2020-10-30 07:36 | NUR ---
NURSE HAND-OFF: Important Events on Shift: monitor pt agitation, can be combative when trying to change him, monitor condom cath, stayed on all night, reposition and offer food and drink, Patient Status: stable Diet: low sodium, pureed diet Pending Orders: cbc cmp Pending Results/Labs: cbc cmp Pending MD notification:n/a Latest Vital Signs: Temperature 98.0 , Pulse 60 , B/P 121 /67 , Respiratory Rate 18 , O2 SAT 95 , Venturi Mask, O2 Flow Rate 4.0 . Vital Sign Comment: stable Latest Ufng Fall Score: 70 Fall Risk: High Risk Safety Measures: Call light Within Reach, Bed Alarm Zone 1, Side Rails Side Rails x3, Bed position Low and Locked. Fall Precautions: Yellow Socks Yellow Gown Door Sign Patient Fall Education Report given to Roxi REYES
--- NOTE | 2020-10-30 07:44 | Infectious Diseases Prog Note ---
Assessment/Plan 84yo M with: Afebrile Normal WBC COVID positive Acute hypoxia 2/2 COVID pna UTI 10/24 UA 40-60 WBC, UCx >100k gamma-Strep CXR: No acute process 10/25 COVID PCR pos 10/26 CXR: No acute process Abdominal tenderness on exam 10/25 Abd US: Negative for gallstones or dilated bile ducts. Hypoechoic les ions in the right hepatic lobe. These are nonspecific, neoplastic etiologies are among the differential. Recommend further evaluation with contrast CT as clinically indicated. Nonspecific heterogeneous hepatic echogenicity, could indicate hepatocellular disease. Hepatic and bilateral renal cysts. Note nonvisualization of the aorta and portions of the pancreas Cr 1.7 Alzheimer's dementia HTN HIV screen neg RPR neg Plan: Cont RDV #5/5 Cont dexamethasone #5/10 10/29 SP CTX #5 for UTI Monitor CBC/CMP Monitor temp curve, hemodynamics Monitor resp status D/w RN Thank you for this consult. [facility] will continue to follow. Subjective Allergies: Coded Allergies: No Known Allergies (Unverified , 06/18/18) AF 2L NC NAD in bed WBC 6.4 Objective Last 24 Hour Vital Signs Date Time Temp Pulse Resp B/P (MAP) Pulse Ox O2 Delivery O2 Flow Rate FiO2 10/30/20 04:00 97.0 89 18 140/65 (90) 95 10/30/20 00:00 96.8 57 18 137/90 (106) 94 10/29/20 21:00 Nasal Cannula 4.0 10/29/20 20:21 99 Nasal Cannula 4.0 36 10/29/20 20:00 97.3 89 18 136/77 (96) 99 10/29/20 16:00 98.0 60 18 121/67 (85) 95 10/29/20 12:00 98.7 67 18 113/66 (82) 96 10/29/20 09:38 57 148/75 10/29/20 09:00 Nasal Cannula 4.0 10/29/20 08:00 98.0 57 18 148/75 (99) 93 Height (Feet): 6 Height (Inches): 1.00 Weight (Pounds): 140 Gen: NAD HEENT: NCAT Pulm: BL chest rise on venturi mask Abd: Non-distended Ext: No c/c/e Skin: No visible rashes Neuro: Awake Current Medications Medications (Trade) Dose Ordered Sig/Eva Route PRN Reason Start Time Stop Time Status Last Admin Dose Admin Albuterol/ Ipratropium (Combivent Respimat) 1 puff Q4H PRN INH Shortness of Breath 10/27/20 09:00 11/26/20 08:59 Amlodipine Besylate (Norvasc) 5 mg DAILY ORAL 10/25/20 09:00 11/24/20 08:59 10/29/20 09:38 Aspirin (Ecotrin) 81 mg DAILY ORAL 10/25/20 09:00 12/09/20 08:59 10/29/20 09:37 Clonidine HCl (Catapres Tab) 0.1 mg Q2H PRN ORAL For High Blood Pressure 10/24/20 16:30 01/22/21 16:29 Dexamethasone Sodium Phosphate (Decadron 10mg/ ml Inj) 6 mg DAILY IV 10/26/20 15:00 11/04/20 09:01 10/29/20 09:37 Dextrose 1,000 ml @ 75 mls/hr [id number] IV 10/24/20 14:15 11/23/20 14:14 10/29/20 22:43 Docusate Sodium (Colace) 100 mg TWICE A DAY ORAL 10/24/20 18:00 11/23/20 17:59 10/29/20 18:04 Heparin Sodium (Porcine) (Heparin 5000 units/ml) 5,000 units EVERY 12 HOURS SUBQ 10/24/20 21:00 12/08/20 20:59 10/29/20 22:41 Lorazepam (Ativan) 0.5 mg Q6H PRN ORAL For Anxiety 10/26/20 07:30 11/02/20 07:29 Memantine (Namenda) 5 mg BID ORAL 10/26/20 09:00 11/25/20 08:59 10/29/20 18:04 Mirtazapine (Remeron) 7.5 mg BEDTIME ORAL 10/26/20 21:00 01/24/21 20:59 10/29/20 22:40 Morphine Sulfate (Morphine Sulfate) 2 mg Q4H PRN IVP Severe Pain (Pain Scale 7-10) 10/24/20 15:00 10/31/20 14:59 Pantoprazole (Protonix) 40 mg DAILY ORAL 10/25/20 09:00 11/24/20 08:59 10/29/20 09:38 Promethazine HCl/ Codeine (Phenergan with Codeine) 5 ml Q4H PRN ORAL For Cough 10/26/20 12:15 11/25/20 12:14 Remdesivir 100 mg/ Sodium Chloride 250 ml @ 250 mls/hr Q24H IV 10/27/20 18:00 10/30/20 18:59 10/29/20 18:04 Theophylline (Ivan-Dur) 100 mg EVERY 12 HOURS ORAL 10/26/20 21:00 01/24/21 20:59 10/29/20 22:40 Tramadol HCl (Ultram) 50 mg Q6H PRN ORAL Moderate Pain (Pain Scale 4-6) 10/24/20 15:00 10/31/20 14:59 Zolpidem Tartrate (Ambien) 5 mg HSPRN PRN ORAL Insomnia 10/24/20 21:00 10/31/20 20:59 Lucia Gresham M.D. Oct 30, 2020 07:44
--- NOTE | 2020-10-30 07:45 | NUR ---
NURSE NOTES: Received patient alert, awake and orientedx2, confused. Appeared to be agitated. Able to follow commands. PIV access patent, dressing dry and intact. IVF infusing well. 1;1 feeder. tolerated food intake well. Bilateral soft wrist restraints due to removing devices and attempted to get out of bed. peripheral pulses present. Kept bed in lowest position and locked. siderails are upx3. bed is on alarm mode and brakes activated. call light is within reach. will cont to monitor.
[2020-10-30 08:00] VITALS: BP 149/73
[2020-10-30] MEDS: Docusate 100mg cap ORAL SCH ×2 (09:13→17:10)
[2020-10-30] MEDS: Memantine 5 MG TAB ORAL SCH ×2 (09:13→17:11)
[2020-10-30] MEDS: Theophylline ER 100mg ORAL SCH ×2 (09:13→22:03)
[2020-10-30] MEDS: Aspirin EC 81mg tab ORAL SCH (09:13)
[2020-10-30] MEDS: Heparin 5000 units/ml inj SUBQ SCH ×2 (09:17→22:04)
[2020-10-30] MEDS: dexAMETHasone 10mg/ml Inj IV SCH (10:46)
[2020-10-30 11:20] LABS: BASOPHILS % (AUTO) 0.3 % (0.0-2.0); HEMATOCRIT 30.5 % (42.0-52.0); HEMOGLOBIN 10.2 G/DL (14.2-18.0); LYMPHOCYTES % (AUTO) 13.2 % (20.0-45.0); MEAN CORPUSCULAR VOLUME 83 FL (80-99); MONOCYTES % (AUTO) 10.5 % (1.0-10.0); PLATELET COUNT 191 K/UL (150-450); RED BLOOD COUNT 3.68 M/UL (4.70-6.10); RED CELL DISTRIBUTION WIDTH 15.2 % (11.6-14.8); WHITE BLOOD COUNT 6.4 K/UL (4.8-10.8)
--- NOTE | 2020-10-30 11:21 | NUR ---
NURSE NOTES: Billie medical lab technologist able to draw today's blood. will cont to monitor.
[2020-10-30 11:27] LABS: ALANINE AMINOTRANSFERASE 46 U/L (12-78); ALBUMIN 2.6 G/DL (3.4-5.0); ALBUMIN/GLOBULIN RATIO 0.6 (1.0-2.7); ALKALINE PHOSPHATASE 40 U/L (46-116); ANION GAP 6 mmol/L (5-15); ASPARTATE AMINO TRANSFERASE 61 U/L (15-37); BILIRUBIN,DIRECT 0.1 MG/DL (0.0-0.3); BILIRUBIN,TOTAL 0.4 MG/DL (0.2-1.0); BLOOD UREA NITROGEN 22 mg/dL (7-18); CALCIUM 8.3 MG/DL (8.5-10.1); CARBON DIOXIDE 28 MMOL/L (21-32); CHLORIDE 109 MMOL/L (98-107); CREATININE 0.9 MG/DL (0.55-1.30); POTASSIUM 3.3 MMOL/L (3.5-5.1); SODIUM 143 MMOL/L (136-145)
--- NOTE | 2020-10-30 11:29 | Psychiatry Consultation ---
Psychiatry Consultation Psychiatry Consultation Chief Complaint: Generalized Weakness History of Present Illness: Alec Bullock is a 84-year-old male is got altered mental status confusion he has dehydration and failure to thrive causing him to have a decline in cognition below his baseline as well as attending is requested daily psychiatric consultation to help fully prevent any further decline in his cognition improves cognition closer to his baseline Mental status semination: 84-year-old male appearance disheveled attitude irritable agitated affect guarded and restricted intellect for presents no current events does not last for present mood depressed anxious motor activity psychomotor agitation attention span is poor orientation x2 speech is nonsensical thought process disorganized logical insight judgment is poor Allergies: Coded Allergies: No Known Allergies (Unverified , 06/18/18) Medication History Scheduled Amlodipine Besylate* (Amlodipine Besylate*), 5 MG ORAL DAILY, (Reported) Aspirin* (Aspir 81*), 81 MG ORAL DAILY, (Reported) Scheduled PRN Albuterol Sulfate* (Albuterol Sulfate Mdi*), 2 PUFF INH Q4H PRN for cough/wheezing Melatonin (Melatonin 5 Mg Tablet), 1 TAB ORAL BEDTIME PRN for Insomnia, (Reported) Tramadol Hcl* (Ultram*), 50 MG ORAL BID PRN for For Pain, (Reported) Zolpidem Tartrate* (Ambien*), 5 MG ORAL BEDTIME PRN for Insomnia, (Reported) Discontinued Medications Clonidine Hcl (Clonidine Hcl), 0.1 MG PO Q4HR PRN for prn, (Reported) Discontinued Reason: Therapy completed Hydralazine Hcl* (Hydralazine Hcl*), 50 MG ORAL EVERY 8 HOURS PRN for For High Blood Pressure, (Reported) Discontinued Reason: Therapy completed Objective Data Height (Feet): 6 Height (Inches): 1.00 Weight (Pounds): 140 Assessment/Plan Assessment/Plan: Plan is to add Remeron 7.5 mg nightly for depression and also to increase his appetite also Ativan 0.5 mg every 6 hours. 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
[2020-10-30 12:00] VITALS: BP 131/81
--- NOTE | 2020-10-30 13:02 | Nephrology Progress Note ---
Assessment/Plan Problem List: (1) KAILEY (acute kidney injury) (2) Hypernatremia (3) Hypertension (4) UTI (urinary tract infection) (5) Dementia Assessment Acute renal failure, dehydration Hypernatremia secondary to free water deficit Failure to thrive UTI Hypertension Alzheimer dementia COPD Plan October 30: Labs reviewed. Low potassium replaced. Serum sodium normalized. Will DC IV fluid. Continue to monitor renal parameters and electrolytes. October 29: Labs reviewed. Stable from renal standpoint of view. Serum creatinine 1. Continue per consultants. October 28: Labs reviewed. Abnormal electrolytes reviewed and addressed. Continue per current management. October 27: Labs reviewed. Further improvement of hypernatremia and serum creatinine. Continue same management. October 26: Labs reviewed. Serum sodium gradually lowering. Serum creatinine 1.4. Continue monitor renal parameters. October 25: Serum creatinine now within normal limit. Hypernatremia persists. Continue IV D5W. Continue to monitor electrolytes. Patient full code Free water in the form of D5W at 75 cc an hour IV Monitor renal parameters and electrolytes Keep the blood pressure and blood sugar in check Per orders Subjective ROS Limited/Unobtainable: No Constitutional: Reports: malaise Objective Objective Last 24 Hour Vital Signs Date Time Temp Pulse Resp B/P (MAP) Pulse Ox O2 Delivery O2 Flow Rate FiO2 10/30/20 12:00 98.1 71 18 131/81 (98) 97 10/30/20 09:13 66 149/73 10/30/20 09:00 Nasal Cannula 4.0 10/30/20 08:00 96.7 66 18 149/73 (98) 99 10/30/20 04:00 97.0 89 18 140/65 (90) 95 10/30/20 00:00 96.8 57 18 137/90 (106) 94 10/29/20 21:00 Nasal Cannula 4.0 10/29/20 20:21 99 Nasal Cannula 4.0 36 10/29/20 20:00 97.3 89 18 136/77 (96) 99 10/29/20 16:00 98.0 60 18 121/67 (85) 95 Intake and Output 10/29/20 10/30/20 19:00 07:00 Intake Total 1200 ml Output Total 400 ml Balance 800 ml IV Total 600 ml Other 600 ml Output Urine Total 400 ml Laboratory Tests 10/30/20 10:30: White Blood Count 6.4, Red Blood Count 3.68L, Hemoglobin 10.2L, Hematocrit 30.5L , Mean Corpuscular Volume 83, Mean Corpuscular Hemoglobin 27.6, Mean Corpuscular Hemoglobin Concent 33.3, Red Cell Distribution Width 15.2H, Platelet Count 191, Mean Platelet Volume 9.3, Neutrophils (%) (Auto) 76.0H, Lymphocytes (%) (Auto) 13.2L, Monocytes (%) (Auto) 10.5H, Eosinophils (%) (Auto) 0.0, Basophils (%) (Auto) 0.3, Sodium Level 143, Potassium Level 3.3L, Chloride Level 109H, Carbon Dioxide Level 28, Anion Gap 6, Blood Urea Nitrogen 22H, Creatinine 0.9, Estimat Glomerular Filtration Rate > 60, Glucose Level 94, Calcium Level 8.3L, Total Bilirubin 0.4, Direct Bilirubin 0.1, Aspartate Amino Transf (AST/SGOT) 61H, Alanine Aminotransferase (ALT/SGPT) 46, Alkaline Phosphatase 40L, Total Protein 6.9, Albumin 2.6L, Globulin 4.3, Albumin/Globulin Ratio 0.6L Height (Feet): 6 Height (Inches): 1.00 Weight (Pounds): 140 General Appearance: no apparent distress Cardiovascular: other Respiratory/Chest: decreased breath sounds Abdomen: soft Damian Webb MD Oct 30, 2020 13:02
--- NOTE | 2020-10-30 14:00 | NUR ---
NURSE NOTES: DR FARIAS AWARE OF K+3.3 AND NEW ORDERED PLACED BY . CARRIED OUT AND ADMINISTERED. WILL CONT TO MONITOR.
--- NOTE | 2020-10-30 15:00 | NUR ---
NURSE NOTES: PATIENT CONSTANTLY FIDGETTING ON THE BED. PATIENT APPEARS TO BE IMPULSIVE AND USING FOUL WORDS WHEN CARE IS PERFORMED. ON O2 2L VIA NC. HOB ELEVATED. WILL CONT TO MONITOR.
[2020-10-30 16:00] VITALS: BP 130/83
--- NOTE | 2020-10-30 17:32 | Cardiac Electrophysiology PN ---
Assessment/Plan Assessment/Plan 1. Hypertension. Continue amlodipine 5 mg daily and p.r.n. clonidine 2. Severe dehydration and azotemia. Patient's sodium was 160 and creatinine of 1.7. Sodium now 143, BUN of 14, creatinine of 0.9 on IV fluid. 3. Elevated troponin and Poor R-wave progression on the EKG. First troponin was negative. No chest pain. EF 50%. Repeat troponin negative 4. Alzheimer dementia. 5. COPD and cough. Ruled in for Covid MAGED SALCEDO RN. Subjective Subjective In isolation for Covid in restraints on 2 liter NC in restraints On Abx Objective Last 24 Hour Vital Signs Date Time Temp Pulse Resp B/P (MAP) Pulse Ox O2 Delivery O2 Flow Rate FiO2 10/30/20 16:00 98.4 67 18 130/83 (99) 96 10/30/20 12:00 98.1 71 18 131/81 (98) 97 10/30/20 09:13 66 149/73 10/30/20 09:00 Nasal Cannula 4.0 10/30/20 08:00 96.7 66 18 149/73 (98) 99 10/30/20 07:12 97 Nasal Cannula 4.0 36 10/30/20 04:00 97.0 89 18 140/65 (90) 95 10/30/20 00:00 96.8 57 18 137/90 (106) 94 10/29/20 21:00 Nasal Cannula 4.0 10/29/20 20:21 99 Nasal Cannula 4.0 36 10/29/20 20:00 97.3 89 18 136/77 (96) 99 Intake and Output 10/29/20 10/30/20 19:00 07:00 Intake Total 1200 ml Output Total 400 ml Balance 800 ml IV Total 600 ml Other 600 ml Output Urine Total 400 ml Laboratory Tests Test 10/30/20 10:30 White Blood Count 6.4 K/UL (4.8-10.8) Red Blood Count 3.68 M/UL (4.70-6.10) L Hemoglobin 10.2 G/DL (14.2-18.0) L Hematocrit 30.5 % (42.0-52.0) L Mean Corpuscular Volume 83 FL (80-99) Mean Corpuscular Hemoglobin 27.6 PG (27.0-31.0) Mean Corpuscular Hemoglobin Concent 33.3 G/DL (32.0-36.0) Red Cell Distribution Width 15.2 % (11.6-14.8) H Platelet Count 191 K/UL (150-450) Mean Platelet Volume 9.3 FL (6.5-10.1) Neutrophils (%) (Auto) 76.0 % (45.0-75.0) H Lymphocytes (%) (Auto) 13.2 % (20.0-45.0) L Monocytes (%) (Auto) 10.5 % (1.0-10.0) H Eosinophils (%) (Auto) 0.0 % (0.0-3.0) Basophils (%) (Auto) 0.3 % (0.0-2.0) Sodium Level 143 MMOL/L (136-145) Potassium Level 3.3 MMOL/L (3.5-5.1) L Chloride Level 109 MMOL/L (98-107) H Carbon Dioxide Level 28 MMOL/L (21-32) Anion Gap 6 mmol/L (5-15) Blood Urea Nitrogen 22 mg/dL (7-18) H Creatinine 0.9 MG/DL (0.55-1.30) Estimat Glomerular Filtration Rate > 60 mL/min (>60) Glucose Level 94 MG/DL (74-106) Calcium Level 8.3 MG/DL (8.5-10.1) L Total Bilirubin 0.4 MG/DL (0.2-1.0) Direct Bilirubin 0.1 MG/DL (0.0-0.3) Aspartate Amino Transf (AST/SGOT) 61 U/L (15-37) H Alanine Aminotransferase (ALT/SGPT) 46 U/L (12-78) Alkaline Phosphatase 40 U/L (46-116) L Total Protein 6.9 G/DL (6.4-8.2) Albumin 2.6 G/DL (3.4-5.0) L Globulin 4.3 g/dL Albumin/Globulin Ratio 0.6 (1.0-2.7) L Objective HEAD AND NECK: No JVD. LUNGS: Clear. CARDIOVASCULAR: Shows regular S1 and S2 with no gallop. ABDOMEN: Soft. EXTREMITIES: No pitting edema. Maurilio Lares MD Oct 30, 2020 17:32
[2020-10-30] MEDS: Maintenance Dose:Remdesivir 100mg/NS 230ml x 4 Doses IV SCH ×2 (18:00)
--- NOTE | 2020-10-30 18:59 | NUR ---
NURSE HAND-OFF: Important Events on Shift:[ bilateral soft wrist restraints for safety; tolerated food intake well; kept clean and comfortable] Patient Status: [stable] Diet: [low NA pureed mosit] Pending Orders: [labs; cxr] Pending Results/Labs:[in am and 11/01] Pending MD notification:[] Latest Vital Signs: Temperature 98.4 , Pulse 67 , B/P 130 /83 , Respiratory Rate 18 , O2 SAT 96 , Venturi Mask, O2 Flow Rate 4.0 . Vital Sign Comment: [] Latest Fung Fall Score: 70 Fall Risk: High Risk Safety Measures: Call light Within Reach, Bed Alarm Zone 2, Side Rails Side Rails x3, Bed position Low and Locked. Fall Precautions: Yellow Socks Yellow Gown Door Sign Patient Fall Education Report given to [jasmine].
--- NOTE | 2020-10-30 19:40 | NUR ---
NURSE NOTES: Received patient alert, awake and orientedx1-2, confused, answers questions inappropriately. Appeared to be extremely agitated, pt is wet will clean him, condom catheter came out or may have been removed by patient, right arm was trying to remove soft wrist restraint. Pt can be combative when I tried to reposition him, fought very hard, will seek assistance from nursing program coordinator. Able to follow commands. IV access patent, asymptomatic IVF infusing well. 1;1 feeder, on bilateral soft wrist restraints. Sitting up in bed, head of bed elevated Bilateral soft wrist restraints on due to removing devices and attempted to get out of bed. peripheral pulses present. Kept bed in lowest position and locked. siderails are upx3. bed is on alarm mode and bed is locked in lowest position. call light is within reach. will cont to monitor.
[2020-10-30 20:00] VITALS: BP 121/91
--- NOTE | 2020-10-30 21:12 | General Progress Note ---
Subjective ROS Limited/Unobtainable: Yes Allergies: Coded Allergies: No Known Allergies (Unverified , 06/18/18) Objective Last 24 Hour Vital Signs Date Time Temp Pulse Resp B/P (MAP) Pulse Ox O2 Delivery O2 Flow Rate FiO2 10/30/20 16:00 98.4 67 18 130/83 (99) 96 10/30/20 12:00 98.1 71 18 131/81 (98) 97 10/30/20 09:13 66 149/73 10/30/20 09:00 Nasal Cannula 4.0 10/30/20 08:00 96.7 66 18 149/73 (98) 99 10/30/20 07:12 97 Nasal Cannula 4.0 36 10/30/20 04:00 97.0 89 18 140/65 (90) 95 10/30/20 00:00 96.8 57 18 137/90 (106) 94 Intake and Output 10/29/20 10/30/20 19:00 07:00 Intake Total 1200 ml Output Total 400 ml Balance 800 ml IV Total 600 ml Other 600 ml Output Urine Total 400 ml Laboratory Tests 10/30/20 10:30: White Blood Count 6.4, Red Blood Count 3.68L, Hemoglobin 10.2L, Hematocrit 30.5L , Mean Corpuscular Volume 83, Mean Corpuscular Hemoglobin 27.6, Mean Corpuscular Hemoglobin Concent 33.3, Red Cell Distribution Width 15.2H, Platelet Count 191, Mean Platelet Volume 9.3, Neutrophils (%) (Auto) 76.0H, Lymphocytes (%) (Auto) 13.2L, Monocytes (%) (Auto) 10.5H, Eosinophils (%) (Auto) 0.0, Basophils (%) (Auto) 0.3, Sodium Level 143, Potassium Level 3.3L, Chloride Level 109H, Carbon Dioxide Level 28, Anion Gap 6, Blood Urea Nitrogen 22H, Creatinine 0.9, Estimat Glomerular Filtration Rate > 60, Glucose Level 94, Calcium Level 8.3L, Total Bilirubin 0.4, Direct Bilirubin 0.1, Aspartate Amino Transf (AST/SGOT) 61H, Alanine Aminotransferase (ALT/SGPT) 46, Alkaline Phosphatase 40L, Total Protein 6.9, Albumin 2.6L, Globulin 4.3, Albumin/Globulin Ratio 0.6L Height (Feet): 6 Height (Inches): 1.00 Weight (Pounds): 140 Assessment/Plan Problem List: (1) ACS (acute coronary syndrome) ICD Codes: I24.9 - Acute ischemic heart disease, unspecified SNOMED: 853066932 (2) Chest pain ICD Codes: R07.9 - Chest pain, unspecified SNOMED: 99623940 (3) COPD (chronic obstructive pulmonary disease) ICD Codes: J44.9 - Chronic obstructive pulmonary disease, unspecified SNOMED: 76076248 (4) Hypernatremia ICD Codes: E87.0 - Hyperosmolality and hypernatremia SNOMED: 758501814 (5) Severe protein-calorie malnutrition ICD Codes: E43 - Unspecified severe protein-calorie malnutrition SNOMED: 748180695, 662450163, 376875423 (6) KAILEY (acute kidney injury) ICD Codes: N17.9 - Acute kidney failure, unspecified SNOMED: 75553323, 3846333 (7) UTI (urinary tract infection) ICD Codes: N39.0 - Urinary tract infection, site not specified SNOMED: 53394636 (8) Dementia ICD Codes: F03.90 - Unspecified dementia without behavioral disturbance SNOMED: 24612023 Status: stable Assessment/Plan: copd exacerbation no wheezing afebrile resp insuff uti is improving Annamarie Vasquez MD Oct 30, 2020 21:12
--- NOTE | 2020-10-30 21:18 | Neurology Progress Note ---
Interim History Interim History ROS Limited/Unobtainable: No Interim History Pt stable doing well. Discussed case with nurse. Pt moving all extremities and strong. Objective Physical Exam Last Vital Signs Date Time Temp Pulse Resp B/P (MAP) Pulse Ox O2 Delivery O2 Flow Rate FiO2 10/30/20 16:00 98.4 67 18 130/83 (99) 96 10/30/20 09:00 Nasal Cannula 4.0 10/30/20 07:12 36 Laboratory Tests Test 10/30/20 10:30 White Blood Count 6.4 K/UL (4.8-10.8) Red Blood Count 3.68 M/UL (4.70-6.10) L Hemoglobin 10.2 G/DL (14.2-18.0) L Hematocrit 30.5 % (42.0-52.0) L Mean Corpuscular Volume 83 FL (80-99) Mean Corpuscular Hemoglobin 27.6 PG (27.0-31.0) Mean Corpuscular Hemoglobin Concent 33.3 G/DL (32.0-36.0) Red Cell Distribution Width 15.2 % (11.6-14.8) H Platelet Count 191 K/UL (150-450) Mean Platelet Volume 9.3 FL (6.5-10.1) Neutrophils (%) (Auto) 76.0 % (45.0-75.0) H Lymphocytes (%) (Auto) 13.2 % (20.0-45.0) L Monocytes (%) (Auto) 10.5 % (1.0-10.0) H Eosinophils (%) (Auto) 0.0 % (0.0-3.0) Basophils (%) (Auto) 0.3 % (0.0-2.0) Sodium Level 143 MMOL/L (136-145) Potassium Level 3.3 MMOL/L (3.5-5.1) L Chloride Level 109 MMOL/L (98-107) H Carbon Dioxide Level 28 MMOL/L (21-32) Anion Gap 6 mmol/L (5-15) Blood Urea Nitrogen 22 mg/dL (7-18) H Creatinine 0.9 MG/DL (0.55-1.30) Estimat Glomerular Filtration Rate > 60 mL/min (>60) Glucose Level 94 MG/DL (74-106) Calcium Level 8.3 MG/DL (8.5-10.1) L Total Bilirubin 0.4 MG/DL (0.2-1.0) Direct Bilirubin 0.1 MG/DL (0.0-0.3) Aspartate Amino Transf (AST/SGOT) 61 U/L (15-37) H Alanine Aminotransferase (ALT/SGPT) 46 U/L (12-78) Alkaline Phosphatase 40 U/L (46-116) L Total Protein 6.9 G/DL (6.4-8.2) Albumin 2.6 G/DL (3.4-5.0) L Globulin 4.3 g/dL Albumin/Globulin Ratio 0.6 (1.0-2.7) L General: other - Dicussed case with Nurse pt doing well takes of NC a times and is doing well and strong. Pt not seen to preseve PPE; exam from prior visit Head: normocophalic, atraumatic Neck: no rigidity EENT: benign Neurologic Exam Mental Status: awake, alert, other - knows his name does not know location or year or polace or month Speech: normal speech, no dysarthia Language: normal language Cranial Nerve II: visual tello Cranial Nerves III, IV, : other - difficult to assess Cranial Nerve V: other - difficult to assess Cranial Nerve VII: no facial asymmetry, normal facial expressions Cranial Nerve VIII: normal hearing, no nystagmus Cranial Nerve IX: other - + for cough Cranial Nerve X: no voice hoarseness Cranial Nerve XII: tongue midline Motor System: no involuntary movement, no muscle wasting - moving all extreamities , other Deep Tendon Reflexes: 1+ bicep (L), 1+ bicep (R), 1+ knee (L), 1+ knee (R) Reflexes: mute plantar (L), mute plantar (R) Gait: other - pt in bed does not want to get up Objective Vital Signs Date Time Temp Pulse Resp B/P (MAP) Pulse Ox O2 Delivery O2 Flow Rate FiO2 10/24/20 16:00 97.3 75 19 123/75 (91) 97 10/24/20 14:50 Room Air 10/24/20 13:49 89 16 150/79 99 Room Air Imaging Labs Test 10/28/20 08:20 10/29/20 05:45 12/19/20 10:30 White Blood Count 10.1 K/UL (4.8-10.8) 9.3 K/UL (4.8-10.8) 6.4 K/UL (4.8-10.8) Red Blood Count 3.79 M/UL (4.70-6.10) 3.83 M/UL (4.70-6.10) 3.68 M/UL (4.70-6.10) Hemoglobin 10.5 G/DL (14.2-18.0) 10.7 G/DL (14.2-18.0) 10.2 G/DL (14.2-18.0) Hematocrit 31.9 % (42.0-52.0) 31.7 % (42.0-52.0) 30.5 % (42.0-52.0) Mean Corpuscular Volume 84 FL (80-99) 83 FL (80-99) 83 FL (80-99) Mean Corpuscular Hemoglobin 27.7 PG (27.0-31.0) 28.0 PG (27.0-31.0) 27.6 PG (27.0-31.0) Mean Corpuscular Hemoglobin Concent 33.0 G/DL (32.0-36.0) 33.8 G/DL (32.0-36.0) 33.3 G/DL (32.0-36.0) Red Cell Distribution Width 15.3 % (11.6-14.8) 14.8 % (11.6-14.8) 15.2 % (11.6-14.8) Platelet Count 163 K/UL (150-450) 179 K/UL (150-450) 191 K/UL (150-450) Mean Platelet Volume 10.5 FL (6.5-10.1) 9.3 FL (6.5-10.1) 9.3 FL (6.5-10.1) Neutrophils (%) (Auto) 87.5 % (45.0-75.0) % (45.0-75.0) 76.0 % (45.0-75.0) Lymphocytes (%) (Auto) 7.2 % (20.0-45.0) % (20.0-45.0) 13.2 % (20.0-45.0) Monocytes (%) (Auto) 4.9 % (1.0-10.0) % (1.0-10.0) 10.5 % (1.0-10.0) Eosinophils (%) (Auto) 0.0 % (0.0-3.0) % (0.0-3.0) 0.0 % (0.0-3.0) Basophils (%) (Auto) 0.4 % (0.0-2.0) % (0.0-2.0) 0.3 % (0.0-2.0) Sodium Level 150 MMOL/L (136-145) 149 MMOL/L (136-145) 143 MMOL/L (136-145) Potassium Level 3.6 MMOL/L (3.5-5.1) 3.9 MMOL/L (3.5-5.1) 3.3 MMOL/L (3.5-5.1) Chloride Level 115 MMOL/L (98-107) 114 MMOL/L (98-107) 109 MMOL/L (98-107) Carbon Dioxide Level 27 MMOL/L (21-32) 28 MMOL/L (21-32) 28 MMOL/L (21-32) Anion Gap 8 mmol/L (5-15) 7 mmol/L (5-15) 6 mmol/L (5-15) Blood Urea Nitrogen 30 mg/dL (7-18) 28 mg/dL (7-18) 22 mg/dL (7-18) Creatinine 0.9 MG/DL (0.55-1.30) 1.0 MG/DL (0.55-1.30) 0.9 MG/DL (0.55-1.30) Estimat Glomerular Filtration Rate > 60 mL/min (>60) > 60 mL/min (>60) > 60 mL/min (>60) Glucose Level 105 MG/DL (74-106) 89 MG/DL (74-106) 94 MG/DL (74-106) Uric Acid 5.4 MG/DL (2.6-7.2) Calcium Level 8.3 MG/DL (8.5-10.1) 8.7 MG/DL (8.5-10.1) 8.3 MG/DL (8.5-10.1) Phosphorus Level 2.3 MG/DL (2.5-4.9) Magnesium Level 2.8 MG/DL (1.8-2.4) Total Bilirubin 0.3 MG/DL (0.2-1.0) 0.3 MG/DL (0.2-1.0) 0.4 MG/DL (0.2-1.0) Direct Bilirubin 0.1 MG/DL (0.0-0.3) 0.2 MG/DL (0.0-0.3) 0.1 MG/DL (0.0-0.3) Aspartate Amino Transf (AST/SGOT) 72 U/L (15-37) 74 U/L (15-37) 61 U/L (15-37) Alanine Aminotransferase (ALT/SGPT) 36 U/L (12-78) 46 U/L (12-78) 46 U/L (12-78) Alkaline Phosphatase 40 U/L (46-116) 43 U/L (46-116) 40 U/L (46-116) Total Protein 7.8 G/DL (6.4-8.2) 7.7 G/DL (6.4-8.2) 6.9 G/DL (6.4-8.2) Albumin 2.8 G/DL (3.4-5.0) 2.8 G/DL (3.4-5.0) 2.6 G/DL (3.4-5.0) Globulin 5.0 g/dL 4.9 g/dL 4.3 g/dL Albumin/Globulin Ratio 0.6 (1.0-2.7) 0.6 (1.0-2.7) 0.6 (1.0-2.7) Differential Total Cells Counted 100 Neutrophils % (Manual) 85 % (45-75) Lymphocytes % (Manual) 8 % (20-45) Monocytes % (Manual) 7 % (1-10) Eosinophils % (Manual) 0 % (0-3) Basophils % (Manual) 0 % (0-2) Band Neutrophils 0 % (0-8) Platelet Estimate Adequate Platelet Morphology Normal Anisocytosis 1+ Impression/Recommendations Problems: (1) Dementia (2) Delirium Assessment & Plan: worsening 2/2 High Na (3) Hypertension (4) Hypernatremia Assessment & Plan: resolved (5) KAILEY (acute kidney injury) (6) UTI (urinary tract infection) (7) 2019 novel coronavirus disease (COVID-19) (8) COPD (chronic obstructive pulmonary disease) (9) Purulent bronchitis Status: stable Recommendations Pt worsening mental status is likely 2/2 UTI and also COVID 19I. Na found to be 160 on admission Na is now 143. plan B12 NML, folate NML, thiamine 90, TSH NML, MMA, UA + for UTI, + for COVID 19, LFT NML, NH4 19 Na improved UTI treatment with CTX continue treatment for COVID19 IVFs Marisel Blackmon M.D. Oct 30, 2020 21:18
[2020-10-31] VITALS: BP 140/85
[2020-10-31 04:00] VITALS: BP 148/70
[2020-10-31 06:00] LABS: PHOSPHORUS 2.3 MG/DL (2.5-4.9)
[2020-10-31 06:03] LABS: ALANINE AMINOTRANSFERASE 52 U/L (12-78); ALBUMIN/GLOBULIN RATIO 0.7 (1.0-2.7); ALKALINE PHOSPHATASE 47 U/L (46-116); ANION GAP 5 mmol/L (5-15); ASPARTATE AMINO TRANSFERASE 57 U/L (15-37); BILIRUBIN,TOTAL 0.4 MG/DL (0.2-1.0); BLOOD UREA NITROGEN 23 mg/dL (7-18); CALCIUM 8.6 MG/DL (8.5-10.1); CARBON DIOXIDE 30 MMOL/L (21-32); CHLORIDE 108 MMOL/L (98-107); CREATININE 0.9 MG/DL (0.55-1.30); POTASSIUM 3.6 MMOL/L (3.5-5.1); SODIUM 143 MMOL/L (136-145)
[2020-10-31 08:00] VITALS: BP 139/71
--- NOTE | 2020-10-31 09:04 | Pulmonology Progress Note ---
Subjective ROS Limited/Unobtainable: Yes Allergies: Coded Allergies: No Known Allergies (Unverified , 06/18/18) Subjective remains hypoxic now down to 2 L O2 via NC in isolation no fevers, no leukocytosis denies CP Objective Last 24 Hour Vital Signs Date Time Temp Pulse Resp B/P (MAP) Pulse Ox O2 Delivery O2 Flow Rate FiO2 10/31/20 04:00 97.0 64 20 148/70 (96) 99 10/31/20 00:00 97.7 83 22 140/85 (103) 100 10/30/20 21:00 Nasal Cannula 2.0 10/30/20 20:00 97.0 64 17 121/91 (101) 99 10/30/20 16:00 98.4 67 18 130/83 (99) 96 10/30/20 12:00 98.1 71 18 131/81 (98) 97 10/30/20 09:13 66 149/73 Intake and Output 10/30/20 10/31/20 19:00 07:00 Intake Total 930 ml Output Total 600 ml Balance 330 ml Intake Oral 480 ml IV Total 450 ml Output Urine Total 600 ml General Appearance: cachetic, other - awake, responsive elderly AA male HEENT: normocephalic, atraumatic, anicteric, other - O2 via NC Respiratory: chest wall non-tender, lungs clear - with decreased BS Cardiovascular: normal peripheral pulses, regular rhythm Abdomen: normal bowel sounds, soft, non tender Genitourinary: normal external genitalia Extremities: no edema Skin: no lesions Neurologic: alert, responsive Musculoskeletal: atrophy - BLE Laboratory Tests 10/30/20 10:30: White Blood Count 6.4, Red Blood Count 3.68L, Hemoglobin 10.2L, Hematocrit 30.5L , Mean Corpuscular Volume 83, Mean Corpuscular Hemoglobin 27.6, Mean Corpuscular Hemoglobin Concent 33.3, Red Cell Distribution Width 15.2H, Platelet Count 191, Mean Platelet Volume 9.3, Neutrophils (%) (Auto) 76.0H, Lymphocytes (%) (Auto) 13.2L, Monocytes (%) (Auto) 10.5H, Eosinophils (%) (Auto) 0.0, Basophils (%) (Auto) 0.3, Sodium Level 143, Potassium Level 3.3L, Chloride Level 109H, Carbon Dioxide Level 28, Anion Gap 6, Blood Urea Nitrogen 22H, Creatinine 0.9, Estimat Glomerular Filtration Rate > 60, Glucose Level 94, Calcium Level 8.3L, Total Bilirubin 0.4, Direct Bilirubin 0.1, Aspartate Amino Transf (AST/SGOT) 61H, Alanine Aminotransferase (ALT/SGPT) 46, Alkaline Phosphatase 40L, Total Protein 6.9, Albumin 2.6L, Globulin 4.3, Albumin/Globulin Ratio 0.6L 10/31/20 04:00: White Blood Count 6.9, Red Blood Count 3.82L, Hemoglobin 10.6L, Hematocrit 32.2L , Mean Corpuscular Volume 84, Mean Corpuscular Hemoglobin 27.6, Mean Corpuscular Hemoglobin Concent 32.8, Red Cell Distribution Width 15.0H, Platelet Count 229, Mean Platelet Volume 9.8, Neutrophils (%) (Auto) 83.1H, Lymphocytes (%) (Auto) 9.2L, Monocytes (%) (Auto) 7.2, Eosinophils (%) (Auto) 0.0, Basophils (%) (Auto) 0.4, Sodium Level 143, Potassium Level 3.6, Chloride Level 108H, Carbon Dioxide Level 30, Anion Gap 5, Blood Urea Nitrogen 23H, Creatinine 0.9, Estimat Glomerular Filtration Rate > 60, Glucose Level 77, Calcium Level 8.6, Total Bilirubin 0.4, Aspartate Amino Transf (AST/SGOT) 57H, Alanine Aminotransferase (ALT/SGPT) 52, Alkaline Phosphatase 47, Total Protein 7.6, Albumin 3.0L, Globulin 4.6, Albumin/Globulin Ratio 0.7L, D-Dimer 0.70H, Phosphorus Level 2.3L, Magnesium Level 2.1, C-Reactive Protein, Quantitative 1.3H Current Medications Medications (Trade) Dose Ordered Sig/Eva Route PRN Reason Start Time Stop Time Status Last Admin Dose Admin Albuterol/ Ipratropium (Combivent Respimat) 1 puff Q4H PRN INH Shortness of Breath 10/27/20 09:00 11/26/20 08:59 Amlodipine Besylate (Norvasc) 5 mg DAILY ORAL 10/25/20 09:00 11/24/20 08:59 10/30/20 09:13 Aspirin (Ecotrin) 81 mg DAILY ORAL 10/25/20 09:00 12/09/20 08:59 10/30/20 09:13 Clonidine HCl (Catapres Tab) 0.1 mg Q2H PRN ORAL For High Blood Pressure 10/24/20 16:30 01/22/21 16:29 Dexamethasone Sodium Phosphate (Decadron 10mg/ ml Inj) 6 mg DAILY IV 10/26/20 15:00 11/04/20 09:01 10/30/20 10:46 Docusate Sodium (Colace) 100 mg TWICE A DAY ORAL 10/24/20 18:00 11/23/20 17:59 10/30/20 17:10 Heparin Sodium (Porcine) (Heparin 5000 units/ml) 5,000 units EVERY 12 HOURS SUBQ 10/24/20 21:00 12/08/20 20:59 10/30/20 22:04 Lorazepam (Ativan) 0.5 mg Q6H PRN ORAL For Anxiety 10/26/20 07:30 11/02/20 07:29 Memantine (Namenda) 5 mg BID ORAL 10/26/20 09:00 11/25/20 08:59 10/30/20 17:11 Mirtazapine (Remeron) 7.5 mg BEDTIME ORAL 10/26/20 21:00 01/24/21 20:59 10/30/20 22:03 Morphine Sulfate (Morphine Sulfate) 2 mg Q4H PRN IVP Severe Pain (Pain Scale 7-10) 10/24/20 15:00 10/31/20 14:59 Pantoprazole (Protonix) 40 mg DAILY ORAL 10/25/20 09:00 11/24/20 08:59 10/30/20 09:13 Potassium Chloride (K-Dur) 40 meq DAILY ORAL 10/30/20 13:30 01/28/21 13:29 10/30/20 13:56 Promethazine HCl/ Codeine (Phenergan with Codeine) 5 ml Q4H PRN ORAL For Cough 10/26/20 12:15 11/25/20 12:14 Theophylline (Ivan-Dur) 100 mg EVERY 12 HOURS ORAL 10/26/20 21:00 01/24/21 20:59 10/30/20 22:03 Tramadol HCl (Ultram) 50 mg Q6H PRN ORAL Moderate Pain (Pain Scale 4-6) 10/24/20 15:00 10/31/20 14:59 Zolpidem Tartrate (Ambien) 5 mg HSPRN PRN ORAL Insomnia 10/24/20 21:00 10/31/20 20:59 Assessment/Plan Assessment/Plan ASSESSMENT COVID-19 pneumonia UTI , s/p Rx COPD Hypertension KAILEY ( due to dehydration ) ->resolved Aspiration risk Alzheimer dementia Severe protein calorie malnutrition PLAN OF CARE MS floor isolation supplemental O2 titrate to keep sat above 92% pulmonary toilet Remdesivir for 5 days, steroid for 10 days DVT prophylaxis a/tussive as needed s/p abx Rx for UTI fup with CXR continue theophylline trend inflammatory markers: CRP down to 1.3 this am IVF KAILEY resolved , likely was due to dehydration monitor renal parameters, avoid nephrotoxic, correct electrolytes as needed BP management with CCB aspiration precautions diet texture as per ST recs supportive care protein supplements as per RD recs case discussed and evaluated by supervising physician Tyra Clayton NP Oct 31, 2020 09:04
--- NOTE | 2020-10-31 09:23 | Psychiatry Consultation ---
Psychiatry Consultation Psychiatry Consultation Chief Complaint: Generalized Weakness Allergies: Coded Allergies: No Known Allergies (Unverified , 06/18/18) Past Psychiatric History: 84-year-old male patient with weakness and failure to thrive is got altered mental status confusion disorganized thought process and overall decline in cognition below his baseline as well as attending [facility] daily psychiatric consultation he has depression anxiety mood lability worsened by the stress of his medical illness confused and disorganized at bedside poor insight Mental status semination: 84-year-old male appearance disheveled] affect restricted intellect poor mood depressed anxious moderately psychomotor agitation judgment is poor orientation x2 speech nonsensical thought processes organized and logical insight judgment is poor Medication History Scheduled Amlodipine Besylate* (Amlodipine Besylate*), 5 MG ORAL DAILY, (Reported) Aspirin* (Aspir 81*), 81 MG ORAL DAILY, (Reported) Scheduled PRN Albuterol Sulfate* (Albuterol Sulfate Mdi*), 2 PUFF INH Q4H PRN for cough/wheezing Melatonin (Melatonin 5 Mg Tablet), 1 TAB ORAL BEDTIME PRN for Insomnia, (Reporte d) Tramadol Hcl* (Ultram*), 50 MG ORAL BID PRN for For Pain, (Reported) Zolpidem Tartrate* (Ambien*), 5 MG ORAL BEDTIME PRN for Insomnia, (Reported) Discontinued Medications Clonidine Hcl (Clonidine Hcl), 0.1 MG PO Q4HR PRN for prn, (Reported) Discontinued Reason: Therapy completed Hydralazine Hcl* (Hydralazine Hcl*), 50 MG ORAL EVERY 8 HOURS PRN for For High Blood Pressure, (Reported) Discontinued Reason: Therapy completed Objective Data Height (Feet): 6 Height (Inches): 1.00 Weight (Pounds): 140 Assessment/Plan Assessment/Plan: Plan is to add Remeron 7.5 mg nightly for depression and also to increase his appetite also Ativan 0.5 mg every 6 hours. 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
[2020-10-31] MEDS: Aspirin EC 81mg tab ORAL SCH (09:59)
[2020-10-31] MEDS: Docusate 100mg cap ORAL SCH ×2 (09:59→17:38)
[2020-10-31] MEDS: Theophylline ER 100mg ORAL SCH ×2 (10:00→21:11)
[2020-10-31] MEDS: Memantine 5 MG TAB ORAL SCH ×2 (10:00→17:38)
[2020-10-31] MEDS: dexAMETHasone 10mg/ml Inj IV SCH (10:01)
[2020-10-31] MEDS: Heparin 5000 units/ml inj SUBQ SCH ×2 (10:03→21:11)
[2020-10-31 12:00] VITALS: BP 129/62
[2020-10-31] MEDS: Phospha 250 Neutral tab ORAL SCH ×2 (14:24→17:38)
--- NOTE | 2020-10-31 15:03 | Nephrology Progress Note ---
Assessment/Plan Problem List: (1) KAILEY (acute kidney injury) (2) Hypernatremia (3) Hypertension (4) UTI (urinary tract infection) (5) Dementia Assessment Acute renal failure, dehydration Hypernatremia secondary to free water deficit Failure to thrive UTI Hypertension Alzheimer dementia COPD Plan October 31: Labs reviewed. Low phosphorus replaced. Renal parameters are stable. Continue per consultants. October 30: Labs reviewed. Low potassium replaced. Serum sodium normalized. Will DC IV fluid. Continue to monitor renal parameters and electrolytes. October 29: Labs reviewed. Stable from renal standpoint of view. Serum creatinine 1. Continue per consultants. October 28: Labs reviewed. Abnormal electrolytes reviewed and addressed. Continue per current management. October 27: Labs reviewed. Further improvement of hypernatremia and serum creatinine. Continue same management. October 26: Labs reviewed. Serum sodium gradually lowering. Serum creatinine 1.4. Continue monitor renal parameters. October 25: Serum creatinine now within normal limit. Hypernatremia persists. Continue IV D5W. Continue to monitor electrolytes. Patient full code Free water in the form of D5W at 75 cc an hour IV Monitor renal parameters and electrolytes Keep the blood pressure and blood sugar in check Per orders Subjective ROS Limited/Unobtainable: No Objective Objective Last 24 Hour Vital Signs Date Time Temp Pulse Resp B/P (MAP) Pulse Ox O2 Delivery O2 Flow Rate FiO2 10/31/20 12:00 98.4 71 18 129/62 (84) 96 10/31/20 10:00 64 148/70 10/31/20 08:00 96.7 64 18 139/71 (93) 94 10/31/20 04:00 97.0 64 20 148/70 (96) 99 10/31/20 00:00 97.7 83 22 140/85 (103) 100 10/30/20 21:00 Nasal Cannula 2.0 10/30/20 20:00 97.0 64 17 121/91 (101) 99 10/30/20 16:00 98.4 67 18 130/83 (99) 96 Intake and Output 10/30/20 10/31/20 19:00 07:00 Intake Total 930 ml Output Total 600 ml Balance 330 ml Intake Oral 480 ml IV Total 450 ml Output Urine Total 600 ml Laboratory Tests 10/31/20 04:00: White Blood Count 6.9, Red Blood Count 3.82L, Hemoglobin 10.6L, Hematocrit 32.2L , Mean Corpuscular Volume 84, Mean Corpuscular Hemoglobin 27.6, Mean Corpuscular Hemoglobin Concent 32.8, Red Cell Distribution Width 15.0H, Platelet Count 229, Mean Platelet Volume 9.8, Neutrophils (%) (Auto) 83.1H, Lymphocytes (%) (Auto) 9.2L, Monocytes (%) (Auto) 7.2, Eosinophils (%) (Auto) 0.0, Basophils (%) (Auto) 0.4, D-Dimer 0.70H, Sodium Level 143, Potassium Level 3.6, Chloride Level 108H, Carbon Dioxide Level 30, Anion Gap 5, Blood Urea Nitrogen 23H, Creatinine 0.9, Estimat Glomerular Filtration Rate > 60, Glucose Level 77, Calcium Level 8.6, Phosphorus Level 2.3L, Magnesium Level 2.1, Total Bilirubin 0.4, Aspartate Amino Transf (AST/SGOT) 57H, Alanine Aminotransferase (ALT/SGPT) 52, Alkaline Phosphatase 47, C-Reactive Protein, Quantitative 1.3H, Total Protein 7.6, Albumin 3.0L, Globulin 4.6, Albumin/Globulin Ratio 0.7L Height (Feet): 6 Height (Inches): 1.00 Weight (Pounds): 140 General Appearance: no apparent distress EENT: other - On nasal cannula Cardiovascular: normal rate Respiratory/Chest: decreased breath sounds Abdomen: soft Damian Webb MD Oct 31, 2020 15:03
[2020-10-31 16:00] VITALS: BP 131/73
--- NOTE | 2020-10-31 18:45 | Neurology Progress Note ---
Interim History Interim History ROS Limited/Unobtainable: No Interim History Stable no new changes. No acute events. Pt doing well discussed with nurse, pt moving all extremities with good strength. O2 sats good. Last 24 Hour Vital Signs Date Time Temp Pulse Resp B/P (MAP) Pulse Ox O2 Delivery O2 Flow Rate FiO2 10/31/20 16:00 96.9 70 19 131/73 (92) 98 10/31/20 12:00 98.4 71 18 129/62 (84) 96 10/31/20 10:00 64 148/70 10/31/20 09:00 Nasal Cannula 2.0 10/31/20 08:00 96.7 64 18 139/71 (93) 94 10/31/20 04:00 97.0 64 20 148/70 (96) 99 10/31/20 00:00 97.7 83 22 140/85 (103) 100 10/30/20 21:00 Nasal Cannula 2.0 10/30/20 20:00 97.0 64 17 121/91 (101) 99 10/30/20 16:00 98.4 67 18 130/83 (99) 96 10/30/20 12:00 98.1 71 18 131/81 (98) 97 10/30/20 09:13 66 149/73 10/30/20 09:00 Nasal Cannula 4.0 10/30/20 08:00 96.7 66 18 149/73 (98) 99 10/30/20 07:12 97 Nasal Cannula 4.0 36 10/30/20 04:00 97.0 89 18 140/65 (90) 95 10/30/20 00:00 96.8 57 18 137/90 (106) 94 10/29/20 21:00 Nasal Cannula 4.0 10/29/20 20:21 99 Nasal Cannula 4.0 36 10/29/20 20:00 97.3 89 18 136/77 (96) 99 overnight Objective Physical Exam Last Vital Signs Date Time Temp Pulse Resp B/P (MAP) Pulse Ox O2 Delivery O2 Flow Rate FiO2 10/31/20 16:00 96.9 70 19 131/73 (92) 98 10/31/20 09:00 Nasal Cannula 2.0 10/30/20 07:12 36 Laboratory Tests Test 10/31/20 04:00 White Blood Count 6.9 K/UL (4.8-10.8) Red Blood Count 3.82 M/UL (4.70-6.10) L Hemoglobin 10.6 G/DL (14.2-18.0) L Hematocrit 32.2 % (42.0-52.0) L Mean Corpuscular Volume 84 FL (80-99) Mean Corpuscular Hemoglobin 27.6 PG (27.0-31.0) Mean Corpuscular Hemoglobin Concent 32.8 G/DL (32.0-36.0) Red Cell Distribution Width 15.0 % (11.6-14.8) H Platelet Count 229 K/UL (150-450) Mean Platelet Volume 9.8 FL (6.5-10.1) Neutrophils (%) (Auto) 83.1 % (45.0-75.0) H Lymphocytes (%) (Auto) 9.2 % (20.0-45.0) L Monocytes (%) (Auto) 7.2 % (1.0-10.0) Eosinophils (%) (Auto) 0.0 % (0.0-3.0) Basophils (%) (Auto) 0.4 % (0.0-2.0) D-Dimer 0.70 mg/L FEU (0.00-0.49) H Sodium Level 143 MMOL/L (136-145) Potassium Level 3.6 MMOL/L (3.5-5.1) Chloride Level 108 MMOL/L (98-107) H Carbon Dioxide Level 30 MMOL/L (21-32) Anion Gap 5 mmol/L (5-15) Blood Urea Nitrogen 23 mg/dL (7-18) H Creatinine 0.9 MG/DL (0.55-1.30) Estimat Glomerular Filtration Rate > 60 mL/min (>60) Glucose Level 77 MG/DL (74-106) Calcium Level 8.6 MG/DL (8.5-10.1) Phosphorus Level 2.3 MG/DL (2.5-4.9) L Magnesium Level 2.1 MG/DL (1.8-2.4) Total Bilirubin 0.4 MG/DL (0.2-1.0) Aspartate Amino Transf (AST/SGOT) 57 U/L (15-37) H Alanine Aminotransferase (ALT/SGPT) 52 U/L (12-78) Alkaline Phosphatase 47 U/L (46-116) C-Reactive Protein, Quantitative 1.3 mg/dL (0.00-0.90) H Total Protein 7.6 G/DL (6.4-8.2) Albumin 3.0 G/DL (3.4-5.0) L Globulin 4.6 g/dL Albumin/Globulin Ratio 0.7 (1.0-2.7) L General: other - Dicussed case with Nurse pt doing well takes of NC a times and is doing well and strong. Pt not seen to preseve PPE; exam from prior visit Head: normocophalic, atraumatic Neck: no rigidity EENT: benign Neurologic Exam Mental Status: awake, alert, other - knows his name does not know location or year or polace or month Speech: normal speech, no dysarthia Language: normal language Cranial Nerve II: visual tello Cranial Nerves III, IV, : other - difficult to assess Cranial Nerve V: other - difficult to assess Cranial Nerve VII: no facial asymmetry, normal facial expressions Cranial Nerve VIII: normal hearing, no nystagmus Cranial Nerve IX: other - + for cough Cranial Nerve X: no voice hoarseness Cranial Nerve XII: tongue midline Motor System: no involuntary movement, no muscle wasting - moving all extreamities , other Deep Tendon Reflexes: 1+ bicep (L), 1+ bicep (R), 1+ knee (L), 1+ knee (R) Reflexes: mute plantar (L), mute plantar (R) Gait: other - pt in bed does not want to get up Objective Vital Signs Date Time Temp Pulse Resp B/P (MAP) Pulse Ox O2 Delivery O2 Flow Rate FiO2 10/24/20 16:00 97.3 75 19 123/75 (91) 97 10/24/20 14:50 Room Air 10/24/20 13:49 89 16 150/79 99 Room Air Impression/Recommendations Problems: (1) Dementia (2) Delirium Assessment & Plan: worsening 2/2 High Na (3) Hypertension (4) Hypernatremia Assessment & Plan: resolved (5) KAILEY (acute kidney injury) (6) UTI (urinary tract infection) (7) 2019 novel coronavirus disease (COVID-19) (8) COPD (chronic obstructive pulmonary disease) (9) Purulent bronchitis Status: stable Recommendations Pt worsening mental status is likely 2/2 UTI and also COVID 19I. Na found to be 160 on admission Na is now 143. plan B12 NML, folate NML, thiamine 90, TSH NML, MMA, UA + for UTI, + for COVID 19, LFT NML, NH4 19 Na improved UTI treatment with CTX continue treatment for COVID19 IVFs Marisel Blackmon M.D. Oct 31, 2020 18:45
--- NOTE | 2020-10-31 19:15 | NUR ---
NURSE NOTES: Received report from DANIELLE Gusman. Pt is confused, bed locked and in lowest position, call light within reach, side rails up x2. Pt has MARVA soft wrist restraints, circulations check is normal MARVA, offered pt pudding and juice which he accepted.
--- NOTE | 2020-10-31 19:35 | NUR ---
NURSE HAND-OFF: Important Events on Shift:[] Patient Status: [] Diet: [low sodium pureed] Pending Orders: [cxr, cmp, cbc, bili] Pending Results/Labs:[] Pending MD notification:[] Latest Vital Signs: Temperature 96.9 , Pulse 70 , B/P 131 /73 , Respiratory Rate 19 , O2 SAT 98 , Venturi Mask, O2 Flow Rate 2.0 . Vital Sign Comment: [] Latest Fung Fall Score: 70 Fall Risk: High Risk Safety Measures: Call light Within Reach, Bed Alarm Zone 2, Side Rails Side Rails x3, Bed position Low and Locked. Fall Precautions: Yellow Socks Yellow Gown Door Sign Patient Fall Education Report given to [RN Merlyn].
[2020-10-31 20:00] VITALS: BP 132/77
--- NOTE | 2020-10-31 20:15 | General Progress Note ---
Subjective ROS Limited/Unobtainable: Yes Allergies: Coded Allergies: No Known Allergies (Unverified , 06/18/18) Objective Last 24 Hour Vital Signs Date Time Temp Pulse Resp B/P (MAP) Pulse Ox O2 Delivery O2 Flow Rate FiO2 10/31/20 16:00 96.9 70 19 131/73 (92) 98 10/31/20 12:00 98.4 71 18 129/62 (84) 96 10/31/20 10:00 64 148/70 10/31/20 09:00 Nasal Cannula 2.0 10/31/20 08:00 96.7 64 18 139/71 (93) 94 10/31/20 04:00 97.0 64 20 148/70 (96) 99 10/31/20 00:00 97.7 83 22 140/85 (103) 100 10/30/20 21:00 Nasal Cannula 2.0 Intake and Output 10/30/20 10/31/20 19:00 07:00 Intake Total 930 ml Output Total 600 ml Balance 330 ml Intake Oral 480 ml IV Total 450 ml Output Urine Total 600 ml Laboratory Tests 10/31/20 04:00: White Blood Count 6.9, Red Blood Count 3.82L, Hemoglobin 10.6L, Hematocrit 32.2L , Mean Corpuscular Volume 84, Mean Corpuscular Hemoglobin 27.6, Mean Corpuscular Hemoglobin Concent 32.8, Red Cell Distribution Width 15.0H, Platelet Count 229, Mean Platelet Volume 9.8, Neutrophils (%) (Auto) 83.1H, Lymphocytes (%) (Auto) 9.2L, Monocytes (%) (Auto) 7.2, Eosinophils (%) (Auto) 0.0, Basophils (%) (Auto) 0.4, D-Dimer 0.70H, Sodium Level 143, Potassium Level 3.6, Chloride Level 108H, Carbon Dioxide Level 30, Anion Gap 5, Blood Urea Nitrogen 23H, Creatinine 0.9, Estimat Glomerular Filtration Rate > 60, Glucose Level 77, Calcium Level 8.6, Phosphorus Level 2.3L, Magnesium Level 2.1, Total Bilirubin 0.4, Aspartate Amino Transf (AST/SGOT) 57H, Alanine Aminotransferase (ALT/SGPT) 52, Alkaline Phosphatase 47, C-Reactive Protein, Quantitative 1.3H, Total Protein 7.6, Albumin 3.0L, Globulin 4.6, Albumin/Globulin Ratio 0.7L Height (Feet): 6 Height (Inches): 1.00 Weight (Pounds): 140 Assessment/Plan Problem List: (1) ACS (acute coronary syndrome) ICD Codes: I24.9 - Acute ischemic heart disease, unspecified SNOMED: 393884701 (2) Chest pain ICD Codes: R07.9 - Chest pain, unspecified SNOMED: 88369731 (3) COPD (chronic obstructive pulmonary disease) ICD Codes: J44.9 - Chronic obstructive pulmonary disease, unspecified SNOMED: 41154510 (4) Hypernatremia ICD Codes: E87.0 - Hyperosmolality and hypernatremia SNOMED: 319223112 (5) Severe protein-calorie malnutrition ICD Codes: E43 - Unspecified severe protein-calorie malnutrition SNOMED: 614195118, 481648821, 479583238 (6) KAILEY (acute kidney injury) ICD Codes: N17.9 - Acute kidney failure, unspecified SNOMED: 83120831, 9002080 (7) UTI (urinary tract infection) ICD Codes: N39.0 - Urinary tract infection, site not specified SNOMED: 62937026 (8) Dementia ICD Codes: F03.90 - Unspecified dementia without behavioral disturbance SNOMED: 11536861 Status: stable Assessment/Plan: copd exacerbation reviewed chart and labs and meds resp insuff uti is improving Annamarie Vasquez MD Oct 31, 2020 20:15
[2020-11-01] VITALS: BP 140/68
[2020-11-01 04:00] VITALS: BP 132/75
--- NOTE | 2020-11-01 07:00 | NUR ---
NURSE HAND-OFF: Important Events on Shift: none Patient Status: talk and at times aggressive Diet: low sodium pureed Pending Orders: CXR 12- Pending Results/Labs: Pending MD notification: Latest Vital Signs: Temperature 98.2 , Pulse 65 , B/P 132 /75 , Respiratory Rate 16 , O2 SAT 90 , Venturi Mask, O2 Flow Rate 4.0 . Vital Sign Comment: VSS Latest Fung Fall Score: 70 Fall Risk: High Risk Safety Measures: Call light Within Reach, Bed Alarm Zone 2, Side Rails Side Rails x3, Bed position Low and Locked. Fall Precautions: Yellow Socks Yellow Gown Door Sign Patient Fall Education Report given to DANIELLE Mayen.
--- NOTE | 2020-11-01 07:18 | NUR ---
NURSE NOTES: Report received from Merlyn RN/Antonio RN, rounds made. Patient alert, disruptive, shouting, restless. Reoriented patient to room, date, time, location. Bilateral wrist restraints in place, upper extremities warm, able to move fingers, capillary refill < 3 sec. Skin care, PO fluids provided. LFA saline lock intact, site asymptomatic. Bed in lowest position, will continue to monitor.
[2020-11-01 07:45] LABS: ALANINE AMINOTRANSFERASE 53 U/L (12-78); ALBUMIN 3.1 G/DL (3.4-5.0); ALBUMIN/GLOBULIN RATIO 0.8 (1.0-2.7); ALKALINE PHOSPHATASE 50 U/L (46-116); ANION GAP 6 mmol/L (5-15); ASPARTATE AMINO TRANSFERASE 61 U/L (15-37); BILIRUBIN,DIRECT 0.2 MG/DL (0.0-0.3); BILIRUBIN,TOTAL 0.5 MG/DL (0.2-1.0); BLOOD UREA NITROGEN 24 mg/dL (7-18); CARBON DIOXIDE 29 MMOL/L (21-32); CHLORIDE 106 MMOL/L (98-107); CREATININE 0.9 MG/DL (0.55-1.30); POTASSIUM 5.2 MMOL/L (3.5-5.1); SODIUM 141 MMOL/L (136-145)
[2020-11-01 07:51] LABS: BASOPHILS % (AUTO) 1.5 % (0.0-2.0); HEMATOCRIT 33.5 % (42.0-52.0); HEMOGLOBIN 10.7 G/DL (14.2-18.0); LYMPHOCYTES % (AUTO) 11.3 % (20.0-45.0); MEAN CORPUSCULAR VOLUME 86 FL (80-99); MONOCYTES % (AUTO) 8.8 % (1.0-10.0); NEUTROPHILS % (AUTO) 78.4 % (45.0-75.0); PLATELET COUNT 235 K/UL (150-450); RED BLOOD COUNT 3.91 M/UL (4.70-6.10); RED CELL DISTRIBUTION WIDTH 15.2 % (11.6-14.8); WHITE BLOOD COUNT 9.2 K/UL (4.8-10.8)
[2020-11-01 08:02] LABS: BASOPHILS % (AUTO) 1.4 % (0.0-2.0); HEMATOCRIT 32.2 % (42.0-52.0); HEMOGLOBIN 10.5 G/DL (14.2-18.0); LYMPHOCYTES % (AUTO) 10.1 % (20.0-45.0); MEAN CORPUSCULAR VOLUME 84 FL (80-99); MONOCYTES % (AUTO) 9.5 % (1.0-10.0); PLATELET COUNT 225 K/UL (150-450); RED BLOOD COUNT 3.84 M/UL (4.70-6.10); RED CELL DISTRIBUTION WIDTH 14.7 % (11.6-14.8); WHITE BLOOD COUNT 8.6 K/UL (4.8-10.8)
[2020-11-01 10:45] VITALS: BP 135/51
[2020-11-01] MEDS: Memantine 5 MG TAB ORAL SCH ×2 (11:09→18:55)
[2020-11-01] MEDS: dexAMETHasone 10mg/ml Inj IV SCH (11:09)
[2020-11-01] MEDS: Docusate 100mg cap ORAL SCH ×2 (11:10→18:55)
[2020-11-01] MEDS: Aspirin EC 81mg tab ORAL SCH (11:10)
[2020-11-01] MEDS: Theophylline ER 100mg ORAL SCH ×2 (11:10→20:13)
[2020-11-01] MEDS: Phospha 250 Neutral tab ORAL SCH ×3 (11:10→18:55)
[2020-11-01] MEDS: Heparin 5000 units/ml inj SUBQ SCH ×2 (11:11→20:14)
--- NOTE | 2020-11-01 11:56 | General Progress Note ---
Subjective ROS Limited/Unobtainable: Yes Allergies: Coded Allergies: No Known Allergies (Unverified , 06/18/18) Objective Last 24 Hour Vital Signs Date Time Temp Pulse Resp B/P (MAP) Pulse Ox O2 Delivery O2 Flow Rate FiO2 11/01/20 11:10 77 135/51 11/01/20 10:45 98.1 77 18 135/51 (79) 92 11/01/20 07:37 93 Nasal Cannula 4.0 36 11/01/20 04:00 98.2 65 16 132/75 (94) 90 11/01/20 00:00 97.2 64 17 140/68 (92) 98 10/31/20 21:59 97 Nasal Cannula 4.0 36 10/31/20 21:00 Nasal Cannula 2.0 10/31/20 20:00 97.0 69 18 132/77 (95) 90 10/31/20 16:00 96.9 70 19 131/73 (92) 98 10/31/20 12:00 98.4 71 18 129/62 (84) 96 Intake and Output 10/31/20 11/01/20 19:00 07:00 Intake Total 840 ml Output Total 580 ml Balance -580 ml 840 ml Intake Oral 240 ml Other 600 ml Output Urine Total 580 ml # Voids 1 Laboratory Tests 11/01/20 04:00: White Blood Count 8.6, Red Blood Count 3.84L, Hemoglobin 10.5L, Hematocrit 32.2L , Mean Corpuscular Volume 84, Mean Corpuscular Hemoglobin 27.5, Mean Corpuscular Hemoglobin Concent 32.7, Red Cell Distribution Width 14.7, Platelet Count 225, Mean Platelet Volume 8.5, Neutrophils (%) (Auto) 79.0H, Lymphocytes (%) (Auto) 10.1L, Monocytes (%) (Auto) 9.5, Eosinophils (%) (Auto) 0.0, Basophils (%) (Auto) 1.4, Sodium Level 141, Potassium Level 5.2H, Chloride Level 106, Carbon Dioxide Level 29, Anion Gap 6, Blood Urea Nitrogen 24H, Creatinine 0.9, Estimat Glomerular Filtration Rate > 60, Glucose Level 61L, Calcium Level 9.0, Total Bilirubin 0.5, Direct Bilirubin 0.2, Aspartate Amino Transf (AST/SGOT) 61H, Alanine Aminotransferase (ALT/SGPT) 53, Alkaline Phosphatase 50, Total Protein 7.1, Albumin 3.1L, Globulin 4.0, Albumin/Globulin Ratio 0.8L Height (Feet): 6 Height (Inches): 1.00 Weight (Pounds): 140 Assessment/Plan Problem List: (1) ACS (acute coronary syndrome) ICD Codes: I24.9 - Acute ischemic heart disease, unspecified SNOMED: 357243261 (2) Chest pain ICD Codes: R07.9 - Chest pain, unspecified SNOMED: 64809960 (3) COPD (chronic obstructive pulmonary disease) ICD Codes: J44.9 - Chronic obstructive pulmonary disease, unspecified SNOMED: 77651805 (4) Hypernatremia ICD Codes: E87.0 - Hyperosmolality and hypernatremia SNOMED: 793274714 (5) Severe protein-calorie malnutrition ICD Codes: E43 - Unspecified severe protein-calorie malnutrition SNOMED: 141636578, 645710548, 533981908 (6) KAILEY (acute kidney injury) ICD Codes: N17.9 - Acute kidney failure, unspecified SNOMED: 04466377, 1487972 (7) UTI (urinary tract infection) ICD Codes: N39.0 - Urinary tract infection, site not specified SNOMED: 02452941 (8) Dementia ICD Codes: F03.90 - Unspecified dementia without behavioral disturbance SNOMED: 00862365 Status: stable Assessment/Plan: copd exacerbation not hypoxic afebrile reviewed the chart resp insuff uti is improving Annamarie Vasquez MD Nov 01, 2020 11:56
--- NOTE | 2020-11-01 11:59 | NUR ---
RD ASSESSMENT & RECOMMENDATIONS SEE CARE ACTIVITY FOR COMPLETE ASSESSMENT DAILY ESTIMATED NEEDS: Needs based on Underweight, wasting 51kg 30-35 kcals/kg 0672-3638 total kcals 1-1.5 g protein/kg 51-76 g total protein 25-30 mL/kg 8179-7243 total fluid mLs NUTRITION DIAGNOSIS: Increased kcal and pro needs r/t underweight, wasting, wt loss as evidenced by pt w/ generalized moderate wasting, @ 79% of ideal body weight w/ low BMI of 18.1, pt w/ suspected significant wt loss of 11 lbs/8.9% in <6 months. . CURRENT DIET:LOW NA, pureed moist PO DIET RECOMMENDATIONS: Liberalized regular/ texture as tolerated or per TITLE CURATOR ADDITIONAL RECOMMENDATIONS: 1) Monitor wt trend- suspected recent significant wt loss calibrated daily bedscale wts 2) Consider TITLE CURATOR eval for appropriate texture-> cleared for puree 3) MVI x 1 4) Add Ensure Enlive TID w/ meals (350kcal/20g prot each) 5) Consider resume D5 IVF: BUN elev, BG 61 on 11/01 Offer and encourage HS snack
[2020-11-01 12:01] VITALS: BP 109/76
--- NOTE | 2020-11-01 12:01 | Cardiac Electrophysiology PN ---
Assessment/Plan Assessment/Plan 1. Hypertension. Continue amlodipine 5 mg daily and p.r.n. clonidine 2. Severe dehydration and azotemia. Patient's sodium was 160 and creatinine of 1.7. Sodium now 141, BUN of 14, creatinine of 0.9 on IV fluid. 3. Elevated troponin and Poor R-wave progression on the EKG. First troponin was negative. No chest pain. EF 50%. Repeat troponin negative 4. Alzheimer dementia. 5. COPD and cough due to Covid DENISSE RN. Subjective Subjective In isolation for Covid in restraints on 2 liter NC in restraints On Abx. K is 5.2 Objective Last 24 Hour Vital Signs Date Time Temp Pulse Resp B/P (MAP) Pulse Ox O2 Delivery O2 Flow Rate FiO2 11/01/20 11:10 77 135/51 11/01/20 10:45 98.1 77 18 135/51 (79) 92 11/01/20 07:37 93 Nasal Cannula 4.0 36 11/01/20 04:00 98.2 65 16 132/75 (94) 90 11/01/20 00:00 97.2 64 17 140/68 (92) 98 10/31/20 21:59 97 Nasal Cannula 4.0 36 10/31/20 21:00 Nasal Cannula 2.0 10/31/20 20:00 97.0 69 18 132/77 (95) 90 10/31/20 16:00 96.9 70 19 131/73 (92) 98 10/31/20 12:00 98.4 71 18 129/62 (84) 96 Intake and Output 10/31/20 11/01/20 19:00 07:00 Intake Total 840 ml Output Total 580 ml Balance -580 ml 840 ml Intake Oral 240 ml Other 600 ml Output Urine Total 580 ml # Voids 1 Laboratory Tests Test 11/01/20 04:00 White Blood Count 8.6 K/UL (4.8-10.8) Red Blood Count 3.84 M/UL (4.70-6.10) L Hemoglobin 10.5 G/DL (14.2-18.0) L Hematocrit 32.2 % (42.0-52.0) L Mean Corpuscular Volume 84 FL (80-99) Mean Corpuscular Hemoglobin 27.5 PG (27.0-31.0) Mean Corpuscular Hemoglobin Concent 32.7 G/DL (32.0-36.0) Red Cell Distribution Width 14.7 % (11.6-14.8) Platelet Count 225 K/UL (150-450) Mean Platelet Volume 8.5 FL (6.5-10.1) Neutrophils (%) (Auto) 79.0 % (45.0-75.0) H Lymphocytes (%) (Auto) 10.1 % (20.0-45.0) L Monocytes (%) (Auto) 9.5 % (1.0-10.0) Eosinophils (%) (Auto) 0.0 % (0.0-3.0) Basophils (%) (Auto) 1.4 % (0.0-2.0) Sodium Level 141 MMOL/L (136-145) Potassium Level 5.2 MMOL/L (3.5-5.1) H Chloride Level 106 MMOL/L (98-107) Carbon Dioxide Level 29 MMOL/L (21-32) Anion Gap 6 mmol/L (5-15) Blood Urea Nitrogen 24 mg/dL (7-18) H Creatinine 0.9 MG/DL (0.55-1.30) Estimat Glomerular Filtration Rate > 60 mL/min (>60) Glucose Level 61 MG/DL (74-106) L Calcium Level 9.0 MG/DL (8.5-10.1) Total Bilirubin 0.5 MG/DL (0.2-1.0) Direct Bilirubin 0.2 MG/DL (0.0-0.3) Aspartate Amino Transf (AST/SGOT) 61 U/L (15-37) H Alanine Aminotransferase (ALT/SGPT) 53 U/L (12-78) Alkaline Phosphatase 50 U/L (46-116) Total Protein 7.1 G/DL (6.4-8.2) Albumin 3.1 G/DL (3.4-5.0) L Globulin 4.0 g/dL Albumin/Globulin Ratio 0.8 (1.0-2.7) L Objective HEAD AND NECK: No JVD. LUNGS: Clear. CARDIOVASCULAR: Shows regular S1 and S2 with no gallop. ABDOMEN: Soft. EXTREMITIES: No pitting edema. Maurilio Lares MD Nov 01, 2020 12:01
--- NOTE | 2020-11-01 12:52 | NUR ---
PT WEEKLY PROGRESS NOTE Patient being seen by PT for strengthening exercises, bed mobility and transfer training. Patient able to perform bed mobility tasks with min assist, able to transfer sit to stand with min assist and FWW and able to take several small steps with min assist and FWW. Patient will benefit from continued skilled inpatient PT intervention to increase strength and postural stability for improved level of functional mobility and safety.
--- NOTE | 2020-11-01 13:22 | Nephrology Progress Note ---
Assessment/Plan Problem List: (1) KAILEY (acute kidney injury) (2) Hypernatremia (3) Hypertension (4) UTI (urinary tract infection) (5) Dementia Assessment Acute renal failure, dehydration Hypernatremia secondary to free water deficit Failure to thrive UTI Hypertension Alzheimer dementia COPD Plan November 01: Labs reviewed. Slightly elevated serum potassium most likely due to hemolysis since renal parameters are stable. Continue per consultants. Continue to monitor electrolytes and renal parameters. October 31: Labs reviewed. Low phosphorus replaced. Renal parameters are stable. Continue per consultants. October 30: Labs reviewed. Low potassium replaced. Serum sodium normalized. Will DC IV fluid. Continue to monitor renal parameters and electrolytes. October 29: Labs reviewed. Stable from renal standpoint of view. Serum creatinine 1. Continue per consultants. October 28: Labs reviewed. Abnormal electrolytes reviewed and addressed. Continue per current management. October 27: Labs reviewed. Further improvement of hypernatremia and serum cr eatinine. Continue same management. October 26: Labs reviewed. Serum sodium gradually lowering. Serum creatinine 1.4. Continue monitor renal parameters. October 25: Serum creatinine now within normal limit. Hypernatremia persists. Continue IV D5W. Continue to monitor electrolytes. Patient full code Free water in the form of D5W at 75 cc an hour IV Monitor renal parameters and electrolytes Keep the blood pressure and blood sugar in check Per orders Subjective ROS Limited/Unobtainable: No Constitutional: Reports: malaise, weakness Objective Objective Last 24 Hour Vital Signs Date Time Temp Pulse Resp B/P (MAP) Pulse Ox O2 Delivery O2 Flow Rate FiO2 11/01/20 12:01 97.9 80 18 109/76 (87) 94 11/01/20 11:10 77 135/51 11/01/20 10:45 98.1 77 18 135/51 (79) 92 11/01/20 07:37 93 Nasal Cannula 4.0 36 11/01/20 04:00 98.2 65 16 132/75 (94) 90 11/01/20 00:00 97.2 64 17 140/68 (92) 98 10/31/20 21:59 97 Nasal Cannula 4.0 36 10/31/20 21:00 Nasal Cannula 2.0 10/31/20 20:00 97.0 69 18 132/77 (95) 90 10/31/20 16:00 96.9 70 19 131/73 (92) 98 Intake and Output 10/31/20 11/01/20 19:00 07:00 Intake Total 840 ml Output Total 580 ml Balance -580 ml 840 ml Intake Oral 240 ml Other 600 ml Output Urine Total 580 ml # Voids 1 Current Medications Medications (Trade) Dose Ordered Sig/Eva Route PRN Reason Start Time Stop Time Status Last Admin Dose Admin Albuterol/ Ipratropium (Combivent Respimat) 1 puff Q4H PRN INH Shortness of Breath 10/27/20 09:00 11/26/20 08:59 Amlodipine Besylate (Norvasc) 5 mg DAILY ORAL 10/25/20 09:00 11/24/20 08:59 11/01/20 11:10 Aspirin (Ecotrin) 81 mg DAILY ORAL 10/25/20 09:00 12/09/20 08:59 11/01/20 11:10 Clonidine HCl (Catapres Tab) 0.1 mg Q2H PRN ORAL For High Blood Pressure 10/24/20 16:30 01/22/21 16:29 Dexamethasone Sodium Phosphate (Decadron 10mg/ ml Inj) 6 mg DAILY IV 10/26/20 15:00 11/04/20 09:01 11/01/20 11:09 Docusate Sodium (Colace) 100 mg TWICE A DAY ORAL 10/24/20 18:00 11/23/20 17:59 11/01/20 11:10 Heparin Sodium (Porcine) (Heparin 5000 units/ml) 5,000 units EVERY 12 HOURS SUBQ 10/24/20 21:00 12/08/20 20:59 11/01/20 11:11 Lorazepam (Ativan) 0.5 mg Q6H PRN ORAL For Anxiety 10/26/20 07:30 11/02/20 07:29 Memantine (Namenda) 5 mg BID ORAL 10/26/20 09:00 11/25/20 08:59 11/01/20 11:09 Mirtazapine (Remeron) 7.5 mg BEDTIME ORAL 10/26/20 21:00 01/24/21 20:59 10/31/20 21:11 Pantoprazole (Protonix) 40 mg DAILY ORAL 10/25/20 09:00 11/24/20 08:59 11/01/20 11:09 Phosphorus (Phospha 250 Neutral) 250 mg THREE TIMES A DAY ORAL 10/31/20 13:00 11/30/20 12:59 11/01/20 11:10 Potassium Chloride (K-Dur) 40 meq DAILY ORAL 10/30/20 13:30 01/28/21 13:29 10/31/20 10:00 Promethazine HCl/ Codeine (Phenergan with Codeine) 5 ml Q4H PRN ORAL For Cough 10/26/20 12:15 11/25/20 12:14 Theophylline (Ivan-Dur) 100 mg EVERY 12 HOURS ORAL 10/26/20 21:00 01/24/21 20:59 11/01/20 11:10 Laboratory Tests 11/01/20 04:00: White Blood Count 8.6, Red Blood Count 3.84L, Hemoglobin 10.5L, Hematocrit 32.2L , Mean Corpuscular Volume 84, Mean Corpuscular Hemoglobin 27.5, Mean Corpuscular Hemoglobin Concent 32.7, Red Cell Distribution Width 14.7, Platelet Count 225, Mean Platelet Volume 8.5, Neutrophils (%) (Auto) 79.0H, Lymphocytes (%) (Auto) 10.1L, Monocytes (%) (Auto) 9.5, Eosinophils (%) (Auto) 0.0, Basophils (%) (Auto) 1.4, Sodium Level 141, Potassium Level 5.2H, Chloride Level 106, Carbon Dioxide Level 29, Anion Gap 6, Blood Urea Nitrogen 24H, Creatinine 0.9, Estimat Glomerular Filtration Rate > 60, Glucose Level 61L, Calcium Level 9.0, Total Bilirubin 0.5, Direct Bilirubin 0.2, Aspartate Amino Transf (AST/SGOT) 61H, Alanine Aminotransferase (ALT/SGPT) 53, Alkaline Phosphatase 50, Total Protein 7.1, Albumin 3.1L, Globulin 4.0, Albumin/Globulin Ratio 0.8L Height (Feet): 6 Height (Inches): 1.00 Weight (Pounds): 140 General Appearance: no apparent distress Cardiovascular: normal rate Respiratory/Chest: decreased breath sounds Abdomen: distended Damian Webb MD Nov 01, 2020 13:21
--- NOTE | 2020-11-01 13:29 | Diagnostic Imaging Report ---
Indication: Shortness of breath Technique: One view of the chest Comparison: 10/26/2020 Findings: Lungs and pleural spaces are clear. Heart size is normal. The aorta is tortuous and calcified Impression: No acute process
--- NOTE | 2020-11-01 13:39 | Psychiatry Consultation ---
Psychiatry Consultation Psychiatry Consultation Chief Complaint: Generalized Weakness Allergies: Coded Allergies: No Known Allergies (Unverified , 06/18/18) Past Psychiatric History: 84-year-old male patient altered mental status and failure to thrive because of his failure to thrive he is having generalized weakness and altered mental status overall cognition has declined below his baseline as well as attending is requested daily psychiatric consultation Mental status examination: 84-year-old male appearance disheveled attitude irritable agitated affect constricted intellect poor mood depressed anxious moderately psychomotor station attention times poor orientation x2 speech is low volume slurred thought process disorganized logical insight judgment is poor Medication History Scheduled Amlodipine Besylate* (Amlodipine Besylate*), 5 MG ORAL DAILY, (Reported) Aspirin* (Aspir 81*), 81 MG ORAL DAILY, (Reported) Scheduled PRN Albuterol Sulfate* (Albuterol Sulfate Mdi*), 2 PUFF INH Q4H PRN for cough/wheezing Melatonin (Melatonin 5 Mg Tablet), 1 TAB ORAL BEDTIME PRN for Insomnia, (Reported) Tramadol Hcl* (Ultram*), 50 MG ORAL BID PRN for For Pain, (Reported) Zolpidem Tartrate* (Ambien*), 5 MG ORAL BEDTIME PRN for Insomnia, (Reported) Discontinued Medications Clonidine Hcl (Clonidine Hcl), 0.1 MG PO Q4HR PRN for prn, (Reported) Discontinued Reason: Therapy completed Hydralazine Hcl* (Hydralazine Hcl*), 50 MG ORAL EVERY 8 HOURS PRN for For High Blood Pressure, (Reported) Discontinued Reason: Therapy completed Objective Data Height (Feet): 6 Height (Inches): 1.00 Weight (Pounds): 140 Assessment/Plan Assessment/Plan: Plan is to add Remeron 7.5 mg nightly for depression and also to increase his appetite also Ativan 0.5 mg every 6 hours. 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
--- NOTE | 2020-11-01 14:55 | NUR ---
RADIOLOGY DEPT., CHEST X-RAY DONE.-P.DYE
--- NOTE | 2020-11-01 16:01 | Pulmonology Progress Note ---
Subjective ROS Limited/Unobtainable: No Allergies: Coded Allergies: No Known Allergies (Unverified , 06/18/18) Objective Last 24 Hour Vital Signs Date Time Temp Pulse Resp B/P (MAP) Pulse Ox O2 Delivery O2 Flow Rate FiO2 11/01/20 12:01 97.9 80 18 109/76 (87) 94 11/01/20 11:10 77 135/51 11/01/20 10:45 98.1 77 18 135/51 (79) 92 11/01/20 07:37 93 Nasal Cannula 4.0 36 11/01/20 04:00 98.2 65 16 132/75 (94) 90 11/01/20 00:00 97.2 64 17 140/68 (92) 98 10/31/20 21:59 97 Nasal Cannula 4.0 36 10/31/20 21:00 Nasal Cannula 2.0 10/31/20 20:00 97.0 69 18 132/77 (95) 90 Intake and Output 10/31/20 11/01/20 19:00 07:00 Intake Total 840 ml Output Total 580 ml Balance -580 ml 840 ml Intake Oral 240 ml Other 600 ml Output Urine Total 580 ml # Voids 1 General Appearance: cachetic, other - awake, responsive elderly AA male HEENT: normocephalic, atraumatic, anicteric, other - O2 via NC Respiratory: chest wall non-tender, lungs clear - with decreased BS Cardiovascular: normal peripheral pulses, regular rhythm Abdomen: normal bowel sounds, soft, non tender Genitourinary: normal external genitalia Extremities: no edema Skin: no lesions Neurologic: alert, responsive Musculoskeletal: atrophy - BLE Laboratory Tests 11/01/20 04:00: White Blood Count 8.6, Red Blood Count 3.84L, Hemoglobin 10.5L, Hematocrit 32.2L , Mean Corpuscular Volume 84, Mean Corpuscular Hemoglobin 27.5, Mean Corpuscular Hemoglobin Concent 32.7, Red Cell Distribution Width 14.7, Platelet Count 225, Mean Platelet Volume 8.5, Neutrophils (%) (Auto) 79.0H, Lymphocytes (%) (Auto) 10.1L, Monocytes (%) (Auto) 9.5, Eosinophils (%) (Auto) 0.0, Basophils (%) (Auto) 1.4, Sodium Level 141, Potassium Level 5.2H, Chloride Level 106, Carbon Dioxide Level 29, Anion Gap 6, Blood Urea Nitrogen 24H, Creatinine 0.9, Estimat Glomerular Filtration Rate > 60, Glucose Level 61L, Calcium Level 9.0, Total Bilirubin 0.5, Direct Bilirubin 0.2, Aspartate Amino Transf (AST/SGOT) 61H, Alanine Aminotransferase (ALT/SGPT) 53, Alkaline Phosphatase 50, Total Protein 7.1, Albumin 3.1L, Globulin 4.0, Albumin/Globulin Ratio 0.8L Current Medications Medications (Trade) Dose Ordered Sig/Eva Route PRN Reason Start Time Stop Time Status Last Admin Dose Admin Albuterol/ Ipratropium (Combivent Respimat) 1 puff Q4H PRN INH Shortness of Breath 10/27/20 09:00 11/26/20 08:59 Amlodipine Besylate (Norvasc) 5 mg DAILY ORAL 10/25/20 09:00 11/24/20 08:59 11/01/20 11:10 Aspirin (Ecotrin) 81 mg DAILY ORAL 10/25/20 09:00 12/09/20 08:59 11/01/20 11:10 Clonidine HCl (Catapres Tab) 0.1 mg Q2H PRN ORAL For High Blood Pressure 10/24/20 16:30 01/22/21 16:29 Dexamethasone Sodium Phosphate (Decadron 10mg/ ml Inj) 6 mg DAILY IV 10/26/20 15:00 11/04/20 09:01 11/01/20 11:09 Docusate Sodium (Colace) 100 mg TWICE A DAY ORAL 10/24/20 18:00 11/23/20 17:59 11/01/20 11:10 Heparin Sodium (Porcine) (Heparin 5000 units/ml) 5,000 units EVERY 12 HOURS SUBQ 10/24/20 21:00 12/08/20 20:59 11/01/20 11:11 Lorazepam (Ativan) 0.5 mg Q6H PRN ORAL For Anxiety 10/26/20 07:30 11/02/20 07:29 Memantine (Namenda) 5 mg BID ORAL 10/26/20 09:00 11/25/20 08:59 11/01/20 11:09 Mirtazapine (Remeron) 7.5 mg BEDTIME ORAL 10/26/20 21:00 01/24/21 20:59 10/31/20 21:11 Pantoprazole (Protonix) 40 mg DAILY ORAL 10/25/20 09:00 11/24/20 08:59 11/01/20 11:09 Phosphorus (Phospha 250 Neutral) 250 mg THREE TIMES A DAY ORAL 10/31/20 13:00 11/30/20 12:59 11/01/20 15:48 Potassium Chloride (K-Dur) 40 meq DAILY ORAL 10/30/20 13:30 01/28/21 13:29 10/31/20 10:00 Promethazine HCl/ Codeine (Phenergan with Codeine) 5 ml Q4H PRN ORAL For Cough 10/26/20 12:15 11/25/20 12:14 Theophylline (Ivan-Dur) 100 mg EVERY 12 HOURS ORAL 10/26/20 21:00 01/24/21 20:59 11/01/20 11:10 Assessment/Plan Problems: (1) 2019 novel coronavirus disease (COVID-19) (2) Purulent bronchitis (3) COPD (chronic obstructive pulmonary disease) (4) KAILEY (acute kidney injury) (5) Hypernatremia (6) At high risk for aspiration (7) Dementia (8) Severe protein-calorie malnutrition Assessment/Plan on nasal cannula respiratory treatment aspiration precaution repeat cxr 10/26 didn't show any infiltrate. swallow study: MODIFIED TEXTURE DIET: PUREE WITH NECTAR THICK LIQUIDS titrate fio2 to sat of 92% antitussives check electrolytes dvt prophylaxis. Cinda Drummond MD Nov 01, 2020 16:01
[2020-11-01 16:12] VITALS: BP 113/88
--- NOTE | 2020-11-01 16:23 | Infectious Diseases Prog Note ---
Assessment/Plan 84yo M with: Afebrile Normal WBC COVID positive Acute hypoxia 2/2 COVID pna UTI 10/24 UA 40-60 WBC, UCx >100k gamma-Strep CXR: No acute process 10/25 COVID PCR pos 10/26 CXR: No acute process Abdominal tenderness on exam 10/25 Abd US: Negative for gallstones or dilated bile ducts. Hypoechoic les ions in the right hepatic lobe. These are nonspecific, neoplastic etiologies are among the differential. Recommend further evaluation with contrast CT as clinically indicated. Nonspecific heterogeneous hepatic echogenicity, could indicate hepatocellular disease. Hepatic and bilateral renal cysts. Note nonvisualization of the aorta and portions of the pancreas Cr 1.7 Alzheimer's dementia HTN HIV screen neg RPR neg Plan: Cont dexamethasone #7/10 10/30 SP RDV #5 10/29 SP CTX #5 for UTI Monitor CBC/CMP Monitor temp curve, hemodynamics Monitor resp status D/w RN Thank you for this consult. [facility] will continue to follow. Subjective Allergies: Coded Allergies: No Known Allergies (Unverified , 06/18/18) AF 2L NC NAD in bed WBC 8.6 Objective Last 24 Hour Vital Signs Date Time Temp Pulse Resp B/P (MAP) Pulse Ox O2 Delivery O2 Flow Rate FiO2 11/01/20 16:12 98.6 99 18 113/88 (96) 95 11/01/20 12:01 97.9 80 18 109/76 (87) 94 11/01/20 11:10 77 135/51 11/01/20 10:45 98.1 77 18 135/51 (79) 92 11/01/20 07:37 93 Nasal Cannula 4.0 36 11/01/20 04:00 98.2 65 16 132/75 (94) 90 11/01/20 00:00 97.2 64 17 140/68 (92) 98 10/31/20 21:59 97 Nasal Cannula 4.0 36 10/31/20 21:00 Nasal Cannula 2.0 10/31/20 20:00 97.0 69 18 132/77 (95) 90 Height (Feet): 6 Height (Inches): 1.00 Weight (Pounds): 140 Gen: NAD HEENT: NCAT Pulm: BL chest rise on venturi mask Abd: Non-distended Ext: No c/c/e Skin: No visible rashes Neuro: Awake Laboratory Tests Test 11/01/20 04:00 White Blood Count 8.6 K/UL (4.8-10.8) Red Blood Count 3.84 M/UL (4.70-6.10) L Hemoglobin 10.5 G/DL (14.2-18.0) L Hematocrit 32.2 % (42.0-52.0) L Mean Corpuscular Volume 84 FL (80-99) Mean Corpuscular Hemoglobin 27.5 PG (27.0-31.0) Mean Corpuscular Hemoglobin Concent 32.7 G/DL (32.0-36.0) Red Cell Distribution Width 14.7 % (11.6-14.8) Platelet Count 225 K/UL (150-450) Mean Platelet Volume 8.5 FL (6.5-10.1) Neutrophils (%) (Auto) 79.0 % (45.0-75.0) H Lymphocytes (%) (Auto) 10.1 % (20.0-45.0) L Monocytes (%) (Auto) 9.5 % (1.0-10.0) Eosinophils (%) (Auto) 0.0 % (0.0-3.0) Basophils (%) (Auto) 1.4 % (0.0-2.0) Sodium Level 141 MMOL/L (136-145) Potassium Level 5.2 MMOL/L (3.5-5.1) H Chloride Level 106 MMOL/L (98-107) Carbon Dioxide Level 29 MMOL/L (21-32) Anion Gap 6 mmol/L (5-15) Blood Urea Nitrogen 24 mg/dL (7-18) H Creatinine 0.9 MG/DL (0.55-1.30) Estimat Glomerular Filtration Rate > 60 mL/min (>60) Glucose Level 61 MG/DL (74-106) L Calcium Level 9.0 MG/DL (8.5-10.1) Total Bilirubin 0.5 MG/DL (0.2-1.0) Direct Bilirubin 0.2 MG/DL (0.0-0.3) Aspartate Amino Transf (AST/SGOT) 61 U/L (15-37) H Alanine Aminotransferase (ALT/SGPT) 53 U/L (12-78) Alkaline Phosphatase 50 U/L (46-116) Total Protein 7.1 G/DL (6.4-8.2) Albumin 3.1 G/DL (3.4-5.0) L Globulin 4.0 g/dL Albumin/Globulin Ratio 0.8 (1.0-2.7) L Current Medications Medications (Trade) Dose Ordered Sig/Eva Route PRN Reason Start Time Stop Time Status Last Admin Dose Admin Albuterol/ Ipratropium (Combivent Respimat) 1 puff Q4H PRN INH Shortness of Breath 10/27/20 09:00 11/26/20 08:59 Amlodipine Besylate (Norvasc) 5 mg DAILY ORAL 10/25/20 09:00 11/24/20 08:59 11/01/20 11:10 Aspirin (Ecotrin) 81 mg DAILY ORAL 10/25/20 09:00 12/09/20 08:59 11/01/20 11:10 Clonidine HCl (Catapres Tab) 0.1 mg Q2H PRN ORAL For High Blood Pressure 10/24/20 16:30 01/22/21 16:29 Dexamethasone Sodium Phosphate (Decadron 10mg/ ml Inj) 6 mg DAILY IV 10/26/20 15:00 11/04/20 09:01 11/01/20 11:09 Docusate Sodium (Colace) 100 mg TWICE A DAY ORAL 10/24/20 18:00 11/23/20 17:59 11/01/20 11:10 Heparin Sodium (Porcine) (Heparin 5000 units/ml) 5,000 units EVERY 12 HOURS SUBQ 10/24/20 21:00 12/08/20 20:59 11/01/20 11:11 Lorazepam (Ativan) 0.5 mg Q6H PRN ORAL For Anxiety 10/26/20 07:30 11/02/20 07:29 Memantine (Namenda) 5 mg BID ORAL 10/26/20 09:00 11/25/20 08:59 11/01/20 11:09 Mirtazapine (Remeron) 7.5 mg BEDTIME ORAL 10/26/20 21:00 01/24/21 20:59 10/31/20 21:11 Pantoprazole (Protonix) 40 mg DAILY ORAL 10/25/20 09:00 11/24/20 08:59 11/01/20 11:09 Phosphorus (Phospha 250 Neutral) 250 mg THREE TIMES A DAY ORAL 10/31/20 13:00 11/30/20 12:59 11/01/20 15:48 Potassium Chloride (K-Dur) 40 meq DAILY ORAL 10/30/20 13:30 01/28/21 13:29 10/31/20 10:00 Promethazine HCl/ Codeine (Phenergan with Codeine) 5 ml Q4H PRN ORAL For Cough 10/26/20 12:15 11/25/20 12:14 Theophylline (Ivan-Dur) 100 mg EVERY 12 HOURS ORAL 10/26/20 21:00 01/24/21 20:59 11/01/20 11:10 Lucia Gresham M.D. Nov 01, 2020 16:23
--- NOTE | 2020-11-01 17:29 | NUR ---
CASE MANAGEMENT:REVIEW SI; COVID PNEUMONIA. AC RENAL FAILURE. 98.6 99 18 135/51 93% 4L NC H/H 10.2/32.2 K+ 5.2 BUN 24 BG 61 AST 61 IS;PHOSPHORUS PO TID SEBASTIAN-DUR PO Q12 DECADRON IV PROTONIX PO NORVASC PO HEPARIN SQ ASA PO MED SURG STATUS DCP;FROM HOME
--- NOTE | 2020-11-01 19:14 | NUR ---
NURSE HAND-OFF: Important Events on Shift:PCXR done Patient Status: stable Diet: Low NA (Total Feed) Pending Orders: none Pending Results/Labs:none Pending MD notification:none Latest Vital Signs: Temperature 98.6 , Pulse 99 , B/P 113 /88 , Respiratory Rate 18 , O2 SAT 95 , Venturi Mask, O2 Flow Rate 2.0 . Vital Sign Comment: none Latest Fung Fall Score: 70 Fall Risk: High Risk Safety Measures: Call light Within Reach, Bed Alarm Zone 2, Side Rails Side Rails x3, Bed position Low and Locked. Fall Precautions: Yellow Socks Yellow Gown Door Sign Patient Fall Education Report given to Arelis SANTOS.
--- NOTE | 2020-11-01 19:30 | NUR ---
NURSE NOTES: Patient in bed, awake and confused; very restless. On nasal cannula 2L with no signs of distress or SOB. Bilat soft wrist restraints in progress - skin intact, pulses palpable. Bed locked and in lowest position. Bed alarm on. Call light in reach. Will continue plan of care.
[2020-11-01 20:00] VITALS: BP_SYST 127; BP_SYST 143; BP_DIAS 83; BP_DIAS 89
[2020-11-01] MEDS: Zolpidem 5mg tab ORAL PRN (20:27)
[2020-11-02] VITALS: BP 127/83
[2020-11-02 04:00] VITALS: BP 128/91
[2020-11-02 08:00] VITALS: BP 123/71
--- NOTE | 2020-11-02 08:00 | NUR ---
NURSE NOTES: patient alert to name, reorient,patient is confused.Respirations unlabored.Noted bilateral soft wrist restraints in place,will provide ROM and skin care.Condom catheter is in place with yellow urine noted.Breakfast at bedside will assist.Bed alarm is on,call light within reach.
--- NOTE | 2020-11-02 08:21 | NUR ---
NURSE HAND-OFF: Important Events on Shift: Restraints still in progress, restless/agitated Patient Status: Stable Diet: Low Na Pending Orders: Sputum unc, Pending Results/Labs: CBC, Mag, Phos Pending MD notification: N/A Latest Vital Signs: Temperature 97.3 , Pulse 67 , B/P 128 /91 , Respiratory Rate 18 , O2 SAT 95 , Venturi Mask, O2 Flow Rate 2.0 . Vital Sign Comment: Latest Fung Fall Score: 70 Fall Risk: High Risk Safety Measures: Call light Within Reach, Bed Alarm Zone 2, Side Rails Side Rails x3, Bed position Low and Locked. Fall Precautions: Yellow Socks Yellow Gown Door Sign Patient Fall Education Report given to DANIELLE Lino.
[2020-11-02 08:22] LABS: ALANINE AMINOTRANSFERASE 55 U/L (12-78); ALBUMIN/GLOBULIN RATIO 0.7 (1.0-2.7); ALKALINE PHOSPHATASE 49 U/L (46-116); ANION GAP 8 mmol/L (5-15); ASPARTATE AMINO TRANSFERASE 56 U/L (15-37); BILIRUBIN,TOTAL 0.5 MG/DL (0.2-1.0); BLOOD UREA NITROGEN 28 mg/dL (7-18); CALCIUM 9.4 MG/DL (8.5-10.1); CARBON DIOXIDE 29 MMOL/L (21-32); CHLORIDE 105 MMOL/L (98-107); CREATININE 1.1 MG/DL (0.55-1.30); PHOSPHORUS 4.3 MG/DL (2.5-4.9); POTASSIUM 3.3 MMOL/L (3.5-5.1); SODIUM 142 MMOL/L (136-145)
[2020-11-02] MEDS: Memantine 5 MG TAB ORAL SCH ×2 (09:43→18:49)
[2020-11-02] MEDS: Heparin 5000 units/ml inj SUBQ SCH ×2 (09:43→20:43)
[2020-11-02] MEDS: Aspirin EC 81mg tab ORAL SCH (09:44)
[2020-11-02] MEDS: Phospha 250 Neutral tab ORAL SCH (09:45)
[2020-11-02] MEDS: Docusate 100mg cap ORAL SCH ×2 (09:45→18:47)
[2020-11-02] MEDS: dexAMETHasone 10mg/ml Inj IV SCH (09:46)
[2020-11-02] MEDS: Theophylline ER 100mg ORAL SCH ×2 (09:56→20:42)
--- NOTE | 2020-11-02 11:24 | Psychiatry Consultation ---
Psychiatry Consultation Psychiatry Consultation Chief Complaint: Generalized Weakness History of Present Illness: 84-year-old male altered mental status confused disorganized he has declining cognition below his baseline and for that reason his attending has requested daily psychiatric consultation he still has poor insight and mood lability Mental status examination: This 84-year-old male appearance disheveled at irritable agitated affect c onstricted intellect poor mood depressed anxious motor activity psychomotor agitation poor orientation x2 speech is nonsensical thought process disorganized logical insight judgment is poor Allergies: Coded Allergies: No Known Allergies (Unverified , 06/18/18) Medication History Scheduled Amlodipine Besylate* (Amlodipine Besylate*), 5 MG ORAL DAILY, (Reported) Aspirin* (Aspir 81*), 81 MG ORAL DAILY, (Reported) Scheduled PRN Albuterol Sulfate* (Albuterol Sulfate Mdi*), 2 PUFF INH Q4H PRN for cough/wheezing Melatonin (Melatonin 5 Mg Tablet), 1 TAB ORAL BEDTIME PRN for Insomnia, (Repo rted) Tramadol Hcl* (Ultram*), 50 MG ORAL BID PRN for For Pain, (Reported) Zolpidem Tartrate* (Ambien*), 5 MG ORAL BEDTIME PRN for Insomnia, (Reported) Discontinued Medications Clonidine Hcl (Clonidine Hcl), 0.1 MG PO Q4HR PRN for prn, (Reported) Discontinued Reason: Therapy completed Hydralazine Hcl* (Hydralazine Hcl*), 50 MG ORAL EVERY 8 HOURS PRN for For High Blood Pressure, (Reported) Discontinued Reason: Therapy completed Objective Data Height (Feet): 6 Height (Inches): 1.00 Weight (Pounds): 140 Assessment/Plan Assessment/Plan: Plan is to add Remeron 7.5 mg nightly for depression and also to increase his appetite also Ativan 0.5 mg every 6 hours. Anxiety agitation as well as Namenda 5 mg twice a day to prevent further decline in his cognition also 20 minutes of insight oriented psychotherapy was provided while work with this patient to help him have a better understanding of his physical and psychiatric condition in order to reduce depression anxiety and to help with impulse control charge been reviewed and discussed with staff patient seen and assessed at bedside Diagnosis Wright I: Major depressive disorder recurrent with psychotic features rule out dementia with psychosis Lizbeth Patton MD Nov 02, 2020 11:24
--- NOTE | 2020-11-02 11:26 | Cardiac Electrophysiology PN ---
Assessment/Plan Assessment/Plan 1. Hypertension. Continue amlodipine 5 mg daily and p.r.n. clonidine 2. Severe dehydration and azotemia. Patient's sodium was 160 and creatinine of 1.7. Sodium now 141, BUN of 14, creatinine of 0.9 on IV fluid. 3. Elevated troponin and Poor R-wave progression on the EKG. No chest pain. EF 50%. Repeat troponin negative 4. Alzheimer dementia. 5. COPD and cough due to Covid DW RN and PT. Subjective Subjective In isolation for Covid in restraints on 2 liter NC in restraints On Abx. Physical therapist at bedside Objective Last 24 Hour Vital Signs Date Time Temp Pulse Resp B/P (MAP) Pulse Ox O2 Delivery O2 Flow Rate FiO2 11/02/20 09:54 60 132/75 11/02/20 08:00 98.7 61 18 123/71 (88) 95 11/02/20 04:00 97.3 67 18 128/91 (103) 95 11/02/20 00:00 98.2 68 17 127/83 (98) 91 11/01/20 21:00 Nasal Cannula 2.0 11/01/20 20:44 96 Nasal Cannula 4.0 36 11/01/20 20:00 97.2 80 18 143/89 (107) 92 11/01/20 16:12 98.6 99 18 113/88 (96) 95 11/01/20 12:01 97.9 80 18 109/76 (87) 94 Intake and Output 11/01/20 11/02/20 19:00 07:00 Intake Total 690 ml 120 ml Balance 690 ml 120 ml Intake Oral 690 ml 120 ml # Voids 3 2 Laboratory Tests Test 11/02/20 05:40 Sodium Level 142 MMOL/L (136-145) Potassium Level 3.3 MMOL/L (3.5-5.1) L Chloride Level 105 MMOL/L (98-107) Carbon Dioxide Level 29 MMOL/L (21-32) Anion Gap 8 mmol/L (5-15) Blood Urea Nitrogen 28 mg/dL (7-18) H Creatinine 1.1 MG/DL (0.55-1.30) Estimat Glomerular Filtration Rate > 60 mL/min (>60) Glucose Level 59 MG/DL (74-106) L Calcium Level 9.4 MG/DL (8.5-10.1) Phosphorus Level 4.3 MG/DL (2.5-4.9) Magnesium Level 2.1 MG/DL (1.8-2.4) Total Bilirubin 0.5 MG/DL (0.2-1.0) Aspartate Amino Transf (AST/SGOT) 56 U/L (15-37) H Alanine Aminotransferase (ALT/SGPT) 55 U/L (12-78) Alkaline Phosphatase 49 U/L (46-116) Total Protein 7.6 G/DL (6.4-8.2) Albumin 3.0 G/DL (3.4-5.0) L Globulin 4.6 g/dL Albumin/Globulin Ratio 0.7 (1.0-2.7) L Objective HEAD AND NECK: No JVD. LUNGS: Clear. CARDIOVASCULAR: Shows regular S1 and S2 with no gallop. ABDOMEN: Soft. EXTREMITIES: No pitting edema. Maurilio Lares MD Nov 02, 2020 11:26
[2020-11-02 12:00] VITALS: BP 127/67
--- NOTE | 2020-11-02 12:25 | Pulmonology Progress Note ---
Subjective ROS Limited/Unobtainable: Yes Allergies: Coded Allergies: No Known Allergies (Unverified , 06/18/18) Objective Last 24 Hour Vital Signs Date Time Temp Pulse Resp B/P (MAP) Pulse Ox O2 Delivery O2 Flow Rate FiO2 11/02/20 09:54 60 132/75 11/02/20 08:00 98.7 61 18 123/71 (88) 95 11/02/20 04:00 97.3 67 18 128/91 (103) 95 11/02/20 00:00 98.2 68 17 127/83 (98) 91 11/01/20 21:00 Nasal Cannula 2.0 11/01/20 20:44 96 Nasal Cannula 4.0 36 11/01/20 20:00 97.2 80 18 143/89 (107) 92 11/01/20 16:12 98.6 99 18 113/88 (96) 95 Intake and Output 11/01/20 11/02/20 18:59 06:59 Intake Total 690 ml 120 ml Balance 690 ml 120 ml Intake Oral 690 ml 120 ml # Voids 3 2 General Appearance: cachetic, other - awake, responsive elderly AA male HEENT: normocephalic, atraumatic, anicteric, other - O2 via NC Respiratory: chest wall non-tender, lungs clear - with decreased BS Cardiovascular: normal peripheral pulses, regular rhythm Abdomen: normal bowel sounds, soft, non tender Genitourinary: normal external genitalia Extremities: no edema Skin: no lesions Neurologic: alert, responsive Musculoskeletal: atrophy - BLE Laboratory Tests 11/02/20 05:40: Sodium Level 142, Potassium Level 3.3L, Chloride Level 105, Carbon Dioxide Level 29, Anion Gap 8, Blood Urea Nitrogen 28H, Creatinine 1.1, Estimat Glomerular Filtration Rate > 60, Glucose Level 59L, Calcium Level 9.4, Phosphorus Level 4.3, Magnesium Level 2.1, Total Bilirubin 0.5, Aspartate Amino Transf (AST/SGOT) 56H, Alanine Aminotransferase (ALT/SGPT) 55, Alkaline Phosphatase 49, Total Protein 7.6, Albumin 3.0L, Globulin 4.6, Albumin/Globulin Ratio 0.7L Current Medications Medications (Trade) Dose Ordered Sig/Eva Route PRN Reason Start Time Stop Time Status Last Admin Dose Admin Albuterol/ Ipratropium (Combivent Respimat) 1 puff Q4H PRN INH Shortness of Breath 10/27/20 09:00 11/26/20 08:59 Amlodipine Besylate (Norvasc) 5 mg DAILY ORAL 10/25/20 09:00 11/24/20 08:59 11/02/20 09:54 Aspirin (Ecotrin) 81 mg DAILY ORAL 10/25/20 09:00 12/09/20 08:59 11/02/20 09:44 Clonidine HCl (Catapres Tab) 0.1 mg Q2H PRN ORAL For High Blood Pressure 10/24/20 16:30 01/22/21 16:29 Dexamethasone Sodium Phosphate (Decadron 10mg/ ml Inj) 6 mg DAILY IV 10/26/20 15:00 11/04/20 09:01 11/02/20 09:46 Docusate Sodium (Colace) 100 mg TWICE A DAY ORAL 10/24/20 18:00 11/23/20 17:59 11/02/20 09:45 Heparin Sodium (Porcine) (Heparin 5000 units/ml) 5,000 units EVERY 12 HOURS SUBQ 10/24/20 21:00 12/08/20 20:59 11/02/20 09:43 Memantine (Namenda) 5 mg BID ORAL 10/26/20 09:00 11/25/20 08:59 11/02/20 09:43 Mirtazapine (Remeron) 7.5 mg BEDTIME ORAL 10/26/20 21:00 01/24/21 20:59 11/01/20 20:14 Pantoprazole (Protonix) 40 mg DAILY ORAL 10/25/20 09:00 11/24/20 08:59 11/02/20 09:44 Phosphorus (Phospha 250 Neutral) 250 mg THREE TIMES A DAY ORAL 10/31/20 13:00 11/30/20 12:59 11/02/20 09:45 Potassium Chloride (K-Dur) 40 meq DAILY ORAL 10/30/20 13:30 01/28/21 13:29 11/02/20 09:44 Promethazine HCl/ Codeine (Phenergan with Codeine) 5 ml Q4H PRN ORAL For Cough 10/26/20 12:15 11/25/20 12:14 Theophylline (Ivan-Dur) 100 mg EVERY 12 HOURS ORAL 10/26/20 21:00 01/24/21 20:59 11/02/20 09:56 Zolpidem Tartrate (Ambien) 5 mg HSPRN PRN ORAL Insomnia 11/01/20 20:15 11/08/20 20:14 11/01/20 20:27 Assessment/Plan Problems: (1) 2019 novel coronavirus disease (COVID-19) (2) Purulent bronchitis (3) COPD (chronic obstructive pulmonary disease) (4) KAILEY (acute kidney injury) (5) Hypernatremia (6) At high risk for aspiration (7) Dementia (8) Severe protein-calorie malnutrition Assessment/Plan on nasal cannula respiratory treatment aspiration precaution swallow study: MODIFIED TEXTURE DIET: PUREE WITH NECTAR THICK LIQUIDS titrate fio2 to sat of 92% antitussives check electrolytes dvt prophylaxis. dc planning Cinda Drummond MD Nov 02, 2020 12:24
--- NOTE | 2020-11-02 14:01 | Nephrology Progress Note ---
Assessment/Plan Problem List: (1) KAILEY (acute kidney injury) (2) Hypernatremia (3) Hypertension (4) UTI (urinary tract infection) (5) Dementia Assessment Acute renal failure, dehydration Hypernatremia secondary to free water deficit Failure to thrive UTI Hypertension Alzheimer dementia COPD Plan November 02: Labs are reviewed. Low potassium replaced. Continue as is. November 01: Labs reviewed. Slightly elevated serum potassium most likely due to hemolysis since renal parameters are stable. Continue per consultants. Continue to monitor electrolytes and renal parameters. October 31: Labs reviewed. Low phosphorus replaced. Renal parameters are stable. Continue per consultants. October 30: Labs reviewed. Low potassium replaced. Serum sodium normalized. Will DC IV fluid. Continue to monitor renal parameters and electrolytes. October 29: Labs reviewed. Stable from renal standpoint of view. Serum creatinine 1. Continue per consultants. October 28: Labs reviewed. Abnormal electrolytes reviewed and addressed. Continue per current management. October 27: Labs reviewed. Further improvement of hypernatremia and serum creatinine. Continue same management. October 26: Labs reviewed. Serum sodium gradually lowering. Serum creatinine 1.4. Continue monitor renal parameters. October 25: Serum creatinine now within normal limit. Hypernatremia persists. Continue IV D5W. Continue to monitor electrolytes. Patient full code Free water in the form of D5W at 75 cc an hour IV Monitor renal parameters and electrolytes Keep the blood pressure and blood sugar in check Per orders Subjective ROS Limited/Unobtainable: No Constitutional: Reports: malaise Objective Objective Last 24 Hour Vital Signs Date Time Temp Pulse Resp B/P (MAP) Pulse Ox O2 Delivery O2 Flow Rate FiO2 11/02/20 12:00 98.4 63 18 127/67 (87) 96 11/02/20 09:54 60 132/75 11/02/20 09:00 Nasal Cannula 4.0 11/02/20 08:00 98.7 61 18 123/71 (88) 95 11/02/20 04:00 97.3 67 18 128/91 (103) 95 11/02/20 00:00 98.2 68 17 127/83 (98) 91 11/01/20 21:00 Nasal Cannula 2.0 11/01/20 20:44 96 Nasal Cannula 4.0 36 11/01/20 20:00 97.2 80 18 143/89 (107) 92 11/01/20 16:12 98.6 99 18 113/88 (96) 95 Intake and Output 11/01/20 11/02/20 19:00 07:00 Intake Total 690 ml 120 ml Balance 690 ml 120 ml Intake Oral 690 ml 120 ml # Voids 3 2 Current Medications Medications (Trade) Dose Ordered Sig/Eva Route PRN Reason Start Time Stop Time Status Last Admin Dose Admin Albuterol/ Ipratropium (Combivent Respimat) 1 puff Q4H PRN INH Shortness of Breath 10/27/20 09:00 11/26/20 08:59 Amlodipine Besylate (Norvasc) 5 mg DAILY ORAL 10/25/20 09:00 11/24/20 08:59 11/02/20 09:54 Aspirin (Ecotrin) 81 mg DAILY ORAL 10/25/20 09:00 12/09/20 08:59 11/02/20 09:44 Clonidine HCl (Catapres Tab) 0.1 mg Q2H PRN ORAL For High Blood Pressure 10/24/20 16:30 01/22/21 16:29 Dexamethasone Sodium Phosphate (Decadron 10mg/ ml Inj) 6 mg DAILY IV 10/26/20 15:00 11/04/20 09:01 11/02/20 09:46 Docusate Sodium (Colace) 100 mg TWICE A DAY ORAL 10/24/20 18:00 11/23/20 17:59 11/02/20 09:45 Heparin Sodium (Porcine) (Heparin 5000 units/ml) 5,000 units EVERY 12 HOURS SUBQ 10/24/20 21:00 12/08/20 20:59 11/02/20 09:43 Memantine (Namenda) 5 mg BID ORAL 10/26/20 09:00 11/25/20 08:59 11/02/20 09:43 Mirtazapine (Remeron) 7.5 mg BEDTIME ORAL 10/26/20 21:00 01/24/21 20:59 11/01/20 20:14 Pantoprazole (Protonix) 40 mg DAILY ORAL 10/25/20 09:00 11/24/20 08:59 11/02/20 09:44 Phosphorus (Phospha 250 Neutral) 250 mg THREE TIMES A DAY ORAL 10/31/20 13:00 11/30/20 12:59 11/02/20 09:45 Potassium Chloride (K-Dur) 40 meq DAILY ORAL 10/30/20 13:30 01/28/21 13:29 11/02/20 09:44 Promethazine HCl/ Codeine (Phenergan with Codeine) 5 ml Q4H PRN ORAL For Cough 10/26/20 12:15 11/25/20 12:14 Theophylline (Ivan-Dur) 100 mg EVERY 12 HOURS ORAL 10/26/20 21:00 01/24/21 20:59 11/02/20 09:56 Zolpidem Tartrate (Ambien) 5 mg HSPRN PRN ORAL Insomnia 11/01/20 20:15 11/08/20 20:14 11/01/20 20:27 Laboratory Tests 11/02/20 05:40: Sodium Level 142, Potassium Level 3.3L, Chloride Level 105, Carbon Dioxide Level 29, Anion Gap 8, Blood Urea Nitrogen 28H, Creatinine 1.1, Estimat Glomerular Filtration Rate > 60, Glucose Level 59L, Calcium Level 9.4, Phosphorus Level 4.3, Magnesium Level 2.1, Total Bilirubin 0.5, Aspartate Amino Transf (AST/SGOT) 56H, Alanine Aminotransferase (ALT/SGPT) 55, Alkaline Phosphatase 49, Total Protein 7.6, Albumin 3.0L, Globulin 4.6, Albumin/Globulin Ratio 0.7L Height (Feet): 6 Height (Inches): 1.00 Weight (Pounds): 140 General Appearance: no apparent distress EENT: other - On nasal cannula Cardiovascular: normal rate Respiratory/Chest: decreased breath sounds Abdomen: soft Damian Webb MD Nov 02, 2020 14:01
[2020-11-02 16:00] VITALS: BP 129/67
--- NOTE | 2020-11-02 18:30 | NUR ---
NURSE NOTES: Skin care given ,patient remains confused,constant reposition ,bed alarm on.
--- NOTE | 2020-11-02 18:30 | NUR ---
NURSE NOTES: Patient received potassium chloride IVPB as ordered.
--- NOTE | 2020-11-02 19:40 | NUR ---
NURSE HAND-OFF: Merlyn SANTOS Important Events on Shift: [Bilateral soft wrist restraints] Patient Status: [ patient confused.] Diet: [Low Sodium] Pending Orders: [] Pending Results/Lab/ AM labss:[] Pending MD notification:[] Latest Vital Signs: Temperature 97.9 , Pulse 63 , B/P 129 /64 , Respiratory Rate 20 , O2 SAT 92 , Venturi Mask, O2 Flow Rate 4.0 . Vital Sign Comment: [] Latest Fung Fall Score: 70 Fall Risk: High Risk Safety Measures: Call light Within Reach, Bed Alarm Zone 2, Side Rails Side Rails x3, Bed position Low and Locked. Fall Precautions: Yellow Socks Yellow Gown y Door Sign y Patient Fall Education Report given to [].
--- NOTE | 2020-11-02 19:45 | NUR ---
NURSE NOTES: Received report & pt from DANIELLE Lino. Pt in bed, A&ox1, confused,On o2 via NC @ 2LPM. No s/s of distress & no s/s of pain & no facial grimacing. IV site intact & S/L'd. Bed in lowest position, call light within reach. Will continue to monitor.
[2020-11-02 20:00] VITALS: BP 129/64
--- NOTE | 2020-11-02 21:46 | General Progress Note ---
Subjective ROS Limited/Unobtainable: Yes Allergies: Coded Allergies: No Known Allergies (Unverified , 06/18/18) Objective Last 24 Hour Vital Signs Date Time Temp Pulse Resp B/P (MAP) Pulse Ox O2 Delivery O2 Flow Rate FiO2 11/02/20 20:00 97.9 63 20 129/64 (85) 92 11/02/20 19:53 95 Nasal Cannula 4.0 36 11/02/20 16:00 97.4 76 19 129/67 (87) 98 11/02/20 12:00 98.4 63 18 127/67 (87) 96 11/02/20 09:54 60 132/75 11/02/20 09:00 Nasal Cannula 4.0 11/02/20 08:00 98.7 61 18 123/71 (88) 95 11/02/20 07:00 95 Nasal Cannula 4.0 36 11/02/20 04:00 97.3 67 18 128/91 (103) 95 11/02/20 00:00 98.2 68 17 127/83 (98) 91 Intake and Output 11/01/20 11/02/20 19:00 07:00 Intake Total 690 ml 120 ml Balance 690 ml 120 ml Intake Oral 690 ml 120 ml # Voids 3 2 Laboratory Tests 11/02/20 05:40: Sodium Level 142, Potassium Level 3.3L, Chloride Level 105, Carbon Dioxide Level 29, Anion Gap 8, Blood Urea Nitrogen 28H, Creatinine 1.1, Estimat Glomerular Filtration Rate > 60, Glucose Level 59L, Calcium Level 9.4, Phosphorus Level 4.3, Magnesium Level 2.1, Total Bilirubin 0.5, Aspartate Amino Transf (AST/SGOT) 56H, Alanine Aminotransferase (ALT/SGPT) 55, Alkaline Phosphatase 49, Total Protein 7.6, Albumin 3.0L, Globulin 4.6, Albumin/Globulin Ratio 0.7L Height (Feet): 6 Height (Inches): 1.00 Weight (Pounds): 140 Assessment/Plan Problem List: (1) ACS (acute coronary syndrome) ICD Codes: I24.9 - Acute ischemic heart disease, unspecified SNOMED: 328125536 (2) Chest pain ICD Codes: R07.9 - Chest pain, unspecified SNOMED: 47547756 (3) COPD (chronic obstructive pulmonary disease) ICD Codes: J44.9 - Chronic obstructive pulmonary disease, unspecified SNOMED: 30158955 (4) Hypernatremia ICD Codes: E87.0 - Hyperosmolality and hypernatremia SNOMED: 943109664 (5) Severe protein-calorie malnutrition ICD Codes: E43 - Unspecified severe protein-calorie malnutrition SNOMED: 960458076, 477500322, 926008776 (6) KAILEY (acute kidney injury) ICD Codes: N17.9 - Acute kidney failure, unspecified SNOMED: 09676991, 5383690 (7) UTI (urinary tract infection) ICD Codes: N39.0 - Urinary tract infection, site not specified SNOMED: 42517355 (8) Dementia ICD Codes: F03.90 - Unspecified dementia without behavioral disturbance SNOMED: 97051432 Status: stable Assessment/Plan: copd exacerbation afebrile no acute events no change check lytes resp insuff uti is improving Annamarie Vasquez MD Nov 02, 2020 21:46
[2020-11-03] VITALS: BP 143/68
[2020-11-03 04:00] VITALS: BP 113/68
--- NOTE | 2020-11-03 06:33 | NUR ---
NURSE HAND-OFF: Important Events on Shift: still aggressive/combative Patient Status: stable Diet: low sodium diet pureed diet Pending Orders: none Pending Results/Labs:none Pending MD notification:none Latest Vital Signs: Temperature 97.5 , Pulse 72 , B/P 113 /68 , Respiratory Rate 20 , O2 SAT 93 , Venturi Mask, O2 Flow Rate 2.0 . Vital Sign Comment: Latest Fung Fall Score: 70 Fall Risk: High Risk Safety Measures: Call light Within Reach, Bed Alarm Zone 2, Side Rails Side Rails x3, Bed position Low and Locked. Fall Precautions: Yellow Socks Yellow Gown Door Sign Patient Fall Education Report given to DANIELLE Garcia.
[2020-11-03 07:07] LABS: ALANINE AMINOTRANSFERASE 52 U/L (12-78); ALBUMIN 3.1 G/DL (3.4-5.0); ALBUMIN/GLOBULIN RATIO 0.7 (1.0-2.7); ALKALINE PHOSPHATASE 53 U/L (46-116); ANION GAP 6 mmol/L (5-15); ASPARTATE AMINO TRANSFERASE 49 U/L (15-37); BILIRUBIN,TOTAL 0.4 MG/DL (0.2-1.0); BLOOD UREA NITROGEN 28 mg/dL (7-18); CALCIUM 9.8 MG/DL (8.5-10.1); CARBON DIOXIDE 28 MMOL/L (21-32); CHLORIDE 106 MMOL/L (98-107); POTASSIUM 4.5 MMOL/L (3.5-5.1); SODIUM 140 MMOL/L (136-145)
--- NOTE | 2020-11-03 07:45 | NUR ---
NURSE NOTES: Pt lying in bed w/bed in lowest position; bed alarm on; and call light within reach. Pt A&Ox1; VSS; on 2L NC; on b/l wrist restraints; and in no apparent respiratory distress. IV site intact/asymptomatic & H/L'd and skin intact. Pt agitated and trying to kick nurses. Will continue to monitor.
[2020-11-03 08:00] VITALS: BP 125/82
--- NOTE | 2020-11-03 09:05 | Infectious Diseases Prog Note ---
Assessment/Plan 84yo M with: Afebrile Normal WBC COVID positive Acute hypoxia 2/2 COVID pna UTI 10/24 UA 40-60 WBC, UCx >100k gamma-Strep CXR: No acute process 10/25 COVID PCR pos 10/26 CXR: No acute process Abdominal tenderness on exam 10/25 Abd US: Negative for gallstones or dilated bile ducts. Hypoechoic les ions in the right hepatic lobe. These are nonspecific, neoplastic etiologies are among the differential. Recommend further evaluation with contrast CT as clinically indicated. Nonspecific heterogeneous hepatic echogenicity, could indicate hepatocellular disease. Hepatic and bilateral renal cysts. Note nonvisualization of the aorta and portions of the pancreas Cr 1.7 Alzheimer's dementia HTN HIV screen neg RPR neg Plan: Cont dexamethasone #9/10 10/30 SP RDV #5 10/29 SP CTX #5 for UTI Monitor CBC/CMP Monitor temp curve, hemodynamics Monitor resp status D/w RN Thank you for this consult. [facility] will continue to follow. Subjective Allergies: Coded Allergies: No Known Allergies (Unverified , 06/18/18) AF 2L NC NAD in bed Objective Last 24 Hour Vital Signs Date Time Temp Pulse Resp B/P (MAP) Pulse Ox O2 Delivery O2 Flow Rate FiO2 11/03/20 04:00 97.5 72 20 113/68 (83) 93 11/03/20 00:00 98.1 72 20 143/68 (93) 91 11/02/20 21:00 Nasal Cannula 2.0 11/02/20 20:00 97.9 63 20 129/64 (85) 92 11/02/20 19:53 95 Nasal Cannula 4.0 36 11/02/20 16:00 97.4 76 19 129/67 (87) 98 11/02/20 12:00 98.4 63 18 127/67 (87) 96 11/02/20 09:54 60 132/75 Height (Feet): 6 Height (Inches): 1.00 Weight (Pounds): 140 Gen: NAD HEENT: NCAT Pulm: BL chest rise on venturi mask Abd: Non-distended Ext: No c/c/e Skin: No visible rashes Neuro: Awake Laboratory Tests Test 11/03/20 04:30 Sodium Level 140 MMOL/L (136-145) Potassium Level 4.5 MMOL/L (3.5-5.1) Chloride Level 106 MMOL/L (98-107) Carbon Dioxide Level 28 MMOL/L (21-32) Anion Gap 6 mmol/L (5-15) Blood Urea Nitrogen 28 mg/dL (7-18) H Creatinine 1.0 MG/DL (0.55-1.30) Estimat Glomerular Filtration Rate > 60 mL/min (>60) Glucose Level 72 MG/DL (74-106) L Calcium Level 9.8 MG/DL (8.5-10.1) Phosphorus Level 3.0 MG/DL (2.5-4.9) Magnesium Level 2.2 MG/DL (1.8-2.4) Total Bilirubin 0.4 MG/DL (0.2-1.0) Aspartate Amino Transf (AST/SGOT) 49 U/L (15-37) H Alanine Aminotransferase (ALT/SGPT) 52 U/L (12-78) Alkaline Phosphatase 53 U/L (46-116) Total Protein 7.8 G/DL (6.4-8.2) Albumin 3.1 G/DL (3.4-5.0) L Globulin 4.7 g/dL Albumin/Globulin Ratio 0.7 (1.0-2.7) L Current Medications Medications (Trade) Dose Ordered Sig/Eva Route PRN Reason Start Time Stop Time Status Last Admin Dose Admin Albuterol/ Ipratropium (Combivent Respimat) 1 puff Q4H PRN INH Shortness of Breath 10/27/20 09:00 11/26/20 08:59 Amlodipine Besylate (Norvasc) 5 mg DAILY ORAL 10/25/20 09:00 11/24/20 08:59 11/02/20 09:54 Aspirin (Ecotrin) 81 mg DAILY ORAL 10/25/20 09:00 12/09/20 08:59 11/02/20 09:44 Clonidine HCl (Catapres Tab) 0.1 mg Q2H PRN ORAL For High Blood Pressure 10/24/20 16:30 01/22/21 16:29 Dexamethasone Sodium Phosphate (Decadron 10mg/ ml Inj) 6 mg DAILY IV 10/26/20 15:00 11/04/20 09:01 11/02/20 09:46 Docusate Sodium (Colace) 100 mg TWICE A DAY ORAL 10/24/20 18:00 11/23/20 17:59 11/02/20 18:47 Heparin Sodium (Porcine) (Heparin 5000 units/ml) 5,000 units EVERY 12 HOURS SUBQ 10/24/20 21:00 12/08/20 20:59 11/02/20 20:43 Memantine (Namenda) 5 mg BID ORAL 10/26/20 09:00 11/25/20 08:59 11/02/20 18:49 Mirtazapine (Remeron) 7.5 mg BEDTIME ORAL 10/26/20 21:00 01/24/21 20:59 11/02/20 20:42 Pantoprazole (Protonix) 40 mg DAILY ORAL 10/25/20 09:00 11/24/20 08:59 11/02/20 09:44 Promethazine HCl/ Codeine (Phenergan with Codeine) 5 ml Q4H PRN ORAL For Cough 10/26/20 12:15 11/25/20 12:14 Theophylline (Ivan-Dur) 100 mg EVERY 12 HOURS ORAL 10/26/20 21:00 01/24/21 20:59 11/02/20 20:42 Zolpidem Tartrate (Ambien) 5 mg HSPRN PRN ORAL Insomnia 11/01/20 20:15 11/08/20 20:14 11/01/20 20:27 Lucia Gresham M.D. Nov 03, 2020 09:05
--- NOTE | 2020-11-03 09:15 | Psychiatry Consultation ---
Psychiatry Consultation Psychiatry Consultation Chief Complaint: Generalized Weakness History of Present Illness: 84yo male with generalized weakness and failure to thrive. Patient is confused ands disorganized and his cognition has declined below baseline due to the progression of his medical illness thats why his attending has requested daily psych consult. Allergies: Coded Allergies: No Known Allergies (Unverified , 06/18/18) Medication History Scheduled Amlodipine Besylate* (Amlodipine Besylate*), 5 MG ORAL DAILY, (Reported) Aspirin* (Aspir 81*), 81 MG ORAL DAILY, (Reported) Scheduled PRN Albuterol Sulfate* (Albuterol Sulfate Mdi*), 2 PUFF INH Q4H PRN for cough/wheezing Melatonin (Melatonin 5 Mg Tablet), 1 TAB ORAL BEDTIME PRN for Insomnia, (Reported) Tramadol Hcl* (Ultram*), 50 MG ORAL BID PRN for For Pain, (Reported) Zolpidem Tartrate* (Ambien*), 5 MG ORAL BEDTIME PRN for Insomnia, (Reported) Discontinued Medications Clonidine Hcl (Clonidine Hcl), 0.1 MG PO Q4HR PRN for prn, (Reported) Discontinued Reason: Therapy completed Hydralazine Hcl* (Hydralazine Hcl*), 50 MG ORAL EVERY 8 HOURS PRN for For High Blood Pressure, (Reported) Discontinued Reason: Therapy completed Objective Data Height (Feet): 6 Height (Inches): 1.00 Weight (Pounds): 140 Appearance: disheveled Behavior Mannerisms: poor eye contact Affect: constricted Mood: depressed, anxious Speech: dysarthric Thought Process: disorganized Thought Content: paranoia Perceptual Disturbances: auditory Suicidal Ideation: no plan Cognition: abnormalities (specify) Assessment/Plan Assessment/Plan: Plan is to add Remeron 7.5 mg nightly for depression and also to increase his appetite also Ativan 0.5 mg every 6 hours. Anxiety agitation as well as Namenda 5 mg twice a day to prevent further decline in his cognition also 20 minutes of insight oriented psychotherapy was provided while work with this patient to help him have a better understanding of his physical and psychiatric condition in order to reduce depression anxiety and to help with impulse control charge been reviewed and discussed with staff patient seen and assessed at bedside Diagnosis [employer] I: Major Depression with psychotic features rule out dementia with psychosis Lizbeth Patton MD Nov 03, 2020 09:15
--- NOTE | 2020-11-03 10:00 | NUR ---
PT NOTE Attempted to see patient for PT treatment. Patient agitated, combative, resistive to ROM BLEs. Patient unable to participate with PT at this time, Jose SANTOS notified.
[2020-11-03] MEDS: Docusate 100mg cap ORAL SCH ×2 (10:15→18:13)
[2020-11-03] MEDS: Aspirin EC 81mg tab ORAL SCH (10:15)
[2020-11-03] MEDS: Theophylline ER 100mg ORAL SCH ×2 (10:15→20:43)
[2020-11-03] MEDS: dexAMETHasone 10mg/ml Inj IV SCH (10:16)
[2020-11-03] MEDS: Heparin 5000 units/ml inj SUBQ SCH ×2 (10:17→20:47)
[2020-11-03] MEDS: Memantine 5 MG TAB ORAL SCH ×2 (10:20→18:13)
[2020-11-03 12:00] VITALS: BP 105/67
--- NOTE | 2020-11-03 12:51 | Nephrology Progress Note ---
Assessment/Plan Problem List: (1) KAILEY (acute kidney injury) (2) Hypernatremia (3) Hypertension (4) UTI (urinary tract infection) (5) Dementia Assessment Acute renal failure, dehydration Hypernatremia secondary to free water deficit Failure to thrive UTI Hypertension Alzheimer dementia COPD Plan November 03: Labs reviewed. Electrolytes and renal parameters stable. November 02: Labs are reviewed. Low potassium replaced. Continue as is. November 01: Labs reviewed. Slightly elevated serum potassium most likely due to hemolysis since renal parameters are stable. Continue per consultants. Continue to monitor electrolytes and renal parameters. October 31: Labs reviewed. Low phosphorus replaced. Renal parameters are stable. Continue per consultants. October 30: Labs reviewed. Low potassium replaced. Serum sodium normalized. Will DC IV fluid. Continue to monitor renal parameters and electrolytes. October 29: Labs reviewed. Stable from renal standpoint of view. Serum creatinine 1. Continue per consultants. October 28: Labs reviewed. Abnormal electrolytes reviewed and addressed. Continue per current management. October 27: Labs reviewed. Further improvement of hypernatremia and serum creatinine. Continue same management. October 26: Labs reviewed. Serum sodium gradually lowering. Serum creatinine 1.4. Continue monitor renal parameters. October 25: Serum creatinine now within normal limit. Hypernatremia persists. Continue IV D5W. Continue to monitor electrolytes. Patient full code Free water in the form of D5W at 75 cc an hour IV Monitor renal parameters and electrolytes Keep the blood pressure and blood sugar in check Per orders Subjective ROS Limited/Unobtainable: No Constitutional: Reports: malaise Objective Objective Last 24 Hour Vital Signs Date Time Temp Pulse Resp B/P (MAP) Pulse Ox O2 Delivery O2 Flow Rate FiO2 11/03/20 12:00 97.7 73 18 105/67 (80) 96 11/03/20 10:14 76 125/82 11/03/20 08:00 98.1 76 20 125/82 (96) 95 11/03/20 04:00 97.5 72 20 113/68 (83) 93 11/03/20 00:00 98.1 72 20 143/68 (93) 91 11/02/20 21:00 Nasal Cannula 2.0 11/02/20 20:00 97.9 63 20 129/64 (85) 92 11/02/20 19:53 95 Nasal Cannula 4.0 36 11/02/20 16:00 97.4 76 19 129/67 (87) 98 Intake and Output 11/02/20 11/03/20 19:00 07:00 Intake Total 720 ml Balance 720 ml Intake Oral 120 ml Other 600 ml # Voids 2 Laboratory Tests 11/03/20 04:30: Sodium Level 140, Potassium Level 4.5, Chloride Level 106, Carbon Dioxide Level 28, Anion Gap 6, Blood Urea Nitrogen 28H, Creatinine 1.0, Estimat Glomerular Filtration Rate > 60, Glucose Level 72L, Calcium Level 9.8, Phosphorus Level 3.0, Magnesium Level 2.2, Total Bilirubin 0.4, Aspartate Amino Transf (AST/SGOT) 49H, Alanine Aminotransferase (ALT/SGPT) 52, Alkaline Phosphatase 53, Total Protein 7.8, Albumin 3.1L, Globulin 4.7, Albumin/Globulin Ratio 0.7L Height (Feet): 6 Height (Inches): 1.00 Weight (Pounds): 140 General Appearance: no apparent distress Cardiovascular: normal rate Respiratory/Chest: decreased breath sounds Abdomen: soft Damian Webb MD Nov 03, 2020 12:51
--- NOTE | 2020-11-03 13:33 | Cardiac Electrophysiology PN ---
Assessment/Plan Assessment/Plan 1. Hypertension. Continue amlodipine 5 mg daily and p.r.n. clonidine 2. Severe dehydration and azotemia. Patient's sodium was 160 and creatinine of 1.7. Sodium now 141, BUN of 14, creatinine of 0.9 on IV fluid. 3. Elevated troponin and Poor R-wave progression on the EKG. No chest pain. EF 50%. Repeat troponin negative 4. Alzheimer dementia. 5. COPD and cough due to Covid DW RN and PT. Subjective Subjective In isolation for Covid in restraints on 2 liter NC in restraints On Abx. Objective Last 24 Hour Vital Signs Date Time Temp Pulse Resp B/P (MAP) Pulse Ox O2 Delivery O2 Flow Rate FiO2 11/03/20 12:00 97.7 73 18 105/67 (80) 96 11/03/20 10:14 76 125/82 11/03/20 09:00 Nasal Cannula 2.0 11/03/20 08:00 98.1 76 20 125/82 (96) 95 11/03/20 04:00 97.5 72 20 113/68 (83) 93 11/03/20 00:00 98.1 72 20 143/68 (93) 91 11/02/20 21:00 Nasal Cannula 2.0 11/02/20 20:00 97.9 63 20 129/64 (85) 92 11/02/20 19:53 95 Nasal Cannula 4.0 36 11/02/20 16:00 97.4 76 19 129/67 (87) 98 Intake and Output 11/02/20 11/03/20 19:00 07:00 Intake Total 720 ml Balance 720 ml Intake Oral 120 ml Other 600 ml # Voids 2 Laboratory Tests Test 11/03/20 04:30 Sodium Level 140 MMOL/L (136-145) Potassium Level 4.5 MMOL/L (3.5-5.1) Chloride Level 106 MMOL/L (98-107) Carbon Dioxide Level 28 MMOL/L (21-32) Anion Gap 6 mmol/L (5-15) Blood Urea Nitrogen 28 mg/dL (7-18) H Creatinine 1.0 MG/DL (0.55-1.30) Estimat Glomerular Filtration Rate > 60 mL/min (>60) Glucose Level 72 MG/DL (74-106) L Calcium Level 9.8 MG/DL (8.5-10.1) Phosphorus Level 3.0 MG/DL (2.5-4.9) Magnesium Level 2.2 MG/DL (1.8-2.4) Total Bilirubin 0.4 MG/DL (0.2-1.0) Aspartate Amino Transf (AST/SGOT) 49 U/L (15-37) H Alanine Aminotransferase (ALT/SGPT) 52 U/L (12-78) Alkaline Phosphatase 53 U/L (46-116) Total Protein 7.8 G/DL (6.4-8.2) Albumin 3.1 G/DL (3.4-5.0) L Globulin 4.7 g/dL Albumin/Globulin Ratio 0.7 (1.0-2.7) L Objective HEAD AND NECK: No JVD. LUNGS: Clear. CARDIOVASCULAR: Shows regular S1 and S2 with no gallop. ABDOMEN: Soft. EXTREMITIES: No pitting edema. Maurilio Lares MD Nov 03, 2020 13:33
--- NOTE | 2020-11-03 13:36 | Pulmonology Progress Note ---
Subjective ROS Limited/Unobtainable: No Constitutional: Reports: no symptoms HEENT: Repors: no symptoms Allergies: Coded Allergies: No Known Allergies (Unverified , 06/18/18) Objective Last 24 Hour Vital Signs Date Time Temp Pulse Resp B/P (MAP) Pulse Ox O2 Delivery O2 Flow Rate FiO2 11/03/20 12:00 97.7 73 18 105/67 (80) 96 11/03/20 10:14 76 125/82 11/03/20 09:00 Nasal Cannula 2.0 11/03/20 08:00 98.1 76 20 125/82 (96) 95 11/03/20 04:00 97.5 72 20 113/68 (83) 93 11/03/20 00:00 98.1 72 20 143/68 (93) 91 11/02/20 21:00 Nasal Cannula 2.0 11/02/20 20:00 97.9 63 20 129/64 (85) 92 11/02/20 19:53 95 Nasal Cannula 4.0 36 11/02/20 16:00 97.4 76 19 129/67 (87) 98 Intake and Output 11/02/20 11/03/20 19:00 07:00 Intake Total 720 ml Balance 720 ml Intake Oral 120 ml Other 600 ml # Voids 2 General Appearance: cachetic, other - awake, responsive elderly AA male HEENT: normocephalic, atraumatic, anicteric, other - O2 via NC Respiratory: chest wall non-tender, lungs clear - with decreased BS Cardiovascular: normal peripheral pulses, regular rhythm Abdomen: normal bowel sounds, soft, non tender Genitourinary: normal external genitalia Extremities: no edema Skin: no lesions Neurologic: alert, responsive Musculoskeletal: atrophy - BLE Laboratory Tests 11/03/20 04:30: Sodium Level 140, Potassium Level 4.5, Chloride Level 106, Carbon Dioxide Level 28, Anion Gap 6, Blood Urea Nitrogen 28H, Creatinine 1.0, Estimat Glomerular Filtration Rate > 60, Glucose Level 72L, Calcium Level 9.8, Phosphorus Level 3.0, Magnesium Level 2.2, Total Bilirubin 0.4, Aspartate Amino Transf (AST/SGOT) 49H, Alanine Aminotransferase (ALT/SGPT) 52, Alkaline Phosphatase 53, Total Protein 7.8, Albumin 3.1L, Globulin 4.7, Albumin/Globulin Ratio 0.7L Current Medications Medications (Trade) Dose Ordered Sig/Eva Route PRN Reason Start Time Stop Time Status Last Admin Dose Admin Albuterol/ Ipratropium (Combivent Respimat) 1 puff Q4H PRN INH Shortness of Breath 10/27/20 09:00 11/26/20 08:59 Amlodipine Besylate (Norvasc) 5 mg DAILY ORAL 10/25/20 09:00 11/24/20 08:59 11/03/20 10:14 Aspirin (Ecotrin) 81 mg DAILY ORAL 10/25/20 09:00 12/09/20 08:59 11/03/20 10:15 Clonidine HCl (Catapres Tab) 0.1 mg Q2H PRN ORAL For High Blood Pressure 10/24/20 16:30 01/22/21 16:29 Dexamethasone Sodium Phosphate (Decadron 10mg/ ml Inj) 6 mg DAILY IV 10/26/20 15:00 11/04/20 09:01 11/03/20 10:16 Docusate Sodium (Colace) 100 mg TWICE A DAY ORAL 10/24/20 18:00 11/23/20 17:59 11/03/20 10:15 Heparin Sodium (Porcine) (Heparin 5000 units/ml) 5,000 units EVERY 12 HOURS SUBQ 10/24/20 21:00 12/08/20 20:59 11/03/20 10:17 Memantine (Namenda) 5 mg BID ORAL 10/26/20 09:00 11/25/20 08:59 11/03/20 10:20 Mirtazapine (Remeron) 7.5 mg BEDTIME ORAL 10/26/20 21:00 01/24/21 20:59 11/02/20 20:42 Pantoprazole (Protonix) 40 mg DAILY ORAL 10/25/20 09:00 11/24/20 08:59 11/03/20 10:14 Promethazine HCl/ Codeine (Phenergan with Codeine) 5 ml Q4H PRN ORAL For Cough 10/26/20 12:15 11/25/20 12:14 Theophylline (Ivan-Dur) 100 mg EVERY 12 HOURS ORAL 10/26/20 21:00 01/24/21 20:59 11/03/20 10:15 Zolpidem Tartrate (Ambien) 5 mg HSPRN PRN ORAL Insomnia 11/01/20 20:15 11/08/20 20:14 11/01/20 20:27 Assessment/Plan Problems: (1) 2019 novel coronavirus disease (COVID-19) (2) Purulent bronchitis (3) COPD (chronic obstructive pulmonary disease) (4) KAILEY (acute kidney injury) (5) Hypernatremia (6) At high risk for aspiration (7) Dementia (8) Severe protein-calorie malnutrition Assessment/Plan improving on nasal cannula respiratory treatment aspiration precaution swallow study: MODIFIED TEXTURE DIET: PUREE WITH NECTAR THICK LIQUIDS titrate fio2 to sat of 92% antitussives check electrolytes dvt prophylaxis. dc planning Cinda Drummond MD Nov 03, 2020 13:36
--- NOTE | 2020-11-03 14:07 | NUR ---
CASE MANAGEMENT:REVIEW SI;COVID PNEUMONIA. PURULENT BRONCHITIS. 98.1 76 20 143/68 91% 2L NC BUN 28 BG 72 AST 49 IS;DECADRON IV QD PROTONIX PO QD HEPARIN SQ Q12 NORVASC PO QD ASA PO QD SEBASTIAN-DUR PO Q12 MED SURG STATUS DCP;FROM HOME PLAN; ASPIRATION PRECAUTIONS
--- NOTE | 2020-11-03 14:30 | NUR ---
NURSE NOTES: Left vm for Dr. Sanchez re: changing order from central line to PICC line placement; also wanted to confirm OK to place peripheral IV on foot before central line placement since pt is diabetic. Will await call back.
[2020-11-03 16:00] VITALS: BP 131/68
--- NOTE | 2020-11-03 19:32 | NUR ---
NURSE HAND-OFF: Important Events on Shift: Pt combative and non-compliant still. Patient Status: Stable Diet: Low Sodium pureed Pending Orders: None Pending Results/Labs: None Pending MD notification: None Latest Vital Signs: Temperature 98.4 , Pulse 74 , B/P 131 /68 , Respiratory Rate 18 , O2 SAT 95 , Venturi Mask, O2 Flow Rate 2.0 . Vital Sign Comment: Stable Latest Fung Fall Score: 70 Fall Risk: High Risk Safety Measures: Call light Within Reach, Bed Alarm Zone 2, Side Rails Side Rails x3, Bed position Low and Locked. Fall Precautions: Yellow Socks Yellow Gown Door Sign Patient Fall Education Report given to DANIELLE Mcintosh.
--- NOTE | 2020-11-03 19:46 | NUR ---
NURSE NOTES: Received patient in bed, alert/oriented x1, confused, patient has bilateral soft wrists restraints on, incontinent of bowel and bladder, on oxygen at 2 liters per min, bedbound, IV site is clean dry and intact. Call light is within reach, bed is lowered, locked, alarm is on, will continue to monitor for comfort and safety.
[2020-11-03 20:00] VITALS: BP 142/56
--- NOTE | 2020-11-03 20:27 | General Progress Note ---
Subjective ROS Limited/Unobtainable: Yes Allergies: Coded Allergies: No Known Allergies (Unverified , 06/18/18) Objective Last 24 Hour Vital Signs Date Time Temp Pulse Resp B/P (MAP) Pulse Ox O2 Delivery O2 Flow Rate FiO2 11/03/20 20:00 98.5 100 20 142/56 (84) 97 11/03/20 16:00 98.4 74 18 131/68 (89) 95 11/03/20 12:00 97.7 73 18 105/67 (80) 96 11/03/20 10:14 76 125/82 11/03/20 09:00 Nasal Cannula 2.0 11/03/20 08:00 98.1 76 20 125/82 (96) 95 11/03/20 04:00 97.5 72 20 113/68 (83) 93 11/03/20 00:00 98.1 72 20 143/68 (93) 91 11/02/20 21:00 Nasal Cannula 2.0 Intake and Output 11/02/20 11/03/20 19:00 07:00 Intake Total 720 ml Balance 720 ml Intake Oral 120 ml Other 600 ml # Voids 2 Laboratory Tests 11/03/20 04:30: Sodium Level 140, Potassium Level 4.5, Chloride Level 106, Carbon Dioxide Level 28, Anion Gap 6, Blood Urea Nitrogen 28H, Creatinine 1.0, Estimat Glomerular Filtration Rate > 60, Glucose Level 72L, Calcium Level 9.8, Phosphorus Level 3.0, Magnesium Level 2.2, Total Bilirubin 0.4, Aspartate Amino Transf (AST/SGOT) 49H, Alanine Aminotransferase (ALT/SGPT) 52, Alkaline Phosphatase 53, Total Protein 7.8, Albumin 3.1L, Globulin 4.7, Albumin/Globulin Ratio 0.7L Height (Feet): 6 Height (Inches): 1.00 Weight (Pounds): 140 Assessment/Plan Problem List: (1) ACS (acute coronary syndrome) ICD Codes: I24.9 - Acute ischemic heart disease, unspecified SNOMED: 560235613 (2) Chest pain ICD Codes: R07.9 - Chest pain, unspecified SNOMED: 50723789 (3) COPD (chronic obstructive pulmonary disease) ICD Codes: J44.9 - Chronic obstructive pulmonary disease, unspecified SNOMED: 82133760 (4) Hypernatremia ICD Codes: E87.0 - Hyperosmolality and hypernatremia SNOMED: 606767349 (5) Severe protein-calorie malnutrition ICD Codes: E43 - Unspecified severe protein-calorie malnutrition SNOMED: 641085588, 521312503, 274059724 (6) KAILEY (acute kidney injury) ICD Codes: N17.9 - Acute kidney failure, unspecified SNOMED: 96317761, 6273704 (7) UTI (urinary tract infection) ICD Codes: N39.0 - Urinary tract infection, site not specified SNOMED: 66481133 (8) Dementia ICD Codes: F03.90 - Unspecified dementia without behavioral disturbance SNOMED: 86319953 Status: stable Assessment/Plan: copd exacerbation prn supportive care no fever check lytes resp insuff uti is improving Annamarie Vasquez MD Nov 03, 2020 20:27
--- NOTE | 2020-11-04 07:29 | NUR ---
NURSE HAND-OFF: Important Events on Shift:patient was combative, was cursing, refused am labs Patient Status full Diet: low sodium, pureed, thin liquids Pending Orders: Pending Results/Labs: Pending MD notification: Latest Vital Signs: Temperature 98.5 , Pulse 100 , B/P 142 /56 , Respiratory Rate 20 , O2 SAT 97 , Venturi Mask, O2 Flow Rate 2.0 . Vital Sign Comment: Latest Ufng Fall Score: 70 Fall Risk: High Risk Safety Measures: Call light Within Reach, Bed Alarm Zone 2, Side Rails Side Rails x3, Bed position Low and Locked. Fall Precautions: Yellow Socks Yellow Gown Door Sign Patient Fall Education Report given to Zoie SANTOS
[2020-11-04 08:00] VITALS: BP 128/91
--- NOTE | 2020-11-04 08:12 | NUR ---
NURSE NOTES: Patient awake and alert to namer but confused.Bilateral soft wrist restraints are on,will provide ROM and skin care.will assist with meals.bed ,call light within reach,bed alarm is on.
--- NOTE | 2020-11-04 08:40 | Infectious Diseases Prog Note ---
Assessment/Plan 84yo M with: Afebrile Normal WBC COVID positive Acute hypoxia 2/2 COVID pna UTI 10/24 UA 40-60 WBC, UCx >100k gamma-Strep CXR: No acute process 10/25 COVID PCR pos 10/26 CXR: No acute process Abdominal tenderness on exam 10/25 Abd US: Negative for gallstones or dilated bile ducts. Hypoechoic les ions in the right hepatic lobe. These are nonspecific, neoplastic etiologies are among the differential. Recommend further evaluation with contrast CT as clinically indicated. Nonspecific heterogeneous hepatic echogenicity, could indicate hepatocellular disease. Hepatic and bilateral renal cysts. Note nonvisualization of the aorta and portions of the pancreas Cr 1.7 Alzheimer's dementia HTN HIV screen neg RPR neg Plan: Cont dexamethasone #10/10 OK to d/c off steroids from ID standpoint after dose today 10/30 SP RDV #5 10/29 SP CTX #5 for UTI Monitor CBC/CMP Monitor temp curve, hemodynamics Monitor resp status D/w RN Thank you for this consult. [facility] will continue to follow. Subjective Allergies: Coded Allergies: No Known Allergies (Unverified , 06/18/18) AF 2L NC NAD in bed Objective Last 24 Hour Vital Signs Date Time Temp Pulse Resp B/P (MAP) Pulse Ox O2 Delivery O2 Flow Rate FiO2 11/03/20 21:16 Nasal Cannula 2.0 11/03/20 20:00 98.5 100 20 142/56 (84) 97 11/03/20 16:00 98.4 74 18 131/68 (89) 95 11/03/20 12:00 97.7 73 18 105/67 (80) 96 11/03/20 10:14 76 125/82 11/03/20 09:00 Nasal Cannula 2.0 Height (Feet): 6 Height (Inches): 1.00 Weight (Pounds): 140 Gen: NAD HEENT: NCAT Pulm: BL chest rise on venturi mask Abd: Non-distended Ext: No c/c/e Skin: No visible rashes Neuro: Awake Current Medications Medications (Trade) Dose Ordered Sig/Eva Route PRN Reason Start Time Stop Time Status Last Admin Dose Admin Albuterol/ Ipratropium (Combivent Respimat) 1 puff Q4H PRN INH Shortness of Breath 10/27/20 09:00 11/26/20 08:59 Amlodipine Besylate (Norvasc) 5 mg DAILY ORAL 10/25/20 09:00 11/24/20 08:59 11/03/20 10:14 Aspirin (Ecotrin) 81 mg DAILY ORAL 10/25/20 09:00 12/09/20 08:59 11/03/20 10:15 Clonidine HCl (Catapres Tab) 0.1 mg Q2H PRN ORAL For High Blood Pressure 10/24/20 16:30 01/22/21 16:29 Dexamethasone Sodium Phosphate (Decadron 10mg/ ml Inj) 6 mg DAILY IV 10/26/20 15:00 11/04/20 09:01 11/03/20 10:16 Docusate Sodium (Colace) 100 mg TWICE A DAY ORAL 10/24/20 18:00 11/23/20 17:59 11/03/20 18:13 Heparin Sodium (Porcine) (Heparin 5000 units/ml) 5,000 units EVERY 12 HOURS SUBQ 10/24/20 21:00 12/08/20 20:59 11/03/20 20:47 Memantine (Namenda) 5 mg BID ORAL 10/26/20 09:00 11/25/20 08:59 11/03/20 18:13 Mirtazapine (Remeron) 7.5 mg BEDTIME ORAL 10/26/20 21:00 01/24/21 20:59 11/03/20 20:43 Pantoprazole (Protonix) 40 mg DAILY ORAL 10/25/20 09:00 11/24/20 08:59 11/03/20 10:14 Promethazine HCl/ Codeine (Phenergan with Codeine) 5 ml Q4H PRN ORAL For Cough 10/26/20 12:15 11/25/20 12:14 Theophylline (Ivan-Dur) 100 mg EVERY 12 HOURS ORAL 10/26/20 21:00 01/24/21 20:59 11/03/20 20:43 Zolpidem Tartrate (Ambien) 5 mg HSPRN PRN ORAL Insomnia 11/01/20 20:15 11/08/20 20:14 11/01/20 20:27 Lucia Gresham M.D. Nov 04, 2020 08:40
--- NOTE | 2020-11-04 10:00 | NUR ---
PT NOTE Attempted to see patient for PT treatment. Patient confused, agitated, uncooperative, unable to participate with PT at this time. Zoie SANTOS aware.
[2020-11-04] MEDS: Aspirin EC 81mg tab ORAL SCH (10:16)
[2020-11-04] MEDS: dexAMETHasone 10mg/ml Inj IV SCH (10:16)
[2020-11-04] MEDS: Docusate 100mg cap ORAL SCH ×2 (10:16→18:00)
[2020-11-04] MEDS: Memantine 5 MG TAB ORAL SCH ×2 (10:17→18:00)
[2020-11-04] MEDS: Theophylline ER 100mg ORAL SCH ×2 (10:17→20:20)
[2020-11-04] MEDS: Heparin 5000 units/ml inj SUBQ SCH ×2 (10:19→20:22)
--- NOTE | 2020-11-04 10:53 | NUR ---
RD ASSESSMENT & RECOMMENDATIONS SEE CARE ACTIVITY FOR COMPLETE ASSESSMENT DAILY ESTIMATED NEEDS: Needs based on Underweight, wasting 51kg 30-35 kcals/kg 9660-1848 total kcals 1-1.5 g protein/kg 51-76 g total protein 25-30 mL/kg 0210-7185 total fluid mLs NUTRITION DIAGNOSIS: Increased kcal and pro needs r/t underweight, wasting, wt loss as evidenced by pt w/ generalized moderate wasting, @ 79% of ideal body weight w/ low BMI of 18.1, pt w/ suspected significant wt loss of 11 lbs/8.9% in <6 months. . CURRENT DIET:LOW NA, pureed moist PO DIET RECOMMENDATIONS: Liberalized regular/ texture as tolerated or per CONTACT LENS INSPECTOR ADDITIONAL RECOMMENDATIONS: 1) Monitor wt trend- suspected recent significant wt loss calibrated daily bedscale wts 2) Consider CONTACT LENS INSPECTOR eval for appropriate texture-> cleared for puree 3) MVI x 1 4) Add Ensure Enlive TID w/ meals (350kcal/20g prot each) 5) Consider resume D5 IV to prevent hypoglycemia Offer and encourage HS snack rec accuchecks for close BG monitoring
[2020-11-04 12:00] VITALS: BP 119/86
--- NOTE | 2020-11-04 12:33 | Psychiatry Consultation ---
Psychiatry Consultation Psychiatry Consultation Chief Complaint: Generalized Weakness History of Present Illness: 84yo male who is confused and disorganized due to the progression of his medical illness. Because of hios mood lability and altered mental status his attentding has requested daily psych consultation to try to improve his cognition closer to his baseline. Allergies: Coded Allergies: No Known Allergies (Unverified , 06/18/18) Medication History Scheduled Amlodipine Besylate* (Amlodipine Besylate*), 5 MG ORAL DAILY, (Reported) Aspirin* (Aspir 81*), 81 MG ORAL DAILY, (Reported) Scheduled PRN Albuterol Sulfate* (Albuterol Sulfate Mdi*), 2 PUFF INH Q4H PRN for cough /wheezing Melatonin (Melatonin 5 Mg Tablet), 1 TAB ORAL BEDTIME PRN for Insomnia, (Reported) Tramadol Hcl* (Ultram*), 50 MG ORAL BID PRN for For Pain, (Reported) Zolpidem Tartrate* (Ambien*), 5 MG ORAL BEDTIME PRN for Insomnia, (Reported) Objective Data Height (Feet): 6 Height (Inches): 1.00 Weight (Pounds): 140 Appearance: disheveled Affect: labile Mood: depressed Thought Process: goal-directed Thought Content: paranoia Perceptual Disturbances: auditory Suicidal Ideation: not present Assessment/Plan Assessment/Plan: Plan is to add Remeron 7.5 mg nightly for depression and also to increase his appetite also Ativan 0.5 mg every 6 hours. 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
--- NOTE | 2020-11-04 12:51 | Cardiac Electrophysiology PN ---
Assessment/Plan Assessment/Plan 1. Hypertension. Continue amlodipine 5 mg daily and p.r.n. clonidine 2. Severe dehydration and azotemia. Patient's sodium was 160 and creatinine of 1.7. Sodium improved to 141, BUN of 14, creatinine of 0.9 on IV fluid. 3. Elevated troponin and Poor R-wave progression on the EKG. No chest pain. EF 50%. Repeat troponin negative 4. Alzheimer dementia. 5. COPD and cough due to Covid DW RN and PT. Subjective Subjective In isolation for Covid in restraints on 2 liter NC in restraints. Objective Last 24 Hour Vital Signs Date Time Temp Pulse Resp B/P (MAP) Pulse Ox O2 Delivery O2 Flow Rate FiO2 11/04/20 10:17 86 135/53 11/04/20 09:00 Nasal Cannula 2.0 11/04/20 08:00 97.9 83 20 128/91 (103) 92 11/03/20 21:16 Nasal Cannula 2.0 11/03/20 20:00 98.5 100 20 142/56 (84) 97 11/03/20 16:00 98.4 74 18 131/68 (89) 95 Intake and Output 11/03/20 11/04/20 19:00 07:00 Intake Total 480 ml Balance 480 ml Intake Oral 480 ml # Voids 3 Objective HEAD AND NECK: No JVD. LUNGS: Clear. CARDIOVASCULAR: Shows regular S1 and S2 with no gallop. ABDOMEN: Soft. EXTREMITIES: No pitting edema. Maurilio Lares MD Nov 04, 2020 12:51
--- NOTE | 2020-11-04 13:14 | General Progress Note ---
Subjective ROS Limited/Unobtainable: Yes Allergies: Coded Allergies: No Known Allergies (Unverified , 06/18/18) Objective Last 24 Hour Vital Signs Date Time Temp Pulse Resp B/P (MAP) Pulse Ox O2 Delivery O2 Flow Rate FiO2 11/04/20 12:00 98.6 79 18 119/86 (97) 96 11/04/20 10:17 86 135/53 11/04/20 09:00 Nasal Cannula 2.0 11/04/20 08:00 97.9 83 20 128/91 (103) 92 11/03/20 21:16 Nasal Cannula 2.0 11/03/20 20:00 98.5 100 20 142/56 (84) 97 11/03/20 16:00 98.4 74 18 131/68 (89) 95 l Intake and Output 11/03/20 11/04/20 19:00 07:00 Intake Total 480 ml Balance 480 ml Intake Oral 480 ml # Voids 3 Height (Feet): 6 Height (Inches): 1.00 Weight (Pounds): 140 Assessment/Plan Problem List: (1) ACS (acute coronary syndrome) ICD Codes: I24.9 - Acute ischemic heart disease, unspecified SNOMED: 803542589 (2) Chest pain ICD Codes: R07.9 - Chest pain, unspecified SNOMED: 90589753 (3) COPD (chronic obstructive pulmonary disease) ICD Codes: J44.9 - Chronic obstructive pulmonary disease, unspecified SNOMED: 07244403 (4) Hypernatremia ICD Codes: E87.0 - Hyperosmolality and hypernatremia SNOMED: 273738249 (5) Severe protein-calorie malnutrition ICD Codes: E43 - Unspecified severe protein-calorie malnutrition SNOMED: 704851503, 143488342, 811797850 (6) KAILEY (acute kidney injury) ICD Codes: N17.9 - Acute kidney failure, unspecified SNOMED: 59735442, 5105389 (7) UTI (urinary tract infection) ICD Codes: N39.0 - Urinary tract infection, site not specified SNOMED: 32827806 (8) Dementia ICD Codes: F03.90 - Unspecified dementia without behavioral disturbance SNOMED: 79183434 Status: stable Assessment/Plan: copd exacerbation is improving afebrile no acute events malnutrition resp insuff uti is improving Annamarie Vasquez MD Nov 04, 2020 13:14
--- NOTE | 2020-11-04 13:32 | Nephrology Progress Note ---
Assessment/Plan Problem List: (1) KAILEY (acute kidney injury) (2) Hypernatremia (3) Hypertension (4) UTI (urinary tract infection) (5) Dementia Assessment Acute renal failure, dehydration Hypernatremia secondary to free water deficit Failure to thrive UTI Hypertension Alzheimer dementia COPD Plan November 04: No labs drawn today. Continue per consultants. Most recent renal parameters are stable. November 03: Labs reviewed. Electrolytes and renal parameters stable. November 02: Labs are reviewed. Low potassium replaced. Continue as is. November 01: Labs reviewed. Slightly elevated serum potassium most likely due to hemolysis since renal parameters are stable. Continue per consultants. Continue to monitor electrolytes and renal parameters. October 31: Labs reviewed. Low phosphorus replaced. Renal parameters are stable. Continue per consultants. October 30: Labs reviewed. Low potassium replaced. Serum sodium normalized. Will DC IV fluid. Continue to monitor renal parameters and electrolytes. October 29: Labs reviewed. Stable from renal standpoint of view. Serum creatinine 1. Continue per consultants. October 28: Labs reviewed. Abnormal electrolytes reviewed and addressed. Continue per current management. October 27: Labs reviewed. Further improvement of hypernatremia and serum creatinine. Continue same management. October 26: Labs reviewed. Serum sodium gradually lowering. Serum creatinine 1.4. Continue monitor renal parameters. October 25: Serum creatinine now within normal limit. Hypernatremia persists. Continue IV D5W. Continue to monitor electrolytes. Patient full code Free water in the form of D5W at 75 cc an hour IV Monitor renal parameters and electrolytes Keep the blood pressure and blood sugar in check Per orders Subjective ROS Limited/Unobtainable: No Constitutional: Reports: malaise Objective Objective Last 24 Hour Vital Signs Date Time Temp Pulse Resp B/P (MAP) Pulse Ox O2 Delivery O2 Flow Rate FiO2 11/04/20 12:00 98.6 79 18 119/86 (97) 96 11/04/20 10:17 86 135/53 11/04/20 09:00 Nasal Cannula 2.0 11/04/20 08:00 97.9 83 20 128/91 (103) 92 11/03/20 21:16 Nasal Cannula 2.0 11/03/20 20:00 98.5 100 20 142/56 (84) 97 11/03/20 16:00 98.4 74 18 131/68 (89) 95 Intake and Output 11/03/20 11/04/20 19:00 07:00 Intake Total 480 ml Balance 480 ml Intake Oral 480 ml # Voids 3 Height (Feet): 6 Height (Inches): 1.00 Weight (Pounds): 140 General Appearance: no apparent distress EENT: other - On nasal cannula Cardiovascular: normal rate Abdomen: soft Damian Webb MD Nov 04, 2020 13:32
[2020-11-04 16:00] VITALS: BP 125/76
--- NOTE | 2020-11-04 17:24 | Pulmonology Progress Note ---
Subjective ROS Limited/Unobtainable: No Constitutional: Reports: no symptoms HEENT: Repors: no symptoms Allergies: Coded Allergies: No Known Allergies (Unverified , 06/18/18) Objective Last 24 Hour Vital Signs Date Time Temp Pulse Resp B/P (MAP) Pulse Ox O2 Delivery O2 Flow Rate FiO2 11/04/20 12:00 98.6 79 18 119/86 (97) 96 11/04/20 10:17 86 135/53 11/04/20 09:00 Nasal Cannula 2.0 11/04/20 08:00 97.9 83 20 128/91 (103) 92 11/03/20 21:16 Nasal Cannula 2.0 11/03/20 20:00 98.5 100 20 142/56 (84) 97 Intake and Output 11/03/20 11/04/20 19:00 07:00 Intake Total 480 ml Balance 480 ml Intake Oral 480 ml # Voids 3 General Appearance: cachetic, other - awake, responsive elderly AA male HEENT: normocephalic, atraumatic, anicteric, other - O2 via NC Respiratory: chest wall non-tender, lungs clear - with decreased BS Cardiovascular: normal peripheral pulses, regular rhythm Abdomen: normal bowel sounds, soft, non tender Genitourinary: normal external genitalia Extremities: no edema Skin: no lesions Neurologic: alert, responsive Musculoskeletal: atrophy - BLE Current Medications Medications (Trade) Dose Ordered Sig/Eva Route PRN Reason Start Time Stop Time Status Last Admin Dose Admin Albuterol/ Ipratropium (Combivent Respimat) 1 puff Q4H PRN INH Shortness of Breath 10/27/20 09:00 11/26/20 08:59 Amlodipine Besylate (Norvasc) 5 mg DAILY ORAL 10/25/20 09:00 11/24/20 08:59 11/04/20 10:17 Aspirin (Ecotrin) 81 mg DAILY ORAL 10/25/20 09:00 12/09/20 08:59 11/04/20 10:16 Clonidine HCl (Catapres Tab) 0.1 mg Q2H PRN ORAL For High Blood Pressure 10/24/20 16:30 01/22/21 16:29 Docusate Sodium (Colace) 100 mg TWICE A DAY ORAL 10/24/20 18:00 11/23/20 17:59 11/04/20 10:16 Heparin Sodium (Porcine) (Heparin 5000 units/ml) 5,000 units EVERY 12 HOURS SUBQ 10/24/20 21:00 12/08/20 20:59 11/04/20 10:19 Memantine (Namenda) 5 mg BID ORAL 10/26/20 09:00 11/25/20 08:59 11/04/20 10:17 Mirtazapine (Remeron) 7.5 mg BEDTIME ORAL 10/26/20 21:00 01/24/21 20:59 11/03/20 20:43 Pantoprazole (Protonix) 40 mg DAILY ORAL 10/25/20 09:00 11/24/20 08:59 11/04/20 10:16 Promethazine HCl/ Codeine (Phenergan with Codeine) 5 ml Q4H PRN ORAL For Cough 10/26/20 12:15 11/25/20 12:14 Theophylline (Ivan-Dur) 100 mg EVERY 12 HOURS ORAL 10/26/20 21:00 01/24/21 20:59 11/04/20 10:17 Zolpidem Tartrate (Ambien) 5 mg HSPRN PRN ORAL Insomnia 11/01/20 20:15 11/08/20 20:14 11/01/20 20:27 Assessment/Plan Problems: (1) 2019 novel coronavirus disease (COVID-19) (2) Purulent bronchitis (3) COPD (chronic obstructive pulmonary disease) (4) KAILEY (acute kidney injury) (5) Hypernatremia (6) At high risk for aspiration (7) Dementia (8) Severe protein-calorie malnutrition Assessment/Plan improving on nasal cannula respiratory treatment aspiration precaution swallow study: MODIFIED TEXTURE DIET: PUREE WITH NECTAR THICK LIQUIDS titrate fio2 to sat of 92% antitussives check electrolytes dvt prophylaxis. dc planning Cinda Drummond MD Nov 04, 2020 17:24
--- NOTE | 2020-11-04 18:24 | NUR ---
NURSE NOTES: Assist patient with meals appetite is good,incontinent of urine,skin care given,bilateral soft wrist restraints,skin intact.Bed alarm on,call light within reach.
--- NOTE | 2020-11-04 19:37 | NUR ---
NURSE HAND-OFF: Kavitha REYES Important Events on Shift:[bilateral soft wrist restraint renewed on 11/03 Patient Status: stable[] Diet: [Low sodium puree moist,thin liquids] Pending Orders: [] Pending Results/Labs:[] Pending MD notification:[] Latest Vital Signs: Temperature 96.7 , Pulse 81 , B/P 125 /76 , Respiratory Rate 19 , O2 SAT 98 , Venturi Mask, O2 Flow Rate 2.0 . Vital Sign Comment: [] Latest Fung Fall Score: 70 Fall Risk: High Risk Safety Measures: Call light Within Reach, Bed Alarm Zone 2, Side Rails Side Rails x3, Bed position Low and Locked. Fall Precautions: Yellow Socks Yellow Gown y Door Sign y Patient Fall Education Report given to [].
[2020-11-04 20:00] VITALS: BP 109/82
--- NOTE | 2020-11-04 20:00 | NUR ---
NURSE NOTES: RECEIVED PATIENT LYING IN BED, AWAKE, ALERT/ORIENTED TO SELF, CONFUSED, REALITY ORIENTATION PROVIDED DURING ASSESSMENT, PATIENT RESTLESS, REQUIRE REPETITIVE INTERVENTIONS SECONDARY TO COGNITIVE STATUS. BILATERAL WRIST RESTRAINT INTACT, REINFORCED FOR SAFETY. DENIES PAIN, NO SIGNS AND SYMPTOMS OF ACUTE CARDIO RESPIRATORY DISTRESS/SHORTNESS OF BREATH, NO PERIPHERAL EDEMA NOTED. ABDOMEN SOFT/NON DISTENDED/NON TENDER/AUDIBLE BOWEL SOUNDS. SIDE RAILS UP X3, BED IN LOWEST POSITION FOR SAFETY, FREQUENT ROUNDING FOR SAFETY/NEEDS. CONTINUE WITH CURRENT PLAN OF CARE. DROPLET ISOLATION ONGOING. NAD.
[2020-11-05] VITALS (7 sets, daily range): BP systolic 110–124; BP diastolic 57–87
--- NOTE | 2020-11-05 07:06 | Cardiac Electrophysiology PN ---
Assessment/Plan Assessment/Plan 1. Hypertension. Continue amlodipine 5 mg daily and p.r.n. clonidine 2. Severe dehydration with hypernatremia and azotemia. Patient's sodium was 160 and creatinine of 1.7. Sodium improved to 141, BUN of 14, creatinine of 0.9 on IV fluid. 3. Elevated troponin and Poor R-wave progression on the EKG. No chest pain. EF 50%. Repeat troponin negative 4. Alzheimer dementia. 5. COPD and Covid PNA DW RN Subjective Subjective In isolation for Covid in restraints on 2 liter NC in restraints. Combative and sitting up in bed. Objective Last 24 Hour Vital Signs Date Time Temp Pulse Resp B/P (MAP) Pulse Ox O2 Delivery O2 Flow Rate FiO2 11/05/20 04:00 98.4 89 20 120/87 (98) 95 11/05/20 00:00 98.6 91 20 116/84 (95) 95 11/04/20 21:00 Nasal Cannula 2.0 11/04/20 20:14 96 Nasal Cannula 4.0 36 11/04/20 20:00 98.4 86 20 109/82 (91) 95 11/04/20 16:00 96.7 81 19 125/76 (92) 98 11/04/20 12:00 98.6 79 18 119/86 (97) 96 11/04/20 10:17 86 135/53 11/04/20 09:00 Nasal Cannula 2.0 11/04/20 08:00 97.9 83 20 128/91 (103) 92 Intake and Output 11/04/20 11/05/20 19:00 07:00 Intake Total 500 ml 360 ml Balance 500 ml 360 ml Intake Oral 360 ml Other 500 ml # Voids 3 Objective HEAD AND NECK: No JVD. LUNGS: Clear. CARDIOVASCULAR: Shows regular S1 and S2 with no gallop. ABDOMEN: Soft. EXTREMITIES: No pitting edema. Maurilio Lares MD Nov 05, 2020 07:06
--- NOTE | 2020-11-05 07:47 | NUR ---
NURSE NOTES: Report received from ERIC Mohr. Patient awake in bed, alert and oriented x 1, no SOB, bed in lowest position with breaks engaged and alarm on, denied any pain and discomfort at this time, on bilateral soft wrist restraints to prevent pulling IV and oxygen, IV line present on left FA, on contact and droplet precautions for positive COVID 19. On 02 via NC at 2 lpm, will continue to monitor and proceed with plan of care, call light within reach
--- NOTE | 2020-11-05 07:54 | NUR ---
NURSE HAND-OFF REPORT: Important Events on Shift:[BILATERAL WRIST RESTRAINTS INTACT, RESTLESS/COMBATIVE] Patient Status: STABLE, ] Diet: [LOW SODIUM PUREE MOIST] Pending Orders: [N/A] Pending Results/Labs:[] Pending MD notification:[] Latest Vital Signs: Temperature 98.4 , Pulse 89 , B/P 120 /87 , Respiratory Rate 20 , O2 SAT 95 , Venturi Mask, O2 Flow Rate 2.0 . Vital Sign Comment: [STABLE, AFEBRILE] EKG Rhythm: Sinus Rhythm Rhythm change?: MD Notified?: - MD Response: Latest Fung Fall Score: 70 Fall Risk: High Risk Safety Measures: Call light Within Reach, Bed Alarm Zone 2, Side Rails Side Rails x3, Bed position Low and Locked. Fall Precautions: Yellow Socks Yellow Gown Door Sign Patient Fall Education Report given to [DANIELLE ALONZO].
[2020-11-05] MEDS: Docusate 100mg cap ORAL SCH ×2 (08:36→17:06)
[2020-11-05] MEDS: Aspirin EC 81mg tab ORAL SCH (08:37)
[2020-11-05] MEDS: Memantine 5 MG TAB ORAL SCH ×2 (08:37→17:05)
[2020-11-05] MEDS: Theophylline ER 100mg ORAL SCH ×2 (08:37→20:47)
[2020-11-05] MEDS: Heparin 5000 units/ml inj SUBQ SCH ×2 (08:38→20:48)
--- NOTE | 2020-11-05 10:44 | Psychiatry Consultation ---
Psychiatry Consultation Psychiatry Consultation Chief Complaint: Generalized Weakness History of Present Illness: 84-year-old male patient confused disorganized status confusion patient is d isorganized confused his cognition has declined below his baseline as well as attending physician is requested daily psychiatric consultation to try to prevent any further declinein his cognition and hopefully improve his cognition close to his baseline Mental status examination: 4-year-old male appearance of disheveled at irritable agitated affect guarded strict intellect poor mood depressed anxious motor activity psychomotor agitation attention is poor orientation x2 speech pressured thought process diso rganized logical Allergies: Coded Allergies: No Known Allergies (Unverified , 06/18/18) Medication History Scheduled Amlodipine Besylate* (Amlodipine Besylate*), 5 MG ORAL DAILY, (Reported) Aspirin* (Aspir 81*), 81 MG ORAL DAILY, (Reported) Scheduled PRN Albuterol Sulfate* (Albuterol Sulfate Mdi*), 2 PUFF INH Q4H PRN for cough/wheezing Melatonin (Melatonin 5 Mg Tablet), 1 TAB ORAL BEDTIME PRN for Insomnia, (Reported) Tramadol Hcl* (Ultram*), 50 MG ORAL BID PRN for For Pain, (Reported) Zolpidem Tartrate* (Ambien*), 5 MG ORAL BEDTIME PRN for Insomnia, (Reported) Objective Data Height (Feet): 6 Height (Inches): 1.00 Weight (Pounds): 140 Assessment/Plan Assessment/Plan: Plan is to add Remeron 7.5 mg nightly for depression and also to increase his appetite also Ativan 0.5 mg every 6 hours. 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
--- NOTE | 2020-11-05 13:14 | Pulmonology Progress Note ---
Subjective ROS Limited/Unobtainable: No Constitutional: Reports: no symptoms HEENT: Repors: no symptoms Allergies: Coded Allergies: No Known Allergies (Unverified , 06/18/18) Objective Last 24 Hour Vital Signs Date Time Temp Pulse Resp B/P (MAP) Pulse Ox O2 Delivery O2 Flow Rate FiO2 11/05/20 12:00 98.1 76 17 121/63 (82) 97 11/05/20 09:00 Nasal Cannula 2.0 11/05/20 08:37 63 124/62 11/05/20 08:00 97.9 63 18 124/62 (82) 97 11/05/20 07:00 97 Nasal Cannula 2.0 28 11/05/20 04:00 98.4 89 20 120/87 (98) 95 11/05/20 00:00 98.6 91 20 116/84 (95) 95 11/04/20 21:00 Nasal Cannula 2.0 11/04/20 20:14 96 Nasal Cannula 4.0 36 11/04/20 20:00 98.4 86 20 109/82 (91) 95 11/04/20 16:00 96.7 81 19 125/76 (92) 98 Intake and Output 11/04/20 11/05/20 19:00 07:00 Intake Total 500 ml 360 ml Balance 500 ml 360 ml Intake Oral 360 ml Other 500 ml # Voids 3 General Appearance: cachetic, other - awake, responsive elderly AA male HEENT: normocephalic, atraumatic, anicteric, other - O2 via NC Respiratory: chest wall non-tender, lungs clear - with decreased BS Cardiovascular: normal peripheral pulses, regular rhythm Abdomen: normal bowel sounds, soft, non tender Genitourinary: normal external genitalia Extremities: no edema Skin: no lesions Neurologic: alert, responsive Musculoskeletal: atrophy - BLE Current Medications Medications (Trade) Dose Ordered Sig/Eva Route PRN Reason Start Time Stop Time Status Last Admin Dose Admin Albuterol/ Ipratropium (Combivent Respimat) 1 puff Q4H PRN INH Shortness of Breath 10/27/20 09:00 11/26/20 08:59 Amlodipine Besylate (Norvasc) 5 mg DAILY ORAL 10/25/20 09:00 11/24/20 08:59 11/05/20 08:37 Aspirin (Ecotrin) 81 mg DAILY ORAL 10/25/20 09:00 12/09/20 08:59 11/05/20 08:37 Clonidine HCl (Catapres Tab) 0.1 mg Q2H PRN ORAL For High Blood Pressure 10/24/20 16:30 01/22/21 16:29 Docusate Sodium (Colace) 100 mg TWICE A DAY ORAL 10/24/20 18:00 11/23/20 17:59 11/05/20 08:36 Heparin Sodium (Porcine) (Heparin 5000 units/ml) 5,000 units EVERY 12 HOURS SUBQ 10/24/20 21:00 12/08/20 20:59 11/05/20 08:38 Memantine (Namenda) 5 mg BID ORAL 10/26/20 09:00 11/25/20 08:59 11/05/20 08:37 Mirtazapine (Remeron) 7.5 mg BEDTIME ORAL 10/26/20 21:00 01/24/21 20:59 11/04/20 20:20 Pantoprazole (Protonix) 40 mg DAILY ORAL 10/25/20 09:00 11/24/20 08:59 11/05/20 08:37 Promethazine HCl/ Codeine (Phenergan with Codeine) 5 ml Q4H PRN ORAL For Cough 10/26/20 12:15 11/25/20 12:14 Theophylline (Ivan-Dur) 100 mg EVERY 12 HOURS ORAL 10/26/20 21:00 01/24/21 20:59 11/05/20 08:37 Zolpidem Tartrate (Ambien) 5 mg HSPRN PRN ORAL Insomnia 11/01/20 20:15 11/08/20 20:14 11/01/20 20:27 Assessment/Plan Problems: (1) 2019 novel coronavirus disease (COVID-19) (2) Purulent bronchitis (3) COPD (chronic obstructive pulmonary disease) (4) KAILEY (acute kidney injury) (5) Hypernatremia (6) At high risk for aspiration (7) Dementia (8) Severe protein-calorie malnutrition Assessment/Plan no new complains improving on nasal cannula respiratory treatment aspiration precaution swallow study: MODIFIED TEXTURE DIET: PUREE WITH NECTAR THICK LIQUIDS titrate fio2 to sat of 92% antitussives check electrolytes dvt prophylaxis. dc planning Cinda Drummond MD 25, 2020 13:14
--- NOTE | 2020-11-05 14:24 | Nephrology Progress Note ---
Assessment/Plan Problem List: (1) KAILEY (acute kidney injury) (2) Hypernatremia (3) Hypertension (4) UTI (urinary tract infection) (5) Dementia Assessment Acute renal failure, dehydration Hypernatremia secondary to free water deficit Failure to thrive UTI Hypertension Alzheimer dementia COPD Plan November 05: No labs drawn today. Will check lab tomorrow. Medication list reviewed. Continue per consultants. November 04: No labs drawn today. Continue per consultants. Most recent renal parameters are stable. November 03: Labs reviewed. Electrolytes and renal parameters stable. November 02: Labs are reviewed. Low potassium replaced. Continue as is. November 01: Labs reviewed. Slightly elevated serum potassium most likely due to hemolysis since renal parameters are stable. Continue per consultants. Continue to monitor electrolytes and renal parameters. October 31: Labs reviewed. Low phosphorus replaced. Renal parameters are sta ble. Continue per consultants. October 30: Labs reviewed. Low potassium replaced. Serum sodium normalized. Will DC IV fluid. Continue to monitor renal parameters and electrolytes. October 29: Labs reviewed. Stable from renal standpoint of view. Serum creatinine 1. Continue per consultants. October 28: Labs reviewed. Abnormal electrolytes reviewed and addressed. Continue per current management. October 27: Labs reviewed. Further improvement of hypernatremia and serum creatinine. Continue same management. October 26: Labs reviewed. Serum sodium gradually lowering. Serum creatinine 1.4. Continue monitor renal parameters. October 25: Serum creatinine now within normal limit. Hypernatremia persists. Continue IV D5W. Continue to monitor electrolytes. Patient full code Free water in the form of D5W at 75 cc an hour IV Monitor renal parameters and electrolytes Keep the blood pressure and blood sugar in check Per orders Subjective ROS Limited/Unobtainable: No Constitutional: Reports: malaise Objective Objective Last 24 Hour Vital Signs Date Time Temp Pulse Resp B/P (MAP) Pulse Ox O2 Delivery O2 Flow Rate FiO2 11/05/20 12:00 98.1 76 17 121/63 (82) 97 11/05/20 09:00 Nasal Cannula 2.0 11/05/20 08:37 63 124/62 11/05/20 08:00 97.9 63 18 124/62 (82) 97 11/05/20 07:00 97 Nasal Cannula 2.0 28 11/05/20 04:00 98.4 89 20 120/87 (98) 95 11/05/20 00:00 98.6 91 20 116/84 (95) 95 11/04/20 21:00 Nasal Cannula 2.0 11/04/20 20:14 96 Nasal Cannula 4.0 36 11/04/20 20:00 98.4 86 20 109/82 (91) 95 11/04/20 16:00 96.7 81 19 125/76 (92) 98 Intake and Output 0 11/04/20 11/05/20 19:00 07:00 Intake Total 500 ml 360 ml Balance 500 ml 360 ml Intake Oral 360 ml Other 500 ml # Voids 3 Height (Feet): 6 Height (Inches): 1.00 Weight (Pounds): 140 General Appearance: lethargic Cardiovascular: normal rate Respiratory/Chest: decreased breath sounds Abdomen: soft Damian Webb MD Nov 05, 2020 14:24
--- NOTE | 2020-11-05 19:15 | NUR ---
NURSE HAND-OFF: Important Events on Shift:[safety and comfort, skin maintenance, monitoring PO intake, labs and VS] Patient Status: [stable] Diet: [AYM pureed] Pending Orders: [] Pending Results/Labs:[] Pending MD notification:[] Latest Vital Signs: Temperature 97.6 , Pulse 69 , B/P 123 /67 , Respiratory Rate 17 , O2 SAT 98 , Venturi Mask, O2 Flow Rate 2.0 . Vital Sign Comment: [] Latest Fung Fall Score: 70 Fall Risk: High Risk Safety Measures: Call light Within Reach, Bed Alarm Zone 2, Side Rails Side Rails x3, Bed position Low and Locked. Fall Precautions: Yellow Socks Yellow Gown Door Sign Patient Fall Education Report given to [ERIC Mohr].
--- NOTE | 2020-11-05 19:54 | NUR ---
NURSE NOTES: RECEIVED PATIENT LYING IN BED, AWAKE, ALERT/ORIENTED TO SELF, VERBALLY RESPONSIVE, DENIES PAIN, RESTLESS, CONSTANTLY SLIDING BILATERAL LOWER EXTREMITIES ACROSS THE BED. NO SIGNS AND SYMPTOMS OF ACUTE CARDIO RESPIRATORY DISTRESS/SHORTNESS OF BREATH, NO PERIPHERAL EDEMA NOTED. IV INTACT, NO REDNESS/SWELLING NOTED. BILATERAL WRIST RESTRAINTS INTACT TO PREVENT PATIENT FROM REMOVING MEDICAL DEVICES. ABDOMEN SOFT/NON DISTENDED/ACTIVE BOWEL SOUNDS, NO REPORT OF N/V/D. SIDE RAILS UP X3, BED IN LOWEST POSITION FOR SAFETY, FREQUENT ROUND FOR SAFETY/NEEDS. CONTINUE WITH CURRENT PLAN OF CARE. NAD.
--- NOTE | 2020-11-05 22:45 | General Progress Note ---
Subjective ROS Limited/Unobtainable: Yes Allergies: Coded Allergies: No Known Allergies (Unverified , 06/18/18) Objective Last 24 Hour Vital Signs Date Time Temp Pulse Resp B/P (MAP) Pulse Ox O2 Delivery O2 Flow Rate FiO2 11/05/20 20:00 98.0 84 16 110/57 (74) 94 11/05/20 18:55 96 Nasal Cannula 2.0 28 11/05/20 16:00 97.6 69 17 123/67 (85) 98 11/05/20 12:00 98.1 76 17 121/63 (82) 97 11/05/20 09:00 Nasal Cannula 2.0 11/05/20 08:37 63 124/62 11/05/20 08:00 97.9 63 18 124/62 (82) 97 11/05/20 07:00 97 Nasal Cannula 2.0 28 11/05/20 04:00 98.4 89 20 120/87 (98) 95 11/05/20 00:00 98.6 91 20 116/84 (95) 95 Intake and Output 11/04/20 11/05/20 19:00 07:00 Intake Total 500 ml 360 ml Balance 500 ml 360 ml Intake Oral 360 ml Other 500 ml # Voids 3 Height (Feet): 6 Height (Inches): 1.00 Weight (Pounds): 140 Assessment/Plan Problem List: (1) ACS (acute coronary syndrome) ICD Codes: I24.9 - Acute ischemic heart disease, unspecified SNOMED: 121268829 (2) Chest pain ICD Codes: R07.9 - Chest pain, unspecified SNOMED: 96015168 (3) COPD (chronic obstructive pulmonary disease) ICD Codes: J44.9 - Chronic obstructive pulmonary disease, unspecified SNOMED: 70423402 (4) Hypernatremia ICD Codes: E87.0 - Hyperosmolality and hypernatremia SNOMED: 675397191 (5) Severe protein-calorie malnutrition ICD Codes: E43 - Unspecified severe protein-calorie malnutrition SNOMED: 981165749, 779093662, 678072461 (6) KAILEY (acute kidney injury) ICD Codes: N17.9 - Acute kidney failure, unspecified SNOMED: 15434089, 1420052 (7) UTI (urinary tract infection) ICD Codes: N39.0 - Urinary tract infection, site not specified SNOMED: 76062123 (8) Dementia ICD Codes: F03.90 - Unspecified dementia without behavioral disturbance SNOMED: 62290473 Status: stable Assessment/Plan: copd exacerbation is improving weak malnutrition lyte abnormality afebrile resp insuff uti is improving Annamarie Vasquez MD Nov 05, 2020 22:45
[2020-11-06] VITALS: BP 106/52
[2020-11-06 04:00] VITALS: BP 127/77
[2020-11-06 08:00] VITALS: BP 135/68
--- NOTE | 2020-11-06 08:00 | NUR ---
NURSE HAND-OFF: Important Events on Shift:[PATIENT REMAINED COMBATIVE WHEN RECEIVING CARE, KICKING AND CURSING NURSES, OTHERWISE, UNEVENTFUL NIGHT] Patient Status: [STABLE, AFEBRILE] Diet: [LOW SODIUM DIET] Pending Orders: [AM LABS] Pending Results/Labs:[] Pending MD notification:[] Latest Vital Signs: Temperature 97.2 , Pulse 67 , B/P 127 /77 , Respiratory Rate 18 , O2 SAT 97 , Venturi Mask, O2 Flow Rate 2.0 . Vital Sign Comment: [STABLE, AFEBRILE] Latest Fung Fall Score: 70 Fall Risk: High Risk Safety Measures: Call light Within Reach, Bed Alarm Zone 2, Side Rails Side Rails x3, Bed position Low and Locked. Fall Precautions: Yellow Socks Yellow Gown Door Sign Patient Fall Education Report given to [DANIELLE BRYANT].
[2020-11-06] MEDS: Theophylline ER 100mg ORAL SCH ×2 (08:27→21:00)
[2020-11-06] MEDS: Aspirin EC 81mg tab ORAL SCH (08:27)
[2020-11-06] MEDS: Memantine 5 MG TAB ORAL SCH ×2 (08:27→18:04)
[2020-11-06] MEDS: Docusate 100mg cap ORAL SCH ×2 (08:27→18:04)
[2020-11-06] MEDS: Heparin 5000 units/ml inj SUBQ SCH ×2 (08:30→21:00)
--- NOTE | 2020-11-06 10:05 | Psychiatry Consultation ---
Psychiatry Consultation Psychiatry Consultation Chief Complaint: Generalized Weakness History of Present Illness: 84-year-old male patient weakness failure to thrive altered no status declining cognition below baseline as well as attending has requested daily psychiatric consultation he still very confused disorganized and mood lability because his cognition has declined below his baseline his attending and requesting daily psychiatric consultation Mental status examination: 84-year-old male appearance disheveled at irritable agitated affect labile intellect poor mood depressed anxious moderately psychomotor agitation attention is poor orientation x2 speech pressured thought process disorganized logical thought content hallucinations. Delusions insight judgment is poor Allergies: Coded Allergies: No Known Allergies (Unverified , 06/18/18) Medication History Scheduled Amlodipine Besylate* (Amlodipine Besylate*), 5 MG ORAL DAILY, (Reported) Aspirin* (Aspir 81*), 81 MG ORAL DAILY, (Reported) Scheduled PRN Albuterol Sulfate* (Albuterol Sulfate Mdi*), 2 PUFF INH Q4H PRN for cough/wheezing Melatonin (Melatonin 5 Mg Tablet), 1 TAB ORAL BEDTIME PRN for Insomnia, (Reported) Tramadol Hcl* (Ultram*), 50 MG ORAL BID PRN for For Pain, (Reported) Zolpidem Tartrate* (Ambien*), 5 MG ORAL BEDTIME PRN for Insomnia, (Reported) Objective Data Height (Feet): 6 Height (Inches): 1.00 Weight (Pounds): 140 Assessment/Plan Assessment/Plan: Plan is to add Remeron 7.5 mg nightly for depression and also to increase his appetite also Ativan 0.5 mg every 6 hours. 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
[2020-11-06 11:09] LABS: EOSINOPHILS % (AUTO) 0.4 % (0.0-3.0); HEMOGLOBIN 12.1 G/DL (14.2-18.0); LYMPHOCYTES % (AUTO) 15.2 % (20.0-45.0); MEAN CORPUSCULAR VOLUME 81 FL (80-99); NEUTROPHILS % (AUTO) 74.5 % (45.0-75.0); PLATELET COUNT 316 K/UL (150-450); RED BLOOD COUNT 4.33 M/UL (4.70-6.10); RED CELL DISTRIBUTION WIDTH 16.8 % (11.6-14.8); WHITE BLOOD COUNT 5.2 K/UL (4.8-10.8)
[2020-11-06 11:36] LABS: ALANINE AMINOTRANSFERASE 53 U/L (12-78); ALBUMIN 3.4 G/DL (3.4-5.0); ALBUMIN/GLOBULIN RATIO 0.7 (1.0-2.7); ALKALINE PHOSPHATASE 45 U/L (46-116); ANION GAP 9 mmol/L (5-15); ASPARTATE AMINO TRANSFERASE 54 U/L (15-37); BILIRUBIN,TOTAL 0.6 MG/DL (0.2-1.0); BLOOD UREA NITROGEN 35 mg/dL (7-18); CALCIUM 9.8 MG/DL (8.5-10.1); CARBON DIOXIDE 28 MMOL/L (21-32); CHLORIDE 109 MMOL/L (98-107); CREATININE 1.2 MG/DL (0.55-1.30); PHOSPHORUS 2.9 MG/DL (2.5-4.9); POTASSIUM 3.4 MMOL/L (3.5-5.1); SODIUM 146 MMOL/L (136-145)
--- NOTE | 2020-11-06 11:44 | Nephrology Progress Note ---
Assessment/Plan Problem List: (1) KAILEY (acute kidney injury) (2) Hypernatremia (3) Hypertension (4) UTI (urinary tract infection) (5) Dementia Assessment Acute renal failure, dehydration Hypernatremia secondary to free water deficit Failure to thrive UTI Hypertension Alzheimer dementia COPD Plan November 06: Labs reviewed. Abnormal electrolytes addressed. Continue per current management. Continue per consultants. November 05: No labs drawn today. Will check lab tomorrow. Medication list reviewed. Continue per consultants. November 04: No labs drawn today. Continue per consultants. Most recent renal parameters are stable. November 03: Labs reviewed. Electrolytes and renal parameters stable. November 02: Labs are reviewed. Low potassium replaced. Continue as is. November 01: Labs reviewed. Slightly elevated serum potassium most likely due to hemolysis since renal parameters are stable. Continue per consultants. Continue to monitor electrolytes and renal parameters. October 31: Labs reviewed. Low phosphorus replaced. Renal parameters are stable. Continue per consultants. October 30: Labs reviewed. Low potassium replaced. Serum sodium normalized. Will DC IV fluid. Continue to monitor renal parameters and electrolytes. October 29: Labs reviewed. Stable from renal standpoint of view. Serum c reatinine 1. Continue per consultants. October 28: Labs reviewed. Abnormal electrolytes reviewed and addressed. Continue per current management. October 27: Labs reviewed. Further improvement of hypernatremia and serum creatinine. Continue same management. October 26: Labs reviewed. Serum sodium gradually lowering. Serum creatinine 1.4. Continue monitor renal parameters. October 25: Serum creatinine now within normal limit. Hypernatremia persists. Continue IV D5W. Continue to monitor electrolytes. Patient full code Free water in the form of D5W at 75 cc an hour IV Monitor renal parameters and electrolytes Keep the blood pressure and blood sugar in check Per orders Subjective ROS Limited/Unobtainable: No Constitutional: Reports: malaise Objective Objective Last 24 Hour Vital Signs Date Time Temp Pulse Resp B/P (MAP) Pulse Ox O2 Delivery O2 Flow Rate FiO2 11/06/20 09:00 Nasal Cannula 2.0 11/06/20 08:28 70 130/77 11/06/20 08:16 97 Nasal Cannula 2.0 28 11/06/20 04:00 97.2 67 18 127/77 (94) 94 11/06/20 00:00 97.0 78 16 106/52 (70) 93 11/05/20 21:00 Nasal Cannula 2.0 11/05/20 20:00 98.0 84 16 110/57 (74) 94 11/05/20 18:55 96 Nasal Cannula 2.0 28 11/05/20 16:00 97.6 69 17 123/67 (85) 98 11/05/20 12:00 98.1 76 17 121/63 (82) 97 Intake and Output 11/05/20 11/06/20 19:00 07:00 Intake Total 120 ml 240 ml Balance 120 ml 240 ml Intake Oral 120 ml 240 ml # Voids 2 4 # Bowel Movements 1 Laboratory Tests 11/06/20 10:20: White Blood Count 5.2, Red Blood Count 4.33L, Hemoglobin 12.1L, Hematocrit 35.0L , Mean Corpuscular Volume 81, Mean Corpuscular Hemoglobin 27.9, Mean Corpuscular Hemoglobin Concent 34.5, Red Cell Distribution Width 16.8H, Platelet Count 316, Mean Platelet Volume 7.6, Neutrophils (%) (Auto) 74.5, Lymphocytes (%) (Auto) 15.2L, Monocytes (%) (Auto) 9.0, Eosinophils (%) (Auto) 0.4, Basophils (%) (Auto) 1.0, Sodium Level 146H, Potassium Level 3.4L, Chloride Level 109H, Carbon Dioxide Level 28, Anion Gap 9, Blood Urea Nitrogen 35H, Creatinine 1.2, Estimat Glomerular Filtration Rate > 60, Glucose Level 78, Calcium Level 9.8, Phosphorus Level 2.9, Magnesium Level 2.6H, Total Bilirubin 0.6, Aspartate Amino Transf (AST/SGOT) 54H, Alanine Aminotransferase (ALT/SGPT) 53, Alkaline Phosphatase 45L , C-Reactive Protein, Quantitative < 0.4, Pro-B-Type Natriuretic Peptide 223H, Total Protein 8.2, Albumin 3.4, Globulin 4.8, Albumin/Globulin Ratio 0.7L Height (Feet): 6 Height (Inches): 1.00 Weight (Pounds): 140 General Appearance: no apparent distress EENT: other - On nasal cannula Cardiovascular: normal rate Respiratory/Chest: decreased breath sounds Abdomen: distended Damian Webb MD Nov 06, 2020 11:44
[2020-11-06 12:00] VITALS: BP 145/73
--- NOTE | 2020-11-06 15:52 | Pulmonology Progress Note ---
Subjective ROS Limited/Unobtainable: No Constitutional: Reports: no symptoms HEENT: Repors: no symptoms Allergies: Coded Allergies: No Known Allergies (Unverified , 06/18/18) Objective Last 24 Hour Vital Signs Date Time Temp Pulse Resp B/P (MAP) Pulse Ox O2 Delivery O2 Flow Rate FiO2 11/06/20 12:00 97.3 88 19 145/73 (97) 93 11/06/20 09:00 Nasal Cannula 2.0 11/06/20 08:28 70 130/77 11/06/20 08:16 97 Nasal Cannula 2.0 28 11/06/20 08:00 97.5 80 18 135/68 (90) 93 11/06/20 04:00 97.2 67 18 127/77 (94) 94 11/06/20 00:00 97.0 78 16 106/52 (70) 93 11/05/20 21:00 Nasal Cannula 2.0 11/05/20 20:00 98.0 84 16 110/57 (74) 94 11/05/20 18:55 96 Nasal Cannula 2.0 28 11/05/20 16:00 97.6 69 17 123/67 (85) 98 Intake and Output 11/05/20 11/06/20 19:00 07:00 Intake Total 120 ml 240 ml Balance 120 ml 240 ml Intake Oral 120 ml 240 ml # Voids 2 4 # Bowel Movements 1 General Appearance: cachetic, other - awake, responsive elderly AA male HEENT: normocephalic, atraumatic, anicteric, other - O2 via NC Respiratory: chest wall non-tender, lungs clear - with decreased BS Cardiovascular: normal peripheral pulses, regular rhythm Abdomen: normal bowel sounds, soft, non tender Genitourinary: normal external genitalia Extremities: no edema Skin: no lesions Neurologic: alert, responsive Musculoskeletal: atrophy - BLE Laboratory Tests 11/06/20 10:20: White Blood Count 5.2, Red Blood Count 4.33L, Hemoglobin 12.1L, Hematocrit 35.0L , Mean Corpuscular Volume 81, Mean Corpuscular Hemoglobin 27.9, Mean Corpuscular Hemoglobin Concent 34.5, Red Cell Distribution Width 16.8H, Platelet Count 316, Mean Platelet Volume 7.6, Neutrophils (%) (Auto) 74.5, Lymphocytes (%) (Auto) 15.2L, Monocytes (%) (Auto) 9.0, Eosinophils (%) (Auto) 0.4, Basophils (%) (Auto) 1.0, Sodium Level 146H, Potassium Level 3.4L, Chloride Level 109H, Carbon Dioxide Level 28, Anion Gap 9, Blood Urea Nitrogen 35H, Creatinine 1.2, Estimat Glomerular Filtration Rate > 60, Glucose Level 78, Calcium Level 9.8, Phosphorus Level 2.9, Magnesium Level 2.6H, Total Bilirubin 0.6, Aspartate Amino Transf (AST/SGOT) 54H, Alanine Aminotransferase (ALT/SGPT) 53, Alkaline Phosphatase 45L , C-Reactive Protein, Quantitative < 0.4, Pro-B-Type Natriuretic Peptide 223H, Total Protein 8.2, Albumin 3.4, Globulin 4.8, Albumin/Globulin Ratio 0.7L Current Medications Medications (Trade) Dose Ordered Sig/Eva Route PRN Reason Start Time Stop Time Status Last Admin Dose Admin Albuterol/ Ipratropium (Combivent Respimat) 1 puff Q4H PRN INH Shortness of Breath 10/27/20 09:00 11/26/20 08:59 Amlodipine Besylate (Norvasc) 5 mg DAILY ORAL 10/25/20 09:00 11/24/20 08:59 11/06/20 08:28 Aspirin (Ecotrin) 81 mg DAILY ORAL 10/25/20 09:00 12/09/20 08:59 11/06/20 08:27 Clonidine HCl (Catapres Tab) 0.1 mg Q2H PRN ORAL For High Blood Pressure 10/24/20 16:30 01/22/21 16:29 Docusate Sodium (Colace) 100 mg TWICE A DAY ORAL 10/24/20 18:00 11/23/20 17:59 11/06/20 08:27 Heparin Sodium (Porcine) (Heparin 5000 units/ml) 5,000 units EVERY 12 HOURS SUBQ 10/24/20 21:00 12/08/20 20:59 11/06/20 08:30 Lorazepam (Ativan 2mg/ml 1ml) 2 mg Q6H PRN IM Agitation 11/06/20 14:30 11/13/20 14:29 Memantine (Namenda) 5 mg BID ORAL 10/26/20 09:00 11/25/20 08:59 11/06/20 08:27 Mirtazapine (Remeron) 7.5 mg BEDTIME ORAL 10/26/20 21:00 01/24/21 20:59 11/05/20 20:47 Pantoprazole (Protonix) 40 mg DAILY ORAL 10/25/20 09:00 11/24/20 08:59 11/06/20 08:27 Promethazine HCl/ Codeine (Phenergan with Codeine) 5 ml Q4H PRN ORAL For Cough 10/26/20 12:15 11/25/20 12:14 Theophylline (Ivan-Dur) 100 mg EVERY 12 HOURS ORAL 10/26/20 21:00 01/24/21 20:59 11/06/20 08:27 Zolpidem Tartrate (Ambien) 5 mg HSPRN PRN ORAL Insomnia 11/01/20 20:15 11/08/20 20:14 11/01/20 20:27 Assessment/Plan Problems: (1) 2019 novel coronavirus disease (COVID-19) (2) Purulent bronchitis (3) COPD (chronic obstructive pulmonary disease) (4) KAILEY (acute kidney injury) (5) Hypernatremia (6) At high risk for aspiration (7) Dementia (8) Severe protein-calorie malnutrition Assessment/Plan no new complains improving on nasal cannula respiratory treatment aspiration precaution swallow study: MODIFIED TEXTURE DIET: PUREE WITH NECTAR THICK LIQUIDS titrate fio2 to sat of 92% antitussives check electrolytes dvt prophylaxis. dc planning Cinda Drummond MD Nov 06, 2020 15:52
[2020-11-06 16:00] VITALS: BP 128/89
[2020-11-06] MEDS: LORazepam Inj 2mg/ml 1ml IM PRN (16:00)
--- NOTE | 2020-11-06 16:20 | NUR ---
PT Note Attempted to see patient for treatment but was advised by RN to hold off on PT treatments due to patient being combative.
--- NOTE | 2020-11-06 19:35 | NUR ---
NURSE HAND-OFF: Important Events on Shift:[Combative behavior, obtained Ativan IM order] Patient Status: [] Diet: [low sodium] Pending Orders: [] Pending Results/Labs:[] Pending MD notification:[] Latest Vital Signs: Temperature 97.6 , Pulse 88 , B/P 145 /73 , Respiratory Rate 19 , O2 SAT 93 , Venturi Mask, O2 Flow Rate 2.0 . Vital Sign Comment: [stable] Latest Fung Fall Score: 70 Fall Risk: High Risk Safety Measures: Call light Within Reach, Bed Alarm Zone 2, Side Rails Side Rails x3, Bed position Low and Locked. Fall Precautions: Yellow Socks Yellow Gown Door Sign Patient Fall Education Report given to [DANIELLE Love].
--- NOTE | 2020-11-06 19:45 | NUR ---
NURSE NOTES: The patient is alert and oriented x1 has confusion and agitations and is also combative with his care.The patient is on 3 liters of oxygen via NC well tolerated.The patient has a Bilateral soft wrist restrain due to agitations and irritability.The patient has a left FA 20g that is patent and asymptomatic.The bed in lowest position and the call light within easy reach. will continue to monitor as indicated.
[2020-11-06 20:00] VITALS: BP 128/89
--- NOTE | 2020-11-06 21:35 | Cardiac Electrophysiology PN ---
Assessment/Plan Assessment/Plan 1. Hypertension. Continue amlodipine 5 mg daily and p.r.n. clonidine 2. Severe dehydration with hypernatremia and azotemia. Patient's sodium was 160 and creatinine of 1.7. Sodium improved to 141, BUN of 14, creatinine of 0.9 on IV fluid. 3. Elevated troponin and Poor R-wave progression on the EKG. No chest pain. EF 50%. Repeat troponin negative 4. Alzheimer dementia. At times still agitated 5. Covid PNA DW RN Subjective Subjective In isolation for Covid in restraints on 4 liter NC in restraints. Off tele. Objective Last 24 Hour Vital Signs Date Time Temp Pulse Resp B/P (MAP) Pulse Ox O2 Delivery O2 Flow Rate FiO2 11/06/20 16:30 88 19 145/73 93 11/06/20 16:00 88 19 145/73 93 11/06/20 16:00 97.6 99 19 128/89 (102) 95 11/06/20 12:00 97.3 88 19 145/73 (97) 93 11/06/20 09:00 Nasal Cannula 2.0 11/06/20 08:28 70 130/77 11/06/20 08:16 97 Nasal Cannula 2.0 28 11/06/20 08:00 97.5 80 18 135/68 (90) 93 11/06/20 04:00 97.2 67 18 127/77 (94) 94 11/06/20 00:00 97.0 78 16 106/52 (70) 93 Intake and Output 11/05/20 11/06/20 19:00 07:00 Intake Total 120 ml 240 ml Balance 120 ml 240 ml Intake Oral 120 ml 240 ml # Voids 2 4 # Bowel Movements 1 Laboratory Tests Test 11/06/20 10:20 White Blood Count 5.2 K/UL (4.8-10.8) Red Blood Count 4.33 M/UL (4.70-6.10) L Hemoglobin 12.1 G/DL (14.2-18.0) L Hematocrit 35.0 % (42.0-52.0) L Mean Corpuscular Volume 81 FL (80-99) Mean Corpuscular Hemoglobin 27.9 PG (27.0-31.0) Mean Corpuscular Hemoglobin Concent 34.5 G/DL (32.0-36.0) Red Cell Distribution Width 16.8 % (11.6-14.8) H Platelet Count 316 K/UL (150-450) Mean Platelet Volume 7.6 FL (6.5-10.1) Neutrophils (%) (Auto) 74.5 % (45.0-75.0) Lymphocytes (%) (Auto) 15.2 % (20.0-45.0) L Monocytes (%) (Auto) 9.0 % (1.0-10.0) Eosinophils (%) (Auto) 0.4 % (0.0-3.0) Basophils (%) (Auto) 1.0 % (0.0-2.0) Sodium Level 146 MMOL/L (136-145) H Potassium Level 3.4 MMOL/L (3.5-5.1) L Chloride Level 109 MMOL/L (98-107) H Carbon Dioxide Level 28 MMOL/L (21-32) Anion Gap 9 mmol/L (5-15) Blood Urea Nitrogen 35 mg/dL (7-18) H Creatinine 1.2 MG/DL (0.55-1.30) Estimat Glomerular Filtration Rate > 60 mL/min (>60) Glucose Level 78 MG/DL (74-106) Calcium Level 9.8 MG/DL (8.5-10.1) Phosphorus Level 2.9 MG/DL (2.5-4.9) Magnesium Level 2.6 MG/DL (1.8-2.4) H Total Bilirubin 0.6 MG/DL (0.2-1.0) Aspartate Amino Transf (AST/SGOT) 54 U/L (15-37) H Alanine Aminotransferase (ALT/SGPT) 53 U/L (12-78) Alkaline Phosphatase 45 U/L (46-116) L C-Reactive Protein, Quantitative < 0.4 mg/dL (0.00-0.90) Pro-B-Type Natriuretic Peptide 223 pg/mL (0-125) H Total Protein 8.2 G/DL (6.4-8.2) Albumin 3.4 G/DL (3.4-5.0) Globulin 4.8 g/dL Albumin/Globulin Ratio 0.7 (1.0-2.7) L Objective HEAD AND NECK: No JVD. LUNGS: Clear. CARDIOVASCULAR: Shows regular S1 and S2 with no gallop. ABDOMEN: Soft. EXTREMITIES: No pitting edema. Maurilio Lares MD Nov 06, 2020 21:35
--- NOTE | 2020-11-06 21:52 | General Progress Note ---
Subjective ROS Limited/Unobtainable: Yes Allergies: Coded Allergies: No Known Allergies (Unverified , 06/18/18) Objective Last 24 Hour Vital Signs Date Time Temp Pulse Resp B/P (MAP) Pulse Ox O2 Delivery O2 Flow Rate FiO2 11/06/20 16:30 88 19 145/73 93 11/06/20 16:00 88 19 145/73 93 11/06/20 16:00 97.6 99 19 128/89 (102) 95 11/06/20 12:00 97.3 88 19 145/73 (97) 93 11/06/20 09:00 Nasal Cannula 2.0 11/06/20 08:28 70 130/77 11/06/20 08:16 97 Nasal Cannula 2.0 28 11/06/20 08:00 97.5 80 18 135/68 (90) 93 11/06/20 04:00 97.2 67 18 127/77 (94) 94 11/06/20 00:00 97.0 78 16 106/52 (70) 93 Intake and Output 11/05/20 11/06/20 19:00 07:00 Intake Total 120 ml 240 ml Balance 120 ml 240 ml Intake Oral 120 ml 240 ml # Voids 2 4 # Bowel Movements 1 Laboratory Tests 11/06/20 10:20: White Blood Count 5.2, Red Blood Count 4.33L, Hemoglobin 12.1L, Hematocrit 35.0L , Mean Corpuscular Volume 81, Mean Corpuscular Hemoglobin 27.9, Mean Corpuscular Hemoglobin Concent 34.5, Red Cell Distribution Width 16.8H, Platelet Count 316, Mean Platelet Volume 7.6, Neutrophils (%) (Auto) 74.5, Lymphocytes (%) (Auto) 15.2L, Monocytes (%) (Auto) 9.0, Eosinophils (%) (Auto) 0.4, Basophils (%) (Auto) 1.0, Sodium Level 146H, Potassium Level 3.4L, Chloride Level 109H, Carbon Dioxide Level 28, Anion Gap 9, Blood Urea Nitrogen 35H, Creatinine 1.2, Estimat Glomerular Filtration Rate > 60, Glucose Level 78, Calcium Level 9.8, Phosphorus Level 2.9, Magnesium Level 2.6H, Total Bilirubin 0.6, Aspartate Amino Transf (AST/SGOT) 54H, Alanine Aminotransferase (ALT/SGPT) 53, Alkaline Phosphatase 45L , C-Reactive Protein, Quantitative < 0.4, Pro-B-Type Natriuretic Peptide 223H, Total Protein 8.2, Albumin 3.4, Globulin 4.8, Albumin/Globulin Ratio 0.7L Height (Feet): 6 Height (Inches): 1.00 Weight (Pounds): 140 Assessment/Plan Problem List: (1) ACS (acute coronary syndrome) ICD Codes: I24.9 - Acute ischemic heart disease, unspecified SNOMED: 661559310 (2) Chest pain ICD Codes: R07.9 - Chest pain, unspecified SNOMED: 88152189 (3) COPD (chronic obstructive pulmonary disease) ICD Codes: J44.9 - Chronic obstructive pulmonary disease, unspecified SNOMED: 66629848 (4) Hypernatremia ICD Codes: E87.0 - Hyperosmolality and hypernatremia SNOMED: 083517752 (5) Severe protein-calorie malnutrition ICD Codes: E43 - Unspecified severe protein-calorie malnutrition SNOMED: 484326183, 259876384, 777125533 (6) KAILEY (acute kidney injury) ICD Codes: N17.9 - Acute kidney failure, unspecified SNOMED: 63074365, 8432376 (7) UTI (urinary tract infection) ICD Codes: N39.0 - Urinary tract infection, site not specified SNOMED: 10064390 (8) Dementia ICD Codes: F03.90 - Unspecified dementia without behavioral disturbance SNOMED: 06838926 Status: stable Assessment/Plan: copd exacerbation reviewed chat and labs no fever resp insuff uti is improving Annamarie Vasquez MD Nov 06, 2020 21:52
[2020-11-06] MEDS: Zolpidem 5mg tab ORAL PRN (21:53)
[2020-11-07] VITALS: BP 118/76
[2020-11-07 04:00] VITALS: BP 129/68
--- NOTE | 2020-11-07 07:20 | NUR ---
NURSE HAND-OFF: Important Events on Shift:ON heparin drip, no bleeding noted Patient Status: Diet: ] Pending Orders: Pending Results/Labs: Pending MD notification: Latest Vital Signs: Temperature 97.6 , Pulse 87 , B/P 129 /68 , Respiratory Rate 18 , O2 SAT 97 , Venturi Mask, O2 Flow Rate 2.0 . Vital Sign Comment: Latest Fung Fall Score: 70 Fall Risk: High Risk Safety Measures: Call light Within Reach, Bed Alarm Zone 2, Side Rails Side Rails x3, Bed position Low and Locked. Fall Precautions: Yellow Socks Yellow Gown Door Sign Patient Fall Education Report given to .
[2020-11-07 08:00] VITALS: BP 104/65
--- NOTE | 2020-11-07 08:00 | NUR ---
NURSE NOTES: Report received from Ivan. Patient is combative, refusing food and medications and making loud sounds. Keeps pulling out the oxygen. AAOX1. No signs of pain. IV asymptomatic, patent and intact. Bed in lowest position and locked. Call light within reach. Will continue to monitor.
[2020-11-07] MEDS: Docusate 100mg cap ORAL SCH ×3 (09:00→17:59)
[2020-11-07] MEDS: Theophylline ER 100mg ORAL SCH ×3 (09:00→21:00)
[2020-11-07] MEDS: Memantine 5 MG TAB ORAL SCH ×3 (09:00→17:59)
[2020-11-07] MEDS: Heparin 5000 units/ml inj SUBQ SCH ×2 (09:51→21:00)
--- NOTE | 2020-11-07 09:57 | Psychiatry Consultation ---
Psychiatry Consultation Psychiatry Consultation Chief Complaint: Generalized Weakness History of Present Illness: 84-year-old male patient who continues to suffer from weakness failure to t hrive altered mental status, and declining cognition below baseline as well as attending has requested daily psychiatric consultation he still very confused disorganized and mood lability because his cognition has declined below his baseline his attending and requesting daily psychiatric consultation Allergies: Coded Allergies: No Known Allergies (Unverified , 06/18/18) Medication History Scheduled Amlodipine Besylate* (Amlodipine Besylate*), 5 MG ORAL DAILY, (Reported) Aspirin* (Aspir 81*), 81 MG ORAL DAILY, (Reported) Scheduled PRN Albuterol Sulfate* (Albuterol Sulfate Mdi*), 2 PUFF INH Q4H PRN for cough/wheezi ng Melatonin (Melatonin 5 Mg Tablet), 1 TAB ORAL BEDTIME PRN for Insomnia, (Reported) Tramadol Hcl* (Ultram*), 50 MG ORAL BID PRN for For Pain, (Reported) Zolpidem Tartrate* (Ambien*), 5 MG ORAL BEDTIME PRN for Insomnia, (Reported) Objective Data Height (Feet): 6 Height (Inches): 1.00 Weight (Pounds): 140 Appearance: disheveled Behavior Mannerisms: poor eye contact Affect: constricted Mood: eurphoric Speech: dysarthric Thought Process: disorganized Thought Content: paranoia Perceptual Disturbances: auditory Suicidal Ideation: no plan Assessment/Plan Assessment/Plan: Plan is to add Remeron 7.5 mg nightly for depression and also to increase his appetite also Ativan 0.5 mg every 6 hours. 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
[2020-11-07] MEDS: Aspirin Baby 81mg ORAL SCH ×3 (10:00→11:16)
[2020-11-07 12:00] VITALS: BP 127/88
[2020-11-07] MEDS: LORazepam Inj 2mg/ml 1ml IM PRN ×2 (12:16→21:35)
--- NOTE | 2020-11-07 13:00 | NUR ---
NURSE NOTES: RN gave ativan at 1216 because the patient continues to be agitative and pulls off the nasal cannula which led to low oxygen level and high heart rate. Will continue to monitor.
--- NOTE | 2020-11-07 13:51 | Pulmonology Progress Note ---
Subjective ROS Limited/Unobtainable: Yes Constitutional: Reports: no symptoms HEENT: Repors: no symptoms Allergies: Coded Allergies: No Known Allergies (Unverified , 06/18/18) Objective Last 24 Hour Vital Signs Date Time Temp Pulse Resp B/P (MAP) Pulse Ox O2 Delivery O2 Flow Rate FiO2 11/07/20 12:46 105 19 127/88 90 11/07/20 12:16 105 19 127/88 90 11/07/20 12:00 97.1 105 19 127/88 (101) 90 11/07/20 09:00 Nasal Cannula 2.0 11/07/20 09:00 101 104/65 11/07/20 08:00 97.0 101 19 104/65 (78) 90 11/07/20 04:00 97.6 87 18 129/68 (88) 97 11/07/20 00:00 97.3 87 19 118/76 (90) 97 11/06/20 21:00 Nasal Cannula 2.0 11/06/20 20:00 97.6 99 19 128/89 (102) 95 11/06/20 16:30 88 19 145/73 93 11/06/20 16:00 88 19 145/73 93 11/06/20 16:00 97.6 99 19 128/89 (102) 95 Intake and Output 11/06/20 11/07/20 19:00 07:00 Intake Total 360 ml 130 ml Balance 360 ml 130 ml Intake Oral 360 ml 130 ml # Voids 3 2 # Bowel Movements 1 General Appearance: cachetic, other - awake, responsive elderly AA male HEENT: normocephalic, atraumatic, anicteric, other - O2 via NC Respiratory: chest wall non-tender, lungs clear - with decreased BS Cardiovascular: normal peripheral pulses, regular rhythm Abdomen: normal bowel sounds, soft, non tender Genitourinary: normal external genitalia Extremities: no edema Skin: no lesions Neurologic: alert, responsive Musculoskeletal: atrophy - BLE Current Medications Medications (Trade) Dose Ordered Sig/Eva Route PRN Reason Start Time Stop Time Status Last Admin Dose Admin Albuterol/ Ipratropium (Combivent Respimat) 1 puff Q4H PRN INH Shortness of Breath 10/27/20 09:00 11/26/20 08:59 Amlodipine Besylate (Norvasc) 5 mg DAILY ORAL 10/25/20 09:00 11/24/20 08:59 11/06/20 08:28 Aspirin (ASA) 81 mg DAILY ORAL 11/07/20 10:00 12/22/20 09:59 Clonidine HCl (Catapres Tab) 0.1 mg Q2H PRN ORAL For High Blood Pressure 10/24/20 16:30 01/22/21 16:29 Docusate Sodium (Colace) 100 mg TWICE A DAY ORAL 10/24/20 18:00 11/23/20 17:59 11/06/20 18:04 Heparin Sodium (Porcine) (Heparin 5000 units/ml) 5,000 units EVERY 12 HOURS SUBQ 10/24/20 21:00 12/08/20 20:59 11/07/20 09:51 Lorazepam (Ativan 2mg/ml 1ml) 2 mg Q6H PRN IM Agitation 11/06/20 14:30 11/13/20 14:29 11/07/20 12:16 Memantine (Namenda) 5 mg BID ORAL 10/26/20 09:00 11/25/20 08:59 11/06/20 18:04 Mirtazapine (Remeron) 7.5 mg BEDTIME ORAL 10/26/20 21:00 01/24/21 20:59 11/06/20 21:00 Pantoprazole (Protonix) 40 mg DAILY ORAL 10/25/20 09:00 11/24/20 08:59 11/06/20 08:27 Promethazine HCl/ Codeine (Phenergan with Codeine) 5 ml Q4H PRN ORAL For Cough 10/26/20 12:15 11/25/20 12:14 Theophylline (Ivan-Dur) 100 mg EVERY 12 HOURS ORAL 10/26/20 21:00 01/24/21 20:59 11/06/20 21:00 Zolpidem Tartrate (Ambien) 5 mg HSPRN PRN ORAL Insomnia 11/01/20 20:15 11/08/20 20:14 11/06/20 21:53 Assessment/Plan Problems: (1) 2019 novel coronavirus disease (COVID-19) (2) Purulent bronchitis (3) COPD (chronic obstructive pulmonary disease) (4) KAILEY (acute kidney injury) (5) Hypernatremia (6) At high risk for aspiration (7) Dementia (8) Severe protein-calorie malnutrition Assessment/Plan no new complains improving on nasal cannula respiratory treatment aspiration precaution swallow study: MODIFIED TEXTURE DIET: PUREE WITH NECTAR THICK LIQUIDS titrate fio2 to sat of 92% antitussives check electrolytes dvt prophylaxis. dc planning Cinda Drummond MD Nov 07, 2020 13:51
--- NOTE | 2020-11-07 15:22 | Nephrology Progress Note ---
Assessment/Plan Problem List: (1) KAILEY (acute kidney injury) (2) Hypernatremia (3) Hypertension (4) UTI (urinary tract infection) (5) Dementia Assessment Acute renal failure, dehydration Hypernatremia secondary to free water deficit Failure to thrive UTI Hypertension Alzheimer dementia COPD Plan November 07: No labs drawn today. Will check lab tomorrow. Continue to monitor renal parameters. November 06: Labs reviewed. Abnormal electrolytes addressed. Continue per current management. Continue per consultants. November 05: No labs drawn today. Will check lab tomorrow. Medication list reviewed. Continue per consultants. November 04: No labs drawn today. Continue per consultants. Most recent renal parameters are stable. November 03: Labs reviewed. Electrolytes and renal parameters stable. November 02: Labs are reviewed. Low potassium replaced. Continue as is. November 01: Labs reviewed. Slightly elevated serum potassium most likely due to hemolysis since renal parameters are stable. Continue per consultants. Continue to monitor electrolytes and renal parameters. October 31: Labs reviewed. Low phosphorus replaced. Renal parameters are stable. Continue per consultants. October 30: Labs reviewed. Low potassium replaced. Serum sodium normalized. Will DC IV fluid. Continue to monitor renal parameters and electrolytes. October 29: Labs reviewed. Stable from renal standpoint of view. Serum creatinine 1. Continue per consultants. October 28: Labs reviewed. Abnormal electrolytes reviewed and addressed. Continue per current management. October 27: Labs reviewed. Further improvement of hypernatremia and serum creatinine. Continue same management. October 26: Labs reviewed. Serum sodium gradually lowering. Serum creatinine 1.4. Continue monitor renal parameters. October 25: Serum creatinine now within normal limit. Hypernatremia persists. Continue IV D5W. Continue to monitor electrolytes. Patient full code Free water in the form of D5W at 75 cc an hour IV Monitor renal parameters and electrolytes Keep the blood pressure and blood sugar in check Per orders Subjective ROS Limited/Unobtainable: No Objective Objective Last 24 Hour Vital Signs Date Time Temp Pulse Resp B/P (MAP) Pulse Ox O2 Delivery O2 Flow Rate FiO2 11/07/20 12:46 105 19 127/88 90 11/07/20 12:16 105 19 127/88 90 11/07/20 12:00 97.1 105 19 127/88 (101) 90 11/07/20 09:00 Nasal Cannula 2.0 11/07/20 09:00 101 104/65 12/27/20 08:00 97.0 101 19 104/65 (78) 90 11/07/20 04:00 97.6 87 18 129/68 (88) 97 11/07/20 00:00 97.3 87 19 118/76 (90) 97 11/06/20 21:00 Nasal Cannula 2.0 11/06/20 20:00 97.6 99 19 128/89 (102) 95 11/06/20 16:30 88 19 145/73 93 11/06/20 16:00 88 19 145/73 93 11/06/20 16:00 97.6 99 19 128/89 (102) 95 Intake and Output 11/06/20 11/07/20 19:00 07:00 Intake Total 360 ml 130 ml Balance 360 ml 130 ml Intake Oral 360 ml 130 ml # Voids 3 2 # Bowel Movements 1 No labs drawn today Height (Feet): 6 Height (Inches): 1.00 Weight (Pounds): 140 General Appearance: no apparent distress Cardiovascular: tachycardia Respiratory/Chest: decreased breath sounds Damian Webb MD Nov 07, 2020 15:22
[2020-11-07 16:00] VITALS: BP 123/78
--- NOTE | 2020-11-07 16:00 | NUR ---
NURSE NOTES: Patient's oxygen level increased to 96% and heart rate decreased to 101 after having nasal cannula on. Patient is less agitative and sleeping. Will continue to monitor.
--- NOTE | 2020-11-07 19:27 | NUR ---
NURSE HAND-OFF: Important Events on Shift:ativan at 1216 for pulling out NC Patient Status: stable, agitative Diet: low sodium, pureed moist Pending Orders: n/a Pending Results/Labs:n/a Pending MD notification:n/a Latest Vital Signs: Temperature 96.7 , Pulse 101 , B/P 123 /78 , Respiratory Rate 19 , O2 SAT 96 , Venturi Mask, O2 Flow Rate 2.0 . Vital Sign Comment: o2 increased to 96 from 90 after ativan is given and patient is able to tolerate nc. Latest Fung Fall Score: 70 Fall Risk: High Risk Safety Measures: Call light Within Reach, Bed Alarm Zone 2, Side Rails Side Rails x3, Bed position Low and Locked. Fall Precautions: Yellow Socks Yellow Gown Door Sign Patient Fall Education Report given to Naun.
[2020-11-07 20:00] VITALS: BP 116/81
--- NOTE | 2020-11-07 20:00 | NUR ---
[employer]: Pt is in bed, awe and restless. Vitals stable. Pt is on 3L n/c. Pt is fed, repositioned and attempts made reorient. Bilat soft wrist restraints on, restraints sites are asymptomatic. Fall precaution in place, bed alarm on , side rail sup and call light within reach. Patient will be monitored.
[2020-11-07] MEDS: Zolpidem 5mg tab ORAL PRN (21:34)
--- NOTE | 2020-11-07 22:17 | General Progress Note ---
Subjective ROS Limited/Unobtainable: Yes Allergies: Coded Allergies: No Known Allergies (Unverified , 06/18/18) Objective Last 24 Hour Vital Signs Date Time Temp Pulse Resp B/P (MAP) Pulse Ox O2 Delivery O2 Flow Rate FiO2 11/07/20 21:35 101 19 123/78 96 11/07/20 16:00 96.7 101 19 123/78 (93) 96 11/07/20 12:46 105 19 127/88 90 11/07/20 12:16 105 19 127/88 90 11/07/20 12:00 97.1 105 19 127/88 (101) 90 11/07/20 09:00 Nasal Cannula 2.0 11/07/20 09:00 101 104/65 11/07/20 08:00 97.0 101 19 104/65 (78) 90 11/07/20 04:00 97.6 87 18 129/68 (88) 97 11/07/20 00:00 97.3 87 19 118/76 (90) 97 Intake and Output 11/06/20 11/07/20 19:00 07:00 Intake Total 360 ml 130 ml Balance 360 ml 130 ml Intake Oral 360 ml 130 ml # Voids 3 2 # Bowel Movements 1 Height (Feet): 6 Height (Inches): 1.00 Weight (Pounds): 140 Assessment/Plan Problem List: (1) ACS (acute coronary syndrome) ICD Codes: I24.9 - Acute ischemic heart disease, unspecified SNOMED: 176250422 (2) Chest pain ICD Codes: R07.9 - Chest pain, unspecified SNOMED: 19474568 (3) COPD (chronic obstructive pulmonary disease) ICD Codes: J44.9 - Chronic obstructive pulmonary disease, unspecified SNOMED: 31867268 (4) Hypernatremia ICD Codes: E87.0 - Hyperosmolality and hypernatremia SNOMED: 470807897 (5) Severe protein-calorie malnutrition ICD Codes: E43 - Unspecified severe protein-calorie malnutrition SNOMED: 793443298, 411552801, 077771454 (6) KAILEY (acute kidney injury) ICD Codes: N17.9 - Acute kidney failure, unspecified SNOMED: 50734262, 8549943 (7) UTI (urinary tract infection) ICD Codes: N39.0 - Urinary tract infection, site not specified SNOMED: 05779353 (8) Dementia ICD Codes: F03.90 - Unspecified dementia without behavioral disturbance SNOMED: 39198973 Status: stable Assessment/Plan: copd exacerbation uti abx per id afebrile supportive rx Annamarie Vasquez MD Nov 07, 2020 22:17
[2020-11-08] VITALS: BP 126/71
[2020-11-08 04:00] VITALS: BP 107/73
--- NOTE | 2020-11-08 04:15 | NUR ---
NURSE NOTES: Pt is cleaned, repositioned, Blood drawn for AM labs. Pt is less agitated today but becomes agitated when nursing care is being performed, High fall risk. Fall precaution in place.
--- NOTE | 2020-11-08 07:05 | NUR ---
NURSE HAND-OFF: Important Events on Shift:[] Patient Status: [Stable] Diet: [] Pending Orders: [] Pending Results/Labs:[] Pending MD notification:[] Latest Vital Signs: Temperature 96.5 , Pulse 101 , B/P 107 /73 , Respiratory Rate 19 , O2 SAT 96 , Venturi Mask, O2 Flow Rate 2.0 . Vital Sign Comment: [] Latest Fung Fall Score: 70 Fall Risk: High Risk Safety Measures: Call light Within Reach, Bed Alarm Zone 2, Side Rails Side Rails x3, Bed position Low and Locked. Fall Precautions: Yellow Socks Yellow Gown Door Sign Patient Fall Education Report given to [DANIELLE Mendoza. Informed that patient is fall risk ].
--- NOTE | 2020-11-08 07:31 | NUR ---
NURSE NOTES: Received report from DANIELLE Voss. The patient is alert and oriented x1 has confusion and agitations and is also combative with his care. The patient is on 3 liters of oxygen via NC well tolerated and saturating well.The patient has a Bilateral soft wrist restrain due to agitations and irritability.The patient has a left FA 20g that is patent and asymptomatic.The bed in lowest position and the call light within easy reach. will continue to monitor as indicated.
[2020-11-08 07:38] LABS: BASOPHILS % (AUTO) 1.1 % (0.0-2.0); EOSINOPHILS % (AUTO) 0.1 % (0.0-3.0); HEMATOCRIT 38.8 % (42.0-52.0); HEMOGLOBIN 12.4 G/DL (14.2-18.0); LYMPHOCYTES % (AUTO) 13.2 % (20.0-45.0); MEAN CORPUSCULAR VOLUME 85 FL (80-99); MONOCYTES % (AUTO) 11.6 % (1.0-10.0); NEUTROPHILS % (AUTO) 74.1 % (45.0-75.0); PLATELET COUNT 374 K/UL (150-450); RED BLOOD COUNT 4.54 M/UL (4.70-6.10); RED CELL DISTRIBUTION WIDTH 15.6 % (11.6-14.8); WHITE BLOOD COUNT 7.2 K/UL (4.8-10.8)
[2020-11-08 07:58] LABS: ALANINE AMINOTRANSFERASE 60 U/L (12-78); ALBUMIN 3.1 G/DL (3.4-5.0); ALBUMIN/GLOBULIN RATIO 0.7 (1.0-2.7); ALKALINE PHOSPHATASE 44 U/L (46-116); ANION GAP 7 mmol/L (5-15); ASPARTATE AMINO TRANSFERASE 85 U/L (15-37); BILIRUBIN,TOTAL 0.6 MG/DL (0.2-1.0); BLOOD UREA NITROGEN 24 mg/dL (7-18); CALCIUM 9.3 MG/DL (8.5-10.1); CARBON DIOXIDE 28 MMOL/L (21-32); CHLORIDE 111 MMOL/L (98-107); CREATININE 1.2 MG/DL (0.55-1.30); PHOSPHORUS 2.8 MG/DL (2.5-4.9); POTASSIUM 4.2 MMOL/L (3.5-5.1); SODIUM 146 MMOL/L (136-145)
[2020-11-08 08:00] VITALS: BP 110/65
--- NOTE | 2020-11-08 08:15 | Infectious Diseases Prog Note ---
Assessment/Plan 84yo M with: Afebrile Normal WBC COVID positive Acute hypoxia 2/2 COVID pna UTI 10/24 UA 40-60 WBC, UCx >100k gamma-Strep CXR: No acute process 10/25 COVID PCR pos 10/26 CXR: No acute process Abdominal tenderness on exam 10/25 Abd US: Negative for gallstones or dilated bile ducts. Hypoechoic les ions in the right hepatic lobe. These are nonspecific, neoplastic etiologies are among the differential. Recommend further evaluation with contrast CT as clinically indicated. Nonspecific heterogeneous hepatic echogenicity, could indicate hepatocellular disease. Hepatic and bilateral renal cysts. Note nonvisualization of the aorta and portions of the pancreas Cr 1.7 Alzheimer's dementia HTN HIV screen neg RPR neg Plan: Cont to monitor off abx OK to d/c from ID standpoint off COVID isolation since >10 days out from diagnosis 11/07 SP dex #10 10/30 SP RDV #5 10/29 SP CTX #5 for UTI Monitor CBC/CMP Monitor temp curve, hemodynamics Monitor resp status D/w RN Thank you for this consult. [facility] will continue to follow. Subjective Allergies: Coded Allergies: No Known Allergies (Unverified , 06/18/18) AF 2L NC NAD in bed WBC 7.2 Objective Last 24 Hour Vital Signs Date Time Temp Pulse Resp B/P (MAP) Pulse Ox O2 Delivery O2 Flow Rate FiO2 11/08/20 04:00 96.5 101 19 107/73 (84) 96 11/08/20 00:00 97.0 88 18 126/71 (89) 96 11/07/20 22:05 90 18 121/72 96 11/07/20 21:35 101 19 123/78 96 11/07/20 21:00 Nasal Cannula 2.0 11/07/20 20:00 97.3 90 17 116/81 (93) 96 11/07/20 16:00 96.7 101 19 123/78 (93) 96 11/07/20 12:46 105 19 127/88 90 11/07/20 12:16 105 19 127/88 90 11/07/20 12:00 97.1 105 19 127/88 (101) 90 11/07/20 09:00 Nasal Cannula 2.0 11/07/20 09:00 101 104/65 Height (Feet): 6 Height (Inches): 1.00 Weight (Pounds): 140 Gen: NAD HEENT: NCAT Pulm: BL chest rise on venturi mask Abd: Non-distended Ext: No c/c/e Skin: No visible rashes Neuro: Awake Laboratory Tests Test 11/08/20 04:00 White Blood Count 7.2 K/UL (4.8-10.8) Red Blood Count 4.54 M/UL (4.70-6.10) L Hemoglobin 12.4 G/DL (14.2-18.0) L Hematocrit 38.8 % (42.0-52.0) L Mean Corpuscular Volume 85 FL (80-99) Mean Corpuscular Hemoglobin 27.3 PG (27.0-31.0) Mean Corpuscular Hemoglobin Concent 32.0 G/DL (32.0-36.0) Red Cell Distribution Width 15.6 % (11.6-14.8) H Platelet Count 374 K/UL (150-450) Mean Platelet Volume 6.2 FL (6.5-10.1) L Neutrophils (%) (Auto) 74.1 % (45.0-75.0) Lymphocytes (%) (Auto) 13.2 % (20.0-45.0) L Monocytes (%) (Auto) 11.6 % (1.0-10.0) H Eosinophils (%) (Auto) 0.1 % (0.0-3.0) Basophils (%) (Auto) 1.1 % (0.0-2.0) Sodium Level 146 MMOL/L (136-145) H Potassium Level 4.2 MMOL/L (3.5-5.1) Chloride Level 111 MMOL/L (98-107) H Carbon Dioxide Level 28 MMOL/L (21-32) Anion Gap 7 mmol/L (5-15) Blood Urea Nitrogen 24 mg/dL (7-18) H Creatinine 1.2 MG/DL (0.55-1.30) Estimat Glomerular Filtration Rate > 60 mL/min (>60) Glucose Level 112 MG/DL (74-106) H Calcium Level 9.3 MG/DL (8.5-10.1) Phosphorus Level 2.8 MG/DL (2.5-4.9) Magnesium Level 2.3 MG/DL (1.8-2.4) Total Bilirubin 0.6 MG/DL (0.2-1.0) Aspartate Amino Transf (AST/SGOT) 85 U/L (15-37) H Alanine Aminotransferase (ALT/SGPT) 60 U/L (12-78) Alkaline Phosphatase 44 U/L (46-116) L C-Reactive Protein, Quantitative 2.9 mg/dL (0.00-0.90) H Total Protein 7.8 G/DL (6.4-8.2) Albumin 3.1 G/DL (3.4-5.0) L Globulin 4.7 g/dL Albumin/Globulin Ratio 0.7 (1.0-2.7) L Current Medications Medications (Trade) Dose Ordered Sig/Eva Route PRN Reason Start Time Stop Time Status Last Admin Dose Admin Albuterol/ Ipratropium (Combivent Respimat) 1 puff Q4H PRN INH Shortness of Breath 10/27/20 09:00 11/26/20 08:59 Amlodipine Besylate (Norvasc) 5 mg DAILY ORAL 10/25/20 09:00 11/24/20 08:59 11/06/20 08:28 Aspirin (ASA) 81 mg DAILY ORAL 11/07/20 10:00 12/22/20 09:59 Clonidine HCl (Catapres Tab) 0.1 mg Q2H PRN ORAL For High Blood Pressure 10/24/20 16:30 01/22/21 16:29 Docusate Sodium (Colace) 100 mg TWICE A DAY ORAL 10/24/20 18:00 11/23/20 17:59 11/07/20 17:59 Heparin Sodium (Porcine) (Heparin 5000 units/ml) 5,000 units EVERY 12 HOURS SUBQ 10/24/20 21:00 12/08/20 20:59 11/07/20 21:00 Memantine (Namenda) 5 mg BID ORAL 10/26/20 09:00 11/25/20 08:59 11/07/20 17:59 Mirtazapine (Remeron) 7.5 mg BEDTIME ORAL 10/26/20 21:00 01/24/21 20:59 11/07/20 21:00 Pantoprazole (Protonix) 40 mg DAILY ORAL 10/25/20 09:00 11/24/20 08:59 11/06/20 08:27 Promethazine HCl/ Codeine (Phenergan with Codeine) 5 ml Q4H PRN ORAL For Cough 10/26/20 12:15 11/25/20 12:14 Theophylline (Ivan-Dur) 100 mg EVERY 12 HOURS ORAL 10/26/20 21:00 01/24/21 20:59 11/07/20 21:00 Zolpidem Tartrate (Ambien) 5 mg HSPRN PRN ORAL Insomnia 11/01/20 20:15 11/08/20 20:14 11/07/20 21:34 Lucia Gresham M.D. Nov 08, 2020 08:15
--- NOTE | 2020-11-08 09:17 | NUR ---
RD ASSESSMENT & RECOMMENDATIONS SEE CARE ACTIVITY FOR COMPLETE ASSESSMENT DAILY ESTIMATED NEEDS: Needs based on Underweight, wasting 51kg 30-35 kcals/kg 5033-3155 total kcals 1-1.5 g protein/kg 51-76 g total protein 25-30 mL/kg 0973-1827 total fluid mLs NUTRITION DIAGNOSIS: Increased kcal and pro needs r/t underweight, wasting, wt loss as evidenced by pt w/ generalized moderate wasting, @ 79% of ideal body weight w/ low BMI of 18.1, pt w/ suspected significant wt loss of 11 lbs/8.9% in <6 months. . CURRENT DIET:LOW NA, pureed moist PO DIET RECOMMENDATIONS: Liberalized regular/ texture as tolerated or per POSITION CLASSIFIER (ENTERAL NUTRITION RECOMMENDATIONS: Consult RD if non oral feeds are part of POC to meet est nutritional needs) ADDITIONAL RECOMMENDATIONS: 1) Monitor wt trend- suspected recent significant wt loss calibrated daily bedscale wts 2) Consider POSITION CLASSIFIER eval for appropriate texture-> cleared for puree 3) MVI x 1 4) Add Ensure Enlive TID w/ meals (350kcal/20g prot each) 5) Consider resume D5 IV to prevent hypoglycemia Offer and encourage HS snack, rec accuchecks for close BG monitoring
[2020-11-08] MEDS: Theophylline ER 100mg ORAL SCH ×2 (09:41→21:18)
[2020-11-08] MEDS: Aspirin Baby 81mg ORAL SCH (09:41)
[2020-11-08] MEDS: Memantine 5 MG TAB ORAL SCH ×2 (09:42→17:02)
[2020-11-08] MEDS: Docusate 100mg cap ORAL SCH ×2 (09:42→17:02)
[2020-11-08] MEDS: Heparin 5000 units/ml inj SUBQ SCH ×2 (09:44→21:19)
--- NOTE | 2020-11-08 09:45 | Psychiatry Consultation ---
Psychiatry Consultation Psychiatry Consultation Chief Complaint: Generalized Weakness History of Present Illness: 84-year-old male patient who continues to suffer from weakness failure to t hrive altered mental status, and declining cognition below baseline as well as attending has requested daily psychiatric consultation. Patiernt remains confused disorganized and mood lability because his cognition has declined below his baseline his attending and requesting daily psychiatric consultation Allergies: Coded Allergies: No Known Allergies (Unverified , 06/18/18) Medication History Scheduled Amlodipine Besylate* (Amlodipine Besylate*), 5 MG ORAL DAILY, (Reported) Aspirin* (Aspir 81*), 81 MG ORAL DAILY, (Reported) Scheduled PRN Albuterol Sulfate* (Albuterol Sulfate Mdi*), 2 PUFF INH Q4H PRN for cough/wh eezing Melatonin (Melatonin 5 Mg Tablet), 1 TAB ORAL BEDTIME PRN for Insomnia, (Reported) Tramadol Hcl* (Ultram*), 50 MG ORAL BID PRN for For Pain, (Reported) Zolpidem Tartrate* (Ambien*), 5 MG ORAL BEDTIME PRN for Insomnia, (Reported) Objective Data Height (Feet): 6 Height (Inches): 1.00 Weight (Pounds): 140 Assessment/Plan Assessment/Plan: Plan is to add Remeron 7.5 mg nightly for depression and also to increase his appetite also Ativan 0.5 mg every 6 hours. 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
--- NOTE | 2020-11-08 11:05 | NUR ---
PT NOTE Attempted to see patient for PT treatment. Patient confused, agitated, uncooperative, unable to participate with PT at this time. Reji SANTOS notified.
--- NOTE | 2020-11-08 11:50 | Pulmonology Progress Note ---
Subjective ROS Limited/Unobtainable: Yes Constitutional: Reports: no symptoms HEENT: Repors: no symptoms Allergies: Coded Allergies: No Known Allergies (Unverified , 06/18/18) Objective Last 24 Hour Vital Signs Date Time Temp Pulse Resp B/P (MAP) Pulse Ox O2 Delivery O2 Flow Rate FiO2 11/08/20 09:41 108 110/65 11/08/20 09:00 Nasal Cannula 2.0 11/08/20 08:00 98.1 90 18 110/65 (80) 95 11/08/20 04:00 96.5 101 19 107/73 (84) 96 11/08/20 00:00 97.0 88 18 126/71 (89) 96 11/07/20 22:05 90 18 121/72 96 11/07/20 21:35 101 19 123/78 96 11/07/20 21:00 Nasal Cannula 2.0 11/07/20 20:00 97.3 90 17 116/81 (93) 96 11/07/20 16:00 96.7 101 19 123/78 (93) 96 11/07/20 12:46 105 19 127/88 90 11/07/20 12:16 105 19 127/88 90 11/07/20 12:00 97.1 105 19 127/88 (101) 90 Intake and Output 11/07/20 11/08/20 19:00 07:00 Intake Total 120 ml Balance 120 ml Intake Oral 120 ml # Voids 2 1 # Bowel Movements 1 General Appearance: cachetic, other - awake, responsive elderly AA male HEENT: normocephalic, atraumatic, anicteric, other - O2 via NC Respiratory: chest wall non-tender, lungs clear - with decreased BS Cardiovascular: normal peripheral pulses, regular rhythm Abdomen: normal bowel sounds, soft, non tender Genitourinary: normal external genitalia Extremities: no edema Skin: no lesions Neurologic: alert, responsive Musculoskeletal: atrophy - BLE Laboratory Tests 11/08/20 04:00: White Blood Count 7.2, Red Blood Count 4.54L, Hemoglobin 12.4L, Hematocrit 38.8L , Mean Corpuscular Volume 85, Mean Corpuscular Hemoglobin 27.3, Mean Corpuscular Hemoglobin Concent 32.0, Red Cell Distribution Width 15.6H, Platelet Count 374, Mean Platelet Volume 6.2L, Neutrophils (%) (Auto) 74.1, Lymphocytes (%) (Auto) 13.2L, Monocytes (%) (Auto) 11.6H, Eosinophils (%) (Auto) 0.1, Basophils (%) (Auto) 1.1, Sodium Level 146H, Potassium Level 4.2, Chloride Level 111H, Carbon Dioxide Level 28, Anion Gap 7, Blood Urea Nitrogen 24H, Creatinine 1.2, Estimat Glomerular Filtration Rate > 60, Glucose Level 112H, Calcium Level 9.3, Phosphorus Level 2.8, Magnesium Level 2.3, Total Bilirubin 0.6, Aspartate Amino Transf (AST/SGOT) 85H, Alanine Aminotransferase (ALT/SGPT) 60, Alkaline Phosphatase 44L, C-Reactive Protein, Quantitative 2.9H, Total Protein 7.8, Albu min 3.1L, Globulin 4.7, Albumin/Globulin Ratio 0.7L Current Medications Medications (Trade) Dose Ordered Sig/Eva Route PRN Reason Start Time Stop Time Status Last Admin Dose Admin Albuterol/ Ipratropium (Combivent Respimat) 1 puff Q4H PRN INH Shortness of Breath 10/27/20 09:00 11/26/20 08:59 Amlodipine Besylate (Norvasc) 5 mg DAILY ORAL 10/25/20 09:00 11/24/20 08:59 11/08/20 09:41 Aspirin (ASA) 81 mg DAILY ORAL 11/07/20 10:00 12/22/20 09:59 11/08/20 09:41 Clonidine HCl (Catapres Tab) 0.1 mg Q2H PRN ORAL For High Blood Pressure 10/24/20 16:30 01/22/21 16:29 Docusate Sodium (Colace) 100 mg TWICE A DAY ORAL 10/24/20 18:00 11/23/20 17:59 11/08/20 09:42 Heparin Sodium (Porcine) (Heparin 5000 units/ml) 5,000 units EVERY 12 HOURS SUBQ 10/24/20 21:00 12/08/20 20:59 11/08/20 09:44 Memantine (Namenda) 5 mg BID ORAL 10/26/20 09:00 11/25/20 08:59 11/08/20 09:42 Mirtazapine (Remeron) 7.5 mg BEDTIME ORAL 10/26/20 21:00 01/24/21 20:59 11/07/20 21:00 Pantoprazole (Protonix) 40 mg DAILY ORAL 10/25/20 09:00 11/24/20 08:59 11/08/20 09:41 Promethazine HCl/ Codeine (Phenergan with Codeine) 5 ml Q4H PRN ORAL For Cough 10/26/20 12:15 11/25/20 12:14 Theophylline (Ivan-Dur) 100 mg EVERY 12 HOURS ORAL 10/26/20 21:00 01/24/21 20:59 11/08/20 09:41 Zolpidem Tartrate (Ambien) 5 mg HSPRN PRN ORAL Insomnia 11/01/20 20:15 11/08/20 20:14 11/07/20 21:34 Assessment/Plan Problems: (1) 2019 novel coronavirus disease (COVID-19) (2) Purulent bronchitis (3) COPD (chronic obstructive pulmonary disease) (4) KAILEY (acute kidney injury) (5) Hypernatremia (6) At high risk for aspiration (7) Dementia (8) Severe protein-calorie malnutrition Assessment/Plan all reviewed: ID cleared for discharge no new complains improving on nasal cannula respiratory treatment aspiration precaution swallow study: MODIFIED TEXTURE DIET: PUREE WITH NECTAR THICK LIQUIDS titrate fio2 to sat of 92% antitussives check electrolytes dvt prophylaxis. dc planning Cinda Drummond MD Nov 08, 2020 11:50
[2020-11-08 12:00] VITALS: BP 128/70
--- NOTE | 2020-11-08 13:33 | Cardiac Electrophysiology PN ---
Assessment/Plan Assessment/Plan 1. Hypertension. Continue amlodipine 5 mg daily and p.r.n. clonidine 2. Severe dehydration with hypernatremia and azotemia. Patient's sodium was 160 and creatinine of 1.7. Sodium improved to 141, BUN of 14, creatinine of 0.9 on IV fluid. 3. Elevated troponin and Poor R-wave progression on the EKG. No chest pain. EF 50%. Repeat troponin negative 4. Alzheimer dementia. At times still agitated 5. Covid PNA DW RN Subjective Subjective In isolation for Covid, agitated in restraints on 4 liter NC . Off tele. Objective Last 24 Hour Vital Signs Date Time Temp Pulse Resp B/P (MAP) Pulse Ox O2 Delivery O2 Flow Rate FiO2 11/08/20 12:00 98.1 64 18 128/70 (89) 96 11/08/20 09:41 108 110/65 11/08/20 09:00 Nasal Cannula 2.0 11/08/20 08:00 98.1 90 18 110/65 (80) 95 11/08/20 04:00 96.5 101 19 107/73 (84) 96 11/08/20 00:00 97.0 88 18 126/71 (89) 96 11/07/20 22:05 90 18 121/72 96 11/07/20 21:35 101 19 123/78 96 11/07/20 21:00 Nasal Cannula 2.0 11/07/20 20:00 97.3 90 17 116/81 (93) 96 11/07/20 16:00 96.7 101 19 123/78 (93) 96 Intake and Output 11/07/20 11/08/20 19:00 07:00 Intake Total 120 ml Balance 120 ml Intake Oral 120 ml # Voids 2 1 # Bowel Movements 1 Laboratory Tests Test 11/08/20 04:00 White Blood Count 7.2 K/UL (4.8-10.8) Red Blood Count 4.54 M/UL (4.70-6.10) L Hemoglobin 12.4 G/DL (14.2-18.0) L Hematocrit 38.8 % (42.0-52.0) L Mean Corpuscular Volume 85 FL (80-99) Mean Corpuscular Hemoglobin 27.3 PG (27.0-31.0) Mean Corpuscular Hemoglobin Concent 32.0 G/DL (32.0-36.0) Red Cell Distribution Width 15.6 % (11.6-14.8) H Platelet Count 374 K/UL (150-450) Mean Platelet Volume 6.2 FL (6.5-10.1) L Neutrophils (%) (Auto) 74.1 % (45.0-75.0) Lymphocytes (%) (Auto) 13.2 % (20.0-45.0) L Monocytes (%) (Auto) 11.6 % (1.0-10.0) H Eosinophils (%) (Auto) 0.1 % (0.0-3.0) Basophils (%) (Auto) 1.1 % (0.0-2.0) Sodium Level 146 MMOL/L (136-145) H Potassium Level 4.2 MMOL/L (3.5-5.1) Chloride Level 111 MMOL/L (98-107) H Carbon Dioxide Level 28 MMOL/L (21-32) Anion Gap 7 mmol/L (5-15) Blood Urea Nitrogen 24 mg/dL (7-18) H Creatinine 1.2 MG/DL (0.55-1.30) Estimat Glomerular Filtration Rate > 60 mL/min (>60) Glucose Level 112 MG/DL (74-106) H Calcium Level 9.3 MG/DL (8.5-10.1) Phosphorus Level 2.8 MG/DL (2.5-4.9) Magnesium Level 2.3 MG/DL (1.8-2.4) Total Bilirubin 0.6 MG/DL (0.2-1.0) Aspartate Amino Transf (AST/SGOT) 85 U/L (15-37) H Alanine Aminotransferase (ALT/SGPT) 60 U/L (12-78) Alkaline Phosphatase 44 U/L (46-116) L C-Reactive Protein, Quantitative 2.9 mg/dL (0.00-0.90) H Total Protein 7.8 G/DL (6.4-8.2) Albumin 3.1 G/DL (3.4-5.0) L Globulin 4.7 g/dL Albumin/Globulin Ratio 0.7 (1.0-2.7) L Objective HEAD AND NECK: No JVD. LUNGS: Clear. CARDIOVASCULAR: Shows regular S1 and S2 with no gallop. ABDOMEN: Soft. EXTREMITIES: No pitting edema. Maurilio Lares MD Nov 08, 2020 13:33
--- NOTE | 2020-11-08 13:49 | Nephrology Progress Note ---
Assessment/Plan Problem List: (1) KAILEY (acute kidney injury) (2) Hypernatremia (3) Hypertension (4) UTI (urinary tract infection) (5) Dementia Assessment Acute renal failure, dehydration Hypernatremia secondary to free water deficit Failure to thrive UTI Hypertension Alzheimer dementia COPD Plan November 08: Labs reviewed. Renal parameters stable. Continue per consultants. November 07: No labs drawn today. Will check lab tomorrow. Continue to monitor renal parameters. November 06: Labs reviewed. Abnormal electrolytes addressed. Continue per current management. Continue per consultants. November 05: No labs drawn today. Will check lab tomorrow. Medication list reviewed. Continue per consultants. November 04: No labs drawn today. Continue per consultants. Most recent renal parameters are stable. November 03: Labs reviewed. Electrolytes and renal parameters stable. November 02: Labs are reviewed. Low potassium replaced. Continue as is. November 01: Labs reviewed. Slightly elevated serum potassium most likely due to hemolysis since renal parameters are stable. Continue per consultants. Continue to monitor electrolytes and renal parameters. October 31: Labs reviewed. Low phosphorus replaced. Renal parameters are stable. Continue per consultants. October 30: Labs reviewed. Low potassium replaced. Serum sodium normalized. Will DC IV fluid. Continue to monitor renal parameters and electrolytes. October 29: Labs reviewed. Stable from renal standpoint of view. Serum creatinine 1. Continue per consultants. October 28: Labs reviewed. Abnormal electrolytes reviewed and addressed. Continue per current management. October 27: Labs reviewed. Further improvement of hypernatremia and serum creatinine. Continue same management. October 26: Labs reviewed. Serum sodium gradually lowering. Serum creatinine 1.4. Continue monitor renal parameters. October 25: Serum creatinine now within normal limit. Hypernatremia persists. Continue IV D5W. Continue to monitor electrolytes. Patient full code Free water in the form of D5W at 75 cc an hour IV Monitor renal parameters and electrolytes Keep the blood pressure and blood sugar in check Per orders Subjective ROS Limited/Unobtainable: No Constitutional: Reports: malaise Objective Objective Last 24 Hour Vital Signs Date Time Temp Pulse Resp B/P (MAP) Pulse Ox O2 Delivery O2 Flow Rate FiO2 11/08/20 12:00 98.1 64 18 128/70 (89) 96 11/08/20 09:41 108 110/65 11/08/20 09:00 Nasal Cannula 2.0 11/08/20 08:00 98.1 90 18 110/65 (80) 95 11/08/20 04:00 96.5 101 19 107/73 (84) 96 11/08/20 00:00 97.0 88 18 126/71 (89) 96 11/07/20 22:05 90 18 121/72 96 11/07/20 21:35 101 19 123/78 96 11/07/20 21:00 Nasal Cannula 2.0 11/07/20 20:00 97.3 90 17 116/81 (93) 96 11/07/20 16:00 96.7 101 19 123/78 (93) 96 Intake and Output 11/07/20 11/08/20 19:00 07:00 Intake Total 120 ml Balance 120 ml Intake Oral 120 ml # Voids 2 1 # Bowel Movements 1 Laboratory Tests 11/08/20 04:00: White Blood Count 7.2, Red Blood Count 4.54L, Hemoglobin 12.4L, Hematocrit 38.8L , Mean Corpuscular Volume 85, Mean Corpuscular Hemoglobin 27.3, Mean Corpuscular Hemoglobin Concent 32.0, Red Cell Distribution Width 15.6H, Platelet Count 374, Mean Platelet Volume 6.2L, Neutrophils (%) (Auto) 74.1, Lymphocytes (%) (Auto) 13.2L, Monocytes (%) (Auto) 11.6H, Eosinophils (%) (Auto) 0.1, Basophils (%) (Auto) 1.1, Sodium Level 146H, Potassium Level 4.2, Chloride Level 111H, Carbon Dioxide Level 28, Anion Gap 7, Blood Urea Nitrogen 24H, Creatinine 1.2, Estimat Glomerular Filtration Rate > 60, Glucose Level 112H, Calcium Level 9.3, Phosphorus Level 2.8, Magnesium Level 2.3, Total Bilirubin 0.6, Aspartate Amino Transf (AST/SGOT) 85H, Alanine Aminotransferase (ALT/SGPT) 60, Alkaline Phosphatase 44L, C-Reactive Protein, Quantitative 2.9H, Total Protein 7.8, Al bumin 3.1L, Globulin 4.7, Albumin/Globulin Ratio 0.7L Height (Feet): 6 Height (Inches): 1.00 Weight (Pounds): 140 General Appearance: no apparent distress Cardiovascular: tachycardia Respiratory/Chest: decreased breath sounds Abdomen: soft FoDamian raya MD Nov 08, 2020 13:49
--- NOTE | 2020-11-08 15:29 | NUR ---
CASE MANAGEMENT:REVIEW SI;COVID PNEUMONIA. PURULENT BRONCHITIS. 98.1 108 19 128/70 95% 2L NC NA+ 146 CL 111 BUN 24 AST 85 CRP 2.9 IS;ASA PO QD SEBASTIAN-DUR PO Q12 NORVASC PO QD HEPARIN SQ Q12 NORVASC PO QD MED SURG STATUS DCP;FROM HOME
[2020-11-08 16:00] VITALS: BP 109/59
--- NOTE | 2020-11-08 19:30 | NUR ---
HAND-OFF: Report given to DANIELLE Lassiter.
--- NOTE | 2020-11-08 19:44 | NUR ---
NURSE NOTES: Received patient in bed, asleep, alert/oriented x1, confused most of the times, disoriented, patient can be combative and verbally abusive. Patient has bilateral soft wrist restraints for safety, IV site is clean dry and intact, on oxygen at 3 liters. Call light is within reach, bed is lowered, locked, alarm is on, will continue to monitor for comfort and safety.
[2020-11-08 20:00] VITALS: BP 110/76
--- NOTE | 2020-11-08 21:31 | General Progress Note ---
Subjective ROS Limited/Unobtainable: Yes Allergies: Coded Allergies: No Known Allergies (Unverified , 06/18/18) Objective Last 24 Hour Vital Signs Date Time Temp Pulse Resp B/P (MAP) Pulse Ox O2 Delivery O2 Flow Rate FiO2 11/08/20 20:00 97.5 115 20 110/76 (87) 93 11/08/20 16:00 97.9 86 18 109/59 (76) 94 11/08/20 12:00 98.1 64 18 128/70 (89) 96 11/08/20 09:41 108 110/65 11/08/20 09:00 Nasal Cannula 2.0 11/08/20 08:00 98.1 90 18 110/65 (80) 95 11/08/20 07:00 95 Nasal Cannula 2.0 28 11/08/20 04:00 96.5 101 19 107/73 (84) 96 11/08/20 00:00 97.0 88 18 126/71 (89) 96 11/07/20 22:05 90 18 121/72 96 11/07/20 21:35 101 19 123/78 96 Intake and Output 11/07/20 11/08/20 19:00 07:00 Intake Total 120 ml Balance 120 ml Intake Oral 120 ml # Voids 2 1 # Bowel Movements 1 Laboratory Tests 11/08/20 04:00: White Blood Count 7.2, Red Blood Count 4.54L, Hemoglobin 12.4L, Hematocrit 38.8L , Mean Corpuscular Volume 85, Mean Corpuscular Hemoglobin 27.3, Mean Corpuscular Hemoglobin Concent 32.0, Red Cell Distribution Width 15.6H, Platelet Count 374, Mean Platelet Volume 6.2L, Neutrophils (%) (Auto) 74.1, Lymphocytes (%) (Auto) 13.2L, Monocytes (%) (Auto) 11.6H, Eosinophils (%) (Auto) 0.1, Basophils (%) (Auto) 1.1, Sodium Level 146H, Potassium Level 4.2, Chloride Level 111H, Carbon Dioxide Level 28, Anion Gap 7, Blood Urea Nitrogen 24H, Creatinine 1.2, Estimat Glomerular Filtration Rate > 60, Glucose Level 112H, Calcium Level 9.3, Phos phorus Level 2.8, Magnesium Level 2.3, Total Bilirubin 0.6, Aspartate Amino Transf (AST/SGOT) 85H, Alanine Aminotransferase (ALT/SGPT) 60, Alkaline Phosphatase 44L, C-Reactive Protein, Quantitative 2.9H, Total Protein 7.8, Albumin 3.1L, Globulin 4.7, Albumin/Globulin Ratio 0.7L Height (Feet): 6 Height (Inches): 1.00 Weight (Pounds): 140 Assessment/Plan Problem List: (1) ACS (acute coronary syndrome) ICD Codes: I24.9 - Acute ischemic heart disease, unspecified SNOMED: 387364203 (2) Chest pain ICD Codes: R07.9 - Chest pain, unspecified SNOMED: 12852511 (3) COPD (chronic obstructive pulmonary disease) ICD Codes: J44.9 - Chronic obstructive pulmonary disease, unspecified SNOMED: 26170783 (4) Hypernatremia ICD Codes: E87.0 - Hyperosmolality and hypernatremia SNOMED: 378499023 (5) Severe protein-calorie malnutrition ICD Codes: E43 - Unspecified severe protein-calorie malnutrition SNOMED: 457485298, 873178302, 257601145 (6) KAILEY (acute kidney injury) ICD Codes: N17.9 - Acute kidney failure, unspecified SNOMED: 56581687, 8531198 (7) UTI (urinary tract infection) ICD Codes: N39.0 - Urinary tract infection, site not specified SNOMED: 64891845 (8) Dementia ICD Codes: F03.90 - Unspecified dementia without behavioral disturbance SNOMED: 23621429 Status: stable Assessment/Plan: copd exacerbation uti malnutrition lyte abnormality abx per id Annamarie Cortes MD Nov 08, 2020 21:30
[2020-11-09] VITALS: BP 121/78
[2020-11-09 04:00] VITALS: BP 132/68
--- NOTE | 2020-11-09 07:17 | NUR ---
NURSE HAND-OFF: Important Events on Shift:uneventful Patient Status: full code Diet: low sodium, crush meds, patient has poor appetite Pending Orders: Pending Results/Labs: Pending MD notification: Latest Vital Signs: Temperature 97.2 , Pulse 112 , B/P 132 /68 , Respiratory Rate 18 , O2 SAT 92 , Venturi Mask, O2 Flow Rate 2.0 . Vital Sign Comment: Latest Fung Fall Score: 70 Fall Risk: High Risk Safety Measures: Call light Within Reach, Bed Alarm Zone 2, Side Rails Side Rails x3, Bed position Low and Locked. Fall Precautions: Yellow Socks Yellow Gown Door Sign Patient Fall Education Report given to Roseline SANTOS.
[2020-11-09 08:00] VITALS: BP 113/77
[2020-11-09] MEDS: Theophylline ER 100mg ORAL SCH ×4 (09:00→20:31)
[2020-11-09] MEDS: Memantine 5 MG TAB ORAL SCH ×4 (09:00→17:19)
[2020-11-09] MEDS: Aspirin Baby 81mg ORAL SCH ×3 (09:00→09:47)
[2020-11-09] MEDS: Docusate 100mg cap ORAL SCH ×2 (09:00→17:19)
--- NOTE | 2020-11-09 09:14 | Psychiatry Consultation ---
Psychiatry Consultation Psychiatry Consultation Chief Complaint: Generalized Weakness Allergies: Coded Allergies: No Known Allergies (Unverified , 06/18/18) Past Psychiatric History: 84-year-old male with failure to thrive and altered mental status confused disorganized he has declining cognition below his baseline and for that reason his attending has requested daily psychiatric consultation he still has poor ins ight and mood lability. Goal is to prevent any further decline in cognition and if possible improve cognition closer to his baseline. Medication History Scheduled Amlodipine Besylate* (Amlodipine Besylate*), 5 MG ORAL DAILY, (Reported) Aspirin* (Aspir 81*), 81 MG ORAL DAILY, (Reported) Scheduled PRN Albuterol Sulfate* (Albuterol Sulfate Mdi*), 2 PUFF INH Q4H PRN for cough/wheezing Melatonin (Melatonin 5 Mg Tablet), 1 TAB ORAL BEDTIME PRN for Insomnia, (Reported) Tramadol Hcl* (Ultram*), 50 MG ORAL BID PRN for For Pain, (Reported) Zolpidem Tartrate* (Ambien*), 5 MG ORAL BEDTIME PRN for Insomnia, (Reported) Objective Data Height (Feet): 6 Height (Inches): 1.00 Weight (Pounds): 140 Appearance: disheveled Behavior Mannerisms: poor eye contact Affect: labile Mood: depressed Thought Process: disorganized Perceptual Disturbances: auditory Suicidal Ideation: no plan Assessment/Plan Assessment/Plan: Plan is to add Remeron 7.5 mg nightly for depression and also to increase his appetite also Ativan 0.5 mg every 6 hours. 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
[2020-11-09] MEDS: Heparin 5000 units/ml inj SUBQ SCH ×2 (09:31→20:32)
--- NOTE | 2020-11-09 09:40 | NUR ---
PT DISCHARGE NOTE Attempted to see patient for PT treatment. Patient combative, yelling, uncooperative. Patient has been unable to participate with PT treatment for multiple days due to agitation, patient is not appropriate candidate for skilled inpatient PT intervention. Patient discharged from PT, Roseline SANTOS notified.
--- NOTE | 2020-11-09 10:02 | NUR ---
NURSE NOTES: Received patient in bed, alert/oriented x1, confused most of the times, disoriented, patient is combative and verbally abusive, yelling, refuses medications. Patient has bilateral soft wrist restraints for safety, IV site is clean dry and intact, on oxygen at 3 liters. RN asked for Ativan order and waiting for response. Call light is within reach, bed is lowered, locked, alarm is on, will continue to monitor for comfort and safety. Report received from DANIELLE Edmonds Addendum: 11/09/20 at 1052 by Melinda Rhodes RN RN assessed at 7:50 am. Late charting
--- NOTE | 2020-11-09 11:19 | Nephrology Progress Note ---
Assessment/Plan Problem List: (1) KAILEY (acute kidney injury) (2) Hypernatremia (3) Hypertension (4) UTI (urinary tract infection) (5) Dementia Assessment Acute renal failure, dehydration Hypernatremia secondary to free water deficit Failure to thrive UTI Hypertension Alzheimer dementia COPD Plan November 09: No chemistry panel drawn today. Will check labs tomorrow. Continue per consultants November 08: Labs reviewed. Renal parameters stable. Continue per consultants. November 07: No labs drawn today. Will check lab tomorrow. Continue to monitor renal parameters. November 06: Labs reviewed. Abnormal electrolytes addressed. Continue per current management. Continue per consultants. November 05: No labs drawn today. Will check lab tomorrow. Medication list reviewed. Continue per consultants. November 04: No labs drawn today. Continue per consultants. Most recent renal parameters are stable. November 03: Labs reviewed. Electrolytes and renal parameters stable. November 02: Labs are reviewed. Low potassium replaced. Continue as is. November 01: Labs reviewed. Slightly elevated serum potassium most likely due to hemolysis since renal parameters are stable. Continue per consultants. Continue to monitor electrolytes and renal parameters. October 31: Labs reviewed. Low phosphorus replaced. Renal parameters are stable. Continue per consultants. October 30: Labs reviewed. Low potassium replaced. Serum sodium normalized. Will DC IV fluid. Continue to monitor renal parameters and electrolytes. October 29: Labs reviewed. Stable from renal standpoint of view. Serum creatinine 1. Continue per consultants. October 28: Labs reviewed. Abnormal electrolytes reviewed and addressed. Continue per current management. October 27: Labs reviewed. Further improvement of hypernatremia and serum creatinine. Continue same management. October 26: Labs reviewed. Serum sodium gradually lowering. Serum creatinine 1.4. Continue monitor renal parameters. October 25: Serum creatinine now within normal limit. Hypernatremia persists. Continue IV D5W. Continue to monitor electrolytes. Patient full code Free water in the form of D5W at 75 cc an hour IV Monitor renal parameters and electrolytes Keep the blood pressure and blood sugar in check Per orders Subjective ROS Limited/Unobtainable: No Constitutional: Reports: malaise Objective Objective Last 24 Hour Vital Signs Date Time Temp Pulse Resp B/P (MAP) Pulse Ox O2 Delivery O2 Flow Rate FiO2 11/09/20 09:00 103 113/77 11/09/20 08:00 98.5 103 18 113/77 (89) 99 11/09/20 04:00 97.2 112 18 132/68 (89) 92 11/09/20 00:00 98.1 102 20 121/78 (92) 94 11/08/20 21:59 Nasal Cannula 2.0 11/08/20 20:08 96 Nasal Cannula 2.0 28 11/08/20 20:00 97.5 115 20 110/76 (87) 93 11/08/20 16:00 97.9 86 18 109/59 (76) 94 11/08/20 12:00 98.1 64 18 128/70 (89) 96 Intake and Output 11/08/20 11/09/20 19:00 07:00 Intake Total 100 ml Balance 100 ml Intake Oral 100 ml # Voids 1 1 # Bowel Movements 1 1 Height (Feet): 6 Height (Inches): 1.00 Weight (Pounds): 140 General Appearance: no apparent distress EENT: other - On nasal cannula Cardiovascular: tachycardia Respiratory/Chest: decreased breath sounds Abdomen: distended Damian Webb MD Nov 09, 2020 11:19
--- NOTE | 2020-11-09 11:34 | Infectious Diseases Prog Note ---
Assessment/Plan 84yo M with: Afebrile Normal WBC COVID positive Acute hypoxia 2/2 COVID pna UTI 10/24 UA 40-60 WBC, UCx >100k gamma-Strep CXR: No acute process 10/25 COVID PCR pos 10/26 CXR: No acute process Abdominal tenderness on exam 10/25 Abd US: Negative for gallstones or dilated bile ducts. Hypoechoic les ions in the right hepatic lobe. These are nonspecific, neoplastic etiologies are among the differential. Recommend further evaluation with contrast CT as clinically indicated. Nonspecific heterogeneous hepatic echogenicity, could indicate hepatocellular disease. Hepatic and bilateral renal cysts. Note nonvisualization of the aorta and portions of the pancreas Cr 1.7 Alzheimer's dementia HTN HIV screen neg RPR neg Plan: Cont to monitor off abx OK to d/c from ID standpoint OK to d/c COVID isolation given clinical improvement and >10 days out from diagnosis 11/07 SP dex #10 10/30 SP RDV #5 10/29 SP CTX #5 for UTI Monitor CBC/CMP Monitor temp curve, hemodynamics Monitor resp status D/w RN Thank you for this consult. [facility] will continue to follow. Subjective Allergies: Coded Allergies: No Known Allergies (Unverified , 06/18/18) AF 2L NC NAD in bed Objective Last 24 Hour Vital Signs Date Time Temp Pulse Resp B/P (MAP) Pulse Ox O2 Delivery O2 Flow Rate FiO2 11/09/20 09:00 103 113/77 11/09/20 08:00 98.5 103 18 113/77 (89) 99 11/09/20 04:00 97.2 112 18 132/68 (89) 92 11/09/20 00:00 98.1 102 20 121/78 (92) 94 11/08/20 21:59 Nasal Cannula 2.0 11/08/20 20:08 96 Nasal Cannula 2.0 28 11/08/20 20:00 97.5 115 20 110/76 (87) 93 11/08/20 16:00 97.9 86 18 109/59 (76) 94 11/08/20 12:00 98.1 64 18 128/70 (89) 96 Height (Feet): 6 Height (Inches): 1.00 Weight (Pounds): 140 Gen: NAD HEENT: NCAT Pulm: BL chest rise on venturi mask Abd: Non-distended Ext: No c/c/e Skin: No visible rashes Neuro: Awake Current Medications Medications (Trade) Dose Ordered Sig/Eva Route PRN Reason Start Time Stop Time Status Last Admin Dose Admin Albuterol/ Ipratropium (Combivent Respimat) 1 puff Q4H PRN INH Shortness of Breath 10/27/20 09:00 11/26/20 08:59 Amlodipine Besylate (Norvasc) 5 mg DAILY ORAL 10/25/20 09:00 11/24/20 08:59 11/08/20 09:41 Aspirin (ASA) 81 mg DAILY ORAL 11/07/20 10:00 12/22/20 09:59 11/08/20 09:41 Clonidine HCl (Catapres Tab) 0.1 mg Q2H PRN ORAL For High Blood Pressure 10/24/20 16:30 01/22/21 16:29 Docusate Sodium (Colace) 100 mg TWICE A DAY ORAL 10/24/20 18:00 11/23/20 17:59 11/08/20 17:02 Heparin Sodium (Porcine) (Heparin 5000 units/ml) 5,000 units EVERY 12 HOURS SUBQ 10/24/20 21:00 12/08/20 20:59 11/09/20 09:31 Memantine (Namenda) 5 mg BID ORAL 10/26/20 09:00 11/25/20 08:59 11/08/20 17:02 Mirtazapine (Remeron) 7.5 mg BEDTIME ORAL 10/26/20 21:00 01/24/21 20:59 11/08/20 21:18 Pantoprazole (Protonix) 40 mg DAILY ORAL 10/25/20 09:00 11/24/20 08:59 11/08/20 09:41 Promethazine HCl/ Codeine (Phenergan with Codeine) 5 ml Q4H PRN ORAL For Cough 10/26/20 12:15 11/25/20 12:14 Theophylline (Ivan-Dur) 100 mg EVERY 12 HOURS ORAL 10/26/20 21:00 01/24/21 20:59 11/08/20 21:18 Lucia Gresham M.D. Nov 09, 2020 11:34
--- NOTE | 2020-11-09 11:53 | Pulmonology Progress Note ---
Subjective ROS Limited/Unobtainable: Yes Constitutional: Reports: no symptoms HEENT: Repors: no symptoms Allergies: Coded Allergies: No Known Allergies (Unverified , 06/18/18) Objective Last 24 Hour Vital Signs Date Time Temp Pulse Resp B/P (MAP) Pulse Ox O2 Delivery O2 Flow Rate FiO2 11/09/20 09:00 Nasal Cannula 2.0 11/09/20 09:00 103 113/77 11/09/20 08:00 98.5 103 18 113/77 (89) 99 11/09/20 04:00 97.2 112 18 132/68 (89) 92 11/09/20 00:00 98.1 102 20 121/78 (92) 94 11/08/20 21:59 Nasal Cannula 2.0 11/08/20 20:08 96 Nasal Cannula 2.0 28 11/08/20 20:00 97.5 115 20 110/76 (87) 93 11/08/20 16:00 97.9 86 18 109/59 (76) 94 11/08/20 12:00 98.1 64 18 128/70 (89) 96 Intake and Output 11/08/20 11/09/20 19:00 07:00 Intake Total 100 ml Balance 100 ml Intake Oral 100 ml # Voids 1 1 # Bowel Movements 1 1 General Appearance: cachetic, other - awake, responsive elderly AA male HEENT: normocephalic, atraumatic, anicteric, other - O2 via NC Respiratory: chest wall non-tender, lungs clear - with decreased BS Cardiovascular: normal peripheral pulses, regular rhythm Abdomen: normal bowel sounds, soft, non tender Genitourinary: normal external genitalia Extremities: no edema Skin: no lesions Neurologic: alert, responsive Musculoskeletal: atrophy - BLE Current Medications Medications (Trade) Dose Ordered Sig/Eva Route PRN Reason Start Time Stop Time Status Last Admin Dose Admin Albuterol/ Ipratropium (Combivent Respimat) 1 puff Q4H PRN INH Shortness of Breath 10/27/20 09:00 11/26/20 08:59 Amlodipine Besylate (Norvasc) 5 mg DAILY ORAL 10/25/20 09:00 11/24/20 08:59 11/08/20 09:41 Aspirin (ASA) 81 mg DAILY ORAL 11/07/20 10:00 12/22/20 09:59 11/08/20 09:41 Clonidine HCl (Catapres Tab) 0.1 mg Q2H PRN ORAL For High Blood Pressure 10/24/20 16:30 01/22/21 16:29 Docusate Sodium (Colace) 100 mg TWICE A DAY ORAL 10/24/20 18:00 11/23/20 17:59 11/08/20 17:02 Heparin Sodium (Porcine) (Heparin 5000 units/ml) 5,000 units EVERY 12 HOURS SUBQ 10/24/20 21:00 12/08/20 20:59 11/09/20 09:31 Memantine (Namenda) 5 mg BID ORAL 10/26/20 09:00 11/25/20 08:59 11/08/20 17:02 Mirtazapine (Remeron) 7.5 mg BEDTIME ORAL 10/26/20 21:00 01/24/21 20:59 11/08/20 21:18 Pantoprazole (Protonix) 40 mg DAILY ORAL 10/25/20 09:00 11/24/20 08:59 11/08/20 09:41 Promethazine HCl/ Codeine (Phenergan with Codeine) 5 ml Q4H PRN ORAL For Cough 10/26/20 12:15 11/25/20 12:14 Theophylline (Ivan-Dur) 100 mg EVERY 12 HOURS ORAL 10/26/20 21:00 01/24/21 20:59 11/08/20 21:18 Assessment/Plan Problems: (1) 2019 novel coronavirus disease (COVID-19) (2) Purulent bronchitis (3) COPD (chronic obstructive pulmonary disease) (4) KAILEY (acute kidney injury) (5) Hypernatremia (6) At high risk for aspiration (7) Dementia (8) Severe protein-calorie malnutrition Assessment/Plan all reviewed: ID cleared for discharge no new complains improving on nasal cannula respiratory treatment aspiration precaution swallow study: MODIFIED TEXTURE DIET: PUREE WITH NECTAR THICK LIQUIDS titrate fio2 to sat of 92% antitussives check electrolytes dvt prophylaxis. dc planning Cinda Drummond MD Nov 09, 2020 11:53
[2020-11-09 12:00] VITALS: BP 113/79
--- NOTE | 2020-11-09 12:30 | Cardiac Electrophysiology PN ---
Assessment/Plan Assessment/Plan 1. Hypertension. Continue amlodipine 5 mg daily and p.r.n. clonidine 2. Severe dehydration with hypernatremia and azotemia. Patient's sodium was 160 and creatinine of 1.7. Sodium improved to 141, BUN of 14, creatinine of 0.9 on IV fluid. 3. Elevated troponin and Poor R-wave progression on the EKG. No chest pain. EF 50%. Repeat troponin negative 4. Alzheimer dementia. At times still agitated 5. Covid PNA. Now cleared by ID to DC isolation per RN DENISSE RN Subjective Subjective In isolation for Covid, agitated in restraints on NC . Off tele. ID cleared for DC isolation Objective Last 24 Hour Vital Signs Date Time Temp Pulse Resp B/P (MAP) Pulse Ox O2 Delivery O2 Flow Rate FiO2 11/09/20 12:00 98.6 114 18 113/79 (90) 94 11/09/20 09:00 Nasal Cannula 2.0 11/09/20 09:00 103 113/77 11/09/20 08:00 98.5 103 18 113/77 (89) 99 11/09/20 04:00 97.2 112 18 132/68 (89) 92 11/09/20 00:00 98.1 102 20 121/78 (92) 94 11/08/20 21:59 Nasal Cannula 2.0 11/08/20 20:08 96 Nasal Cannula 2.0 28 11/08/20 20:00 97.5 115 20 110/76 (87) 93 11/08/20 16:00 97.9 86 18 109/59 (76) 94 Intake and Output 11/08/20 11/09/20 19:00 07:00 Intake Total 100 ml Balance 100 ml Intake Oral 100 ml # Voids 1 1 # Bowel Movements 1 1 Objective HEAD AND NECK: No JVD. LUNGS: Clear. CARDIOVASCULAR: Shows regular S1 and S2 with no gallop. ABDOMEN: Soft. EXTREMITIES: No pitting edema. Maurilio Lares MD Nov 09, 2020 12:30
--- NOTE | 2020-11-09 13:14 | NUR ---
NURSE NOTES: Patient was seen by Dr. Gresham, ID. OK to d/c COVID isolation given clinical improvement and >10 days out from diagnosis. D/C isolation. Patient moved to [facility].
[2020-11-09 16:00] VITALS: BP 121/84
--- NOTE | 2020-11-09 19:20 | NUR ---
NURSE HAND-OFF: Important Events on Shift:DC isolation Patient Status: stable Diet: low sodium Pending Orders: n/a Pending Results/Labs:n/a Pending MD notification:n/a Latest Vital Signs: Temperature 98.0 , Pulse 106 , B/P 121 /84 , Respiratory Rate 18 , O2 SAT 95 , Venturi Mask, O2 Flow Rate 2.0 . Vital Sign Comment: stable Latest Fung Fall Score: 70 Fall Risk: High Risk Safety Measures: Call light Within Reach, Bed Alarm Zone 2, Side Rails Side Rails x3, Bed position Low and Locked. Fall Precautions: Yellow Socks Yellow Gown Door Sign Patient Fall Education Report given to Annika.
--- NOTE | 2020-11-09 19:40 | NUR ---
NURSE NOTES: Received report from Melinda/Roseline. AAO x 1, on NC 3L. Dangelo. soft wrist restraints in place and skin intact. Fall precaution maintained. No acute distress noted. Iv site intact and patent. Bed locked, alarm on, side rails up, call light within reach. Will continue to monitor.
[2020-11-09 20:00] VITALS: BP 116/75
--- NOTE | 2020-11-09 21:17 | General Progress Note ---
Subjective ROS Limited/Unobtainable: Yes Allergies: Coded Allergies: No Known Allergies (Unverified , 06/18/18) Objective Last 24 Hour Vital Signs Date Time Temp Pulse Resp B/P (MAP) Pulse Ox O2 Delivery O2 Flow Rate FiO2 11/09/20 16:00 98.0 106 18 121/84 (96) 95 11/09/20 12:00 98.6 114 18 113/79 (90) 94 11/09/20 09:00 Nasal Cannula 2.0 11/09/20 09:00 103 113/77 11/09/20 08:00 98.5 103 18 113/77 (89) 99 11/09/20 04:00 97.2 112 18 132/68 (89) 92 11/09/20 00:00 98.1 102 20 121/78 (92) 94 11/08/20 21:59 Nasal Cannula 2.0 Intake and Output 11/08/20 11/09/20 19:00 07:00 Intake Total 100 ml Balance 100 ml Intake Oral 100 ml # Voids 1 1 # Bowel Movements 1 1 Height (Feet): 6 Height (Inches): 1.00 Weight (Pounds): 140 Assessment/Plan Problem List: (1) ACS (acute coronary syndrome) ICD Codes: I24.9 - Acute ischemic heart disease, unspecified SNOMED: 397022538 (2) Chest pain ICD Codes: R07.9 - Chest pain, unspecified SNOMED: 71195395 (3) COPD (chronic obstructive pulmonary disease) ICD Codes: J44.9 - Chronic obstructive pulmonary disease, unspecified SNOMED: 39102008 (4) Hypernatremia ICD Codes: E87.0 - Hyperosmolality and hypernatremia SNOMED: 546342159 (5) Severe protein-calorie malnutrition ICD Codes: E43 - Unspecified severe protein-calorie malnutrition SNOMED: 329828535, 884205907, 041894187 (6) KAILEY (acute kidney injury) ICD Codes: N17.9 - Acute kidney failure, unspecified SNOMED: 34865797, 9001796 (7) UTI (urinary tract infection) ICD Codes: N39.0 - Urinary tract infection, site not specified SNOMED: 99498474 (8) Dementia ICD Codes: F03.90 - Unspecified dementia without behavioral disturbance SNOMED: 32408271 Status: stable Assessment/Plan: copd exacerbation uti needs fluids dehydaration check Annamarie Lion MD Nov 09, 2020 21:17
--- NOTE | 2020-11-09 22:12 | NUR ---
NURSE NOTES: Pt has low grade fever 100.1. Called Dr. Gresham but new order received. Ice pack applied
[2020-11-10] VITALS: BP 117/78
[2020-11-10 04:00] VITALS: BP 120/73
--- NOTE | 2020-11-10 06:34 | NUR ---
NURSE HAND-OFF: Important Events on Shift:low grade fever, tachy Patient Status: Diet: low sodium Pending Orders: 5 Pending Results/Labs:am labs Pending MD notification: Latest Vital Signs: Temperature 98.9 , Pulse 115 , B/P 120 /73 , Respiratory Rate 17 , O2 SAT 95 , Venturi Mask, O2 Flow Rate 2.0 . Vital Sign Comment: [] Latest Fung Fall Score: 70 Fall Risk: High Risk Safety Measures: Call light Within Reach, Bed Alarm Zone 2, Side Rails Side Rails x3, Bed position Low and Locked. Fall Precautions: Yellow Socks Yellow Gown Door Sign Patient Fall Education Addendum: 11/10/20 at 0726 by GRETEL JHAVERI RN RN HAND-OFF: Report given to
[2020-11-10 07:26] LABS: ALBUMIN 3.1 G/DL (3.4-5.0); ALBUMIN/GLOBULIN RATIO 0.6 (1.0-2.7); BILIRUBIN,TOTAL 0.4 MG/DL (0.2-1.0); CALCIUM 9.9 MG/DL (8.5-10.1); CREATININE 1.8 MG/DL (0.55-1.30); PHOSPHORUS 3.3 MG/DL (2.5-4.9); POTASSIUM 3.9 MMOL/L (3.5-5.1)
--- NOTE | 2020-11-10 07:30 | Psychiatry Consultation ---
Psychiatry Consultation Psychiatry Consultation Chief Complaint: Generalized Weakness History of Present Illness: This is a 84-year-old male patient with failure to thrive because of his failure to thrive and his medical illnesses his cognition has declined below his baseline so now he has altered mental status somewhat of agitation and confusion and because his cognition has declined below his baseline his attending physician has requested daily psychiatric consultation to try to prevent any further decline in his cognition and hopefully restore his cognition closer to his baseline Mental status examination: 84-year-old male appearance is disheveled at irritable agitated affect guarded strictest intellect poor mood depressed anxious motor activity psychomotor agitation attention span is poor orientation x2 speech is low volume slurred thought process disorganized logical insight judgment is poor Allergies: Coded Allergies: No Known Allergies (Unverified , 06/18/18) Medication History Scheduled Amlodipine Besylate* (Amlodipine Besylate*), 5 MG ORAL DAILY, (Reported) Aspirin* (Aspir 81*), 81 MG ORAL DAILY, (Reported) Scheduled PRN Albuterol Sulfate* (Albuterol Sulfate Mdi*), 2 PUFF INH Q4H PRN for cough/wheezing Melatonin (Melatonin 5 Mg Tablet), 1 TAB ORAL BEDTIME PRN for Insomnia, (Reported) Tramadol Hcl* (Ultram*), 50 MG ORAL BID PRN for For Pain, (Reported) Zolpidem Tartrate* (Ambien*), 5 MG ORAL BEDTIME PRN for Insomnia, (Reported) Objective Data Height (Feet): 6 Height (Inches): 1.00 Weight (Pounds): 140 Assessment/Plan Assessment/Plan: Plan is to add Remeron 7.5 mg nightly for depression and also to increase his appetite also Ativan 0.5 mg every 6 hours. 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
[2020-11-10 08:00] VITALS: BP 124/83
--- NOTE | 2020-11-10 08:28 | NUR ---
NURSE NOTES: RN received report from DANIELLE Roblero. RN received the patient in bed aao X1. Patient does not show s/s of respiratory distress. Patient is combative and refuses care. IV site asymptomatic, patent, dry, intact. Bed alarm on, in lowest position and locked. Call light within reach. Will continue to monitor.
--- NOTE | 2020-11-10 08:52 | Infectious Diseases Prog Note ---
Assessment/Plan 84yo M with: Afebrile Normal WBC COVID positive Acute hypoxia 2/2 COVID pna UTI 10/24 UA 40-60 WBC, UCx >100k gamma-Strep CXR: No acute process 10/25 COVID PCR pos 10/26 CXR: No acute process Abdominal tenderness on exam 10/25 Abd US: Negative for gallstones or dilated bile ducts. Hypoechoic les ions in the right hepatic lobe. These are nonspecific, neoplastic etiologies are among the differential. Recommend further evaluation with contrast CT as clinically indicated. Nonspecific heterogeneous hepatic echogenicity, could indicate hepatocellular disease. Hepatic and bilateral renal cysts. Note nonvisualization of the aorta and portions of the pancreas Cr 1.7 Alzheimer's dementia HTN HIV screen neg RPR neg Plan: Cont to monitor off abx OK to d/c COVID isolation given clinical improvement and >10 days out from diagnosis Trend KAILEY, Na Trend temp curve 11/07 SP dex #10 10/30 SP RDV #5 10/29 SP CTX #5 for UTI Monitor CBC/CMP Monitor temp curve, hemodynamics Monitor resp status D/w RN Thank you for this consult. [facility] will continue to follow. Subjective Allergies: Coded Allergies: No Known Allergies (Unverified , 06/18/18) AF, Tmax 100.1 2L NC NAD in bed Na up to 151, KAILEY up to 1.8 Objective Last 24 Hour Vital Signs Date Time Temp Pulse Resp B/P (MAP) Pulse Ox O2 Delivery O2 Flow Rate FiO2 11/10/20 08:00 97.4 103 19 124/83 (97) 94 11/10/20 04:00 98.9 115 17 120/73 (89) 95 11/10/20 00:00 98.5 112 18 117/78 (91) 95 11/09/20 21:00 Nasal Cannula 2.0 11/09/20 20:00 100.1 113 18 116/75 (89) 94 11/09/20 16:00 98.0 106 18 121/84 (96) 95 11/09/20 12:00 98.6 114 18 113/79 (90) 94 11/09/20 09:00 Nasal Cannula 2.0 11/09/20 09:00 103 113/77 Height (Feet): 6 Height (Inches): 1.00 Weight (Pounds): 140 Gen: NAD HEENT: NCAT Pulm: BL chest rise on venturi mask Abd: Non-distended Ext: No c/c/e Skin: No visible rashes Neuro: Awake Laboratory Tests Test 11/10/20 04:00 Sodium Level 151 MMOL/L (136-145) H Potassium Level 3.9 MMOL/L (3.5-5.1) Chloride Level 114 MMOL/L (98-107) H Carbon Dioxide Level 30 MMOL/L (21-32) Anion Gap 8 mmol/L (5-15) Blood Urea Nitrogen 53 mg/dL (7-18) H Creatinine 1.8 MG/DL (0.55-1.30) H Estimat Glomerular Filtration Rate 43.8 mL/min (>60) Glucose Level 137 MG/DL (74-106) H Calcium Level 9.9 MG/DL (8.5-10.1) Phosphorus Level 3.3 MG/DL (2.5-4.9) Magnesium Level 2.9 MG/DL (1.8-2.4) H Total Bilirubin 0.4 MG/DL (0.2-1.0) Aspartate Amino Transf (AST/SGOT) 108 U/L (15-37) H Alanine Aminotransferase (ALT/SGPT) 68 U/L (12-78) Alkaline Phosphatase 48 U/L (46-116) Total Protein 8.1 G/DL (6.4-8.2) Albumin 3.1 G/DL (3.4-5.0) L Globulin 5.0 g/dL Albumin/Globulin Ratio 0.6 (1.0-2.7) L Current Medications Medications (Trade) Dose Ordered Sig/Eva Route PRN Reason Start Time Stop Time Status Last Admin Dose Admin Albuterol/ Ipratropium (Combivent Respimat) 1 puff Q4H PRN INH Shortness of Breath 10/27/20 09:00 11/26/20 08:59 Amlodipine Besylate (Norvasc) 5 mg DAILY ORAL 10/25/20 09:00 11/24/20 08:59 11/08/20 09:41 Aspirin (ASA) 81 mg DAILY ORAL 11/07/20 10:00 12/22/20 09:59 11/08/20 09:41 Clonidine HCl (Catapres Tab) 0.1 mg Q2H PRN ORAL For High Blood Pressure 10/24/20 16:30 01/22/21 16:29 Docusate Sodium (Colace) 100 mg TWICE A DAY ORAL 10/24/20 18:00 11/23/20 17:59 11/09/20 17:19 Heparin Sodium (Porcine) (Heparin 5000 units/ml) 5,000 units EVERY 12 HOURS SUBQ 10/24/20 21:00 12/08/20 20:59 11/09/20 20:32 Memantine (Namenda) 5 mg BID ORAL 10/26/20 09:00 11/25/20 08:59 11/09/20 17:19 Mirtazapine (Remeron) 7.5 mg BEDTIME ORAL 10/26/20 21:00 01/24/21 20:59 11/09/20 20:31 Pantoprazole (Protonix) 40 mg DAILY ORAL 10/25/20 09:00 11/24/20 08:59 11/08/20 09:41 Promethazine HCl/ Codeine (Phenergan with Codeine) 5 ml Q4H PRN ORAL For Cough 10/26/20 12:15 11/25/20 12:14 Theophylline (Ivan-Dur) 100 mg EVERY 12 HOURS ORAL 10/26/20 21:00 01/24/21 20:59 11/09/20 20:31 Lucia Gresham M.D. Nov 10, 2020 08:52
[2020-11-10] MEDS: Docusate 100mg cap ORAL SCH ×2 (09:00→18:00)
[2020-11-10] MEDS: Aspirin Baby 81mg ORAL SCH (09:56)
[2020-11-10] MEDS: Memantine 5 MG TAB ORAL SCH ×2 (09:56→18:00)
[2020-11-10] MEDS: Heparin 5000 units/ml inj SUBQ SCH ×2 (09:58→20:27)
--- NOTE | 2020-11-10 09:58 | Pulmonology Progress Note ---
Subjective ROS Limited/Unobtainable: Yes Constitutional: Reports: no symptoms HEENT: Repors: no symptoms Allergies: Coded Allergies: No Known Allergies (Unverified , 06/18/18) Objective Last 24 Hour Vital Signs Date Time Temp Pulse Resp B/P (MAP) Pulse Ox O2 Delivery O2 Flow Rate FiO2 11/10/20 08:00 97.4 103 19 124/83 (97) 94 11/10/20 04:00 98.9 115 17 120/73 (89) 95 11/10/20 00:00 98.5 112 18 117/78 (91) 95 11/09/20 21:00 Nasal Cannula 2.0 11/09/20 20:00 100.1 113 18 116/75 (89) 94 11/09/20 16:00 98.0 106 18 121/84 (96) 95 11/09/20 12:00 98.6 114 18 113/79 (90) 94 Intake and Output 11/09/20 11/10/20 19:00 07:00 Intake Total 120 ml Output Total 150 ml Balance 120 ml -150 ml Intake Oral 120 ml Output Urine Total 150 ml # Voids 2 1 # Bowel Movements 1 General Appearance: cachetic, other - awake, responsive elderly AA male HEENT: normocephalic, atraumatic, anicteric, other - O2 via NC Respiratory: chest wall non-tender, lungs clear - with decreased BS Cardiovascular: normal peripheral pulses, regular rhythm Abdomen: normal bowel sounds, soft, non tender Genitourinary: normal external genitalia Extremities: no edema Skin: no lesions Neurologic: alert, responsive Musculoskeletal: atrophy - BLE Laboratory Tests 11/10/20 04:00: Sodium Level 151H, Potassium Level 3.9, Chloride Level 114H, Carbon Dioxide Level 30, Anion Gap 8, Blood Urea Nitrogen 53H, Creatinine 1.8H, Estimat Glomerular Filtration Rate 43.8, Glucose Level 137H, Calcium Level 9.9, Phosphorus Level 3.3, Magnesium Level 2.9H, Total Bilirubin 0.4, Aspartate Amino Transf (AST/SGOT) 108H, Alanine Aminotransferase (ALT/SGPT) 68, Alkaline Phosphatase 48, Total Protein 8.1, Albumin 3.1L, Globulin 5.0, Albumin/Globulin Ratio 0.6L Current Medications Medications (Trade) Dose Ordered Sig/Eva Route PRN Reason Start Time Stop Time Status Last Admin Dose Admin Albuterol/ Ipratropium (Combivent Respimat) 1 puff Q4H PRN INH Shortness of Breath 10/27/20 09:00 11/26/20 08:59 Amlodipine Besylate (Norvasc) 5 mg DAILY ORAL 10/25/20 09:00 11/24/20 08:59 11/08/20 09:41 Aspirin (ASA) 81 mg DAILY ORAL 11/07/20 10:00 12/22/20 09:59 11/08/20 09:41 Clonidine HCl (Catapres Tab) 0.1 mg Q2H PRN ORAL For High Blood Pressure 10/24/20 16:30 01/22/21 16:29 Docusate Sodium (Colace) 100 mg TWICE A DAY ORAL 10/24/20 18:00 11/23/20 17:59 11/09/20 17:19 Heparin Sodium (Porcine) (Heparin 5000 units/ml) 5,000 units EVERY 12 HOURS SUBQ 10/24/20 21:00 12/08/20 20:59 11/09/20 20:32 Memantine (Namenda) 5 mg BID ORAL 10/26/20 09:00 11/25/20 08:59 11/09/20 17:19 Mirtazapine (Remeron) 7.5 mg BEDTIME ORAL 10/26/20 21:00 01/24/21 20:59 11/09/20 20:31 Pantoprazole (Protonix) 40 mg DAILY ORAL 10/25/20 09:00 11/24/20 08:59 11/08/20 09:41 Promethazine HCl/ Codeine (Phenergan with Codeine) 5 ml Q4H PRN ORAL For Cough 10/26/20 12:15 11/25/20 12:14 Theophylline (Ivan-Dur) 100 mg EVERY 12 HOURS ORAL 10/26/20 21:00 01/24/21 20:59 11/09/20 20:31 Assessment/Plan Problems: (1) 2019 novel coronavirus disease (COVID-19) (2) Purulent bronchitis (3) COPD (chronic obstructive pulmonary disease) (4) KAILEY (acute kidney injury) (5) Hypernatremia (6) At high risk for aspiration (7) Dementia (8) Severe protein-calorie malnutrition Assessment/Plan low grade temp creatinine is up, start on IV fluids ID cleared for discharge no new complains improving on nasal cannula respiratory treatment aspiration precaution swallow study: MODIFIED TEXTURE DIET: PUREE WITH NECTAR THICK LIQUIDS titrate fio2 to sat of 92% antitussives check electrolytes dvt prophylaxis. dc planning Cinda Drummond MD Nov 10, 2020 09:58
[2020-11-10] MEDS: Theophylline ER 100mg ORAL SCH ×2 (09:59→20:15)
--- NOTE | 2020-11-10 10:00 | NUR ---
RN notified Dr. Drummond of patient's poor intake and abnormal labs indicating dehydration. RN received the order to five D5W fluids Q8 hrs through IV. RN verified the order and carried out.
[2020-11-10 12:00] VITALS: BP 113/57
--- NOTE | 2020-11-10 14:47 | NUR ---
CASE MANAGEMENT:REVIEW SI;COVID PNEUMONIA. PURULENT BRONCHITIS. 100.1 113 18 124/83 94% 2L N C NA+ 151 BUN 53 CR 1.8 MAG 2.9 AST 108 IS;IVF D5 @ 125 ML/HR SEBASTIAN-DUR PO Q12 PROTONIX PO QD NORVASC PO QD HEPARIN SQ Q12 MED SURG STATUS DCP;FROM HOME
--- NOTE | 2020-11-10 15:39 | Cardiac Electrophysiology PN ---
Assessment/Plan Assessment/Plan 1. Hypertension. Continue amlodipine 5 mg daily and p.r.n. clonidine 2. Severe dehydration with hypernatremia and azotemia. Patient's sodium was 160 and creatinine of 1.7. Sodium improved to 141, BUN of 14, creatinine of 0.9 on IV fluid. 3. Elevated troponin and Poor R-wave progression on the EKG. No chest pain. EF 50%. Repeat troponin negative 4. Alzheimer dementia. 5. Covid PNA. Cleared by ID to DC isolation per RN DENISSE RN Subjective Subjective Agitated in restraints on NC off isolation Objective Last 24 Hour Vital Signs Date Time Temp Pulse Resp B/P (MAP) Pulse Ox O2 Delivery O2 Flow Rate FiO2 11/10/20 12:00 97.8 96 19 113/57 (75) 98 11/10/20 09:57 103 124/83 11/10/20 09:00 Nasal Cannula 2.0 11/10/20 08:00 97.4 103 19 124/83 (97) 94 11/10/20 04:00 98.9 115 17 120/73 (89) 95 11/10/20 00:00 98.5 112 18 117/78 (91) 95 11/09/20 21:00 Nasal Cannula 2.0 11/09/20 20:00 100.1 113 18 116/75 (89) 94 11/09/20 16:00 98.0 106 18 121/84 (96) 95 Intake and Output 11/09/20 11/10/20 19:00 07:00 Intake Total 120 ml Output Total 150 ml Balance 120 ml -150 ml Intake Oral 120 ml Output Urine Total 150 ml # Voids 2 1 # Bowel Movements 1 Laboratory Tests Test 11/10/20 04:00 Sodium Level 151 MMOL/L (136-145) H Potassium Level 3.9 MMOL/L (3.5-5.1) Chloride Level 114 MMOL/L (98-107) H Carbon Dioxide Level 30 MMOL/L (21-32) Anion Gap 8 mmol/L (5-15) Blood Urea Nitrogen 53 mg/dL (7-18) H Creatinine 1.8 MG/DL (0.55-1.30) H Estimat Glomerular Filtration Rate 43.8 mL/min (>60) Glucose Level 137 MG/DL (74-106) H Calcium Level 9.9 MG/DL (8.5-10.1) Phosphorus Level 3.3 MG/DL (2.5-4.9) Magnesium Level 2.9 MG/DL (1.8-2.4) H Total Bilirubin 0.4 MG/DL (0.2-1.0) Aspartate Amino Transf (AST/SGOT) 108 U/L (15-37) H Alanine Aminotransferase (ALT/SGPT) 68 U/L (12-78) Alkaline Phosphatase 48 U/L (46-116) Total Protein 8.1 G/DL (6.4-8.2) Albumin 3.1 G/DL (3.4-5.0) L Globulin 5.0 g/dL Albumin/Globulin Ratio 0.6 (1.0-2.7) L Objective HEAD AND NECK: No JVD. LUNGS: Clear. CARDIOVASCULAR: Shows regular S1 and S2 with no gallop. ABDOMEN: Soft. EXTREMITIES: No pitting edema. Maurilio Lares MD Nov 10, 2020 15:39
[2020-11-10 16:00] VITALS: BP 108/90
--- NOTE | 2020-11-10 16:28 | Nephrology Progress Note ---
Assessment/Plan Problem List: (1) KAILEY (acute kidney injury) (2) Hypernatremia (3) Hypertension (4) UTI (urinary tract infection) (5) Dementia Assessment Acute renal failure, dehydration Hypernatremia secondary to free water deficit Failure to thrive UTI Hypertension Alzheimer dementia COPD Plan November 10: Labs reviewed. Serum creatinine up to 1.8. IV hydration started. Continue to monitor renal parameters. Continue per consultants. November 09: No chemistry panel drawn today. Will check labs tomorrow. Continue per consultants November 08: Labs reviewed. Renal parameters stable. Continue per consultants. November 07: No labs drawn today. Will check lab tomorrow. Continue to monitor renal parameters. November 06: Labs reviewed. Abnormal electrolytes addressed. Continue per current management. Continue per consultants. November 05: No labs drawn today. Will check lab tomorrow. Medication list reviewed. Continue per consultants. November 04: No labs drawn today. Continue per consultants. Most recent renal parameters are stable. November 03: Labs reviewed. Electrolytes and renal parameters stable. November 02: Labs are reviewed. Low potassium replaced. Continue as is. November 01: Labs reviewed. Slightly elevated serum potassium most likely due to hemolysis since renal parameters are stable. Continue per consultants. Continue to monitor electrolytes and renal parameters. October 31: Labs reviewed. Low phosphorus replaced. Renal parameters are stable. Continue per consultants. October 30: Labs reviewed. Low potassium replaced. Serum sodium normalized. Will DC IV fluid. Continue to monitor renal parameters and electrolytes. October 29: Labs reviewed. Stable from renal standpoint of view. Serum creatinine 1. Continue per consultants. October 28: Labs reviewed. Abnormal electrolytes reviewed and addressed. Continue per current management. October 27: Labs reviewed. Further improvement of hypernatremia and serum creatinine. Continue same management. October 26: Labs reviewed. Serum sodium gradually lowering. Serum creatinine 1.4. Continue monitor renal parameters. October 25: Serum creatinine now within normal limit. Hypernatremia persists. Continue IV D5W. Continue to monitor electrolytes. Patient full code Free water in the form of D5W at 75 cc an hour IV Monitor renal parameters and electrolytes Keep the blood pressure and blood sugar in check Per orders Subjective ROS Limited/Unobtainable: No Constitutional: Reports: malaise, weakness Objective Objective Last 24 Hour Vital Signs Date Time Temp Pulse Resp B/P (MAP) Pulse Ox O2 Delivery O2 Flow Rate FiO2 11/10/20 12:00 97.8 96 19 113/57 (75) 98 11/10/20 09:57 103 124/83 11/10/20 09:00 Nasal Cannula 2.0 11/10/20 08:00 97.4 103 19 124/83 (97) 94 11/10/20 04:00 98.9 115 17 120/73 (89) 95 11/10/20 00:00 98.5 112 18 117/78 (91) 95 11/09/20 21:00 Nasal Cannula 2.0 11/09/20 20:00 100.1 113 18 116/75 (89) 94 Intake and Output 11/09/20 11/10/20 19:00 07:00 Intake Total 120 ml Output Total 150 ml Balance 120 ml -150 ml Intake Oral 120 ml Output Urine Total 150 ml # Voids 2 1 # Bowel Movements 1 Laboratory Tests 11/10/20 04:00: Sodium Level 151H, Potassium Level 3.9, Chloride Level 114H, Carbon Dioxide Level 30, Anion Gap 8, Blood Urea Nitrogen 53H, Creatinine 1.8H, Estimat Glomerular Filtration Rate 43.8, Glucose Level 137H, Calcium Level 9.9, Ph osphorus Level 3.3, Magnesium Level 2.9H, Total Bilirubin 0.4, Aspartate Amino Transf (AST/SGOT) 108H, Alanine Aminotransferase (ALT/SGPT) 68, Alkaline Phosphatase 48, Total Protein 8.1, Albumin 3.1L, Globulin 5.0, Albumin/Globulin Ratio 0.6L Height (Feet): 6 Height (Inches): 1.00 Weight (Pounds): 140 General Appearance: no apparent distress, lethargic Cardiovascular: tachycardia Respiratory/Chest: decreased breath sounds Abdomen: distended Damian Webb MD Nov 10, 2020 16:28
--- NOTE | 2020-11-10 18:01 | NUR ---
NURSE NOTES: Patient had a tachycardia of 122 at 4pm. At 5:30pm it went down to 105. of 122 at 4pm. RN notified Dr. Vasquez who is covering for Dr. Crump about patient's tachycardia. RN waiting for a response. Addendum: 11/10/20 at 1817 by Melinda Rhodes RN RN notified Dr. Lares, area relief pilot
--- NOTE | 2020-11-10 18:20 | NUR ---
NURSE NOTES: RN verified and carried out order of Dr. Villeda to get eeg stat. Addendum: 11/10/20 at 1821 by Melinda Rhodes RN DANIELLE called RT because cardiology was closed. Addendum: 11/10/20 at 1824 by Melinda Rhodes RN DANIELLE called Andre RT.
--- NOTE | 2020-11-10 18:57 | NUR ---
CHARGE NURSE NOTE HR 122bpm. notified about an abnormal ECG.
--- NOTE | 2020-11-10 18:58 | NUR ---
CHARGE NURSE NOTE: No orders from (regarding an abnormal ECG).
--- NOTE | 2020-11-10 19:37 | NUR ---
NURSE HAND-OFF: Important Events on Shift:tachycardia, many bowel movements, fluid therapy Patient Status: tachycardia Diet: low sodium, pureed moist Pending Orders: n/a Pending Results/Labs:n/a Pending MD notification:n/a Latest Vital Signs: Temperature 96.4 , Pulse 122 , B/P 108 /90 , Respiratory Rate 19 , O2 SAT 94 , Venturi Mask, O2 Flow Rate 2.0 . Vital Sign Comment: tachycardia Latest Fung Fall Score: 70 Fall Risk: High Risk Safety Measures: Call light Within Reach, Bed Alarm Zone 2, Side Rails Side Rails x3, Bed position Low and Locked. Fall Precautions: Yellow Socks Yellow Gown Door Sign Patient Fall Education Report given to Arelis Hobson. Addendum: 11/10/20 at 1949 by Melinda Rhodes RN new skin issues: pressure ulcer stage II
--- NOTE | 2020-11-10 19:41 | NUR ---
NURSE NOTES: Patient in bed, awake, alert x1; very restless, confused and combative. No signs of SOB or distress. Bilat soft wrist restraints in progress; skin intact and pulses palpable. IV intact and patent. Bed locked and in lowest position. Bed alarm on. Call light within reach. Will continue to monitor.
[2020-11-10 20:00] VITALS: BP 122/91
--- NOTE | 2020-11-10 20:28 | NUR ---
RN notified Dr. Vasquez about new wounds. He gave an order to initiate wound protocol and consult Dr. Cordova. RN verified and carried out orders one by one. RN notified the family member Miguel Del Rio, boiler shop supervisor Christina. RN took photos of the wounds and put dressings on. RN endorsed to the next shift nurse
--- NOTE | 2020-11-10 22:08 | General Progress Note ---
Subjective ROS Limited/Unobtainable: Yes Allergies: Coded Allergies: No Known Allergies (Unverified , 06/18/18) Objective Last 24 Hour Vital Signs Date Time Temp Pulse Resp B/P (MAP) Pulse Ox O2 Delivery O2 Flow Rate FiO2 11/10/20 18:40 95 Nasal Cannula 2.0 28 11/10/20 16:00 96.4 122 19 108/90 (96) 94 11/10/20 12:00 97.8 96 19 113/57 (75) 98 11/10/20 09:57 103 124/83 11/10/20 09:00 Nasal Cannula 2.0 11/10/20 08:00 97.4 103 19 124/83 (97) 94 11/10/20 04:00 98.9 115 17 120/73 (89) 95 11/10/20 00:00 98.5 112 18 117/78 (91) 95 Intake and Output 11/09/20 11/10/20 19:00 07:00 Intake Total 120 ml Output Total 150 ml Balance 120 ml -150 ml Intake Oral 120 ml Output Urine Total 150 ml # Voids 2 1 # Bowel Movements 1 Laboratory Tests 11/10/20 04:00: Sodium Level 151H, Potassium Level 3.9, Chloride Level 114H, Carbon Dioxide Level 30, Anion Gap 8, Blood Urea Nitrogen 53H, Creatinine 1.8H, Estimat Glomerular Filtration Rate 43.8, Glucose Level 137H, Calcium Level 9.9, Phosphorus Level 3.3, Magnesium Level 2.9H, Total Bilirubin 0.4, Aspartate Amino Transf (AST/SGOT) 108H, Alanine Aminotransferase (ALT/SGPT) 68, Alkaline Phosphatase 48, Total Protein 8.1, Albumin 3.1L, Globulin 5.0, Albumin/Globulin Ratio 0.6L Height (Feet): 6 Height (Inches): 1.00 Weight (Pounds): 140 Assessment/Plan Problem List: (1) ACS (acute coronary syndrome) ICD Codes: I24.9 - Acute ischemic heart disease, unspecified SNOMED: 767631776 (2) Chest pain ICD Codes: R07.9 - Chest pain, unspecified SNOMED: 32583985 (3) COPD (chronic obstructive pulmonary disease) ICD Codes: J44.9 - Chronic obstructive pulmonary disease, unspecified SNOMED: 79513708 (4) Hypernatremia ICD Codes: E87.0 - Hyperosmolality and hypernatremia SNOMED: 607362150 (5) Severe protein-calorie malnutrition ICD Codes: E43 - Unspecified severe protein-calorie malnutrition SNOMED: 024271899, 902959910, 179596005 (6) KAILEY (acute kidney injury) ICD Codes: N17.9 - Acute kidney failure, unspecified SNOMED: 37478549, 2728051 (7) UTI (urinary tract infection) ICD Codes: N39.0 - Urinary tract infection, site not specified SNOMED: 44806227 (8) Dementia ICD Codes: F03.90 - Unspecified dementia without behavioral disturbance SNOMED: 13267062 Status: stable Assessment/Plan: copd exacerbation uti consult dr padilla for wounds tachycardia.rx per dr kearns afebrimike caraballo abnromality Annamarie Vasquez MD Nov 10, 2020 22:07
[2020-11-11] VITALS: BP 114/82
[2020-11-11 04:00] VITALS: BP 77/82
--- NOTE | 2020-11-11 07:11 | NUR ---
NURSE NOTES: Patient very restless and combative. Continues to remove nasal cannula despite being on restraints and becomes aggressive, kicking at staff when trying to place it back on. Spoke with Dr. Patton - new orders received. Endorsed to AM nurse.
[2020-11-11 07:48] LABS: BASOPHILS % (AUTO) 0.9 % (0.0-2.0); EOSINOPHILS % (AUTO) 0.1 % (0.0-3.0); HEMATOCRIT 35.8 % (42.0-52.0); HEMOGLOBIN 10.7 G/DL (14.2-18.0); LYMPHOCYTES % (AUTO) 9.2 % (20.0-45.0); MEAN CORPUSCULAR VOLUME 91 FL (80-99); MONOCYTES % (AUTO) 11.3 % (1.0-10.0); NEUTROPHILS % (AUTO) 78.5 % (45.0-75.0); PLATELET COUNT 260 K/UL (150-450); RED BLOOD COUNT 3.92 M/UL (4.70-6.10); RED CELL DISTRIBUTION WIDTH 15.6 % (11.6-14.8); WHITE BLOOD COUNT 7.9 K/UL (4.8-10.8)
--- NOTE | 2020-11-11 07:49 | NUR ---
NURSE HAND-OFF: Important Events on Shift: Patient agitated, desaturating d/t removing nasal cannula Patient Status: restless, combative Diet: Lo Na diet Pending Orders: N/A Pending Results/Labs: Uric acid, phos, CMP, CBC Pending MD notification: N/A Latest Vital Signs: Temperature 98.2 , Pulse 106 , B/P 77 /82 , Respiratory Rate 20 , O2 SAT 92 , Venturi Mask, O2 Flow Rate 2.0 . Vital Sign Comment: [] Latest Fung Fall Score: 70 Fall Risk: High Risk Safety Measures: Call light Within Reach, Bed Alarm Zone 2, Side Rails Side Rails x3, Bed position Low and Locked. Fall Precautions: Yellow Socks Yellow Gown Door Sign Patient Fall Education Report given to DANIELLE Mendoza
--- NOTE | 2020-11-11 07:54 | NUR ---
NURSE NOTES: Received report from DANIELLE Infante. The patient is alert and oriented x1 has confusion and agitations and is also combative with his care. The patient is on 3 liters of oxygen via NC. Previous shift endorsed, patient desats when oxygen is off. Patient continues to take it off even with restraints. The patient has a Bilateral soft wrist restrain due to agitations and irritability.The patient has a left FA 20g that is patent and asymptomatic.The bed in lowest position and the call light within easy reach. will continue to monitor as indicated.
[2020-11-11 08:00] VITALS: BP 143/66
[2020-11-11] MEDS ORDERED: LORazepam Inj 2mg/ml 1ml IM SCH (08:00)
[2020-11-11] MEDS ORDERED: DiphenhydrAMINE 50mg/ml Inj IVP SCH (08:00)
[2020-11-11] MEDS ORDERED: Haloperidol 5mg/ml Inj IM SCH (08:00)
[2020-11-11 08:40] LABS: ALBUMIN 2.9 G/DL (3.4-5.0); ALBUMIN/GLOBULIN RATIO 0.7 (1.0-2.7); BILIRUBIN,TOTAL 0.6 MG/DL (0.2-1.0); CALCIUM 8.8 MG/DL (8.5-10.1); CREATININE 1.4 MG/DL (0.55-1.30); PHOSPHORUS 2.9 MG/DL (2.5-4.9); POTASSIUM 3.9 MMOL/L (3.5-5.1)
[2020-11-11] MEDS: Theophylline ER 100mg ORAL SCH (09:04)
[2020-11-11] MEDS: Memantine 5 MG TAB ORAL SCH (09:04)
[2020-11-11] MEDS: Docusate 100mg cap ORAL SCH (09:04)
[2020-11-11] MEDS: Aspirin Baby 81mg ORAL SCH (09:04)
[2020-11-11] MEDS: Heparin 5000 units/ml inj SUBQ SCH (09:05)
--- NOTE | 2020-11-11 09:05 | Infectious Diseases Prog Note ---
Assessment/Plan 84yo M with: Afebrile Normal WBC COVID positive Acute hypoxia 2/2 COVID pna UTI 10/24 UA 40-60 WBC, UCx >100k gamma-Strep CXR: No acute process 10/25 COVID PCR pos 10/26 CXR: No acute process Abdominal tenderness on exam 10/25 Abd US: Negative for gallstones or dilated bile ducts. Hypoechoic les ions in the right hepatic lobe. These are nonspecific, neoplastic etiologies are among the differential. Recommend further evaluation with contrast CT as clinically indicated. Nonspecific heterogeneous hepatic echogenicity, could indicate hepatocellular disease. Hepatic and bilateral renal cysts. Note nonvisualization of the aorta and portions of the pancreas Cr 1.7 Alzheimer's dementia HTN HIV screen neg RPR neg Plan: Cont to monitor off abx OK to d/c COVID isolation given clinical improvement and >10 days out from diagnosis OK to d/c from ID standpoint Trend KAILEY, Na Trend temp curve 11/07 SP dex #10 10/30 SP RDV #5 10/29 SP CTX #5 for UTI Monitor CBC/CMP Monitor temp curve, hemodynamics Monitor resp status D/w RN Thank you for this consult. [facility] will continue to follow. Subjective Allergies: Coded Allergies: No Known Allergies (Unverified , 06/18/18) AF NAD on 2L Cr improving to 1.4 WBC wnl at 7.9 Objective Last 24 Hour Vital Signs Date Time Temp Pulse Resp B/P (MAP) Pulse Ox O2 Delivery O2 Flow Rate FiO2 11/11/20 04:00 98.2 106 20 77/82 (80) 92 11/11/20 00:00 97.0 104 18 114/82 (93) 92 11/10/20 21:00 Nasal Cannula 2.0 11/10/20 20:00 98.2 108 19 122/91 (101) 94 11/10/20 18:40 95 Nasal Cannula 2.0 28 11/10/20 16:00 96.4 122 19 108/90 (96) 94 11/10/20 12:00 97.8 96 19 113/57 (75) 98 11/10/20 09:57 103 124/83 Height (Feet): 6 Height (Inches): 1.00 Weight (Pounds): 140 Gen: NAD HEENT: NCAT Pulm: BL chest rise on venturi mask Abd: Non-distended Ext: No c/c/e Skin: No visible rashes Neuro: Awake Laboratory Tests Test 11/11/20 06:22 White Blood Count 7.9 K/UL (4.8-10.8) Red Blood Count 3.92 M/UL (4.70-6.10) L Hemoglobin 10.7 G/DL (14.2-18.0) L Hematocrit 35.8 % (42.0-52.0) L Mean Corpuscular Volume 91 FL (80-99) Mean Corpuscular Hemoglobin 27.4 PG (27.0-31.0) Mean Corpuscular Hemoglobin Concent 29.9 G/DL (32.0-36.0) L Red Cell Distribution Width 15.6 % (11.6-14.8) H Platelet Count 260 K/UL (150-450) Mean Platelet Volume 6.0 FL (6.5-10.1) L Neutrophils (%) (Auto) 78.5 % (45.0-75.0) H Lymphocytes (%) (Auto) 9.2 % (20.0-45.0) L Monocytes (%) (Auto) 11.3 % (1.0-10.0) H Eosinophils (%) (Auto) 0.1 % (0.0-3.0) Basophils (%) (Auto) 0.9 % (0.0-2.0) Sodium Level 145 MMOL/L (136-145) Potassium Level 3.9 MMOL/L (3.5-5.1) Chloride Level 107 MMOL/L (98-107) Carbon Dioxide Level 26 MMOL/L (21-32) Anion Gap 12 mmol/L (5-15) Blood Urea Nitrogen 44 mg/dL (7-18) H Creatinine 1.4 MG/DL (0.55-1.30) H Estimat Glomerular Filtration Rate 58.5 mL/min (>60) Glucose Level 111 MG/DL (74-106) H Uric Acid 7.7 MG/DL (2.6-7.2) H Calcium Level 8.8 MG/DL (8.5-10.1) Phosphorus Level 2.9 MG/DL (2.5-4.9) Total Bilirubin 0.6 MG/DL (0.2-1.0) Aspartate Amino Transf (AST/SGOT) 97 U/L (15-37) H Alanine Aminotransferase (ALT/SGPT) 62 U/L (12-78) Alkaline Phosphatase 44 U/L (46-116) L Total Protein 6.8 G/DL (6.4-8.2) Albumin 2.9 G/DL (3.4-5.0) L Globulin 3.9 g/dL Albumin/Globulin Ratio 0.7 (1.0-2.7) L Current Medications Medications (Trade) Dose Ordered Sig/Eva Route PRN Reason Start Time Stop Time Status Last Admin Dose Admin Albuterol/ Ipratropium (Combivent Respimat) 1 puff Q4H PRN INH Shortness of Breath 10/27/20 09:00 11/26/20 08:59 Amlodipine Besylate (Norvasc) 5 mg DAILY ORAL 10/25/20 09:00 11/24/20 08:59 11/10/20 09:57 Aspirin (ASA) 81 mg DAILY ORAL 11/07/20 10:00 12/22/20 09:59 11/10/20 09:56 Clonidine HCl (Catapres Tab) 0.1 mg Q2H PRN ORAL For High Blood Pressure 10/24/20 16:30 01/22/21 16:29 Dextrose 1,000 ml @ 125 mls/hr Q8H IV 11/10/20 10:00 12/10/20 09:59 11/11/20 03:00 Docusate Sodium (Colace) 100 mg TWICE A DAY ORAL 10/24/20 18:00 11/23/20 17:59 11/09/20 17:19 Heparin Sodium (Porcine) (Heparin 5000 units/ml) 5,000 units EVERY 12 HOURS SUBQ 10/24/20 21:00 12/08/20 20:59 11/10/20 20:27 Memantine (Namenda) 5 mg BID ORAL 10/26/20 09:00 11/25/20 08:59 11/10/20 09:56 Mirtazapine (Remeron) 7.5 mg BEDTIME ORAL 10/26/20 21:00 01/24/21 20:59 11/10/20 20:15 Pantoprazole (Protonix) 40 mg DAILY ORAL 10/25/20 09:00 11/24/20 08:59 11/10/20 09:56 Promethazine HCl/ Codeine (Phenergan with Codeine) 5 ml Q4H PRN ORAL For Cough 10/26/20 12:15 11/25/20 12:14 Theophylline (Ivan-Dur) 100 mg EVERY 12 HOURS ORAL 10/26/20 21:00 01/24/21 20:59 11/10/20 20:15 Lucia Gresham M.D. Nov 11, 2020 09:05
--- NOTE | 2020-11-11 11:00 | Psychiatry Consultation ---
Psychiatry Consultation Psychiatry Consultation Chief Complaint: Generalized Weakness History of Present Illness: You 84-year-old male patient failure to thrive he is at agitation irritability is also combative Tranmep a lot of nasal cannula and then has extreme mood lability and as well as attending physician is requested daily psychiatric consultation for this patient because of his mood lability agitation irritability and altered mental status his cognition has declined below his baseline Mental status examination: 84-year-old male appearance is disheveled at irritable agitated affect constricted intellect poor mood depressed anxious motor activity psychomotor agitation attention span is poor orientation x2 speech nonsensical thought process disorganized logical insight and judgment is poor Allergies: Coded Allergies: No Known Allergies (Unverified , 06/18/18) Medication History Scheduled Amlodipine Besylate* (Amlodipine Besylate*), 5 MG ORAL DAILY, (Reported) Aspirin* (Aspir 81*), 81 MG ORAL DAILY, (Reported) Scheduled PRN Albuterol Sulfate* (Albuterol Sulfate Mdi*), 2 PUFF INH Q4H PRN for cough/wheezing Melatonin (Melatonin 5 Mg Tablet), 1 TAB ORAL BEDTIME PRN for Insomnia, (Reported) Tramadol Hcl* (Ultram*), 50 MG ORAL BID PRN for For Pain, (Reported) Zolpidem Tartrate* (Ambien*), 5 MG ORAL BEDTIME PRN for Insomnia, (Reported) Objective Data Height (Feet): 6 Height (Inches): 1.00 Weight (Pounds): 140 Assessment/Plan Assessment/Plan: Plan is to add Remeron 7.5 mg nightly for depression and also to increase his appetite also Ativan 0.5 mg every 6 hours. 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
--- NOTE | 2020-11-11 11:55 | Pulmonology Progress Note ---
Subjective ROS Limited/Unobtainable: Yes Constitutional: Reports: no symptoms HEENT: Repors: no symptoms Allergies: Coded Allergies: No Known Allergies (Unverified , 06/18/18) Objective Last 24 Hour Vital Signs Date Time Temp Pulse Resp B/P (MAP) Pulse Ox O2 Delivery O2 Flow Rate FiO2 11/11/20 09:34 90 20 130/70 96 11/11/20 09:04 100 20 148/72 95 11/11/20 09:04 95 148/73 11/11/20 09:00 Nasal Cannula 2.0 11/11/20 08:00 97.1 96 18 143/66 (91) 92 11/11/20 04:00 98.2 106 20 77/82 (80) 92 11/11/20 00:00 97.0 104 18 114/82 (93) 92 11/10/20 21:00 Nasal Cannula 2.0 11/10/20 20:00 98.2 108 19 122/91 (101) 94 11/10/20 18:40 95 Nasal Cannula 2.0 28 11/10/20 16:00 96.4 122 19 108/90 (96) 94 11/10/20 12:00 97.8 96 19 113/57 (75) 98 Intake and Output 11/10/20 11/11/20 19:00 07:00 Intake Total 100 ml Output Total 200 ml Balance -200 ml 100 ml Intake Oral 100 ml Output Urine Total 200 ml # Voids 1 2 # Bowel Movements 1 General Appearance: cachetic, other - awake, responsive elderly AA male HEENT: normocephalic, atraumatic, anicteric, other - O2 via NC Respiratory: chest wall non-tender, lungs clear - with decreased BS Cardiovascular: normal peripheral pulses, regular rhythm Abdomen: normal bowel sounds, soft, non tender Genitourinary: normal external genitalia Extremities: no edema Skin: no lesions Neurologic: alert, responsive Musculoskeletal: atrophy - BLE Laboratory Tests 11/11/20 06:22: White Blood Count 7.9, Red Blood Count 3.92L, Hemoglobin 10.7L, Hematocrit 35.8L , Mean Corpuscular Volume 91, Mean Corpuscular Hemoglobin 27.4, Mean Corpuscular Hemoglobin Concent 29.9L, Red Cell Distribution Width 15.6H, Platelet Count 260, Mean Platelet Volume 6.0L, Neutrophils (%) (Auto) 78.5H, Lymphocytes (%) (Auto) 9.2L, Monocytes (%) (Auto) 11.3H, Eosinophils (%) (Auto) 0.1, Basophils (%) (Auto) 0.9, Sodium Level 145, Potassium Level 3.9, Chloride Level 107, Carbon Dioxide Level 26, Anion Gap 12, Blood Urea Nitrogen 44H, Creatinine 1.4H, Estimat Glomerular Filtration Rate 58.5, Glucose Level 111H, Uric Acid 7.7H, Calcium Level 8.8, Phosphorus Level 2.9, Total Bilirubin 0.6, Aspartate Amino Transf (AST/SGOT) 97H, Alanine Aminotransferase (ALT/SGPT) 62, Alkaline Phosphatase 44L, Total Protein 6.8, Albumin 2.9L, Globulin 3.9, Albumin/Globulin Ratio 0.7L Current Medications Medications (Trade) Dose Ordered Sig/Eva Route PRN Reason Start Time Stop Time Status Last Admin Dose Admin Albuterol/ Ipratropium (Combivent Respimat) 1 puff Q4H PRN INH Shortness of Breath 10/27/20 09:00 11/26/20 08:59 Amlodipine Besylate (Norvasc) 5 mg DAILY ORAL 10/25/20 09:00 11/24/20 08:59 11/11/20 09:04 Aspirin (ASA) 81 mg DAILY ORAL 11/07/20 10:00 12/22/20 09:59 11/11/20 09:04 Clonidine HCl (Catapres Tab) 0.1 mg Q2H PRN ORAL For High Blood Pressure 10/24/20 16:30 01/22/21 16:29 Dextrose 1,000 ml @ 125 mls/hr Q8H IV 11/10/20 10:00 12/10/20 09:59 11/11/20 09:56 Docusate Sodium (Colace) 100 mg TWICE A DAY ORAL 10/24/20 18:00 11/23/20 17:59 11/11/20 09:04 Heparin Sodium (Porcine) (Heparin 5000 units/ml) 5,000 units EVERY 12 HOURS SUBQ 10/24/20 21:00 12/08/20 20:59 11/11/20 09:05 Memantine (Namenda) 5 mg BID ORAL 10/26/20 09:00 11/25/20 08:59 11/11/20 09:04 Mirtazapine (Remeron) 7.5 mg BEDTIME ORAL 10/26/20 21:00 01/24/21 20:59 11/10/20 20:15 Pantoprazole (Protonix) 40 mg DAILY ORAL 10/25/20 09:00 11/24/20 08:59 11/11/20 09:41 Promethazine HCl/ Codeine (Phenergan with Codeine) 5 ml Q4H PRN ORAL For Cough 10/26/20 12:15 11/25/20 12:14 Theophylline (Ivan-Dur) 100 mg EVERY 12 HOURS ORAL 10/26/20 21:00 01/24/21 20:59 11/11/20 09:04 Assessment/Plan Problems: (1) 2019 novel coronavirus disease (COVID-19) (2) Purulent bronchitis (3) COPD (chronic obstructive pulmonary disease) (4) KAILEY (acute kidney injury) (5) Hypernatremia (6) At high risk for aspiration (7) Dementia (8) Severe protein-calorie malnutrition Assessment/Plan no new complains creatinine is up, start on IV fluids ID cleared for discharge no new complains improving on nasal cannula respiratory treatment aspiration precaution swallow study: MODIFIED TEXTURE DIET: PUREE WITH NECTAR THICK LIQUIDS titrate fio2 to sat of 92% antitussives check electrolytes dvt prophylaxis. dc planning Cinda Drummond MD Nov 11, 2020 11:55
[2020-11-11 12:00] VITALS: BP 135/70
--- NOTE | 2020-11-11 13:26 | NUR ---
RD ASSESSMENT & RECOMMENDATIONS SEE CARE ACTIVITY FOR COMPLETE ASSESSMENT DAILY ESTIMATED NEEDS: Needs based on Underweight, wasting 51kg 30-35 kcals/kg 5704-9524 total kcals 1-1.5 g protein/kg 51-76 g total protein 25-30 mL/kg 7243-9865 total fluid mLs NUTRITION DIAGNOSIS: Increased kcal and pro needs r/t underweight, wasting, wt loss as evidenced by pt w/ generalized moderate wasting, @ 79% of ideal body weight w/ low BMI of 18.1, pt w/ suspected significant wt loss of 11 lbs/8.9% in <6 months. . 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
--- NOTE | 2020-11-11 13:44 | NUR ---
[employer] NOTES SPOKE WITH PT'S GRAND DAUGHTER JAYNA, DECLINES SNF PLACEMENT AT THIS TIME. STATED SHE TAKES CARE OF HER GRAND FATHER AND WILL PROVIDE 24 HOUR CARE FOR HIM AT HOME. MADE AWARE.
--- NOTE | 2020-11-11 14:09 | NUR ---
NURSE NOTES: Contacted Dr. Drummond and Rn given order for patient to be discharge with home meds
--- NOTE | 2020-11-11 14:12 | Nephrology Progress Note ---
Assessment/Plan Problem List: (1) KAILEY (acute kidney injury) (2) Hypernatremia (3) Hypertension (4) UTI (urinary tract infection) (5) Dementia Assessment Acute renal failure, dehydration Hypernatremia secondary to free water deficit Failure to thrive UTI Hypertension Alzheimer dementia COPD Plan November 11: Labs reviewed. Serum creatinine down to 1.4. Continue current management. Continue to monitor renal parameters. November 10: Labs reviewed. Serum creatinine up to 1.8. IV hydration started. Continue to monitor renal parameters. Continue per consultants. November 09: No chemistry panel drawn today. Will check labs tomorrow. Continue per consultants November 08: Labs reviewed. Renal parameters stable. Continue per consultants. November 07: No labs drawn today. Will check lab tomorrow. Continue to monitor renal parameters. November 06: Labs reviewed. Abnormal electrolytes addressed. Continue per current management. Continue per consultants. November 05: No labs drawn today. Will check lab tomorrow. Medication list reviewed. Continue per consultants. November 04: No labs drawn today. Continue per consultants. Most recent renal parameters are stable. November 03: Labs reviewed. Electrolytes and renal parameters stable. November 02: Labs are reviewed. Low potassium replaced. Continue as is. November 01: Labs reviewed. Slightly elevated serum potassium most likely due to hemolysis since renal parameters are stable. Continue per consultants. Continue to monitor electrolytes and renal parameters. October 31: Labs reviewed. Low phosphorus replaced. Renal parameters are stable. Continue per consultants. October 30: Labs reviewed. Low potassium replaced. Serum sodium normalized. Will DC IV fluid. Continue to monitor renal parameters and electrolytes. October 29: Labs reviewed. Stable from renal standpoint of view. Serum creatinine 1. Continue per consultants. October 28: Labs reviewed. Abnormal electrolytes reviewed and addressed. Continue per current management. October 27: Labs reviewed. Further improvement of hypernatremia and serum creatinine. Continue same management. October 26: Labs reviewed. Serum sodium gradually lowering. Serum creatinine 1.4. Continue monitor renal parameters. October 25: Serum creatinine now within normal limit. Hypernatremia persists. Continue IV D5W. Continue to monitor electrolytes. Patient full code Free water in the form of D5W at 75 cc an hour IV Monitor renal parameters and electrolytes Keep the blood pressure and blood sugar in check Per orders Subjective ROS Limited/Unobtainable: No Constitutional: Reports: malaise Objective Objective Last 24 Hour Vital Signs Date Time Temp Pulse Resp B/P (MAP) Pulse Ox O2 Delivery O2 Flow Rate FiO2 11/11/20 12:00 96.9 90 18 135/70 (91) 94 11/11/20 09:34 90 20 130/70 96 11/11/20 09:32 96 Nasal Cannula 2.0 28 11/11/20 09:04 100 20 148/72 95 11/11/20 09:04 95 148/73 11/11/20 09:00 Nasal Cannula 2.0 11/11/20 08:00 97.1 96 18 143/66 (91) 92 11/11/20 04:00 98.2 106 20 77/82 (80) 92 11/11/20 00:00 97.0 104 18 114/82 (93) 92 11/10/20 21:00 Nasal Cannula 2.0 11/10/20 20:00 98.2 108 19 122/91 (101) 94 11/10/20 18:40 95 Nasal Cannula 2.0 28 11/10/20 16:00 96.4 122 19 108/90 (96) 94 Intake and Output 11/10/20 11/11/20 19:00 07:00 Intake Total 100 ml Output Total 200 ml Balance -200 ml 100 ml Intake Oral 100 ml Output Urine Total 200 ml # Voids 1 2 # Bowel Movements 1 Current Medications Medications (Trade) Dose Ordered Sig/Eva Route PRN Reason Start Time Stop Time Status Last Admin Dose Admin Albuterol/ Ipratropium (Combivent Respimat) 1 puff Q4H PRN INH Shortness of Breath 10/27/20 09:00 11/26/20 08:59 Amlodipine Besylate (Norvasc) 5 mg DAILY ORAL 10/25/20 09:00 11/24/20 08:59 11/11/20 09:04 Aspirin (ASA) 81 mg DAILY ORAL 11/07/20 10:00 12/22/20 09:59 11/11/20 09:04 Clonidine HCl (Catapres Tab) 0.1 mg Q2H PRN ORAL For High Blood Pressure 10/24/20 16:30 01/22/21 16:29 Dextrose 1,000 ml @ 125 mls/hr Q8H IV 11/10/20 10:00 12/10/20 09:59 11/11/20 09:56 Docusate Sodium (Colace) 100 mg TWICE A DAY ORAL 10/24/20 18:00 11/23/20 17:59 11/11/20 09:04 Heparin Sodium (Porcine) (Heparin 5000 units/ml) 5,000 units EVERY 12 HOURS SUBQ 10/24/20 21:00 12/08/20 20:59 11/11/20 09:05 Memantine (Namenda) 5 mg BID ORAL 10/26/20 09:00 11/25/20 08:59 11/11/20 09:04 Mirtazapine (Remeron) 7.5 mg BEDTIME ORAL 10/26/20 21:00 01/24/21 20:59 11/10/20 20:15 Pantoprazole (Protonix) 40 mg DAILY ORAL 10/25/20 09:00 11/24/20 08:59 11/11/20 09:41 Promethazine HCl/ Codeine (Phenergan with Codeine) 5 ml Q4H PRN ORAL For Cough 10/26/20 12:15 11/25/20 12:14 Theophylline (Ivan-Dur) 100 mg EVERY 12 HOURS ORAL 10/26/20 21:00 01/24/21 20:59 11/11/20 09:04 Laboratory Tests 11/11/20 06:22: White Blood Count 7.9, Red Blood Count 3.92L, Hemoglobin 10.7L, Hematocrit 35.8L , Mean Corpuscular Volume 91, Mean Corpuscular Hemoglobin 27.4, Mean Corpuscular Hemoglobin Concent 29.9L, Red Cell Distribution Width 15.6H, Platelet Count 260, Mean Platelet Volume 6.0L, Neutrophils (%) (Auto) 78.5H, Lymphocytes (%) (Auto) 9.2L, Monocytes (%) (Auto) 11.3H, Eosinophils (%) (Auto) 0.1, Basophils (%) (Auto) 0.9, Sodium Level 145, Potassium Level 3.9, Chloride Level 107, Carbon Dioxide Level 26, Anion Gap 12, Blood Urea Nitrogen 44H, Creatinine 1.4H, Estimat Glomerular Filtration Rate 58.5, Glucose Level 111H, Uric Acid 7.7H, Calcium Level 8.8, Phosphorus Level 2.9, Total Bilirubin 0.6, Aspartate Amino Transf (AST/SGOT) 97H, Alanine Aminotransferase (ALT/SGPT) 62, Alkaline Phosphatase 44L, Total Protein 6.8, Albumin 2.9L, Globulin 3.9, Albumin/Globulin Ratio 0.7L Height (Feet): 6 Height (Inches): 1.00 Weight (Pounds): 140 General Appearance: no apparent distress Cardiovascular: tachycardia Respiratory/Chest: decreased breath sounds Abdomen: distended Damian Webb MD Nov 11, 2020 14:12
--- NOTE | 2020-11-11 14:24 | Consultation ---
History of Present Illness General Date patient seen: Nov 11, 2020 Reason for Hospitalization: Generalized Weakness Present Illness HPI 84 year old male currently admitted with prior covid off isolation who is malnourished and chronically ill elderly male noted to have breakdown. surgery called to evaluate and assist with care. Allergies: Coded Allergies: No Known Allergies (Unverified , 06/18/18) COVID-19 Screening Contact w/high risk pt: No Recent Travel to affected area: No Experienced COVID-19 symptoms?: Yes Coronavirus symptoms experienc: Cough Medication History Scheduled Amlodipine Besylate* (Amlodipine Besylate*), 5 MG ORAL DAILY, (Reported) Aspirin* (Aspir 81*), 81 MG ORAL DAILY, (Reported) Scheduled PRN Albuterol Sulfate* (Albuterol Sulfate Mdi*), 2 PUFF INH Q4H PRN for cough/wheezi ng Melatonin (Melatonin 5 Mg Tablet), 1 TAB ORAL BEDTIME PRN for Insomnia, (Reported) Tramadol Hcl* (Ultram*), 50 MG ORAL BID PRN for For Pain, (Reported) Zolpidem Tartrate* (Ambien*), 5 MG ORAL BEDTIME PRN for Insomnia, (Reported) Patient History Limited by: medical condition History Provided By: Medical Record, PMD Healthcare decision maker Resuscitation status Advanced Directive on File Past Medical/Surgical History Past Medical/Surgical History: (1) Purulent bronchitis (2) COPD (chronic obstructive pulmonary disease) (3) 2019 novel coronavirus disease (COVID-19) (4) At high risk for aspiration (5) Psychotic disorder (6) ACS (acute coronary syndrome) (7) Chest pain (8) Hypernatremia (9) Severe protein-calorie malnutrition (10) KAILEY (acute kidney injury) (11) UTI (urinary tract infection) (12) Delirium (13) Dementia (14) Hypertension Review of Systems Review of Symptoms General ROS: no weight loss or fever Psychological ROS: no depression or mood changes, no memory loss Ophthalmic ROS: no visual changes or eye irritation ENT ROS: no nasal congestion, hearing loss, dizziness Allergy and Immunology ROS: no allergic symptoms or urticaria Hematological and Lymphatic ROS: no swollen glands, unusual bleeding or bruising Endocrine ROS: no polyuria, polydipsia, weight changes, temperature intolerance Respiratory ROS: no cough, shortness of breath, or wheezing Cardiovascular ROS: no chest pain or dyspnea on exertion Gastrointestinal ROS: denies abdominal pain, bright red blood in stool. Musculoskeletal ROS: no myalgias or arthralgias Neurological ROS: no TIA or stroke symptoms Dermatological ROS: no new or changing skin lesions, rashes or pruritis limited given condition Physical Exam Physical Exam General appearance: alert, cooperative, no distress, appears stated age Head: Normocephalic, without obvious abnormality, atraumatic Eyes: conjunctivae/corneas clear. PERRL, EOM's intact. Fundi benign Throat: Lips, mucosa, and tongue normal. Teeth and gums normal Neck: supple, symmetrical, trachea midline, no adenopathy, thyroid: not enl arged, symmetric, no tenderness/mass/nodules, no carotid bruit and no JVD Lungs: clear to auscultation bilaterally Heart: regular rate and rhythm, S1, S2 normal, no murmur, click, rub or gallop Abdomen: soft, non-tender. Bowel sounds normal. No masses, no organomegaly Extremities: extremities normal, atraumatic, no cyanosis or edema Pulses: 2+ and symmetric Skin: Skin see below Neurologic: Grossly normal Last 24 Hour Vital Signs Date Time Temp Pulse Resp B/P (MAP) Pulse Ox O2 Delivery O2 Flow Rate FiO2 11/11/20 12:00 96.9 90 18 135/70 (91) 94 11/11/20 09:34 90 20 130/70 96 11/11/20 09:32 96 Nasal Cannula 2.0 28 11/11/20 09:04 100 20 148/72 95 11/11/20 09:04 95 148/73 11/11/20 09:00 Nasal Cannula 2.0 11/11/20 08:00 97.1 96 18 143/66 (91) 92 11/11/20 04:00 98.2 106 20 77/82 (80) 92 11/11/20 00:00 97.0 104 18 114/82 (93) 92 11/10/20 21:00 Nasal Cannula 2.0 11/10/20 20:00 98.2 108 19 122/91 (101) 94 11/10/20 18:40 95 Nasal Cannula 2.0 28 11/10/20 16:00 96.4 122 19 108/90 (96) 94 Intake and Output 11/10/20 11/11/20 19:00 07:00 Intake Total 100 ml Output Total 200 ml Balance -200 ml 100 ml Intake Oral 100 ml Output Urine Total 200 ml # Voids 1 2 # Bowel Movements 1 Laboratory Tests Test 11/11/20 06:22 White Blood Count 7.9 K/UL (4.8-10.8) Red Blood Count 3.92 M/UL (4.70-6.10) L Hemoglobin 10.7 G/DL (14.2-18.0) L Hematocrit 35.8 % (42.0-52.0) L Mean Corpuscular Volume 91 FL (80-99) Mean Corpuscular Hemoglobin 27.4 PG (27.0-31.0) Mean Corpuscular Hemoglobin Concent 29.9 G/DL (32.0-36.0) L Red Cell Distribution Width 15.6 % (11.6-14.8) H Platelet Count 260 K/UL (150-450) Mean Platelet Volume 6.0 FL (6.5-10.1) L Neutrophils (%) (Auto) 78.5 % (45.0-75.0) H Lymphocytes (%) (Auto) 9.2 % (20.0-45.0) L Monocytes (%) (Auto) 11.3 % (1.0-10.0) H Eosinophils (%) (Auto) 0.1 % (0.0-3.0) Basophils (%) (Auto) 0.9 % (0.0-2.0) Sodium Level 145 MMOL/L (136-145) Potassium Level 3.9 MMOL/L (3.5-5.1) Chloride Level 107 MMOL/L (98-107) Carbon Dioxide Level 26 MMOL/L (21-32) Anion Gap 12 mmol/L (5-15) Blood Urea Nitrogen 44 mg/dL (7-18) H Creatinine 1.4 MG/DL (0.55-1.30) H Estimat Glomerular Filtration Rate 58.5 mL/min (>60) Glucose Level 111 MG/DL (74-106) H Uric Acid 7.7 MG/DL (2.6-7.2) H Calcium Level 8.8 MG/DL (8.5-10.1) Phosphorus Level 2.9 MG/DL (2.5-4.9) Total Bilirubin 0.6 MG/DL (0.2-1.0) Aspartate Amino Transf (AST/SGOT) 97 U/L (15-37) H Alanine Aminotransferase (ALT/SGPT) 62 U/L (12-78) Alkaline Phosphatase 44 U/L (46-116) L Total Protein 6.8 G/DL (6.4-8.2) Albumin 2.9 G/DL (3.4-5.0) L Globulin 3.9 g/dL Albumin/Globulin Ratio 0.7 (1.0-2.7) L Height (Feet): 6 Height (Inches): 1.00 Weight (Pounds): 140 Medications Current Medications Medications (Trade) Dose Ordered Sig/Eva Route PRN Reason Start Time Stop Time Status Last Admin Dose Admin Albuterol/ Ipratropium (Combivent Respimat) 1 puff Q4H PRN INH Shortness of Breath 10/27/20 09:00 11/26/20 08:59 Amlodipine Besylate (Norvasc) 5 mg DAILY ORAL 10/25/20 09:00 11/24/20 08:59 11/11/20 09:04 Aspirin (ASA) 81 mg DAILY ORAL 11/07/20 10:00 12/22/20 09:59 11/11/20 09:04 Clonidine HCl (Catapres Tab) 0.1 mg Q2H PRN ORAL For High Blood Pressure 10/24/20 16:30 01/22/21 16:29 Dextrose 1,000 ml @ 125 mls/hr Q8H IV 11/10/20 10:00 12/10/20 09:59 11/11/20 09:56 Docusate Sodium (Colace) 100 mg TWICE A DAY ORAL 10/24/20 18:00 11/23/20 17:59 11/11/20 09:04 Heparin Sodium (Porcine) (Heparin 5000 units/ml) 5,000 units EVERY 12 HOURS SUBQ 10/24/20 21:00 12/08/20 20:59 11/11/20 09:05 Memantine (Namenda) 5 mg BID ORAL 10/26/20 09:00 11/25/20 08:59 11/11/20 09:04 Mirtazapine (Remeron) 7.5 mg BEDTIME ORAL 10/26/20 21:00 01/24/21 20:59 11/10/20 20:15 Pantoprazole (Protonix) 40 mg DAILY ORAL 10/25/20 09:00 11/24/20 08:59 11/11/20 09:41 Promethazine HCl/ Codeine (Phenergan with Codeine) 5 ml Q4H PRN ORAL For Cough 10/26/20 12:15 11/25/20 12:14 Theophylline (Ivan-Dur) 100 mg EVERY 12 HOURS ORAL 10/26/20 21:00 01/24/21 20:59 11/11/20 09:04 Assessment/Plan Problem List: (1) Purulent bronchitis ICD Codes: J41.1 - Mucopurulent chronic bronchitis SNOMED: 70870514 (2) COPD (chronic obstructive pulmonary disease) ICD Codes: J44.9 - Chronic obstructive pulmonary disease, unspecified SNOMED: 00488601 (3) 2019 novel coronavirus disease (COVID-19) Assessment & Plan: ++ now >10days after tx off isolation ICD Codes: U07.1 - COVID-19 SNOMED: 026262833 (4) At high risk for aspiration ICD Codes: Z91.89 - Other specified personal risk factors, not elsewhere classified SNOMED: 548729578 (5) Psychotic disorder ICD Codes: F29 - Unspecified psychosis not due to a substance or known physiological condition SNOMED: 97932667 (6) ACS (acute coronary syndrome) ICD Codes: I24.9 - Acute ischemic heart disease, unspecified SNOMED: 290299384 (7) Chest pain ICD Codes: R07.9 - Chest pain, unspecified SNOMED: 89956374 (8) Hypernatremia ICD Codes: E87.0 - Hyperosmolality and hypernatremia SNOMED: 364092401 (9) Severe protein-calorie malnutrition Assessment & Plan: DAILY ESTIMATED NEEDS: Needs based on Underweight, wasting 51kg 30-35 kcals/kg 5099-7766 total kcals 1-1.5 g protein/kg 51-76 g total protein 25-30 mL/kg 1526-1554 total fluid mLs NUTRITION DIAGNOSIS: Increased kcal and pro needs r/t underweight, wasting, wt loss as evidenced by pt w/ generalized moderate wasting, @ 79% of ideal body weight w/ low BMI of 18.1, pt w/ suspected significant wt loss of 11 lbs/8.9% in <6 months. . CURRENT DIET:LOW NA, pureed moist PO DIET RECOMMENDATIONS: Liberalized regular/ texture as tolerated or per SCIENCE WRITER ENTERAL NUTRITION RECOMMENDATIONS: Consult RD if non oral feeds are part of POC to meet est nutritional needs ADDITIONAL RECOMMENDATIONS: 1) Monitor wt trend- suspected recent significant wt loss calibrated daily bedscale wts 2) Consider SCIENCE WRITER eval for appropriate texture-> cleared for puree 3) MVI x 1 4) Add Ensure Enlive TID w/ meals (350kcal/20g prot each) 5) Consider resume D5 IV to prevent hypoglycemia-> now @125ml/hr Offer and encourage HS snack, rec accuchecks for close BG monitoring ICD Codes: E43 - Unspecified severe protein-calorie malnutrition SNOMED: 376893066, 242680151, 261759417 (10) KAILEY (acute kidney injury) ICD Codes: N17.9 - Acute kidney failure, unspecified SNOMED: 19977583, 1454325 (11) UTI (urinary tract infection) ICD Codes: N39.0 - Urinary tract infection, site not specified SNOMED: 00320385 (12) Delirium ICD Codes: R41.0 - Disorientation, unspecified SNOMED: 1861946 (13) Dementia ICD Codes: F03.90 - Unspecified dementia without behavioral disturbance SNOMED: 81133145 (14) Hypertension ICD Codes: I10 - Essential (primary) hypertension SNOMED: 93874317 (15) Decubitus skin ulcer Assessment & Plan: identified during admission for covid treatment plan initiated will follw with recs ICD Codes: L89.90 - Pressure ulcer of unspecified site, unspecified stage SNOMED: 656744759 Dann Cordova Nov 11, 2020 14:24
--- NOTE | 2020-11-11 14:36 | NUR ---
NURSE NOTES:WOUND CARE NOTES:Pt presents with clusters of open Blisters across L Buttocks to L trochanteric area . Few opened blisters noted to outer L gluteus. Small amt serous exudate noted Pt yelled and became physically aggressive whenever staff attempted to clean wounds. No evidence of skin breakdown noted to Sacrum or heels. Tx.Plan: Please F/U with PCP for orders for Blisters L Buttock/L hip. Apply Moisture Barrier Paste to Sacrum. Cover with Optifoam drsg. Change every 3 days and prn. Apply Cavilon Skin Barrier to both Heels. Cover each heel with Optifoam drsg. Change every 7 days and prn. Reposition at least every 2hours or as tolerated.
--- NOTE | 2020-11-11 15:30 | NUR ---
NURSE NOTES: Patient discharge in stable condition. Patient was picked up by son Miguel Osseo. IV site removed from patient. Patient to continue home meds. RN spoke with son and gave education on patients ADL activities. Packets printed out. Patient unable to sign belongings list. Patient escorted off of floor safely and onto patients son's vehicle
--- NOTE | 2020-11-11 20:01 | Cardiac Electrophysiology PN ---
Assessment/Plan Assessment/Plan 1. Hypertension. Continue amlodipine 5 mg daily and p.r.n. clonidine 2. Severe dehydration with hypernatremia and azotemia. Patient's sodium was 160 and creatinine of 1.7. Sodium improved to 141, BUN of 14, creatinine of 0.9 on IV fluid. 3. Elevated troponin and Poor R-wave progression on the EKG. No chest pain. EF 50%. Repeat troponin negative 4. Alzheimer dementia. 5. Covid PNA. Cleared by ID to DC isolation per RN DENISSE RN DC to SNIF pending Subjective Subjective In restraints on NC off isolation. DC planning in progress Objective Last 24 Hour Vital Signs Date Time Temp Pulse Resp B/P (MAP) Pulse Ox O2 Delivery O2 Flow Rate FiO2 11/11/20 12:00 96.9 90 18 135/70 (91) 94 11/11/20 09:34 90 20 130/70 96 11/11/20 09:32 96 Nasal Cannula 2.0 28 11/11/20 09:04 100 20 148/72 95 11/11/20 09:04 95 148/73 11/11/20 09:00 Nasal Cannula 2.0 11/11/20 08:00 97.1 96 18 143/66 (91) 92 11/11/20 04:00 98.2 106 20 77/82 (80) 92 11/11/20 00:00 97.0 104 18 114/82 (93) 92 11/10/20 21:00 Nasal Cannula 2.0 l Intake and Output 11/10/20 11/11/20 19:00 07:00 Intake Total 100 ml Output Total 200 ml Balance -200 ml 100 ml Intake Oral 100 ml Output Urine Total 200 ml # Voids 1 2 # Bowel Movements 1 Laboratory Tests Test 11/11/20 06:22 White Blood Count 7.9 K/UL (4.8-10.8) Red Blood Count 3.92 M/UL (4.70-6.10) L Hemoglobin 10.7 G/DL (14.2-18.0) L Hematocrit 35.8 % (42.0-52.0) L Mean Corpuscular Volume 91 FL (80-99) Mean Corpuscular Hemoglobin 27.4 PG (27.0-31.0) Mean Corpuscular Hemoglobin Concent 29.9 G/DL (32.0-36.0) L Red Cell Distribution Width 15.6 % (11.6-14.8) H Platelet Count 260 K/UL (150-450) Mean Platelet Volume 6.0 FL (6.5-10.1) L Neutrophils (%) (Auto) 78.5 % (45.0-75.0) H Lymphocytes (%) (Auto) 9.2 % (20.0-45.0) L Monocytes (%) (Auto) 11.3 % (1.0-10.0) H Eosinophils (%) (Auto) 0.1 % (0.0-3.0) Basophils (%) (Auto) 0.9 % (0.0-2.0) Sodium Level 145 MMOL/L (136-145) Potassium Level 3.9 MMOL/L (3.5-5.1) Chloride Level 107 MMOL/L (98-107) Carbon Dioxide Level 26 MMOL/L (21-32) Anion Gap 12 mmol/L (5-15) Blood Urea Nitrogen 44 mg/dL (7-18) H Creatinine 1.4 MG/DL (0.55-1.30) H Estimat Glomerular Filtration Rate 58.5 mL/min (>60) Glucose Level 111 MG/DL (74-106) H Uric Acid 7.7 MG/DL (2.6-7.2) H Calcium Level 8.8 MG/DL (8.5-10.1) Phosphorus Level 2.9 MG/DL (2.5-4.9) Total Bilirubin 0.6 MG/DL (0.2-1.0) Aspartate Amino Transf (AST/SGOT) 97 U/L (15-37) H Alanine Aminotransferase (ALT/SGPT) 62 U/L (12-78) Alkaline Phosphatase 44 U/L (46-116) L Total Protein 6.8 G/DL (6.4-8.2) Albumin 2.9 G/DL (3.4-5.0) L Globulin 3.9 g/dL Albumin/Globulin Ratio 0.7 (1.0-2.7) L Objective HEAD AND NECK: No JVD. LUNGS: Clear. CARDIOVASCULAR: Shows regular S1 and S2 with no gallop. ABDOMEN: Soft. EXTREMITIES: No pitting edema. Maurilio Lares MD Nov 11, 2020 20:01
== END 2020-11-11 15:29 | disposition home or self-care (01) | DRG 177 ==
LOC: EMR 10:44 → 4E 10:48 → EDBEDREQ 12:02 → 3E 10-25 02:48 → 4E 10-25 11:11
DX: U07.1 COVID-19 (principal); E43 Unspecified severe protein-calorie malnutrition; J12.89 Other viral pneumonia; N17.9 Acute kidney failure, unspecified; N39.0 Urinary tract infection, site not specified; E87.0 Hyperosmolality and hypernatremia; J44.0 Chronic obstructive pulmonary disease with (acute) lower respiratory infection; F33.3 Major depressive disorder, recurrent, severe with psychotic symptoms; Z68.1 Body mass index [BMI] 19.9 or less, adult; I24.9 Acute ischemic heart disease, unspecified; E86.0 Dehydration; I10 Essential (primary) hypertension; G30.9 Alzheimer's disease, unspecified; F02.80 Dementia in other diseases classified elsewhere, unspecified severity, without behavioral disturbance, psychotic disturbance, mood disturbance, and anxiety; R09.02 Hypoxemia; D64.9 Anemia, unspecified; R62.7 Adult failure to thrive; E11.9 Type 2 diabetes mellitus without complications; L89.90 Pressure ulcer of unspecified site, unspecified stage; R00.1 Bradycardia, unspecified
CPT/HCPCS: 36415; 71045; 76700; 80048; 80053; 80061; 80076; 81003; 82140; 82248; 82607; 82728; 82746; 82803; 82977; 83036; 83540; 83550; 83690; 83735; 83880; 84100; 84425; 84443; 84484; 84550; 85007; 85025; 85379; 86140; 86592; 86703; 87086; 92610; 93005; 93306; 96361; 96365; 99285; C9399; J3490; J7030; J8499